=== PATIENT | male | born 1955 | race Caucasian/White ===

== ENCOUNTER → 2019-03-21 14:34 | Outpatient (CLI) | payer MEDICARE, SELFPAY ==
--- NOTE | 2019-03-21 14:46 | CT_ITS ---
STUDY: LOW DOSE CT LUNG CANCER SCREENING REASON FOR EXAM: Male, 63 years old. TOBACCO USE- RV=619, 48 YR SMOKER X 2 PPD, COPD RADIATION DOSAGE (If Supplied By Facility): CTDIvol = ( 3.40 ) mGy, DLP = ( 123.78 ) mGycm TECHNIQUE: No contrast was administered. Low dose technique was utilized (average mAS-38 and kVp 120). 1.25 mm axial source images with a slice interval of 1.25-mm were reconstructed in lung windows. 2.5 mm axial source images with a slice interval of 2.5-mm were reconstructed in lung windows. 5.0 mm axial source images with a slice interval of 5.0-mm were reconstructed in soft tissue windows. Nodule measured using lung windows on PACS and/or independent workstation with automated measurement of minimum and maximum diameter. Nodule measurement reported as average diameter rounded to the nearest whole number. Growth is defined as an increase ins size of greater than 1.5 mm. COMPARISON: None. There is hyperinflation of the lungs consistent with chronic obstructive lung disease (COPD), with asymmetry and slightly more prominent on the left compared to the right.. Mild interstitial thickening and scarring in extending to the pleural surfaces present in the medial apex of the right upper lobe. Mild emphysematous cystic changes are present in the bilateral upper lobes. Mild linear scarring in is present in the costophrenic angle of the right lower lobe. Nodules: A 1.52 cm stellate shaped nodular density is present in the medial aspect of the left upper lobe see image #[id number]. The nodule is not completely solid and is favored to represent postinflammatory scarring rather than a suspicious lesion, however, correlation with nuclear medicine PET scan is recommended for further assessment of the metabolic activity in this region. Otherwise no additional nodules seen in either lung. Normal heart size and pericardium. Normal mediastinum. Normal hilar regions. Normal unenhanced pulmonary arteries. There is atherosclerotic calcification of the aortic arch with tortuosity and elongation of the aortic arch and descending thoracic aorta. There are multi-level degenerative changes of the thoracic spine. Visualization of the upper abdominal region limited as no soft tissue windows were acquired. No significant abnormality is detected. CT/Low Dose CT Lung Screening IMPRESSION: 1. 1.52 cm semisolid stellate-shaped nodular density of the left upper lobe 2. COPD and mild emphysema. 3. Lung-RADS category 4B - Chest CT with or without contrast, PET/CT and/or tissue sampling can be obtained depending on the probability of malignancy and comorbidities. IMPORTANT NOTES FOR USE: ACR Lung-RADS Version 1.0 Assessment Categories Release Date: August 15, 2013 Category: Coded 0-4 bases on nodule(s) with highest degree of suspicion. Negative screen is defined as categories 1 and 2; a positive screen is defined as categories 3 and 4. Category 3 and 4A nodules that are unchanged on interval CT should be coded as category 2, and individuals returned to screening in 12 months. Category 4X: Category 3 or 4 nodules with additional imaging findings that increase the suspicion of lung cancer, such as spiculation, GGN that doubles in size in 1 year, enlarged lymph notes, etc. Category Modifiers: S (significant finding unrelated to lung cancer) and C (prior history of treated lung cancer) may be added to the 0-4 Lung-RADS Electronically Signed: Moe Tam MD at 14:01 EST , Service support ,
== END ==
PROVIDERS: Family Provider Internal Medicine; PCP Internal Medicine; Referring Provider Internal Medicine Pulmonary Disease; Visit Provider Internal Medicine Pulmonary Disease
DX: Z87.891 Personal history of nicotine dependence (principal); Z12.2 Encounter for screening for malignant neoplasm of respiratory organs
CPT/HCPCS: G0297

== ENCOUNTER → 2019-06-23 17:46 | Outpatient (CLI) | payer MEDICARE, SELFPAY ==
--- NOTE | 2019-06-23 17:50 | CT_ITS ---
STUDY: CT CHEST WITH CONTRAST REASON FOR EXAM: Male, 64 years old. F/U LUNG NODULE -- +HTN-RX CONTROLLED,COPD RADIATION DOSAGE (If Supplied By Facility): CTDIvol = ( 15.34 ) mGy, DLP = ( 671.45 ) mGycm TECHNIQUE: Transaxial imaging was performed following intravenous administration of IV 100mL Isovue-300. Individualized dose optimization techniques were used for this CT. COMPARISON: 03/21/2019 FINDINGS: Mild emphysematous changes. Interval increase in size of the spiculated nodule left upper lobe the lungs from 1.5 cm diameter 1.8 cm diameter worrisome for bronchogenic carcinoma. Correlation with PET CT scan is recommended. There is no demonstrated pleural abnormality. Normal heart and pericardium. Normal mediastinum. Normal hilar regions. Normal enhanced pulmonary arteries. Normal aorta arch and descending thoracic aorta. Normal osseous structures. There is no demonstrated abnormality of the visualized upper abdomen. CT/Chest WITH Contrast IMPRESSION: Enlarging spiculated left upper lobe nodule worrisome for bronchogenic carcinoma in correlation with PET CT scan is recommended. Electronically Signed: Jayson Browne MD at 12:14 EST Tel , Service support ,
[2019-06-23 18:00] LABS: CREATININE FINGERSTICK 0.9 mg/dL (0.70-1.30); EGFR FINGERSTICK > 60.0000 mL/min (>60)
== END ==
PROVIDERS: PCP Internal Medicine; Referring Provider Internal Medicine Pulmonary Disease; Visit Provider Internal Medicine Pulmonary Disease
DX: R91.1 Solitary pulmonary nodule (principal)
CPT/HCPCS: 71260; Q9967

== ENCOUNTER → 2019-08-22 07:11 | Outpatient (CLI) | payer MEDICARE, MEDICAID, SELFPAY ==
--- NOTE | 2019-08-22 06:33 | PET_ITS ---
EXAMINATION: FDG PET-CT INDICATIONS: A 64-year-old male with reported history of pulmonary nodularity. COMPARISON EXAMINATION: CT of the chest report dated 06/23/2019 INDEX LESION SIZE SUV INTERPRETATION Left upper medial lung-left upper lobe 20.1-mm (frame 243) 8.6 Fulfills quantitative criteria for viable neoplasm, histopathologic analysis recommended TECHNIQUE: Following the intravenous administration of 16.5 mCi of F-18 deoxyglucose via the left antecubital fossa, multiplanar image acquisitions of the neck, chest, abdomen and pelvis to level of mid thigh, obtained at one hour post radiopharmaceutical administration contemporaneously interpreted with the current CT of the neck, chest, abdomen and pelvis, to level of mid thigh, dated 08/22/[address] of the chest report dated 06/23/2019 reveals: BLOOD GLUCOSE LEVEL:?? 93 mg/dl?HEIGHT:?68 inches?WEIGHT: 232 lbs. FINDINGS: 1. Focal increased FDG concentration is observed in the left upper medial lung-left upper lobe generating a calculated maximal standard uptake value of 8.6. The maximal axial diameter of the corresponding parenchymal density on review of CT of the chest dated 08/22/2019 is 20.1-mm (AP). 2. Normal physiologic distribution of the radiopharmaceutical is apparent in the hepatic (2.8) and splenic parenchyma, both renal units, bladder and visualized intestinal tract. The visualized portion of the cerebral cortex demonstrate symmetric and preserved glucose metabolism. Diffuse radiopharmaceutical concentration is noted in all four quadrants of the abdomen and pelvis. Prominent uptake is defined in the ascending and descending thoracic aorta commensurate with activated leukocytes associated with atherosclerotic plaque formation. Pertinent CT findings are as follows: CHEST: There are no additional parenchymal densities-nodules defined in the right and left hemithorax demonstrating discernible increased FDG concentration. Scattered mediastinal and bilateral axillary soft tissue is ametabolic. ABDOMEN AND PELVIS: There is atherosclerotic calcification defined in the abdominal aorta without evidence of dilatation-aneurysm formation. Pelvic arterial calcification is observed. There is borderline fatty metamorphosis-steatosis defined in the hepatic parenchyma. Colonic diverticulosis is defined. Fat containing bilateral inguinal hernias are noted. Right and left inguinal soft tissue densities with fatty hilus are ametabolic. The prostate gland is prominent in size with dystrophic calcification without evidence of facilitated FDG uptake. SKELETAL: Degenerative changes are noted in the cervical, thoracic and lumbar spine. PET/PET/CT Tumor Base -Thigh Init IMPRESSION: 1. Increased radiopharmaceutical concentration observed in the left upper medial lung-left upper medial lung-left upper lobe fulfills quantitative criteria for viable neoplasm. Histopathologic analysis is recommended. (Sam et al, Annals of Internal Medicine, 138:724, 2003). 2. No other quantitatively significant hypermetabolic abnormalities are defined. Electronic Signature Jayson Alberto D.O. Electronically Signed: Jayson Alberto DO at 21:22 EDT Tel , Service support ,
== END ==
PROVIDERS: PCP Internal Medicine; Referring Provider Internal Medicine Pulmonary Disease; Visit Provider Internal Medicine Pulmonary Disease
DX: R91.8 Other nonspecific abnormal finding of lung field (principal)
CPT/HCPCS: 78815; A9552

== ENCOUNTER → 2020-07-18 16:01 | Outpatient (CLI) | payer MEDICARE, MEDICAID, SELFPAY ==
--- NOTE | 2020-07-18 16:15 | RAD_ITS ---
STUDY: X-RAY CHEST REASON FOR EXAM: Male, 65 years old. SOB TECHNIQUE: 2 views of the chest were obtained COMPARISON: None. FINDINGS: No consolidative process, pleural effusion or pneumothorax. Mild prominence of the pulmonary interstitium likely congestive changes. No acute osseous abnormalities. Cardiac size within normal limits. Degenerative changes in the thoracic spine. IMPRESSION: Mild pulmonary congestion Electronically Signed: Sahil Valdes MD at 16:31 EDT Tel , Service support , RAD/Chest PA and Lateral
== END ==
PROVIDERS: PCP Internal Medicine; Referring Provider Internal Medicine Pulmonary Disease; Visit Provider Internal Medicine Pulmonary Disease
DX: J44.9 Chronic obstructive pulmonary disease, unspecified (principal)
CPT/HCPCS: 71046; 87070; 87205

== ENCOUNTER → 2020-07-19 09:24 | Outpatient (CLI) | payer MEDICARE, MEDICAID, SELFPAY | PROVIDERS: PCP Internal Medicine; Referring Provider Internal Medicine Pulmonary Disease; Visit Provider Internal Medicine Pulmonary Disease | DX: Z00.00 Encounter for general adult medical examination without abnormal findings (principal) ==

== ENCOUNTER → 2023-08-24 | Outpatient (CLI) | payer MEDICAID, MEDICARE, SELFPAY ==
[2023-08-24 17:18] LABS: PSA,Total - Annual Screen 5.67 ng/mL (0.00-4.00)
== END | disposition home or self-care (01) ==
LOC: LAB 15:55
PROVIDERS: PCP Internal Medicine; Referring Provider Urology; Visit Provider Urology
DX: Z12.5 Encounter for screening for malignant neoplasm of prostate (principal)
CPT/HCPCS: 84153; 36415; G0103

== ENCOUNTER 2024-11-01 22:01 | Inpatient (IN) | payer MEDICARE, MEDICAID, SELFPAY ==
[2024-11-01] VITALS (7 sets, daily range): BP systolic 162–187; BP diastolic 97–109; PULSE 72–83; RESP 20–26; TEMP 36.8; O2SAT 70–96; BMI 33.3
--- NOTE | 2024-11-01 22:19 | CT_ITS ---
PROCEDURE: CTA CHEST W/WO CONTRAST 11/01/2024 REASON FOR EXAM: HEMOPTYSIS WITH HISTORY OF LUNG CANCER TECHNIQUE: CTA CHEST W/WO CONTRAST Multiplanar Sagittal and Coronal images were obtained. CONTRAST: Isovue 370 VOLUME: 87 mL One or more dose reduction techniques were used (e.g., Automated exposure control, adjustment of the mA and/or kV according to patient size, use of iterative reconstruction technique). RADIATION DOSE SUMMARY: CTDlvol: 46 mGy DLP: 549 mGycm COMPARISON: 06/23/2019 # FINDINGS: Unremarkable base of neck and axilla. Thoracic spine degeneration. Normal esophagus. Normal heart size. LVH. No aortic dissection. No pulmonary embolism. Thoracic spine degeneration. No acute chest wall findings. 2 mm right renal calcification. No acute upper abdominal findings. Central airways are patent. Bronchial wall thickening. Moderate emphysema. On the left, series 2, image 215, central upper lobe spiculated density, measuring about 2.4 x 3.1 cm, previously 1.1 x 1.8 cm, favoring postradiation scar/atelectasis, with traction bronchiectasis and architectural distortion. Tumor residual/recurrence felt to be much less likely. On the right, series 2 images 2 4/228, focal upper lobe airspace density, possibly infectious in etiology. Peripheral right middle lobe airspace disease favoring scar/atelectasis. CT/CTA Chest W/WO Contrast IMPRESSION: Left upper lobe lung density favoring postradiation scar/atelectasis. Small right upper lobe airspace disease possibly pneumonia. No embolism or dissection. Reading Location: [place] [id number]
--- OUTSIDE RECORDS SUMMARY | 2024-11-01 22:33 | XMS RPT_ITS | CCD ---
Author Organization [facility] Care Team Providers Care Core Cutter And Reamer Name Role Phone Sibilia V, Cesilia Unavailable OLEGARIO BERNAL, DR RAHEL Baltazar Admitting Unavailable OLEGARIO BERNAL, DR RAHEL Baltazar Attending Unavailable OSWALDO BERNAL, DR PENA Primary Care Unavailable Kemal Rose Attending Unavailable Kemal Rose Referring Unavailable Latnelly Butros Primary Care Unavailable Sibilia V, Cesilia Unavailable SIBILIA, CESILIA Referring Unavailable SIBILIA, CESILIA Referring Unavailable PERRYTICLEX Attending Unavailable VIDETICLEX Referring Unavailable VIDETICLEX Referring Unavailable VIDETICLEX Attending Unavailable VIDETICLEX Referring Unavailable VIDETICLEX Referring Unavailable BECKY CHACON MD Consulting Unavailable BECKY CHACON MD Primary Care Unavailable BECKY CHACON MD Attending Unavailable BECKY CHACON MD Admitting Unavailable PROVIDER, UNKNOWN Consulting Unavailable PROVIDER, UNKNOWN Consulting Unavailable PROVIDER, UNKNOWN Consulting Unavailable BECKY CHACON MD Consulting Unavailable MIGUEL MASTERSON MD Primary Care Unavailable BECKY CHACON MD Referring Unavailable MIGUEL MASTERSON MD Attending Unavailable MIGUEL MASTERSON MD Admitting Unavailable PROVIDER, UNKNOWN Consulting Unavailable PROVIDER, UNKNOWN Consulting Unavailable PROVIDER, UNKNOWN Consulting Unavailable RICHIE HALL MD Primary Care Unavailable RICHIE HALL MD Attending Unavailable RICHIE HALL MD Admitting Unavailable BECKY CHACON MD Consulting Unavailable BECKY CHACON MD Referring Unavailable PROVIDER, UNKNOWN Consulting Unavailable PROVIDER, UNKNOWN Consulting Unavailable PROVIDER, UNKNOWN Consulting Unavailable BECKY CHACON MD Consulting Unavailable BECKY CHACON MD Primary Care Unavailable BECKY CHACON MD Attending Unavailable BECKY CHACON MD Admitting Unavailable PROVIDER, UNKNOWN Consulting Unavailable PROVIDER, UNKNOWN Consulting Unavailable PROVIDER, UNKNOWN Consulting Unavailable BECKY CHACON MD Consulting Unavailable BECKY CHACON MD Primary Care Unavailable BECKY CHACON MD Attending Unavailable BECKY CHACON MD Admitting Unavailable PROVIDER, UNKNOWN Consulting Unavailable PROVIDER, UNKNOWN Consulting Unavailable PROVIDER, UNKNOWN Consulting Unavailable BECKY CHACON MD Consulting Unavailable BECKY CHACON MD Primary Care Unavailable BECKY CHACON MD Attending Unavailable BECKY CHACON MD Admitting Unavailable PROVIDER, UNKNOWN Consulting Unavailable PROVIDER, UNKNOWN Consulting Unavailable PROVIDER, UNKNOWN Consulting Unavailable Allergies Allergy Classification Reported Allergen(s) Allergy Type Date of Onset Reaction(s) Facility (15 sources) Morphine; Translations: [MORPHINE] Drug Allergy 09-13-2019 [facility] [place] Work Phone: (1 source) Morphine Drug Allergy [facility] Repository Medications Current Medications Medication Drug Class(es) Dates Sig (Normalized) Sig (Original) acetaminophen 325 mg oral capsule (14 sources) Start: 07-22-2019 take 1 capsule by mouth once Acetaminophen (Tylenol) 325 mg capsule Active 325 MG PO ONCE July 22, 2019 12:00am take 1 tablet by sophie th every eight hours as needed acetaminophen (TYLENOL) 500 mg tablet Ta ke 500 mg by mouth every 8 hours as needed. Active Comment on above: Take 500 mg by mouth every 8 hours as needed. aspirin 325 mg oral tablet (1 source) Platelet Aggregation Inhibitor, Nonsteroidal Anti-inflammatory Drug Start: take 325 mg by mouth once daily Aspirin Active 325 MG PO DAILY July 22, 2019 12:00am 120 actuat budesonide 0.16 mg/actuat / formoterol fumarate 0.0045 mg/actuat metered dose inhaler (1 source) Corticosteroid, beta2-Adrenergic Agonist Start: take 1 puff(s) by inhalation twice daily Budesonide-Formoterol (Symbicort) 160-4.5 mcg/actuation HFA aerosol inhaler Active 2 PUFF INHALATION TWICE A DAY July 22, 2019 12:00am 12 hr buPROPion hydrochloride 150 mg extended release oral tablet (13 sources) Aminoketone Start: take 1 tablet by mouth twice daily buPROPion SR (ZYBAN SR; WELLBUTRIN SR) 150 mg 12 hr tablet Take 150 mg by mouth twice daily. 12/22/2019 Active Comment on above: Take 150 mg by mouth twice daily. 24 hr dilTIAZem hydrochloride 120 mg extended release oral capsule (14 sources) Calcium Channel Kale Start: take 1 capsule by mouth once daily, then take 1 capsule by mouth every twenty-four hours CARTIA XT 120 mg 24 hr capsule Take 120 mg by mouth once daily. 02/08/2020 Active Comment on above: Take 120 mg by mouth once daily. fenofibrate 145 mg oral tablet (13 sources) Peroxisome Proliferator Receptor alpha Agonist Start: take 1 tablet by mouth once daily fenofibrate nanocrystallized (TRICOR) 145 mg tablet Take 145 mg by mouth once daily. 02/29/2020 Active Comment on above: Take 145 mg by mouth once daily. 30 actuat fluticasone furoate 0.1 mg/actuat / umeclidinium 0.0625 mg/actuat / vilanterol 0.025 mg/actuat dry powder inhaler (13 sources) Anticholinergic, Corticosteroid, beta2-Adrenergic Agonist take 1 puff(s) by inhalation once daily fluticasone-umeclidin- vilanter (TRELEGY ELLIPTA) 100-62.5-25 mcg Inhale 1 Puff as instructed once daily. Active Comment on above: Inhale 1 Puff as ins tructed once daily. metoprolol tartrate 50 mg oral tablet (13 sources) beta-Adrenergic Kale take 1 tablet by mouth once daily metoprolol tartrate, short acting, (LOPRESSOR) 50 mg tablet Take 50 mg by mouth once daily. Active Comment on above: Take 50 mg by mouth once daily. Mgfdw-1-HDC-EPA-Fish Oil 1,000 mg (120 mg-180 mg) cap (13 sources) take 1 capsule by mouth twice daily Glauz-4-GGH-EPA-Fish Oil 1,000 mg (120 mg-180 mg) cap Take 1 g by mouth twice daily. Active take 1 capsule by mouth twice da merry Uofxm-9-HCV-EPA-Fish Oil 1,000 mg (120 mg- 180 mg) cap Take 1 g by mouth twice daily. 0 Active Comment on above: Take 1 g by mouth tw ice daily. sertraline 100 mg oral tablet (14 sources) Serotonin Reuptake Inhibitor Start: 02-22-2020 take 1 tablet by mouth once daily sertraline (ZOLOFT) 100 mg tablet Take 100 mg by mouth once daily. 02/22/2020 Active Start: 07-22-2019 take 50 mg by mouth once daily Sertraline Active 50 MG PO DAILY July 22, 2019 12:00am Comment on above: Take 100 mg by mouth once daily. simvastatin 10 mg oral tablet (14 sources) HMG-CoA Reductase Inhibitor Start: 07-22-2019 take 10 mg by mouth once daily Simvastatin Active 10 MG PO DAILY July 22, 2019 12:00am Comment on above: Take 10 mg by mouth daily at bedtime. Problems Problem Classification Problem Date Documented Date Episodic/Chronic Cancer of bronchus; lung (20 sources) Malignant neoplasm of lower respiratory tract; Translations: [Malignant neoplasm of unspecified part of unspecified bronchus or lung] Onset: 09-18-2019 Chronic Chronic obstructive pulmonary disease and bronchiectasis (14 sources) Chronic obstructive lung disease; Translations: [Chronic obstructive pulmonary disease, unspecified] Onset: 09-18-2019 09-18-2019 Chronic Disorders of lipid metabolism (16 sources) Hyperlipidemia; Translations: [Hyperlipidemia, unspecified] Onset: 09-18-2019 09-18-2019 Chronic Esophageal disorders (13 sources) Gastroesophageal reflux disease; Translations: [Gastro-esophageal reflux disease without esophagitis] Onset: 09-18-2019 09-18-2019 Chronic Essential hypertension (17 sources) Hypertensive disorder; Translations: [Essential (primary) hypertension] Onset: 09-18-2019 09-18-2019 Chronic Osteoarthritis (13 sources) Arthritis; Translations: [Unspecified osteoarthritis, unspecified site] Onset: 09-18-2019 09-18-2019 Chronic Other screening for suspected conditions (not mental disorders or infectious disease) (2 sources) Encounter for screening for malignant neoplasm of prostate; Translations: [Elevated prostate specific antigen [PSA]] Onset: 08-31-2023 Episodic Residual codes; unclassified (13 sources) Obstructive sleep apnea syndrome; Translations: [Obstructive sleep apnea (adult) (pediatric)] Onset: 09-18-2019 09-18-2019 Chronic Thyroid disorders (4 sources) Hypothyroidism, unspecified; Translations: [Hypothyroidism, unspecified] Onset: 07-18-2024 Chronic Unclassified (1 source) Radiology NM Onset: 08-31-2023 Results Test Name Value Interpretation Reference Range Facility LIPID PROFILEon 07-18-2024 Cholesterol [Mass/Vol] 150 mg/dL Normal 0 - 240 [facility] Comment on above: Performed By: #### 2 01859 #### [facility],[address] [place] [address] 50674 Cholesterol in HDL [Mass/Vol] 38 mg/dL Low 40 - 60 [facility] Comment on above: Performed By: #### 2 58947 #### [facility],[address] [place] [address] 68258 Cholesterol in LDL [Mass/Vol] 75 mg/dL Normal 0 - 129 [facility] Comment on above: Performed By: #### 2 43206 #### [facility],[address] [place] [address] 08532 Cholesterol.total/Chol esterol in HDL [Mass ratio] 3.9 {ratio} Normal 0.0 - 5.0 [facility] Comment on above: Performed By: #### 2 46720 #### [facility],[address] [place] [address] 29403 Lipid 1996 panel Normal [facility] Comment on above: Result Comment: LIPI D PROFILE Performed By: #### 2 84136 #### [facility],[address] [place] [address] 05437 Triglyceride [Mass/Vol] 183 mg/dL High 0 - 150 [facility] Comment on above: Performed By: #### 2 49659 #### [facility],[address] [place] [address] 22218 T4 Free SerPl-mCncon 025 Free T4 [Mass/Vol] 1.2 ng/dL Normal 0.9-1.7 [facility] Comment on above: Order Comment: Speci men Type: BLOOD SPECIMEN Ordering Facility: [facility] Address: [address] [place] [address] Performed By: #### 3 024-7 #### [facility] CLIA [id number] [address] [place] [address] OF [facility] T4, FREE [CCL]on 07-18-2024 Free T4 [Mass/Vol] 1.2 ng/dL Normal 0.9-1.7 [facility] Comment on above: Result Comment: [facility] [address] [place] [id number] Ryan Mueller III, M.D. [id number] Performed By: #### 2 37299 #### [facility],[address] [place] [address] 54609 TSHon 07-18-2024 TSH Qn 2.47 m[IU]/L Normal 0.35 - 3.74 [facility] Comment on above: Performed By: #### 2 97462 #### [facility],[address] [place] [address] 58938 BMP with eGFRon 06-13-2024 AGE 69 years Normal [facility] Comment on above: Performed By: #### 2 73610 #### [facility],[address] [place] [address] 76449 Anion gap [Moles/Vol] 7 mmol/L Low 10 - 20 [facility] Comment on above: Performed By: #### 2 73872 #### [facility],[address] [place] [address] 60284 BMP with eGFR Normal [facility] Comment on above: Result Comment: BASI C METABOLIC PANEL Performed By: #### 2 87530 #### [facility],[address] [place] [address] 00029 Calcium [Mass/Vol] 8.1 mg/dL Low 8.5 - 10.1 [facility] Comment on above: Performed By: #### 2 91077 #### [facility],[address] [place] [address] 45694 Chloride [Moles/Vol] 101 mmol/L Normal 98 - 107 [facility] Comment on above: Performed By: #### 2 37603 #### [facility],[address] [place], [place] [address] CO2 [Moles/Vol] 35.7 mmol/L High 21.0 - 32.0 [facility] Comment on above: Performed By: #### 2 68665 #### [facility],[address] [place] [address] Creatinine [Mass/Vol] 0.69 mg/dL Low 0.70 - 1.30 [facility] Comment on above: Performed By: #### 2 73327 #### [facility],[address] [place] [address] GFR/1.73 sq M.predicted among non-blacks MDRD (S/P/Bld) [Vol rate/Area] mL/min/{1.73_m2} Normal 60 - 999 [facility] Comment on above: Performed By: #### 2 53739 #### [facility],[address] [place] [address] Result Comment: ACCO RDING TO THE NATIONAL KIDNEY DISEASE EDUCATION PROGRAM(NKDE), A NORMAL eGFR IS A VALUE GREATER THAN OR EQUAL TO 60 ML/MIN/1.73 SQ METERS. CHRONIC KIDNEY DISEASE: <60mL/MIN/1.73 SQ METERS KIDNEY FAILURE: <15mL/MIN/1.73 SQ METERS THIS TEST SHOULD ONLY BE USED FOR PATIENTS 18 YEARS OF AGE AND OLDER. Glucose [Mass/Vol] 148 mg/dL High 74 - 106 [facility] Comment on above: Performed By: #### 2 71022 #### [facility],[address] [place], [place] [address] Potassium [Moles/Vol] 4.1 mmol/L Normal 3.5 - 5.1 [facility] Comment on above: Performed By: #### 2 37252 #### [facility],[address] [place], [place] [address] Sodium [Moles/Vol] 140 mmol/L Normal 136 - 145 [facility] Comment on above: Performed By: #### 2 09657 #### [facility],[address] [place] [address] 03536 Urea nitrogen [Mass/Vol] 18 mg/dL Normal 7 - 18 [facility] Comment on above: Performed By: #### 2 46895 #### [facility],[address] [place] [address] 58548 CBC + DIFFon 06-13-2024 Baso # 0.02 x10EE3/UL Normal 0.00 - 0.10 [facility] Comment on above: Performed By: #### 2 39657 #### [facility],[address] [place] [address] 50429 Basophils/100 WBC (Bld) 0.2 % Normal 0.0 - 2.0 [facility] Comment on above: Performed By: #### 2 27255 #### [facility],[address] [place] [address] 96340 CBC + DIFF Normal [facility] Comment on above: Result Comment: CBC- COMPLETE BLOOD COUNT Performed By: #### 2 20718 #### [facility],[address] [place] [address] 11124 EO # 0.02 x10EE3/UL Normal 0.00 - 0.50 [facility] Comment on above: Performed By: #### 2 00195 #### [facility],[address] [place] [address] 86458 Eosinophils/100 WBC (Bld) 0.2 % Normal 0.0 - 7.0 [facility] Comment on above: Performed By: #### 2 07792 #### [facility],[address] [place] [address] 18079 Erythrocyte distribution width (RBC) [Ratio] 14.2 % Normal 12.0 - 15.6 [facility] Comment on above: Performed By: #### 2 38497 #### [facility],[address] [place] [address] 03862 Hematocrit (Bld) [Volume fraction] 47.3 % Normal 40.0 - 52.0 [facility] Comment on above: Performed By: #### 2 94910 #### [facility],[address] [place] [address] Hemoglobin (Bld) [Mass/Vol] 15.8 g/dL Normal 13.0 - 17.5 [facility] Comment on above: Performed By: #### 2 87082 #### [facility],[address] [place] [address] Lymph # 1.04 x10EE3/UL Normal 0.80 - 2.80 [facility] Comment on above: Performed By: #### 2 99266 #### [place] [address] Lymphocytes/100 WBC (Bld) 12.4 % Low 20.0 - 45.0 [facility] Comment on above: Performed By: #### 2 79586 #### [facility],[address] [place], [place] [address] MANUAL DIFF N/A Normal [facility] Comment on above: Performed By: #### 2 24961 #### [place] [id number] MCH (RBC) [Entitic mass] 31 pg Normal 27 - 33 [facility] Comment on above: Performed By: #### 2 51126 #### [facility],[address] [place], [place] [address] MCHC 33 X10 3 Normal 32 - 36 [facility] Comment on above: Performed By: #### 2 57983 #### [facility],[address] [place], [place] [address] MCV (RBC) [Entitic vol] 92 fL Normal 81 - 98 [facility] Comment on above: Performed By: #### 2 68672 #### [facility],[address] [place], [place] [address] [place] # 0.20 x10EE3/UL Normal 0.20 - 1.00 [facility] Comment on above: Performed By: #### 2 77276 #### [place] [address] MONOS % 2.4 % Normal 0.0 - 10.0 [facility] Comment on above: Performed By: #### 2 29784 #### [facility],[address] [place] [address] Morphology Wong (Bld) [Interp] N/A Normal [facility] Comment on above: Performed By: #### 2 66883 #### [place] [address] Neut # 7.12 x10EE3/UL High 1.50 - 7.10 [facility] Comment on above: Performed By: #### 2 94487 #### [place] [address] Neutrophils/100 WBC (Bld) 84.8 % High 46.0 - 76.0 [facility] Comment on above: Performed By: #### 2 63538 #### [place] [address] PLATELET 174 x10EE3/UL Normal 150 - 450 [facility] Comment on above: Performed By: #### 2 89063 #### [place] [address] Platelet mean volume (Bld) [Entitic vol] 8.5 fL Normal 6.4 - 10.5 [facility] Comment on above: Result Comment: AUTO MATED DIFFERENTIAL Performed By: #### 2 60977 #### [place] [address] RBC 5.17 x 10EE6/UL Normal 4.50 - 6.00 [facility] Comment on above: Performed By: #### 2 53170 #### [address] [address] WBC 8.4 x 10EE3/UL Normal 4.5 - 10.8 [facility] Comment on above: Performed By: #### 2 54310 #### [facility],[address] [place] [address] 96127 BMP with eGFRon 06-12-2024 AGE 69 years Normal [facility] Comment on above: Performed By: #### 2 03098 #### [facility],[address] [place] [address] 19575 Anion gap [Moles/Vol] 5 mmol/L Low 10 - 20 [facility] Comment on above: Performed By: #### 2 05649 #### [facility],[address] [place], [place] [address] BMP with eGFR Normal [facility] Comment on above: Result Comment: BASI C METABOLIC PANEL Performed By: #### 2 05407 #### [facility],[address] [place] [address] 37161 Calcium [Mass/Vol] 8.8 mg/dL Normal 8.5 - 10.1 [facility] Comment on above: Performed By: #### 2 86377 #### [facility],[address] [place] [address] 29820 Chloride [Moles/Vol] 105 mmol/L Normal 98 - 107 [facility] Comment on above: Performed By: #### 2 60205 #### [facility],[address] [place] [address] 01433 CO2 [Moles/Vol] 36.6 mmol/L High 21.0 - 32.0 [facility] Comment on above: Performed By: #### 2 95549 #### [facility],[address] [place] [address] 29733 Creatinine [Mass/Vol] 0.69 mg/dL Low 0.70 - 1.30 [facility] Comment on above: Result Comment: RENATO ELENA REPEATED Performed By: #### 2 01047 #### [facility],[address] [place] [address] 54396 GFR/1.73 sq M.predicted among non-blacks MDRD (S/P/Bld) [Vol rate/Area] mL/min/{1.73_m2} Normal 60 - 999 [facility] Comment on above: Performed By: #### 2 40392 #### [facility],[address] [place] [address] Result Comment: ACCO RDING TO THE NATIONAL KIDNEY DISEASE EDUCATION PROGRAM(NKDE), A NORMAL eGFR IS A VALUE GREATER THAN OR EQUAL TO 60 ML/MIN/1.73 SQ METERS. CHRONIC KIDNEY DISEASE: <60mL/MIN/1.73 SQ METERS KIDNEY FAILURE: <15mL/MIN/1.73 SQ METERS THIS TEST SHOULD ONLY BE USED FOR PATIENTS 18 YEARS OF AGE AND OLDER. Glucose [Mass/Vol] 143 mg/dL High 74 - 106 [facility] Comment on above: Performed By: #### 2 71515 #### [facility],[address] [place] [address] 36839 Potassium [Moles/Vol] 4.2 mmol/L Normal 3.5 - 5.1 [facility] Comment on above: Performed By: #### 2 12651 #### [facility],[address] [place] [address] 20688 Sodium [Moles/Vol] 142 mmol/L Normal 136 - 145 [facility] Comment on above: Performed By: #### 2 20999 #### [facility],[address] [place] [address] 03002 Urea nitrogen [Mass/Vol] 18 mg/dL Normal 7 - 18 [facility] Comment on above: Performed By: #### 2 38590 #### [facility],[address] [place] [address] 21130 CBC + DIFFon 06-12-2024 Baso # 0.02 x10EE3/UL Normal 0.00 - 0.10 [facility] Comment on above: Performed By: #### 2 00985 #### [facility],[address] [place] [address] 12437 Basophils/100 WBC (Bld) 0.2 % Normal 0.0 - 2.0 [facility] Comment on above: Performed By: #### 2 70077 #### [facility],[address] [place] [address] CBC + DIFF Normal [facility] Comment on above: Result Comment: CBC- COMPLETE BLOOD COUNT Performed By: #### 2 26974 #### [facility],[address] [place] [address] EO # 0.04 x10EE3/UL Normal 0.00 - 0.50 [facility] Comment on above: Performed By: #### 2 55788 #### [facility],[address] [place] [address] 28662 Eosinophils/100 WBC (Bld) 0.3 % Normal 0.0 - 7.0 [facility] Comment on above: Performed By: #### 2 31477 #### [facility],[address] [place] [address] Erythrocyte distribution width (RBC) [Ratio] 14.4 % Normal 12.0 - 15.6 [facility] Comment on above: Performed By: #### 2 46935 #### [facility],[address] [place], [place] [address] Hematocrit (Bld) [Volume fraction] 43.1 % Normal 40.0 - 52.0 [facility] Comment on above: Performed By: #### 2 49515 #### [facility],[address] [place] [address] 11414 Hemoglobin (Bld) [Mass/Vol] 14.3 g/dL Normal 13.0 - 17.5 [facility] Comment on above: Performed By: #### 2 20042 #### [facility],[address] [place], [place] [address] Lymph # 1.25 x10EE3/UL Normal 0.80 - 2.80 [facility] Comment on above: Performed By: #### 2 57188 #### [facility],[address] [place] [address] 90199 Lymphocytes/100 WBC (Bld) 10.6 % Low 20.0 - 45.0 [facility] Comment on above: Performed By: #### 2 51077 #### [facility],[address] [place] [address] 61647 MANUAL DIFF N/A Normal [facility] Comment on above: Performed By: #### 2 28706 #### [facility],[address] [place] [address] 98245 MCH (RBC) [Entitic mass] 31 pg Normal 27 - 33 [facility] Comment on above: Performed By: #### 2 30162 #### [facility],[address] [place] [address] 38354 MCHC 33 X10 3 Normal 32 - 36 [facility] Comment on above: Performed By: #### 2 05411 #### [facility],[address] [place] [address] 22955 MCV (RBC) [Entitic vol] 92 fL Normal 81 - 98 [facility] Comment on above: Performed By: #### 2 19678 #### [facility],[address] [place] [address] 06792 [place] # 0.24 x10EE3/UL Normal 0.20 - 1.00 [facility] Comment on above: Performed By: #### 2 40747 #### [facility],[address] [place] [address] 23630 MONOS % 2.0 % Normal 0.0 - 10.0 [facility] Comment on above: Performed By: #### 2 87907 #### [facility],[address] [place] [address] 93945 Morphology Wong (Bld) [Interp] N/A Normal [facility] Comment on above: Performed By: #### 2 42380 #### [facility],[address] [place] [address] 56283 Neut # 10.26 x10EE3/UL High 1.50 - 7.10 [facility] Comment on above: Performed By: #### 2 95108 #### [facility],[address] [place] [address] 86061 Neutrophils/100 WBC (Bld) 86.9 % High 46.0 - 76.0 [facility] Comment on above: Performed By: #### 2 76925 #### [facility],[address] [place] [address] 70254 PLATELET 167 x10EE3/UL Normal 150 - 450 [facility] Comment on above: Performed By: #### 2 29476 #### [facility],[address] [place] [address] 32605 Platelet mean volume (Bld) [Entitic vol] 8.8 fL Normal 6.4 - 10.5 [facility] Comment on above: Result Comment: AUTO MATED DIFFERENTIAL Performed By: #### 2 28028 #### [facility],[address] [place] [address] 16041 RBC 4.68 x 10EE6/UL Normal 4.50 - 6.00 [facility] Comment on above: Performed By: #### 2 16084 #### [facility],[address] [place] [address] 26715 WBC 11.8 x 10EE3/UL High 4.5 - 10.8 [facility] Comment on above: Performed By: #### 2 06112 #### [facility],[address] [place] [address] 25994 BMP with eGFRon 06-11-2024 AGE 69 years Normal [facility] Comment on above: Performed By: #### 2 45498 #### [facility],[address] [place] [address] 26166 Anion gap [Moles/Vol] 9 mmol/L Low 10 - 20 [facility] Comment on above: Performed By: #### 2 62677 #### [facility],[address] [place] [address] 15474 BMP with eGFR Normal [facility] Comment on above: Result Comment: BASI C METABOLIC PANEL Performed By: #### 2 59353 #### [facility],[address] [place] [address] 48917 Calcium [Mass/Vol] 8.9 mg/dL Normal 8.5 - 10.1 [facility] Comment on above: Performed By: #### 2 48298 #### [facility],[address] [place] [address] 62234 Chloride [Moles/Vol] 107 mmol/L Normal 98 - 107 [facility] Comment on above: Performed By: #### 2 20385 #### [facility],[address] [place] [address] 32584 CO2 [Moles/Vol] 31.7 mmol/L Normal 21.0 - 32.0 [facility] Comment on above: Performed By: #### 2 16713 #### [facility],[address] [place] [address] 19880 Creatinine [Mass/Vol] 0.61 mg/dL Low 0.70 - 1.30 [facility] Comment on above: Performed By: #### 2 14755 #### [facility],[address] [place] [address] 62168 GFR/1.73 sq M.predicted among non-blacks MDRD (S/P/Bld) [Vol rate/Area] mL/min/{1.73_m2} Normal 60 - 999 [facility] Comment on above: Performed By: #### 2 42209 #### [facility],[address] [place] [address] 28945 Result Comment: ACCO RDING TO THE NATIONAL KIDNEY DISEASE EDUCATION PROGRAM(NKDE), A NORMAL eGFR IS A VALUE GREATER THAN OR EQUAL TO 60 ML/MIN/1.73 SQ METERS. CHRONIC KIDNEY DISEASE: <60mL/MIN/1.73 SQ METERS KIDNEY FAILURE: <15mL/MIN/1.73 SQ METERS THIS TEST SHOULD ONLY BE USED FOR PATIENTS 18 YEARS OF AGE AND OLDER. Glucose [Mass/Vol] 139 mg/dL High 74 - 106 [facility] Comment on above: Performed By: #### 2 70691 #### [facility],[address] [place], [place] [address] Potassium [Moles/Vol] 4.2 mmol/L Normal 3.5 - 5.1 [facility] Comment on above: Performed By: #### 2 04682 #### [place] [address] Sodium [Moles/Vol] 143 mmol/L Normal 136 - 145 [facility] Comment on above: Performed By: #### 2 20169 #### [place] [address] Urea nitrogen [Mass/Vol] 22 mg/dL High 7 - 18 [facility] Comment on above: Performed By: #### 2 44573 #### [facility],[address] [place] [address] 42391 CBC + DIFFon 06-11-2024 Baso # 0.02 x10EE3/UL Normal 0.00 - 0.10 [facility] Comment on above: Performed By: #### 2 40052 #### [address] [address] Basophils/100 WBC (Bld) 0.2 % Normal 0.0 - 2.0 [facility] Comment on above: Performed By: #### 2 95589 #### [address] [address] CBC + DIFF Normal [facility] Comment on above: Result Comment: CBC- COMPLETE BLOOD COUNT Performed By: #### 2 03496 #### [place] [id number] EO # 0.05 x10EE3/UL Normal 0.00 - 0.50 [facility] Comment on above: Performed By: #### 2 99126 #### [facility],[address] [place] [address] 88024 Eosinophils/100 WBC (Bld) 0.3 % Normal 0.0 - 7.0 [facility] Comment on above: Performed By: #### 2 08716 #### [facility],[address] [place] [address] 20360 Erythrocyte distribution width (RBC) [Ratio] 14.1 % Normal 12.0 - 15.6 [facility] Comment on above: Performed By: #### 2 74678 #### [facility],[address] [place] [address] 43183 Hematocrit (Bld) [Volume fraction] 43.2 % Normal 40.0 - 52.0 [facility] Comment on above: Performed By: #### 2 11789 #### [facility],[address] [place] [address] Hemoglobin (Bld) [Mass/Vol] 14.1 g/dL Normal 13.0 - 17.5 [facility] Comment on above: Performed By: #### 2 09710 #### [facility],[address] [place] [address] 32139 Lymph # 1.24 x10EE3/UL Normal 0.80 - 2.80 [facility] Comment on above: Performed By: #### 2 36885 #### [facility],[address] [place] [address] 14125 Lymphocytes/100 WBC (Bld) 8.5 % Low 20.0 - 45.0 [facility] Comment on above: Performed By: #### 2 90601 #### [facility],[address] [place] [address] 38504 MANUAL DIFF N/A Normal [facility] Comment on above: Performed By: #### 2 09938 #### [facility],[address] [place] [address] 47079 MCH (RBC) [Entitic mass] 30 pg Normal 27 - 33 [facility] Comment on above: Performed By: #### 2 30452 #### [facility],[address] [place] [address] MCHC 33 X10 3 Normal 32 - 36 [facility] Comment on above: Performed By: #### 2 06189 #### [facility],[address] [place] [address] 46116 MCV (RBC) [Entitic vol] 93 fL Normal 81 - 98 [facility] Comment on above: Performed By: #### 2 66138 #### [facility],[address] [place] [address] Jackson # 0.37 x10EE3/UL Normal 0.20 - 1.00 [facility] Comment on above: Performed By: #### 2 96028 #### [facility],[address] [place] [address] 10983 MONOS % 2.6 % Normal 0.0 - 10.0 [facility] Comment on above: Performed By: #### 2 25616 #### [facility],[address] [place] [address] 39264 Morphology Wong (Bld) [Interp] N/A Normal [facility] Comment on above: Performed By: #### 2 32783 #### [facility],[address] [place] [address] Neut # 12.81 x10EE3/UL High 1.50 - 7.10 [facility] Comment on above: Performed By: #### 2 75451 #### [facility],[address] [place] [address] 19192 Neutrophils/100 WBC (Bld) 88.4 % High 46.0 - 76.0 [facility] Comment on above: Performed By: #### 2 91154 #### [facility],[address] [place] [address] 79015 PLATELET 178 x10EE3/UL Normal 150 - 450 [facility] Comment on above: Performed By: #### 2 01128 #### [facility],[address] [place] [address] 80379 Platelet mean volume (Bld) [Entitic vol] 8.7 fL Normal 6.4 - 10.5 [facility] Comment on above: Result Comment: AUTO MATED DIFFERENTIAL Performed By: #### 2 73461 #### [facility],[address] [place] [address] 93593 RBC 4.65 x 10EE6/UL Normal 4.50 - 6.00 [facility] Comment on above: Performed By: #### 2 59970 #### [facility],[address] [place] [address] 59641 WBC 14.5 x 10EE3/UL High 4.5 - 10.8 [facility] Comment on above: Performed By: #### 2 46862 #### [facility],[address] [place] [address] 01169 BMP with eGFRon 06-10-2024 AGE 69 years Normal [facility] Comment on above: Performed By: #### 2 09531 #### [facility],[address] [place] [address] 01251 Anion gap [Moles/Vol] 10 mmol/L Normal 10 - 20 [facility] Comment on above: Performed By: #### 2 38373 #### [facility],[address] [place] [address] 72827 BMP with eGFR Normal [facility] Comment on above: Result Comment: BASI C METABOLIC PANEL Performed By: #### 2 70610 #### [facility],[address] [place] [address] 74208 Calcium [Mass/Vol] 9.1 mg/dL Normal 8.5 - 10.1 [facility] Comment on above: Performed By: #### 2 45029 #### [facility],[address] [place] [address] 50656 Chloride [Moles/Vol] 106 mmol/L Normal 98 - 107 [facility] Comment on above: Performed By: #### 2 98246 #### [facility],[address] [place] [address] 15530 CO2 [Moles/Vol] 31.0 mmol/L Normal 21.0 - 32.0 [facility] Comment on above: Performed By: #### 2 13046 #### [facility],[address] [place], [place] [address] Creatinine [Mass/Vol] 0.60 mg/dL Low 0.70 - 1.30 [facility] Comment on above: Performed By: #### 2 46117 #### [facility],[address] [place], [place] [address] GFR/1.73 sq M.predicted among non-blacks MDRD (S/P/Bld) [Vol rate/Area] mL/min/{1.73_m2} Normal 60 - 999 [facility] Comment on above: Performed By: #### 2 89027 #### [facility],[address] [place] [address] 70040 Result Comment: ACCO RDING TO THE NATIONAL KIDNEY DISEASE EDUCATION PROGRAM(NKDE), A NORMAL eGFR IS A VALUE GREATER THAN OR EQUAL TO 60 ML/MIN/1.73 SQ METERS. CHRONIC KIDNEY DISEASE: <60mL/MIN/1.73 SQ METERS KIDNEY FAILURE: <15mL/MIN/1.73 SQ METERS THIS TEST SHOULD ONLY BE USED FOR PATIENTS 18 YEARS OF AGE AND OLDER. Glucose [Mass/Vol] 143 mg/dL High 74 - 106 [facility] Comment on above: Performed By: #### 2 70221 #### [facility],[address] [place] [address] 43653 Potassium [Moles/Vol] 4.5 mmol/L Normal 3.5 - 5.1 [facility] Comment on above: Performed By: #### 2 06981 #### [facility],[address] [place] [address] 16498 Sodium [Moles/Vol] 142 mmol/L Normal 136 - 145 [facility] Comment on above: Performed By: #### 2 81072 #### [facility],[address] [place] [address] 07388 Urea nitrogen [Mass/Vol] 15 mg/dL Normal 7 - 18 [facility] Comment on above: Performed By: #### 2 38245 #### [facility],[address] [place] [address] 73436 CBC + DIFFon 06-10-2024 Baso # 0.01 x10EE3/UL Normal 0.00 - 0.10 [facility] Comment on above: Performed By: #### 2 46718 #### [facility],[address] [place] [address] 10311 Basophils/100 WBC (Bld) 0.1 % Normal 0.0 - 2.0 [facility] Comment on above: Performed By: #### 2 93468 #### [facility],[address] [place] [address] 96561 CBC + DIFF Normal [facility] Comment on above: Result Comment: CBC- COMPLETE BLOOD COUNT Performed By: #### 2 45633 #### [facility],[address] [place] [address] 38669 EO # 0.02 x10EE3/UL Normal 0.00 - 0.50 [facility] Comment on above: Performed By: #### 2 62570 #### [facility],[address] [place] [address] 85901 Eosinophils/100 WBC (Bld) 0.3 % Normal 0.0 - 7.0 [facility] Comment on above: Performed By: #### 2 73348 #### [facility],[address] [place] [address] 97629 Erythrocyte distribution width (RBC) [Ratio] 14.5 % Normal 12.0 - 15.6 [facility] Comment on above: Performed By: #### 2 60441 #### [place] [address] Hematocrit (Bld) [Volume fraction] 46.7 % Normal 40.0 - 52.0 [facility] Comment on above: Performed By: #### 2 80365 #### [facility],[address] [place] [address] Hemoglobin (Bld) [Mass/Vol] 15.1 g/dL Normal 13.0 - 17.5 [facility] Comment on above: Performed By: #### 2 92577 #### [facility],[address] [place] [address] Lymph # 1.25 x10EE3/UL Normal 0.80 - 2.80 [facility] Comment on above: Performed By: #### 2 46919 #### [facility],[address] [place] [address] Lymphocytes/100 WBC (Bld) 16.3 % Low 20.0 - 45.0 [facility] Comment on above: Performed By: #### 2 16361 #### [facility],[address] [place] [address] MANUAL DIFF N/A Normal [facility] Comment on above: Performed By: #### 2 67891 #### [facility],[address] [place] [address] MCH (RBC) [Entitic mass] 30 pg Normal 27 - 33 [facility] Comment on above: Performed By: #### 2 09906 #### [place] [address] MCHC 32 X10 3 Normal 32 - 36 [facility] Comment on above: Performed By: #### 2 98490 #### [place] [address] MCV (RBC) [Entitic vol] 93 fL Normal 81 - 98 [facility] Comment on above: Performed By: #### 2 46157 #### [facility],[address] [place] [address] [place] # 0.19 x10EE3/UL Low 0.20 - 1.00 [facility] Comment on above: Performed By: #### 2 94959 #### [facility],[address] [place] [address] MONOS % 2.5 % Normal 0.0 - 10.0 [facility] Comment on above: Performed By: #### 2 46135 #### [place] [address] Morphology Wong (Bld) [Interp] N/A Normal [facility] Comment on above: Performed By: #### 2 05445 #### [facility],[address] [place] [address] Neut # 6.21 x10EE3/UL Normal 1.50 - 7.10 [facility] Comment on above: Performed By: #### 2 76133 #### [place] [address] Neutrophils/100 WBC (Bld) 80.8 % High 46.0 - 76.0 [facility] Comment on above: Performed By: #### 2 05063 #### [place] [address] PLATELET 133 x10EE3/UL Low 150 - 450 [facility] Comment on above: Performed By: #### 2 16963 #### [place] [address] Platelet mean volume (Bld) [Entitic vol] 8.5 fL Normal 6.4 - 10.5 [facility] Comment on above: Result Comment: AUTO MATED DIFFERENTIAL Performed By: #### 2 94497 #### [address] [address] RBC 5.03 x 10EE6/UL Normal 4.50 - 6.00 [facility] Comment on above: Performed By: #### 2 05031 #### [facility],[address] [place] [address] 06891 WBC 7.7 x 10EE3/UL Normal 4.5 - 10.8 [facility] Comment on above: Performed By: #### 2 41343 #### [facility],[address] [place] [address] CBC + DIFFon 06-09-2024 Baso # 0.02 x10EE3/UL Normal 0.00 - 0.10 [facility] Comment on above: Performed By: #### 2 28262 #### [facility],[address] [place] [address] 19915 Basophils/100 WBC (Bld) 0.2 % Normal 0.0 - 2.0 [facility] Comment on above: Performed By: #### 2 34354 #### [facility],[address] [place] [address] CBC + DIFF Normal [facility] Comment on above: Result Comment: CBC- COMPLETE BLOOD COUNT Performed By: #### 2 28736 #### [facility],[address] [place] [address] 00037 EO # 0.16 x10EE3/UL Normal 0.00 - 0.50 [facility] Comment on above: Performed By: #### 2 24672 #### [facility],[address] [place] [address] 95474 Eosinophils/100 WBC (Bld) 2.0 % Normal 0.0 - 7.0 [facility] Comment on above: Performed By: #### 2 69696 #### [facility],[address] [place] [address] 48714 Erythrocyte distribution width (RBC) [Ratio] 14.0 % Normal 12.0 - 15.6 [facility] Comment on above: Performed By: #### 2 20111 #### [facility],[address] [place], [place] [address] Hematocrit (Bld) [Volume fraction] 43.6 % Normal 40.0 - 52.0 [facility] Comment on above: Performed By: #### 2 00067 #### [facility],[address] [place] [address] Hemoglobin (Bld) [Mass/Vol] 14.4 g/dL Normal 13.0 - 17.5 [facility] Comment on above: Performed By: #### 2 40299 #### [facility],[address] [place] [address] Lymph # 1.69 x10EE3/UL Normal 0.80 - 2.80 [facility] Comment on above: Performed By: #### 2 24213 #### [facility],[address] [place] [address] Lymphocytes/100 WBC (Bld) 20.9 % Normal 20.0 - 45.0 [facility] Comment on above: Performed By: #### 2 54999 #### [facility],[address] [place], [place] [address] MANUAL DIFF N/A Normal [facility] Comment on above: Performed By: #### 2 90632 #### [facility],[address] [place], [place] [address] MCH (RBC) [Entitic mass] 31 pg Normal 27 - 33 [facility] Comment on above: Performed By: #### 2 53620 #### [facility],[address] [place], [place] [address] MCHC 33 X10 3 Normal 32 - 36 [facility] Comment on above: Performed By: #### 2 88773 #### [facility],[address] [place], [place] [address] MCV (RBC) [Entitic vol] 93 fL Normal 81 - 98 [facility] Comment on above: Performed By: #### 2 49953 #### [facility],[address] [place] [address] 84924 [place] # 0.57 x10EE3/UL Normal 0.20 - 1.00 [facility] Comment on above: Performed By: #### 2 05079 #### [facility],[address] [place] [address] 32558 MONOS % 7.0 % Normal 0.0 - 10.0 [facility] Comment on above: Performed By: #### 2 06993 #### [facility],[address] [place] [address] 17199 Morphology Wong (Bld) [Interp] N/A Normal [facility] Comment on above: Performed By: #### 2 45048 #### [facility],[address] [place] [address] 20408 Neut # 5.68 x10EE3/UL Normal 1.50 - 7.10 [facility] Comment on above: Performed By: #### 2 74005 #### [facility],[address] [place] [address] 63114 Neutrophils/100 WBC (Bld) 70.0 % Normal 46.0 - 76.0 [facility] Comment on above: Performed By: #### 2 91483 #### [facility],[address] [place] [address] 77048 PLATELET 131 x10EE3/UL Low 150 - 450 [facility] Comment on above: Performed By: #### 2 93207 #### [facility],[address] [place] [address] 68261 Platelet mean volume (Bld) [Entitic vol] 8.7 fL Normal 6.4 - 10.5 [facility] Comment on above: Result Comment: AUTO MATED DIFFERENTIAL Performed By: #### 2 32389 #### [facility],[address] [place] [address] 66277 RBC 4.71 x 10EE6/UL Normal 4.50 - 6.00 [facility] Comment on above: Performed By: #### 2 20879 #### [facility],[address] [place] [address] 14777 WBC 8.1 x 10EE3/UL Normal 4.5 - 10.8 [facility] Comment on above: Performed By: #### 2 48925 #### [facility],[address] [place] [address] 23873 CHEST 1 VIEWon 06-09-2024 CHEST [address] [address] Patient: SCOT BURGESS Phone#: : [phone] Age: 69 Gender: M Pt. Type: ER Account: [id number] Location: [facility] Ordering: TONY PEREZ Exam Date: 06/09/2024/7:36 Family Phys: BECKY CHACON Charge Code: 470612 Physician: [place] Order #: [id number] Dose#: PROCEDURE: X-RAY CHEST 1 VIEW COMPARISON: [facility], CT, CHEST PE W CON, 08/23/2023, 5:28. [facility], CT, CHEST PE W CON, 07/05/2022, 0:37. [facility], XR, CHEST 1 VIEW, 07/04/2022, 22:41. INDICATIONS: Shortness of breath. FINDINGS: LUNGS: Subtly increased opacities at the lung bases concerning for infiltrates. Left suprahilar spiculated opacity measuring approximately 3.1 x 3.2 cm, this corresponds to the spiculated mass seen on comparison CT. VASCULATURE: Normal. Unremarkable pulmonary vasculature. CARDIAC: Normal. No cardiac silhouette abnormality or cardiomegaly. MEDIASTINUM: Normal. No visible mass or adenopathy. PLEURA: Normal. No effusion or pleural thickening. BONES: Degenerative changes of the spine. OTHER: Negative. CONCLUSION: 1. Ill-defined opacities in the lung bases concerning for infiltrates 2. Spiculated opacity in the left upper lobe corresponds to the spiculated mass seen on comparison CT. Dictated by: Sylvia Acharya MD on 06/09/2024 at 8:03 Approved by: Sylvia Acharya MD on 06/09/2024 at 8:11 Normal [facility] CMP with eGFRon 06-09-2024 AGE 69 years Normal [facility] Comment on above: Performed By: #### 2 59298 ####[facility],[address] [place] [address] 47969 Albumin [Mass/Vol] 2.7 g/dL Low 3.4 - 5.0 [facility] Comment on above: Performed By: #### 2 46626 ####[facility],[address] [place] [address] 58195 Albumin/Globulin [Mass ratio] 0.6 {ratio} Low 0.9 - 1.6 [facility] Comment on above: Performed By: #### 2 78795 ####[facility],[address] [place] [address] 49651 ALK PHOS 54 U/L Normal 46 - 116 [facility] Comment on above: Performed By: #### 2 29547 ####[facility],[address] [place] [address] 43204 ALT [Catalytic activity/Vol] 15 U/L Low 16 - 63 [facility] Comment on above: Performed By: #### 2 58120 ####[facility],[address] [place] [address] 92984 Anion gap [Moles/Vol] 11 mmol/L Normal 10 - 20 [facility] Comment on above: Performed By: #### 2 95073 ####[facility],[address] [place] [address] 47768 AST [Catalytic activity/Vol] 51 U/L High 15 - 37 [facility] Comment on above: Performed By: #### 2 45578 ####[facility],[address] [place] [address] 56961 B/C RATIO 17 ratio Normal 0 - 30 [facility] Comment on above: Performed By: #### 2 07803 ####[facility],[address] [place] [address] 59829 Bilirubin [Mass/Vol] 0.5 mg/dL Normal 0.2 - 1.0 [facility] Comment on above: Performed By: #### 2 30121 ####[facility],[address] [place] [address] 43848 Calcium [Mass/Vol] 8.5 mg/dL Normal 8.5 - 10.1 [facility] Comment on above: Performed By: #### 2 46322 ####[facility],[address] [place] [address] 09751 Chloride [Moles/Vol] 103 mmol/L Normal 98 - 107 [facility] Comment on above: Performed By: #### 2 18735 ####[facility],[address] [place], [place] [address] CMP with eGFR Normal [facility] Comment on above: Result Comment: COMP REHENSIVE METABOLIC PANEL Performed By: #### 2 54638 ####[facility],[address] [place] [address] 96906 CO2 [Moles/Vol] 30.3 mmol/L Normal 21.0 - 32.0 [facility] Comment on above: Performed By: #### 2 22459 ####[facility],[address] [place] [id number] Creatinine [Mass/Vol] 0.58 mg/dL Low 0.70 - 1.30 [facility] Comment on above: Performed By: #### 2 [id number] ####[facility],[address] [place] [address]251 GFR/1.73 sq M.predicted among non-blacks MDRD (S/P/Bld) [Vol rate/Area] mL/min/{1.73_m2} Normal 60 - 999 [facility] Comment on above: Performed By: #### 2 [id number] ####[facility],[address] [place] [address] Result Comment: ACCO RDING TO THE NATIONAL KIDNEY DISEASE EDUCATION PROGRAM(NKDE), A NORMAL eGFR IS A VALUE GREATER THAN OR EQUAL TO 60 ML/MIN/1.73 SQ METERS. CHRONIC KIDNEY DISEASE: <60mL/MIN/1.73 SQ METERS KIDNEY FAILURE: <15mL/MIN/1.73 SQ METERS THIS TEST SHOULD ONLY BE USED FOR PATIENTS 18 YEARS OF AGE AND OLDER. Globulin (S) [Mass/Vol] 4.7 g/dL High 1.5 - 3.8 [facility] Comment on above: Performed By: #### 2 25388 ####[place] [address] Glucose [Mass/Vol] 102 mg/dL Normal 74 - 106 [facility] Comment on above: Performed By: #### 2 44072 ####[place] [address] Potassium [Moles/Vol] 5.5 mmol/L High 3.5 - 5.1 [facility] Comment on above: Performed By: #### 2 09291 ####[address] [address] Protein [Mass/Vol] 7.4 g/dL Normal 6.4 - 8.2 [facility] Comment on above: Performed By: #### 2 [id number] ####[facility],[address] [place] [address] Sodium [Moles/Vol] 139 mmol/L Normal 136 - 145 [facility] Comment on above: Performed By: #### 2 21355 ####[address] [address] Urea nitrogen [Mass/Vol] 10 mg/dL Normal 7 - 18 [facility] Comment on above: Performed By: #### 2 34828 ####[facility],[address] [place] [address]8669 CORONAVIRUS (SARS) ANTIGEN T ESTon 06-09-2024 EXTERNAL QC DONE? YES Normal [facility] Comment on above: Performed By: #### 2 [id number] #### [facility],[address] [place], [place] [id number] INTERNAL CONTROL PASS Normal [facility] Comment on above: Performed By: #### 2 63812 #### [facility],[address] [place] [address]84 SARS ANTIGEN Negative Normal NORMAL: NEGATIVE [facility] Comment on above: Performed By: #### 2 23291 #### [facility],[address] [place] [address] SEND TO ? NO Normal [facility] Comment on above: Result Comment: SARS -CoV-2 THIS TEST IS BEING USED UNDER THE FDA EUA PROCEDURE. THIS ASSAY HAS BEEN VALIDATED AT [facility] FOR USE WITH NASAL AND NASOPHARYNGEAL SWAB SPECIMENS. INTERPRETIVE DATA TEST RESULTS SHOULD ALWAYS BE CONSIDERED IN THE CONTEXT OF CLINICAL OBSERVATIONS AND EPIDEMIOLOGICAL DATA IN MAKING FINAL DIAGNOSIS AND PATIENT MANAGEMENT DECISIONS. PATIENT MANAGEMENT SHOULD FOLLOW CURRENT CDC GUIDELINES. THE JOEY SARS ANTIGEN VAN DOES NOT DIFFERENTIATE BETWEEN SARS-CoV & SARS-CoV-2. A POSITIVE TEST RESULT INDICATES THE PRESENCE OF SARS-CoV-2 NUCLEOCAPSID PROTEIN ANTIGEN, AND THE PATIENT IS INFECTED WITH THE VIRUS AND PRESUMED TO BE CONTAGIOUS. A NEGATIVE TEST RESULT FOR THIS TEST MEANS THAT SARS-CoV-2 NUCLEOCAPSID PROTEIN ANTIGEN WAS NOT PRESENT IN THE SPECIMEN ABOVE THE LIMIT OF DETECTION. HOWEVER, A NEGATIVE RESULT DOES NOT RULE OUT COVID-19 AND SHOULD NOT BE USED THE SOLE BASIS FOR TREATMENT OR PATIENT MANAGEMENT DECISIONS. A NEGATIVE RESULT DOES NOT EXCLUDE THE POSSIBILITY OF COVID-19. NEGATIVE RESULTS, FROM PATIENTS WITH SYMPTOM ONSET BEYOND FIVE DAYS, SHOULD BE TREATED PRESUMPTIVE AND CONFIRMATION WITH A MOLECULAR ASSAY, IF NECESSARY, FOR PATIENT MANAGEMENT, MAY BE PERFORMED. WHEN DIAGNOSTIC TESTING IS NEGATIVE, THE POSSIBLILTY OF A FALSE NEGATIVE RESULT SHOULD BE CONSIDERED IN THE CONTEXT OF A PATIENT'S RECENT EXPOSURES AND THE PRESENCE OF CLINICAL SIGNS AND SYMPTOMS CONSISTENT WITH COVID-19. THE POSSIBILITY OF A FALSE NEGATIVE RESULT SHOULD ESPECIALLY BE CONSIDERED IF THE PATIENT'S RECENT EXPOSURES OR CLINICAL PRESENTATION INDICATE THAT COVID-19 IS LIKELY, AND DIAGNOSTIC TESTS FOR OTHER CAUSES OF ILLNESS (e.g., OTHER RESPIRATORY ILLNESS) ARE NEGATIVE. IF COVID-19 IS STILL SUSPECTED BASED ON EXPOSURE HISTORY TOGETHER WITH OTHER CLINICAL FINDINGS, RE-TESTING SHOULD BE CONSIDERED BY HEALTHCARE PROVIDERS IN CONSULTATION WITH PUBLIC HEALTH AUTHORITIES. Performed By: #### 2 [id number] #### [facility],[address] [place] [address] CULTURE BLOOD [DI]on Microscopic examination of blood, culture CULTURE BLOOD [DI] _BLOOD CULTURE_ [facility] AND [facility]ACH[facility] FOR SCANNED REPORT 06/15/[email or web address].COMPL ETE Normal [facility] Comment on above: Performed By: #### 2 [id number] ####[facility],[address] [place], [place] [address] Microscopic examination of blood, culture CULTURE BLOOD [DI] _BLOOD CULTURE_ [facility] AND ATTACHMENTS FOR SCANNED REPORT 06/15/[email or web address].COMPL ETE Normal [facility] Comment on above: Performed By: #### 2 [id number] ####[facility],[address] [place], [place] [address] ED MED ADMINISTRATION DETAIL on 06-09-2024 ED MED ADMINISTRATION DETAIL Leasing Agent Medication Administration Record [address] [address] [id number] 06/09/2024 Patient: SCOT BURGESS Sex: Male : 1955 Age: 69y MEASUREMENTS: Wt: 99.8 kg, Ht/Luisito: 68.0 in, BMI: 33.45 ALLERGIES: Penicillins Medication Ordered Medication Administration Date/Time CefTRIAXone 08:02 06/09 CefTRIAXone (Rocephin) IVPB 2gm/50ml NS 2 g Started (Rocephin) IVPB started at 100 mL/hr diluted in sodium chloride IVPB 0.9 % 08:02 06/09/2024 2gm/50ml NS 2 g Minibag+ 50 mL via Site# 1. - 08:03 Eunice Barrera R.N. diluted in sodium Stopped chloride IVPB 0.9 % 09:06/09 Medication Discontinued: IV infused. Total amount 09:06/09/2024 Minibag+ 50 mL at infused: 100 mL. - 09:20 Eunice Barrera R.N. 100 mL/hr (NOW x1) Scanned IV NS 0.9 % 1000 07:06/09 IV NS 0.9 % 1000 mL started in bag#1 1000 mL at Started mL at 100 mL/hr 100 mL/hr via Site# 1. - 07:46 Abisai Hodges R.N. 07:45 06/09/2024 (NOW x1) Abisai Hodges R.N. 09:06/09 Medication Discontinued: bag #1. Total amount Stopped infused: 1000 mL. - 09:20 Abisai Hodges R.N. 09:06/09/2024 Abisai Hodges R.N. Scanned Albuterol-Ipratropiu 07:06/09 Albuterol-Ipratropium (DuoNeb) 3mg/0.5mg Neb Tx 3 Given m (DuoNeb) mL given. Given by the respiratory therapist. Allergies verified and 07:42 06/09/2024 3mg/0.5mg Neb Tx confirmed 5 rights. - 07:43 Ricky Gilbert R.R.TGerson Gilbert, 3 mL (NOW x1) R.R.T. Scanned 1 of 2 Leasing Agent Medication Ordered Medication Administration Date/Time MethylPREDNISolo 09:06/09 MethylPREDNISolone Sodium Succ (Solu-Medrol) IVP Given ne Sodium Succ 125 mg given over 2 minute(s) via Site# 1. - 09:20 Abisai Hodges, 09:06/09/2024 (Solu-Medrol) IVP R.N. Abisai Hodges R.N. 125 mg (NOW x1) Not Scanned Azithromycin 09:06/09 Azithromycin (Zithromax) IVPB 500 mg started at 250 Started (Zithromax) IVPB mL/hr diluted in dextrose 5 % in water IVPB 250 mL and VIAL 09:06/09/2024 500 mg diluted in MATE 1 ea via Site# 1. - 09:17 Eunice Barrera R.N. dextrose 5 % in Stopped water IVPB 250 mL, 14:06/09 Medication Discontinued: IV infused. Total amount 14:06/09/2024 VIAL MATE 1 ea at infused: 250 mL. - 14:05 Eunice Barrera R.N. 250 mL/hr (NOW x1) Scanned Albuterol 0.083% - 09:16 06/09 Albuterol 0.083% - 2.5mg Neb Tx 2.5 mg given. Given Given 2.5mg Neb Tx 2.5 by the respiratory therapist. Allergies verified and confirmed 5 09:16 06/09/2024 mg (NOW x1) rights. Information reviewed with patient. - 09:17 Ricky Garcia R.R.T. R.R.T. Scanned 2 of 2 Normal [facility] ED NURSES CLINICAL NOTEon ED NURSES CLINICAL NOTE Nurse Narrative Nurse Clinical Narrative [address] [address] [id number] 06/09/2024 Patient: SCOT BURGESS Sex: Male : 1955 Age: 69y Primary Insurance: [employer] OUTPATIENT Policy Number: [id number] Group Number: [id number] Subscriber: Other Secondary Insurance: MEDICAID OUTPATIENT Policy Number: [id number] Group Number: [id number] Subscriber: Other Disposition: Admit to [facility] Disposition Decision Time: 09:17 06/09/2024 Departure Time: 14:45 06/09/2024 TRIAGE Arrived by EMS. Historian: (patient). Primary physician (Oswaldo). Triage time: 07:27 06/09/2024. Acuity: LEVEL 2. Chief Complaint: SHORTNESS OF BREATH. This started today. ( SOB while wearing home CPAP this morning). The patient has had a cough and nausea. SEPSIS SCREEN: POSITIVE. SIRS criteria positive: heart rate greater than 90 and respiratory rate greater than 20. Possible sources of infection. Provider notified, sepsis guidelines implemented and continue to assess for severe sepsis. -- 07:35 06/09/24 JOSE J Guidry R.N. 07:33 06/09/24. BP: 137/113 MAP: 121. HR: 97. RR: 32. O2 saturation: 92% on nasal cannula at 2 liters/minute. Temperature: 98.7 F. Pain level now 0/10. -- 07:33 06/09/24 JOSE J Guidry R.N. Measurements: 07:34 06/09/24 Wt: 99.8 kg, Ht/Luisito: 68.0 in, BMI: 33.45 -- 07:34 06/09/24 JOSE J Guidry R.N. 1 of 6 Nurse Narrative Medications: tamsulosin 0.4 mg capsule: 1 capsule once a day. -- 07:39 06/09/24 JOSE J Guidry R.N. simvastatin 10 mg tablet: 1 tablet once a day. -- 07:39 06/09/24 JOSE J Guidry R.N. sertraline 100 mg tablet: 1 tablet once a day. -- 07:39 06/09/24 JOSE J Guidry R.N. levothyroxine 25 mcg tablet: (giiven 90 tabs on 05-16 for 90 day supply) -- 07:39 06/09/24 JOSE J Guidry R.N. fenofibrate nanocrystallized 145 mg tablet: 1 tablet once a day. -- 07:39 06/09/24 JOSE J Guidry R.N. diltiazem CD 120 mg capsule,extended release 24 hr: 1 capsule once a day. -- 07:39 06/09/24 JOSE J Guidry R.N. pt unsure of home medications, meds added based on last fill date -- 07:39 06/09/24 JOSE J Guidry R.N. albuterol sulfate HFA 90 mcg/actuation aerosol inhaler: INHALE 2 PUFFS BY MOUTH UP TO 4 TIMES DAILY NEEDED FOR SHORTNESS OF BREATH, COUGH,WHEEZE -- 07:39 06/09/24 JOSE J Guidry R.N. finasteride 5 mg tablet: TAKE 1 TABLET BY MOUTH ONCE DAILY -- 07:39 06/09/24 JOSE J Guidry R.N. metoprolol tartrate 50 mg tablet: TAKE 1 TABLET BY MOUTH TWICE DAILY -- 07:39 06/09/24 JOSE J Guidry R.N. Allergies: Penicillins -- 07:29 06/09/24 JOSE J Guidry R.N. Problems: COPD - Chronic Obstructive Pulmonary Disease -- 07:30 06/09/24 JOSE J Guidry R.N. Atrial arrhythmia -- 07:31 06/09/24 JOSE J Guidyr R.N. ADDITIONAL SURGERIES: Hernia Repair -- 07:31 06/09/24 JOSE J Guidry R.N. History 07:27 06/09/24. SOCIAL HX: Current every day smoker. Occasional alcohol use. No drug use. The patient has not traveled outside the [place] Infectious disease exposure: No infectious disease exposure. ABUSE ASSESSMENT: The patient answered yes to the question(s) Do you feel safe in your home? and no to the question(s) Are you afraid to go home?. 2 of 6 Nurse Narrative SELF HARM ASSESSMENT: Self harm assessment was performed. The patient answered no to the question(s) Have you recently felt down, depressed, or hopeless? and Do you have thoughts of harming or killing yourself?. FALL RISK ASSESSMENT: Fall risk assessment completed. Fall interventions initiated. Patient identified as a fall risk by ID band. -- 07:35 06/09/24 JOSE J Guidry R.N. 14:04 06/09/24. PAST MEDICAL HX: ( REPORT TO [facility]PE TORRES SBAR FORMAT). -- 14:04 06/09/24 JOSE J Hodges R.N. Interventions 07:27 06/09/24. To room. -- 07:35 06/09/24 JOSE J Guidry R.N. 07:35 06/09/24. Advanced care plan. It is unknown if patient has advanced directive. -- 13:44 06/09/24 JOSE J Guidry R.N. PHYSICAL ASSESSMENT 08:05 06/09/24. GENERAL / NEURO / PSYCH: Alert. Oriented X 4. HEENT: Mucous membranes are pink. RESPIRATORY: Moderate respiratory distress. Accessory muscle use. Prolonged expirations. Wheezing present. CVS: Capillary refill less than 2 seconds. GI / : Abdomen soft and nontender. Bowel sounds within normal limits. SKIN: Skin is warm and dry. Normal skin turgor. -- 08:05 06/09/24 JOSE J Hodges R.N. NURSING PROGRESS NOTES 07:45 06/09/24. IV NS 0.9 % 1000 mL started in bag#1 1000 mL at 100 mL/hr via Site# 1. -- 07:46 06/09/24 JOSE J Hodges R.N. 07:46 06/09/24. Site #1 started via IV in the right hand with an 18g angiocath. Blood drawn: red, green, purple and blue tube(s). -- 07:46 06/09/24 JOSE J Hodges R.N. 08:02 06/09/24. CefTRIAXone (Rocephin) IVPB 2gm/50ml NS 2 g (more content not included)... Normal [facility] ED ORDER SHEET (CPOE ONLY)on 06-09-2024 ED ORDER SHEET (CPOE ONLY) Order Sheet Order Sheet [address] [address] [id number] 06/09/2024 Patient: SCOT BURGESS Sex: Male : 1955 Age: 69y MEASUREMENTS: Wt: 99.8 kg, Ht/Luisito: 68.0 in, BMI: 33.45 ALLERGIES: Penicillins MEDICATION/IV/DRIP/FLUI D ORDERS Order Description Priority Entered Acknowledged Completed CefTRIAXone (Rocephin) IVPB 07:34 06/09/2024 07:44 08:03 2gm/50ml NS2 g diluted in Tony Perez, 06/09/2024 06/09/2024 sodium chloride IVPB 0.9 % D.OAbisai Mccoy Minibag+ 50 mL at 100 mL/hr R.N. R.N. (NOW x1) Reason for ordering with alerts: Benefits outweigh risks --07:34 06/09/2024 Marvel JarvisOGerson IV NS 0.9 %1000 mL at 100 07:34 06/09/2024 07:44 07:46 mL/hr (NOW x1) Tony Perez, 06/09/2024 06/09/2024 Abisai Mejia R.NGerson RGersonNGerson Albuterol-Ipratropium (DuoNeb) 07:34 06/09/2024 07:43 3mg/0.5mg Neb Tx3 mL (NOW Tony Perez, 06/09/2024 x1) Rodrigo HurstRHema MethylPREDNISolone Sodium 09:03 06/09/2024 09:10 09:20 Succ (Solu-Medrol) [id number] mg Tony Perez, 06/09/2024 06/09/2024 (NOW x1) Abisai Mejia, 1 of 4 Order Sheet R.N. R.N. Azithromycin (Zithromax) 09:03 06/09/2024 09:10 09:17 [id number] mg diluted in dextrose 5 Tony Perez, 06/09/2024 06/09/2024 % in water IVPB 250 mL, VIAL Carmelo.Abisai Clayton, MATE 1 ea at 250 mL/hr (NOW R.N. R.NGerson x1) Reason for ordering with alerts: Benefits outweigh risks --09:03 06/09/2024 Tony Perez D.O. Albuterol 0.083% - 2.5mg Neb 09:03 06/09/2024 09:10 09:17 Tx2.5 mg (NOW x1) Tony Perez, 06/09/2024 06/09/2024 Ricky Mejia R.N. R.RGersonTGerson Reason for ordering with alerts: Benefits outweigh risks --09:03 06/09/2024 Tony Perez D.O. LAB ORDERS Order Description Priority Entered Acknowledged Collected Completed CBC w Diff Stat Stat 07:34 06/09/2024 07:44 06/09/2024 07:46 06/09/2024 Abisai Jarvis Samuel Burgett, D.O. R.NGerson RGersonNGerson CMP Stat Stat 07:34 06/09/2024 07:44 06/09/2024 07:46 06/09/2024 Abisai Jarvis Samuel Burgett, D.O. R.NGerson R.NGerson Blood Culture Stat 07:34 06/09/2024 07:44 06/09/2024 07:46 06/09/2024 [Di] # 1 Stat Abisai Jarvis Samuel Burgett, D.O. R.NGerson RMinoo Lactate, Serum Stat Stat 07:34 06/09/2024 07:44 06/09/2024 07:46 06/09/2024 Abisai Jarvis Samuel Burgett, D.O. R.NGerson RGersonNGerson 2 of 4 Order Sheet Blood Culture Stat 07:34 06/09/2024 07:44 06/09/2024 08:03 06/09/2024 [Di] # 2 Stat Abisai Jarvis Samuel Burgett, D.O. R.NGerson R.N. Troponin-I Stat Stat 07:34 06/09/2024 07:44 06/09/2024 07:46 06/09/2024 Abisai Jarvis Samuel Burgett, D.O. R.NGerson R.NGerson EKG - ED Stat Stat 07:34 06/09/2024 07:44 06/09/2024 08:03 06/09/2024 Abisai Jarvis Samuel Burgett, D.O. R.NGerson R.N. Flu Swab (Influenzae Stat 07:34 06/09/2024 07:44 06/09/2024 07:46 06/09/2024 AAg) Stat Aibsai Jarvis Samuel Burgett, D.O. R.NGerson R.NGerson D-Dimer Stat Stat 07:34 06/09/2024 07:44 06/09/2024 07:46 06/09/2024 Abisai Jarvis Samuel Burgett, D.O. R.N. R.NGerson Rapid COVID (SARS) Stat 08:02 06/09/2024 08:03 06/09/2024 08:03 06/09/2024 ANTIGEN TEST Stat Abisai Jarvis Samuel Burgett, D.O. R.NGerson R.Kenisha DIAGNOSTIC STUDY ORDERS Order Description Priority Entered Acknowledged Completed Chest 1V Stat Stat 07:34 06/09/2024 07:44 07:46 Tony Perez 06/09/2024 06/09/2024 Abisai Mejia R.N. R.NGerson Reason for Study: Cough 3 of 4 Order Sheet STAFF ORDERS Order Description Priority Entered Acknowledged Collected Completed IV Saline Lock 07:34 06/09/2024 07:44 06/09/2024 07:46 06/09/2024 Abisai Jarvis Samuel Burgett, D.O. R.NGerson R.NGerson Oxygen titrate to 92% 07:34 06/09/2024 07:44 06/09/2024 07:46 06/09/2024 Abisai Jarvis Samuel Burgett, D.O. R.N. R.N. Hot Strip Finisher 07:34 06/09/2024 07:44 06/09/2024 07:46 06/09/2024 Abisai Jarvis Samuel Burgett, D.O. R.N. R.NGerson Aerosol Rx ER X1 07:34 06/09/2024 07:44 06/09/2024 07:46 06/09/2024 Abisai Jarvis Samuel Burgett, D.O. R.N. R.NGerson Pulse Oximeter 07:34 06/09/2024 07:44 06/09/2024 07:46 06/09/2024 Abisai Jarvis Samuel Burgett, D.O. R.N. R.NGerson [Electronically signed by Tony Perez D.O. (06/09/2024 17:56 EST)] 4 of 4 Normal [facility] ED PHYSICIAN CLINICAL REPORT on 06-09-2024 ED PHYSICIAN CLINICAL REPORT Narrative Physician Clinical Narrative [facility] [address] [place] [address] [id number] 06/09/2024 Patient: SCOT BURGESS Sex: Male : 1955 Age: 69y Primary Insurance: [employer] OUTPATIENT Policy Number: [id number] Group Number: [id number] Subscriber: Other Secondary Insurance: MEDICAID OUTPATIENT Policy Number: [id number] Group Number: [id number] Subscriber: Other Disposition: Admit to [facility] Disposition Decision Time: 09:17 06/09/2024 Departure Time: 14:45 06/09/2024 Measurements Wt: 99.8 kg, Ht/Luisito: 68.0 in, BMI: 33.45 Initial Vital Sign Measured Time BP MAP HR RR O2Sat ETCO2 Temp Pain GCS RTS 07:33 06/09/2024 137/113 121 97 32 92% NC 98.7 F 0 2L Time Seen: 07:20 06/09/2024. Arrived- By ambulance. Historian- patient. Independent historian- EMS personnel. HISTORY OF PRESENT ILLNESS Chief Complaint: DYSPNEA and HISTORY OF CHRONIC OBSTRUCTIVE PULMONARY DISEASE. (patient came in complaining shortness of breath. 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 Is still present. The dyspnea is severe. The patient has had a cough and wheezing. No sputum production. 1 of 13 Narrative REVIEW OF SYSTEMS EYES: No eye irritation. THROAT: No sore throat. NEUROLOGICAL: No headache. : No difficulty with urination. CONSTITUTIONAL: The patient has not had weight loss. PAST HISTORY Atrial arrhythmia COPD - Chronic Obstructive Pulmonary Disease Surgeries: Hernia Repair Medications: albuterol sulfate HFA 90 mcg/actuation aerosol inhaler: INHALE 2 PUFFS BY MOUTH UP TO 4 TIMES DAILY NEEDED FOR SHORTNESS OF BREATH, COUGH,WHEEZE diltiazem CD 120 mg capsule,extended release 24 hr: 1 capsule once a day. fenofibrate nanocrystallized 145 mg tablet: 1 tablet once a day. finasteride 5 mg tablet: TAKE 1 TABLET BY MOUTH ONCE DAILY levothyroxine 25 mcg tablet: (giiven 90 tabs on 05-16 for 90 day supply) metoprolol tartrate 50 mg tablet: TAKE 1 TABLET BY MOUTH TWICE DAILY pt unsure of home medications, meds added based on last fill date sertraline 100 mg tablet: 1 tablet once a day. simvastatin 10 mg tablet: 1 tablet once a day. tamsulosin 0.4 mg capsule: 1 capsule once a day. Allergies: Penicillins SOCIAL HISTORY Current every day smoker. Occasional alcohol use. ADDITIONAL NOTES The nursing notes have been reviewed. 2 of 13 Narrative PHYSICAL EXAM Appearance: Alert. No acute distress. Eyes: Eyes normal inspection. ENT: Ears normal. Nose normal. Neck: Normal inspection. No jugular venous distention. CVS: Normal heart rate and rhythm. Heart sounds normal. Respiratory: Respiratory distress. Prolonged expirations. Decreased air movement. Wheezing present. Abdomen: Soft and nontender. Back: Normal inspection. Skin: Skin warm. Normal skin color. No rash. Normal skin turgor. Extremities: Extremities exhibit normal ROM. No lower extremity edema. Neuro: Oriented X 3. No motor deficit. LABS, X-RAYS, AND EKG 12-LEAD EKG: EKG time: 07:50 06/09/2024. No acute process. Rate: 99. LBBB. Abnormal axis. Left axis deviation. Normal ST and T waves. The study has been interpreted contemporaneously by me. Interpretation time: 07:52 06/09/2024. Laboratory Tests: CBC + DIFF Final DAQUAN: 06/09/2024 07:40:00 EST MsgRcvd: 06/09/2024 08:08 EST Lab Test Result Reference Status Received Comments 06/09/2024 08:08 CBC-COMPLETE CBC + DIFF Final EST BLOOD COUNT 06/09/2024 08:08 WBC 8.1 x 10/UL 4.5 - 10.8 Final EST 06/09/2024 08:08 RBC 4.71 x 10/UL 4.50 - 6.00 Final EST 06/09/2024 08:08 HEMOGLOBIN 14.4 g/dl 13.0 - 17.5 Final EST 3 of 13 Narrative Lab Test Result Reference Status Received Comments 06/09/2024 08:08 HEMATOCRIT 43.6 % 40.0 - 52.0 Final EST 06/09/2024 08:08 MCV 93 fl 81 - 98 Final EST 06/09/2024 08:08 MCH 31 pg 27 - 33 Final EST 06/09/2024 08:08 MCHC 33 X10 3 32 - 36 Final EST 06/09/2024 08:08 RDW/CV 14.0 % 12.0 - 15.6 Final EST 131 x10/UL 06/09/2024 08:08 PLATELET 150 - 450 Final Below low normal EST 06/09/2024 08:08 AUTOMATED MPV 8.7 fl 6.4 - 10.5 Final EST DIFFERENTIAL 06/09/2024 08:08 NEUT % 70.0 % 46.0 - 76.0 Final EST 06/09/2024 08:08 LYMPH % 20.9 % 20.0 - 45.0 Final EST 06/09/2024 08:08 MONOS % 7.0 % 0.0 - 10.0 Final EST 06/09/2024 08:08 EO % 2.0 % 0.0 - 7.0 Final EST 06/09/2024 08:08 BASO % 0.2 % 0.0 - 2.0 Final EST 06/09/2024 08:08 Lymph # 1.69 x10/UL 0.80 - 2.80 Final EST (more content not included)... Normal [facility] ED SUPER BILLon 06-09-2024 ED [facility] [address] [place] [address] [id number] 06/09/2024 Patient: SCOT BURGESS Sex: Male : 1955 Age: 69y Facility Professional Category Item Description Code Code Quantity Fee Total Drugs Normal Saline 616540 1 $0.00 $0.00 1000cc (972513) Nurse/E/M EMERGENCY 214454 1 $0.00 $0.00 DEPT VISIT HIGH SEVERITYFUNCJ (54241-66) Nurse/IV/IM/Infusions Drip/IVPB 758141 1 $0.00 $0.00 concurrent (67589) Nurse/IV/IM/Infusions Drip/IVPB initial 037241 1 $0.00 $0.00 (79988) Nurse/IV/IM/Infusions IVP additional 912867 1 $0.00 $0.00 push (21211) Nurse/Procedures Respiratory 092490 1 $0.00 $0.00 therapy - inhalation (88106) Nurse/Supplies Oxygen in the ED 258768 1 $0.00 $0.00 (888181) 1 of 2 [facility] Professional Category Item Description Code Code Quantity Fee Total Grand $0.00 Total Providers Tony Perez D.O. Chief Complaint DYSPNEA and HISTORY OF CHRONIC OBSTRUCTIVE PULMONARY DISEASE. Principal Diagnosis Acute dyspnea. Left upper lobe lung cancer. Acute respiratory failure with hypoxemia and hypercapnia. Acute exacerbation of COPD (emphysematous) Bronchopneumonia with hypoxemia. ICD-10 Codes J18.0: Bronchopneumonia, unspecified organism R09.02: Hypoxemia J18.9: Pneumonia, unspecified organism R06.09: Other forms of dyspnea J44.1: Chronic obstructive pulmonary disease with (acute) exacerbation C34.12: Malignant neoplasm of upper lobe, left bronchus or lung J96.01: Acute respiratory failure with hypoxia J96.02: Acute respiratory failure with hypercapnia 2 of 2 Normal [facility] ED VISIT SUMMARYon ED VISIT SUMMARY Visit Overview Visit Overview [address] [address] [id number] 06/09/2024 Patient: SCOT BURGESS Sex: Male : 1955 Age: 69y 06/09/2024 05:56 PM EST ED Arrival:07:22 06/09/2024 EST Status: Recent Travel:no Language:eng Adv Directive:Unknown Isolation Status: Ethnicity:N Fall Risk: Infectious Disease Exposure:no Measurements:5'8 / 172.7 Self-Harm Status:risk Sepsis Screen:positive cm 220.0 lb / 99.8 kg Chief Complaint:SHORTNESS OF BREATH, ([place]), and (SOB while wearing home CPAP this morning) ALLERGIES Penicillins HOME MEDICATIONS albuterol sulfate HFA 90 mcg/actuation aerosol inhaler: INHALE 2 PUFFS BY MOUTH UP TO 4 TIMES DAILY NEEDED FOR SHORTNESS OF BREATH, COUGH,WHEEZE diltiazem CD 120 mg capsule,extended release 24 hr: 1 capsule once a day. fenofibrate nanocrystallized 145 mg tablet: 1 tablet once a day. finasteride 5 mg tablet: TAKE 1 TABLET BY MOUTH ONCE DAILY 1 of 4 Visit Overview levothyroxine 25 mcg tablet: (giiven 90 tabs on 05-16 for 90 day supply) metoprolol tartrate 50 mg tablet: TAKE 1 TABLET BY MOUTH TWICE DAILY pt unsure of home medications, meds added based on last fill date sertraline 100 mg tablet: 1 tablet once a day. simvastatin 10 mg tablet: 1 tablet once a day. tamsulosin 0.4 mg capsule: 1 capsule once a day. PAST MEDICAL HISTORY / PROBLEMS Atrial arrhythmia COPD - Chronic Obstructive Pulmonary Disease PAST SURGICAL HISTORY Hernia Repair SOCIAL HISTORY Smoking status: Yes Alcohol use: Yes Drug use: No ED COURSE MEDICATIONS GIVEN IN EMERGENCY DEPARTMENT 07:42 06/09/24 Albuterol-Ipratropium (DuoNeb) 3mg/0.5mg Neb Tx 3 mL 07:45 06/09/24 IV NS 0.9 % 1000 mL 100 mL/hr CefTRIAXone (Rocephin) IVPB 2gm/50ml NS 2 g diluted in sodium chloride IVPB 0.9 08:02 06/09/24 % Minibag+ 50 mL 100 mL/hr 09:16 06/09/24 Albuterol 0.083% - 2.5mg Neb Tx 2.5 mg Azithromycin (Zithromax) IVPB 500 mg diluted in dextrose 5 % in water IVPB 250 mL 09:16 06/09/24 and VIAL MATE 1 ea 250 mL/hr 09:20 06/09/24 MethylPREDNISolone Sodium Succ (Solu-Medrol) IVP 125 mg over 2 minute(s) IV SITE INFORMATION 07:46 06/09/24 Site #1 right hand, 18g. INTAKE OUTPUT 2 of 4 Visit Overview Total Urine 700 mL TOTAL OUTPUT 700 mL REASSESMENT (most recent) 09:22 06/09/24. Post assessment. Mild respiratory distress. Decreased breath sounds. VITAL SIGNS First Vitals Last Vitals Temp 07:33 06/09/24 98.7 F Temp 14:35 06/09/24 BP 07:33 06/09/24 137/113 BP 14:35 06/09/24 HR 07:33 06/09/24 97 HR 14:35 06/09/24 91 RR 07:33 06/09/24 32 RR 14:35 06/09/24 O2 Sat 07:33 06/09/24 92% NC 2L O2 Sat 14:35 06/09/24 93% Pain 07:33 06/09/24 0 Pain 14:35 06/09/24 ETCO2 07:33 06/09/24 ETCO2 14:35 06/09/24 GCS 07:33 06/09/24 GCS 14:35 06/09/24 RTS 07:33 06/09/24 RTS 14:35 06/09/24 PROCEDURES NURSING INTERVENTIONS Respiratory therapy LABS / STUDIES LABS / STUDIES ORDERED Blood Culture [Di] # 1 Blood Culture [Di] # 2 CBC w Diff Chest 1V CMP D-Dimer EKG - ED Flu Swab (Influenzae AAg) Lactate, Serum Rapid COVID (SARS) ANTIGEN TEST Troponin-I 3 of 4 Visit Overview CLINICAL IMPRESSION ACUTE DYSPNEA ACUTE EXACERBATION OF COPD (EMPHYSEMATOUS) ACUTE RESPIRATORY FAILURE WITH HYPOXEMIA AND HYPERCAPNIA BRONCHOPNEUMONIA WITH HYPOXEMIA LEFT UPPER LOBE LUNG CANCER 4 of Normal [facility] ED VITALS FLOW SHEETon 06-09 ED VITALS FLOW SHEET Vitals Vital Sign Flow Sheet [address] [address] [id number] 06/09/2024 Patient: SCOT BURGESS Sex: Male : 1955 Age: 69y Measurements Wt: 99.8 kg, Ht/Luisito: 68.0 in, BMI: 33.45 Measured Time BP MAP HR RR O2Sat ETCO2 Temp Pain GCS RTS 14:35 06/09/2024 91 93% 14:30 06/09/2024 180/79 90 91 14:30 06/09/2024 92 93% 14:25 06/09/2024 92 93% 14:20 06/09/2024 92 93% 14:15 06/09/2024 93 93% 14:15 06/09/2024 172/87 98 92 14:10 06/09/2024 93 92% 14:05 06/09/2024 92 92% 14:00 06/09/2024 163/76 98 92 14:00 06/09/2024 94 92% 13:55 06/09/2024 93 92% 13:50 06/09/2024 94 92% 13:45 06/09/2024 163/76 105 94 13:45 06/09/2024 93 93% 1 of 4 Vitals Measured Time BP MAP HR RR O2Sat ETCO2 Temp Pain GCS RTS 13:40 06/09/2024 96 93% 13:35 06/09/2024 98 91% 13:30 06/09/2024 179/83 100 98 13:30 06/09/2024 98 90% 13:25 06/09/2024 96 93% 13:20 06/09/2024 95 92% 13:15 06/09/2024 96 92% 13:15 06/09/2024 161/79 106 94 13:10 06/09/2024 95 93% 13:05 06/09/2024 97 93% 13:00 06/09/2024 168/83 113 98 13:00 06/09/2024 99 94% 12:55 06/09/2024 100 93% 12:50 06/09/2024 100 92% 12:45 06/09/2024 173/98 123 101 12:45 06/09/2024 102 91% 12:40 06/09/2024 103 92% 12:35 06/09/2024 100 92% 12:30 06/09/2024 179/97 124 102 12:30 06/09/2024 104 92% 12:25 06/09/2024 105 91% 12:20 06/09/2024 96 93% 12:15 06/09/2024 153/68 112 96 12:15 06/09/2024 96 94% 12:10 06/09/2024 96 93% 2 of 4 Vitals Measured Time BP MAP HR RR O2Sat ETCO2 Temp Pain GCS RTS 12:05 06/09/2024 97 94% 12:00 06/09/2024 159/72 115 97 12:00 06/09/2024 98 94% 11:55 06/09/2024 98 94% 11:50 06/09/2024 99 94% 11:45 06/09/2024 160/92 114 98 11:45 06/09/2024 98 93% 11:40 06/09/2024 98 93% 11:35 06/09/2024 99 93% 11:30 06/09/2024 164/70 101 98 11:30 06/09/2024 98 94% 11:25 06/09/2024 98 94% 11:20 06/09/2024 97 95% 11:15 06/09/2024 98 95% 11:15 06/09/2024 155/70 89 98 11:10 06/09/2024 105 92% 11:05 06/09/2024 101 89% 11:00 06/09/2024 114 87% 10:55 06/09/2024 99 93% 10:50 06/09/2024 97 92% 10:45 06/09/2024 153/73 99 98 10:45 06/09/2024 100 93% 10:40 06/09/2024 99 93% 10:35 06/09/2024 100 93% 10:32 06/09/2024 139/67 81 101 3 of 4 Vitals Measured Time BP MAP HR RR O2Sat ETCO2 Temp Pain GCS RTS 10:30 06/09/2024 101 94% 10:25 06/09/2024 101 95% 10:20 06/09/2024 102 95% 10:15 06/09/2024 105 95% 10:10 06/09/2024 102 95% 10:05 06/09/2024 105 97% 10:00 06/09/2024 106 94% 09:55 06/09/2024 103 95% 09:50 06/09/2024 106 95% 09:45 06/09/2024 103 95% 09:40 06/09/2024 107 93% 09:35 06/09/2024 107 92% 09:30 06/09/2024 120 90% 09:25 06/09/2024 117 88% 09:22 06/09/2024 109 17 91% 09:20 06/09/2024 104 91% 09:18 06/09/2024 104 24 92% 09:15 06/09/2024 99 90% 09:10 06/09/2024 101 89% 07:51 06/09/2024 103 22 95% NC 3L 07:46 06/09/2024 98 20 92% NC 3L 07:33 06/09/2024 137/113 121 97 32 92% NC 98.7 F 0 2L 4 of 4 Normal [facility] INFLUENZA VIRUS RAPID A/Bon 06-09-2024 INFLUENZA VIRUS RAPID A/B INFLUENZA A NEGATIVE INFLUENZA B NEGATIVE INTERNAL NEG QC PASS INTERNAL POS QC PASS EXTERNAL QC DONE? YES SEND TO IC? NO A NEGATIVE TEST RESULT DOES NOT EXCLUDE INFECTION WITH INFLUENZA A OR B. THEREFORE, THE RESULTS OBTAINED FROM THIS FLU TEST SHOULD BE USED IN CONJUCTION WITH CLINICAL FINDINGS TO MAKE AN ACCURATE DIAGNOSIS. A POSITIVE RESULT DOES NOT RULE OUT CO-INFECTIONS WITH OTHER PATHOGENS OR IDENTIFY ANY SPECIFIC INFLUENZA A VIRUS SUBTYPE.CO-INFECTION WITH INFLUENZA A AND B IS RARE. IT IS RECOMMENDED THAT DUAL POSITIVE RESULTS BE CONFIRMED BY VIRAL CULTURE OR AN FDA-CLEARED INFLUENZA A AND B MOLECULAR ASSAY. INDIVIDUALS WHO HAVE RECEIVED NASALLY ADMINISTERED INFLUENZA A VACCINE MAY TEST POSITIVE IN COMMERCIALLY AVAILABLE INFLUENZA RAPID DIAGNOSTIC TESTS FOR UP TO THREE DAYS. RESULT CRITICAL? NO Normal [facility] Comment on above: Performed By: #### 2 [id number] ####[facility],[address] [place] [address] LACTATEon 06-09-2024 Lactate [Moles/Vol] 0.6 mmol/L Normal 0.4 - 2.0 [facility] Comment on above: Performed By: #### 2 [id number] #### [facility],[address] [place] [address] TROPONINon 06-09-2024 HS TROPONIN 17.9 pg/mL Normal 0.0 - 76.2 [facility] Comment on above: Performed By: #### 2 08886 #### [facility],[address] [place] [address] CNPNon 05-23-2024 CNPN Telephone (KnowReN) SCOT BURGESS ([id number]) 1955 M Date Time Provider Department 05/23/24 LEX AVITIA During your visit today, we recorded the following information about you: Lex Avitia MD 05/23/2024 4:12 PM Signed Called to speak with pt. said he is sleeping and didnt want to wake him. I reviewed CT chest done on 05/18 with her. I communicated favorable findings and recommended 6m [facility] CT follow up. She agreed. Lex Avitia MD Allergies As of Date: 05/23/2024 Noted Allergy Reaction MORPHINE 09/13/2019 7 - Swelling Date Reviewed: 11/11/2023 Reviewed by: Melissa Madden, RT(R) - Fully Assessed Primary Visit Diagnosis:Malignant neoplasm of unspecified part of unspecified bronchus or lung (HCC) [C34.90] Order(s):[facility] [[id number]] Order #: [id number] FUTURE Prescriptions as of 05/23/2024 - sertraline (ZOLOFT) 100 mg tablet Take 100 mg by mouth once daily. - CARTIA XT 120 mg 24 hr capsule Take 120 mg by mouth once daily. - fenofibrate nanocrystallized (TRICOR) 145 mg tablet Take 145 mg by mouth once daily. - buPROPion SR (ZYBAN SR; WELLBUTRIN SR) 150 mg 12 hr tablet Take 150 mg by mouth twice daily. - rlpqaleedfe-igbwbbnad-i ilanter (TRELEGY ELLIPTA) 100-62.5-25 mcg Inhale 1 Puff as instructed once daily. - simvastatin (ZOCOR) 10 mg tablet Take 10 mg by mouth daily at bedtime. - acetaminophen (TYLENOL) 500 mg tablet Take 500 mg by mouth every 8 hours as needed. - metoprolol tartrate, short acting, (LOPRESSOR) 50 mg tablet Take 50 mg by mouth once daily. - Roenp-8-BLO-EPA-Fish Oil 1,000 mg (120 mg-180 mg) cap Take 1 g by mouth twice daily. Problem List As Of Date 05/23/2024 Noted Resolved COPD (chronic obstructive pulmonary disease) (H*09/18/2019 HTN (hypertension) [I10] 09/18/2019 HLD (hyperlipidemia) [E78.5] 09/18/2019 BINDU (obstructive sleep apnea) [G47.33] 09/18/2019 Arthritis [M19.90] 09/18/2019 Malignant neoplasm of lung (HCC) [C34.90] 09/18/2019 GERD (gastroesophageal reflux disease) [K21.9] 09/18/2019 Disposition: Return in about 6 months (around 11/20/2024) for MD/DO, Imaging. Follow-up and Disposition History for Encounter Date Provider Department Center 05/23/2024 [id number] AVITIA [facility] Encounter Status:Closed by LEX AVITIA on 05/23/[address] [facility] [address] CHEST WO IVCONon 05-18-19 CT CHEST WO IVCON * * *Final Report* * * DATE OF EXAM: May 18 2024 1:41PM [facility] 0541 - CT CHEST WO IVCON / PROCEDURE REASON: Malignant neoplasm of unspecified part of unspecified bronchus or lung (HCC) * * * * Physician Interpretation * * * * EXAMINATION: CHEST CT WITHOUT CONTRAST CLINICAL HISTORY: 68-year-old man with lung cancer Technique: Spiral CT acquisition of the chest from the thoracic inlet to the upper abdomen without contrast. MQ: CTCWO_6 CT Radiation dose: Integrated Dose-length product (DLP) for this visit = 400 mGy*cm CT Dose Reduction Employed: Automated exposure control(AEC) and iterative recon Comparison: Chest CT dated 11/12/2023 RESULT: Limitations: None. Lines, tubes, and devices: None. Lung parenchyma and airways: No significant interval change of spiculated left upper lobe peribronchovascular solid nodule measuring 2.5 x 1.9 cm on image 59. Unchanged pneumonia atelectasis involving the right middle lobe. There is mild to moderate upper lobe predominant centrilobular and paraseptal emphysema. Diffuse bronchial wall thickening in both lungs, unchanged. Saber-sheath morphology of the trachea. Slightly worsened secretion at the right main bronchus extending to bronchus intermedius. Pleural space: No pleural effusions or thickening. No pneumothorax. Lower neck, lymph nodes, and mediastinum: The imaged thyroid gland is normal. No lymphadenopathy in the supraclavicular, axillary, mediastinal regions. Unchanged mildly enlarged 1.4 cm right hilar lymph node with preserved fatty hilum, likely reactive. The esophagus is unremarkable. Heart, pericardium, and thoracic vessels: The thoracic aorta and main pulmonary artery are normal in caliber. The cardiac chambers are normal in size. Moderate coronary artery atherosclerotic calcifications are noted, although the study is not optimized for coronary assessment. Trace pericardial effusion is seen. Aortic valve calcifications are present. Mild atherosclerotic calcifications of the thoracic aorta and arch vessels. Bones and soft tissues: No destructive bone lesion. Chest wall is unremarkable. Degenerative changes are seen. Upper abdomen: Partially visualized nonobstructive right renal calculi. Localizer images: No additional findings. IMPRESSION: 1. Stable left upper lobe treated malignancy. No new or growing nodules. 2. Unchanged mildly enlarged right hilar lymph node with preserved fatty hilum, probably reactive. No new thoracic lymphadenopathy. Associate Dean Of Students: [facility] Transcribe Date/Time: May 18 2024 1:45P Dictated by : CHARY SCHNEIDER MD This examination was interpreted and the report reviewed and electronically signed by: CHARY SCHNEIDER MD on May 18 2024 1:52PM EST [id number] Normal [facility] CT Chest WO contraston 05-18 IMPRESSION: 1. Stable left upper lobe treated malignancy. No new or growing nodules. 2. Unchanged mildly enlarged right hilar lymph node with preserved fatty hilum, probably reactive. No new thoracic lymphadenopathy. Associate Dean Of Students: [facility] Transcribe Date/Time: May 18 2024 1:45P Dictated by : CHARY SCHNEIDER MD This examination was interpreted and the report reviewed and electronically signed by: CHARY SCHNEIDER MD on May 18 2024 1:52PM EST DIVISION OF RADIOLOGY * * *Final Report* * * DATE OF EXAM: May 18 2024 1:41PM [facility] 0541 - CT CHEST WO IVCON / PROCEDURE REASON: Malignant neoplasm of unspecified part of unspecified bronchus or lung (HCC) * * * * Physician Interpretation * * * * EXAMINATION: CHEST CT WITHOUT CONTRAST CLINICAL HISTORY: 68-year-old man with lung cancer Technique: Spiral CT acquisition of the chest from the thoracic inlet to the upper abdomen without contrast. MQ: CTCWO_6 CT Radiation dose: Integrated Dose-length product (DLP) for this visit = 400 mGy*cm CT Dose Reduction Employed: Automated exposure control(AEC) and iterative recon Comparison: Chest CT dated 11/12/2023 RESULT: Limitations: None. Lines, tubes, and devices: None. Lung parenchyma and airways: No significant interval change of spiculated left upper lobe peribronchovascular solid nodule measuring 2.5 x 1.9 cm on image 59. Unchanged pneumonia atelectasis involving the right middle lobe. There is mild to moderate upper lobe predominant centrilobular and paraseptal emphysema. Diffuse bronchial wall thickening in both lungs, unchanged. Saber-sheath morphology of the trachea. Slightly worsened secretion at the right main bronchus extending to bronchus intermedius. Pleural space: No pleural effusions or thickening. No pneumothorax. Lower neck, lymph nodes, and mediastinum: The imaged thyroid gland is normal. No lymphadenopathy in the supraclavicular, axillary, mediastinal regions. Unchanged mildly enlarged 1.4 cm right hilar lymph node with preserved fatty hilum, likely reactive. The esophagus is unremarkable. Heart, pericardium, and thoracic vessels: The thoracic aorta and main pulmonary artery are normal in caliber. The cardiac chambers are normal in size. Moderate coronary artery atherosclerotic calcifications are noted, although the study is not optimized for coronary assessment. Trace pericardial effusion is seen. Aortic valve calcifications are present. Mild atherosclerotic calcifications of the thoracic aorta and arch vessels. Bones and soft tissues: No destructive bone lesion. Chest wall is unremarkable. Degenerative changes are seen. Upper abdomen: Partially visualized nonobstructive right renal calculi. Localizer images: No additional findings. DIVISION OF RADIOLOGY Provider, [facility] - 05/18/2024 * * *Final Report* * * DATE OF EXAM: May 18 2024 1:41PM [facility] 0541 - CT CHEST WO IVCON / PROCEDURE REASON: Malignant neoplasm of unspecified part of unspecified bronchus or lung (HCC) * * * * Physician Interpretation * * * * EXAMINATION: CHEST CT WITHOUT CONTRAST CLINICAL HISTORY: 68-year-old man with lung cancer Technique: Spiral CT acquisition of the chest from the thoracic inlet to the upper abdomen without contrast. MQ: CTCWO_6 CT Radiation dose: Integrated Dose-length product (DLP) for this visit = 400 mGy*cm CT Dose Reduction Employed: Automated exposure control(AEC) and iterative recon Comparison: Chest CT dated 11/12/2023 RESULT: Limitations: None. Lines, tubes, and devices: None. Lung parenchyma and airways: No significant interval change of spiculated left upper lobe peribronchovascular solid nodule measuring 2.5 x 1.9 cm on image 59. Unchanged pneumonia atelectasis involving the right middle lobe. There is mild to moderate upper lobe predominant centrilobular and paraseptal emphysema. Diffuse bronchial wall thickening in both lungs, unchanged. Saber-sheath morphology of the trachea. Slightly worsened secretion at the right main bronchus extending to bronchus intermedius. Pleural space: No pleural effusions or thickening. No pneumothorax. Lower neck, lymph nodes, and mediastinum: The imaged thyroid gland is normal. No lymphadenopathy in the supraclavicular, axillary, mediastinal regions. Unchanged mildly enlarged 1.4 cm right hilar lymph node with preserved fatty hilum, likely reactive. The esophagus is unremarkable. Heart, pericardium, and thoracic vessels: The thoracic aorta and main pulmonary artery are normal in caliber. The cardiac chambers are normal in size. Moderate coronary artery atherosclerotic calcifications are noted, although the study is not optimized for coronary assessment. Trace pericardial effusion is seen. Aortic valve calcifications are present. Mild atherosclerotic calcifications of the thoracic aorta and arch vessels. Bones and soft tissues: No destructive bone lesion. Chest wall is unremarkable. Degenerative changes are seen. Upper abdomen: Partially visualized nonobstructive right renal calculi. Localizer images: No additional findings. IMPRESSION IMPRESSION: 1. Stable left upper lobe treated malignancy. No new or growing nodules. 2. Unchanged mildly enlarged right hilar lymph node with preserved fatty hilum, probably reactive. No new thoracic lymphadenopathy. Associate Dean Of Students: [employer] Transcribe Date/Time: May 18 2024 1:45P Dictated by : CHARY SHCNEIDER MD This examination was interpreted and the report reviewed and electronically signed by: CHARY SCHNEIDER MD on May 18 2024 1:52PM EST [facility] Radiology Study observation (narrative) [facility] CT Chest WO contrastOrdered By: Ccf Provider on 05-18-2024 [facility] CBC + DIFFon 05-13-2024 Baso # 0.04 x10EE3/UL Normal 0.00 - 0.10 [facility] Comment on above: Performed By: #### 2 [id number] #### [facility],[address] [place] [address] Basophils/100 WBC (Bld) 0.4 % Normal 0.0 - 2.0 [facility] Comment on above: Performed By: #### 2 95609 #### [place] [address] CBC + DIFF Normal [facility] Comment on above: Result Comment: CBC- COMPLETE BLOOD COUNT Performed By: #### 2 96736 #### [place] [address] EO # 0.32 x10EE3/UL Normal 0.00 - 0.50 [facility] Comment on above: Performed By: #### 2 26523 #### [place] [address] Eosinophils/100 WBC (Bld) 3.7 % Normal 0.0 - 7.0 [facility] Comment on above: Performed By: #### 2 56552 #### [place] [address] Erythrocyte distribution width (RBC) [Ratio] 14.0 % Normal 12.0 - 15.6 [facility] Comment on above: Performed By: #### 2 42547 #### [place] [address] Hematocrit (Bld) [Volume fraction] 51.2 % Normal 40.0 - 52.0 [facility] Comment on above: Performed By: #### 2 78861 #### [place] [address] Hemoglobin (Bld) [Mass/Vol] 16.6 g/dL Normal 13.0 - 17.5 [facility] Comment on above: Performed By: #### 2 66443 #### [facility],[address] [place] [address] Lymph # 3.32 x10EE3/UL High 0.80 - 2.80 [facility] Comment on above: Performed By: #### 2 79011 #### [facility],[address] [place] [address] Lymphocytes/100 WBC (Bld) 39.1 % Normal 20.0 - 45.0 [facility] Comment on above: Performed By: #### 2 71557 #### [facility],[address] [place] [address] MANUAL DIFF N/A Normal [facility] Comment on above: Performed By: #### 2 98626 #### [facility],[address] [place] [address] MCH (RBC) [Entitic mass] 30 pg Normal 27 - 33 [facility] Comment on above: Performed By: #### 2 03588 #### [facility],[address] [place] [address] MCHC 33 X10 3 Normal 32 - 36 [facility] Comment on above: Performed By: #### 2 79596 #### [facility],[address] [place] [address] MCV (RBC) [Entitic vol] 92 fL Normal 81 - 98 [facility] Comment on above: Performed By: #### 2 93017 #### [facility],[address] [place] [address] Jackson # 0.55 x10EE3/UL Normal 0.20 - 1.00 [facility] Comment on above: Performed By: #### 2 64866 #### [facility],[address] [place] [address] MONOS % 6.5 % Normal 0.0 - 10.0 [facility] Comment on above: Performed By: #### 2 36767 #### [facility],[address] [place], [place] [address] Morphology Wong (Bld) [Interp] N/A Normal [facility] Comment on above: Performed By: #### 2 35174 #### [facility],[address] [place] [address] Neut # 4.26 x10EE3/UL Normal 1.50 - 7.10 [facility] Comment on above: Performed By: #### 2 00243 #### [facility],[address] [place] [address] Neutrophils/100 WBC (Bld) 50.3 % Normal 46.0 - 76.0 [facility] Comment on above: Performed By: #### 2 26353 #### [facility],[address] [place], [place] [id number] PLATELET 186 x10EE3/UL Normal 150 - 450 [facility] Comment on above: Performed By: #### 2 82414 #### [facility],[address] [place] [address] Platelet mean volume (Bld) [Entitic vol] 8.3 fL Normal 6.4 - 10.5 [facility] Comment on above: Result Comment: AUTO MATED DIFFERENTIAL Performed By: #### 2 96864 #### [facility],[address] [place] [address]479 RBC 5.55 x 10EE6/UL Normal 4.50 - 6.00 [facility] Comment on above: Performed By: #### 2 20281 #### [facility],[address] [place] [address]176 WBC 8.5 x 10EE3/UL Normal 4.5 - 10.8 [facility] Comment on above: Performed By: #### 2 57022 #### [facility],[address] [place] [address]60 CMP with eGFRon 05-13-2024 AGE 69 years Normal [facility] Comment on above: Performed By: #### 2 66326 #### [facility],[address] [place] [address] 46675 Albumin [Mass/Vol] 3.5 g/dL Normal 3.4 - 5.0 [facility] Comment on above: Performed By: #### 2 74043 #### [facility],[address] [place] [address]125 Albumin/Globulin [Mass ratio] 0.9 {ratio} Normal 0.9 - 1.6 [facility] Comment on above: Performed By: #### 2 17989 #### [facility],[address] [place] [address] 57814 ALK PHOS 73 U/L Normal 46 - 116 [facility] Comment on above: Performed By: #### 2 19007 #### [facility],[address] [place] [address] 95771 ALT [Catalytic activity/Vol] 27 U/L Normal 16 - 63 [facility] Comment on above: Performed By: #### 2 47863 #### [facility],[address] [place] [address] 92389 Anion gap [Moles/Vol] 6 mmol/L Low 10 - 20 [facility] Comment on above: Performed By: #### 2 38360 #### [facility],[address] [place] [address] 64241 AST [Catalytic activity/Vol] 22 U/L Normal 15 - 37 [facility] Comment on above: Performed By: #### 2 14106 #### [facility],[address] [place] [address] 19376 B/C RATIO 20 ratio Normal 0 - 30 [facility] Comment on above: Performed By: #### 2 94260 #### [facility],[address] [place] [address] 51089 Bilirubin [Mass/Vol] 0.3 mg/dL Normal 0.2 - 1.0 [facility] Comment on above: Performed By: #### 2 54280 #### [facility],[address] [place] [address] 10979 Calcium [Mass/Vol] 8.7 mg/dL Normal 8.5 - 10.1 [facility] Comment on above: Performed By: #### 2 76294 #### [facility],[address] [place], [place] [address] Chloride [Moles/Vol] 103 mmol/L Normal 98 - 107 [facility] Comment on above: Performed By: #### 2 02678 #### [facility],[address] [place] [address] 68521 CMP with eGFR Normal [facility] Comment on above: Result Comment: COMP REHENSIVE METABOLIC PANEL Performed By: #### 2 52922 #### [facility],[address] [place] [address] 68940 CO2 [Moles/Vol] 34.7 mmol/L High 21.0 - 32.0 [facility] Comment on above: Performed By: #### 2 18272 #### [facility],[address] [place] [address] 36892 Creatinine [Mass/Vol] 0.66 mg/dL Low 0.70 - 1.30 [facility] Comment on above: Performed By: #### 2 75738 #### [facility],[address] [place] [address] 45969 GFR/1.73 sq M.predicted among non-blacks MDRD (S/P/Bld) [Vol rate/Area] mL/min/{1.73_m2} Normal 60 - 999 [facility] Comment on above: Performed By: #### 2 98082 #### [facility],[address] [place] [address] Result Comment: ACCO RDING TO THE NATIONAL KIDNEY DISEASE EDUCATION PROGRAM(NKDE), A NORMAL eGFR IS A VALUE GREATER THAN OR EQUAL TO 60 ML/MIN/1.73 SQ METERS. CHRONIC KIDNEY DISEASE: <60mL/MIN/1.73 SQ METERS KIDNEY FAILURE: <15mL/MIN/1.73 SQ METERS THIS TEST SHOULD ONLY BE USED FOR PATIENTS 18 YEARS OF AGE AND OLDER. Globulin (S) [Mass/Vol] 4.0 g/dL High 1.5 - 3.8 [facility] Comment on above: Performed By: #### 2 52436 #### [facility],[address] [place] [address] 07539 Glucose [Mass/Vol] 93 mg/dL Normal 74 - 106 [facility] Comment on above: Performed By: #### 2 74769 #### [facility],[address] [place] [address] 58631 Potassium [Moles/Vol] 3.8 mmol/L Normal 3.5 - 5.1 [facility] Comment on above: Performed By: #### 2 31631 #### [facility],[address] [place] [address] 87981 Protein [Mass/Vol] 7.5 g/dL Normal 6.4 - 8.2 [facility] Comment on above: Performed By: #### 2 53914 #### [facility],[address] [place] [address] 04160 Sodium [Moles/Vol] 140 mmol/L Normal 136 - 145 [facility] Comment on above: Performed By: #### 2 31868 #### [facility],[address] [place] [address] 15277 Urea nitrogen [Mass/Vol] 13 mg/dL Normal 7 - 18 [facility] Comment on above: Performed By: #### 2 34989 #### [facility],[address] [place] [address] 13915 LIPID PROFILEon 05-13-2024 Cholesterol [Mass/Vol] 209 mg/dL Normal 0 - 240 [facility] Comment on above: Performed By: #### 2 45457 #### [facility],[address] [place] [address] 82295 Cholesterol in HDL [Mass/Vol] 41 mg/dL Normal 40 - 60 [facility] Comment on above: Performed By: #### 2 67967 #### [facility],[address] [place] [address] 67595 Cholesterol.total/Chol esterol in HDL [Mass ratio] 5.1 {ratio} High 0.0 - 5.0 [facility] Comment on above: Performed By: #### 2 89283 #### [facility],[address] [place] [address] 20504 LDL N/A Normal 0 - 129 [facility] Comment on above: Performed By: #### 2 66700 #### [facility],[address] [place] [address] 39038 Lipid 1996 panel Normal [facility] Comment on above: Result Comment: LIPI D PROFILE Performed By: #### 2 55618 #### [facility],[address] [place] [address] 67758 Triglyceride [Mass/Vol] 414 mg/dL High 0 - 150 [facility] Comment on above: Performed By: #### 2 91320 #### [facility],[address] [place] [address] 09767 TSHon 05-13-2024 TSH Qn 10.47 m[IU]/L High 0.35 - 3.74 [facility] Comment on above: Performed By: #### 2 43791 #### [facility],[address] [place] [address] 77153 CV VENOUS LEG LTon CV VENOUS LEG LT [place] [address] Patient: SCOT BURGESS Phone#: : 1955 Age: 68 Gender: M Pt. Type: Out Account: [id number] Location: [facility] Ordering: BECKY CHACON Exam Date: 01/21/2024/12:57 Family Phys: Charge Code: 415694 Physician: [place] Order #: [id number] Dose#: PROCEDURE: VENOUS DOPPLER LT LEG COMPARISON: None. INDICATIONS: PAIN, SWELLING, EDEMA TECHNIQUE: Color duplex Doppler ultrasound evaluation analysis was performed in the usual manner. JUICE STANDARDIZER: ANDREZ JOSEPH RISK FACTORS FOR VENOUS DISEASE: LE trauma/injury EXAMINATION: RIGHT +Present -Reduced o Absent LEFT SPONT PHASIC AUG REFLUX COMP SPONT PHASIC AUG REFLUX COM CFV + + + o + SFJ + FV (prox) + + + o + FV (mid) + FV (dist) + POP V + + + o + T/P TRUNK + + + o + PTV + + + o + PERONEAL V + + + o + GSV + GASTROC SOLEAL V JUICE STANDARDIZER'S NOTES: Hypoechoic structure noted in the posterior calf, non vascular in nature. FINDINGS: THROMBI: None visible. Continued Report - Page 2 of 2 Patient: SCOT BURGESS Phone#: : 1955 Age: 68 Gender: M Pt. Type: Out Account: [id number] Location: 2 Ordering: BECKY CHACON Exam Date: 01/21/2024/12:57 Family Phys: Charge Code: [id number] Physician: [place] Order #: [id number] Dose#: COMPRESSIBILITY: Normal. OTHER: In the posterior calf there is a hypoechoic structure without internal blood flow. Structure appears to be within the musculature of the calf. There is edema in the adjacent subcutaneous soft tissues. CONCLUSION: 1. No evidence of deep vein thrombus in the left lower extremity 2. Possible a hematoma within musculature of the calf. Recommend follow-up in 3 months to confirm resolution. Dictated by: Sylvia Acharya MD on 01/21/2024 at 13:51 Approved by: Sylvia Acharya MD on 01/21/2024 at 14:02 [facility] 11-16-2023 [facility] Telephone (KnowReN) SCOT BURGESS ([id number]) 1955 M Date Time Provider Department 11/16/23 LEX AVITIA During your visit today, we recorded the following information about you: Lex Avitia MD 11/17/2023 6:59 AM Signed Called to speak with pt regarding recent surveillance CT chest results. The call had been scheduled as a phone follow up. When I called the pt's said the pt was not available and that she would take any messages, i conveyed to her the favorable results of the scan and asked her to share them with the pt and to call me back. Routine 6m follow up. Lex Avitia MD Allergies As of Date: 11/16/2023 Noted Allergy Reaction MORPHINE 09/13/2019 7 - Swelling Date Reviewed: 11/11/2023 Reviewed by: Melissa Madden, RT(R) - Fully Assessed Primary Visit Diagnosis:Malignant neoplasm of unspecified part of unspecified bronchus or lung (HCC) [C34.90] Order(s):CT CHEST WO [facility] [[id number]] Order #: [id number] FUTURE Prescriptions as of 11/17/2023 - sertraline (ZOLOFT) 100 mg tablet Take 100 mg by mouth once daily. - CARTIA XT 120 mg 24 hr capsule Take 120 mg by mouth once daily. - fenofibrate nanocrystallized (TRICOR) 145 mg tablet Take 145 mg by mouth once daily. - buPROPion SR (ZYBAN SR; WELLBUTRIN SR) 150 mg 12 hr tablet Take 150 mg by mouth twice daily. - palwczbsvgu-gjyqxsgae-g ilanter (TRELEGY ELLIPTA) 100-62.5-25 mcg Inhale 1 Puff as instructed once daily. - simvastatin (ZOCOR) 10 mg tablet Take 10 mg by mouth daily at bedtime. - acetaminophen (TYLENOL) 500 mg tablet Take 500 mg by mouth every 8 hours as needed. - metoprolol tartrate, short acting, (LOPRESSOR) 50 mg tablet Take 50 mg by mouth once daily. - Zdhgq-6-TDN-EPA-Fish Oil 1,000 mg (120 mg-180 mg) cap Take 1 g by mouth twice daily. Problem List As Of Date 11/16/2023 Noted Resolved COPD (chronic obstructive pulmonary disease) (H*09/18/2019 HTN (hypertension) [I10] 09/18/2019 HLD (hyperlipidemia) [E78.5] 09/18/2019 BINDU (obstructive sleep apnea) [G47.33] 09/18/2019 Arthritis [M19.90] 09/18/2019 Malignant neoplasm of lung (HCC) [C34.90] 09/18/2019 GERD (gastroesophageal reflux disease) [K21.9] 09/18/2019 Disposition: Return in about 6 months (around 05/18/2024) for MD/DO, Imaging. Follow-up and Disposition History for Encounter Date Provider Department Center 11/16/2023 15774-INPZCCTLEX AVITIA [facility] Encounter Status:Closed by LEX AVITIA on 11/17/[address] [facility] [address] CHEST WO IVCONon 11-12-19 CT CHEST WO IVCON * * *Final Report* * * DATE OF EXAM: Nov 12 2023 1:19PM [facility] 0541 - CT CHEST WO IVCON / PROCEDURE REASON: Malignant neoplasm of unspecified part of unspecified bronchus or lung (HCC) * * * * Physician Interpretation * * * * EXAMINATION: CHEST CT WITHOUT CONTRAST CLINICAL HISTORY: 68-year-old man with lung cancer Technique: Spiral CT acquisition of the chest from the thoracic inlet to the upper abdomen without contrast. MQ: [id number]_6 CT Radiation dose: Integrated Dose-length product (DLP) for this visit = 386 mGy*cm CT Dose Reduction Employed: Automated exposure control(AEC) and iterative recon Comparison: PET/CT, 08/31/[address] chest, 05/14/2023 RESULT: Limitations: None. Lines, tubes, and devices: None. Lung parenchyma and airways: No significant change in size and morphology of a solid nodule with spiculated margins in the left upper lobe (on direct comparison with the prior CT). The nodule along with surrounding fibrotic/retracted lung parenchyma measure 2.5 x 2.5 cm collectively, although accurate margins of the nodule are ill-defined (image 60). No additional new or enlarging lung nodules. There has been interval development of a curvilinear fibrotic or atelectatic band in the middle lobe along the minor fissure (image 133). There is mild upper lobe predominant centrilobular and paraseptal emphysema. Diffuse bronchial wall thickening in both lungs suggestive of chronic airway inflammation. Saber-sheath morphology of the trachea with minimal secretions. No endobronchial soft tissue densities in the trachea or major bronchi. Pleural space: No pleural effusion. No pleural thickening. Lower neck, lymph nodes, and mediastinum: The imaged thyroid gland is unremarkable. No supraclavicular or axillary lymphadenopathy. Stable lower right paratracheal and lower left paratracheal lymph nodes which measure 9-10 mm in short axis (images 82 and 85), nonspecific. No progressive thoracic lymphadenopathy. Tiny hiatal hernia. Heart, pericardium, and thoracic vessels: There are mild aortic valve and root calcifications. The thoracic aorta is normal in course and caliber with conventional branching pattern of the aortic arch. There are mild atherosclerotic calcifications in the distal aortic arch and descending thoracic aorta. The main and central pulmonary arteries are normal in caliber. There are mild coronary calcifications although the present scan is not optimized for coronary assessment. Trace anterior pericardial fluid is likely within physiologic limits. Bones and soft tissues: No destructive bone lesion. Degenerative changes in the spine. Chest wall is unremarkable. Upper abdomen: Punctate nonobstructive right renal calculus. Localizer images: No additional findings. IMPRESSION: On direct comparison, there is no significant interval change in size of a solid nodule with spiculated margins in the left upper lobe which likely represents patient's known malignancy (previously treated with radiation). Previously described distinct nodular component is difficult to differentiate from surrounding parenchymal retraction and posttreatment changes, which collectively measure approximately 2.5 cm in greatest dimension in the current scan. No change in size of borderline enlarged mediastinal lymph nodes which are nonspecific; no new or progressive thoracic lymphadenopathy. Interval development of parenchymal bandlike atelectasis or scarring in the middle lobe with or without mucous plugging within small subsegmental bronchi. Suggest attention on follow-up. COPD changes as described. Associate Dean Of Students: PSCBrittney Transcribe Date/Time: Nov 13 2023 10:40A Dictated by : JAC YUAN MD This examination was interpreted and the report reviewed and electronically signed by: JAC YUAN MD on Nov 13 2023 10:50AM EST [id number] Normal [facility] PET/CT SKULL-THIGH SUBQon 08-31-2023 [place] PET/CT SKULL-THIGH SUBQ * * *Final Report* * * DATE OF EXAM: Aug 31 2023 2:30PM MDP 0063 - NM PET/CT SKULL-THIGH SUBQ / PROCEDURE REASON: C34.90 NON SMALL CELL LUNG CANCER; ENLARGING NODULE * * * * Physician Interpretation * * * * EXAMINATION: BODY FDG PET-CT CLINICAL HISTORY: Left lung non small cell cancer; enlarging nodule. Status post radiotherapy completed in 2019 TECHNIQUE: Radiopharmaceutical was administered IV followed about 60 minutes later by PET imaging from eyes to proximal thighs. Free breathing, low dose CT of the same body region was acquired without IV contrast for attenuation correction and anatomic localization. * CT Dose-Length Product (DLP): 467 mGy*cm * CT Dose Reduction Employed: Yes * Blood glucose (mg/dL): . * Radiopharmaceutical Dose: 17.2 mCi * Radiopharmaceutical: K65-Quwbmrmtltsultqrok (FDG) COMPARISON: FDG PET/CT of 08/22/2019 CORRELATION: CT chest of 05/15/2023 RESULT: REFERENCES: SUV reference values: * Background liver activity: SUVmax 3.2 Wood Inspector (topogram) images: No additional findings. Notes and limitations: * Standardized uptake values indicate the highest activity concentration (SUVmax) at a given location but can be variable and are not absolute. * Physiologic/non-neoplas tic uptake is common in the brain, extraocular muscles, oral cavity, tonsils, salivary glands, vocal cords, myocardium, liver, GI tract, urinary tract, and bone marrow among others. Certain regions and organ systems can have more intense uptake, which could confound or obscure some pathology. * Unenhanced imaging is limited for the evaluation of some pathology and the acquired CT was not designed to produce or replace diagnostic CT scan quality. * PET-CT is often not sensitive for pulmonary nodules less than 8 mm. HEAD AND NECK: Imaged Head: No abnormal uptake. Neck and Lymph Nodes: No abnormal uptake. Thyroid: Mild diffuse FDG uptake in thyroid gland, likely inflammatory. 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 Emphysematous changes Pleura and Pericardium: No abnormal uptake. Cardiovascular: No abnormal uptake. Mediastinum and Lymph Nodes: No FDG avid adenopathy. Mild diffuse FDG uptake in the esophagus, likely inflammatory. ABDOMEN AND PELVIS: Hepatobiliary: No abnormal uptake. Spleen: No abnormal uptake. Pancreas: No abnormal uptake. Adrenals: No abnormal uptake. Urinary Tract: No abnormal uptake. GI Tract: No abnormal uptake. No dilated bowel. Colonic diverticulosis. Peritoneum: No abnormal uptake. Vasculature: No abnormal uptake. Retroperitoneum and Lymph Nodes: No abnormal uptake. Pelvis: No abnormal uptake. MUSCULOSKELETAL: Osseous: No abnormal uptake. Soft Tissues: No abnormal uptake. IMPRESSION: HEAD/NECK: * No FDG avid neoplastic process. 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 * No FDG avid adenopathy. * Mild diffuse FDG uptake in the esophagus, likely inflammatory. ABDOMEN/PELVIS: * No FDG avid neoplastic process. MUSCULOSKELETAL: * No FDG avid neoplastic process. Associate Dean Of Students: ALEXANDREA Transcribe Date/Time: Sep 03 2023 10:26A Dictated by : RAYA BUNDY MD This examination was interpreted and the report reviewed and electronically signed by: RAYA BUNDY MD on Sep 03 2023 10:46AM EST [id number] Normal [facility] No Panel InformationOrdered By: Kemal Rose on 08-24-2023 Prostate Specific Antigen Screen 5.67 ng/mL 0.00-4.00 [facility] Comment on above: This test was perfor med using the TPSA assay method for [employer] system. Values obtained with differentassay methods cannot be used interchangably.When changing PSA assays in the course of monitoring apatient, additional sequential testing should be carriedout to confirm baseline values. PSA,Total - Annual Screenon 08-24-2023 PSA,TOT SCREEN 5.67 ng/mL High 0.00-4.00 [facility] Comment on above: Result Comment: This test was performed using the TPSA assay method for the [employer] system. Values obtained with different assay methods cannot be used interchangably. When changing PSA assays in the course of monitoring a patient, additional sequential testing should be carried out to confirm baseline values. Performed By: #### L [phone] #### [facility] Laboratory Elysia Wilkinson [place], [place], [id number] APTTon 08-23-2023 aPTT Coag (Bld) [Time] 29.9 s Normal 25.4 - 38.4 [facility] Comment on above: Performed By: #### 2 24869 #### [facility],[address] [place] [address] 75333 CBC + DIFFon 08-23-2023 Baso # 0.03 x10EE3/UL Normal 0.00 - 0.10 [facility] Comment on above: Performed By: #### 2 82866 #### [address] [address] Basophils/100 WBC (Bld) 0.3 % Normal 0.0 - 2.0 [facility] Comment on above: Performed By: #### 2 88484 #### [facility],[address] [place] [address] 80704 CBC + DIFF Normal [facility] Comment on above: Result Comment: CBC- COMPLETE BLOOD COUNT Performed By: #### 2 82389 #### [address] [address] EO # 0.22 x10EE3/UL Normal 0.00 - 0.50 [facility] Comment on above: Performed By: #### 2 98583 #### [address] [address] Eosinophils/100 WBC (Bld) 2.4 % Normal 0.0 - 7.0 [facility] Comment on above: Performed By: #### 2 88389 #### [address] [address] Erythrocyte distribution width (RBC) [Ratio] 14.3 % Normal 12.0 - 15.6 [facility] Comment on above: Performed By: #### 2 51400 #### [facility],[address] [place] [address] Hematocrit (Bld) [Volume fraction] 48.8 % Normal 40.0 - 52.0 [facility] Comment on above: Performed By: #### 2 26970 #### [facility],[address] [place] [address] Hemoglobin (Bld) [Mass/Vol] 15.6 g/dL Normal 13.0 - 17.5 [facility] Comment on above: Performed By: #### 2 70199 #### [facility],[address] [place] [address] Lymph # 2.93 x10EE3/UL High 0.80 - 2.80 [facility] Comment on above: Performed By: #### 2 25929 #### [facility],[address] [place] [address] Lymphocytes/100 WBC (Bld) 31.2 % Normal 20.0 - 45.0 [facility] Comment on above: Performed By: #### 2 90254 #### [facility],[address] [place], [place] [id number] MANUAL DIFF N/A Normal [facility] Comment on above: Performed By: #### 2 11071 #### [facility],[address] [place], [place] [address] MCH (RBC) [Entitic mass] 31 pg Normal 27 - 33 [facility] Comment on above: Performed By: #### 2 74775 #### [address] [address] MCHC 32 X10 3 Normal 32 - 36 [facility] Comment on above: Performed By: #### 2 79346 #### [facility],[address] [place], [place] [address] MCV (RBC) [Entitic vol] 96 fL Normal 81 - 98 [facility] Comment on above: Performed By: #### 2 80094 #### [place] [address] [address] # 0.79 x10EE3/UL Normal 0.20 - 1.00 [facility] Comment on above: Performed By: #### 2 25385 #### [place] [address] MONOS % 8.4 % Normal 0.0 - 10.0 [facility] Comment on above: Performed By: #### 2 00088 #### [place] [address] Morphology Wong (Bld) [Interp] N/A Normal [facility] Comment on above: Performed By: #### 2 04461 #### [place] [address] Neut # 5.44 x10EE3/UL Normal 1.50 - 7.10 [facility] Comment on above: Performed By: #### 2 73923 #### [place] [address] Neutrophils/100 WBC (Bld) 57.8 % Normal 46.0 - 76.0 [facility] Comment on above: Performed By: #### 2 85544 #### [place] [address] PLATELET 160 x10EE3/UL Normal 150 - 450 [facility] Comment on above: Performed By: #### 2 27571 #### [place] [address] Platelet mean volume (Bld) [Entitic vol] 8.5 fL Normal 6.4 - 10.5 [facility] Comment on above: Result Comment: AUTO MATED DIFFERENTIAL Performed By: #### 2 92763 #### [address],[place] [address] RBC 5.09 x 10EE6/UL Normal 4.50 - 6.00 [facility] Comment on above: Performed By: #### 2 67142 #### [facility],[address] [place] [address] 97713 WBC 9.4 x 10EE3/UL Normal 4.5 - 10.8 [facility] Comment on above: Performed By: #### 2 15722 #### [facility],[address] [place] [address] 15837 CMP with eGFRon 08-23-2023 AGE 68 years Normal [facility] Comment on above: Performed By: #### 2 29542 #### [facility],[address] [place] [address] 47594 Albumin [Mass/Vol] 3.0 g/dL Low 3.4 - 5.0 [facility] Comment on above: Performed By: #### 2 22823 #### [facility],[address] [place] [address] 77239 Albumin/Globulin [Mass ratio] 0.7 {ratio} Low 0.9 - 1.6 [facility] Comment on above: Performed By: #### 2 94901 #### [facility],[address] [place] [address] 24768 ALK PHOS 70 U/L Normal 46 - 116 [facility] Comment on above: Performed By: #### 2 88358 #### [facility],[address] [place] [address] 46611 ALT [Catalytic activity/Vol] 26 U/L Normal 16 - 63 [facility] Comment on above: Performed By: #### 2 27455 #### [facility],[address] [place] [address] 19461 Anion gap [Moles/Vol] 8 mmol/L Low 10 - 20 [facility] Comment on above: Performed By: #### 2 81197 #### [facility],[address] [place] [address] 79735 AST [Catalytic activity/Vol] 18 U/L Normal 15 - 37 [facility] Comment on above: Performed By: #### 2 22092 #### [facility],[address] [place] [address] 07249 B/C RATIO 16 ratio Normal 0 - 30 [facility] Comment on above: Performed By: #### 2 66608 #### [facility],[address] [place] [address] 30225 Bilirubin [Mass/Vol] 0.2 mg/dL Normal 0.2 - 1.0 [facility] Comment on above: Performed By: #### 2 81873 #### [facility],[address] [place] [address] 14448 Calcium [Mass/Vol] 8.7 mg/dL Normal 8.5 - 10.1 [facility] Comment on above: Performed By: #### 2 29356 #### [facility],[address] [place] [address] 11679 Chloride [Moles/Vol] 105 mmol/L Normal 98 - 107 [facility] Comment on above: Performed By: #### 2 12269 #### [facility],[address] [place] [address] 78604 CMP with eGFR Normal [facility] Comment on above: Result Comment: COMP REHENSIVE METABOLIC PANEL Performed By: #### 2 47807 #### [facility],[address] [place] [address] 38093 CO2 [Moles/Vol] 33.7 mmol/L High 21.0 - 32.0 [facility] Comment on above: Performed By: #### 2 75823 #### [facility],[address] [place] [address] 19364 Creatinine [Mass/Vol] 0.61 mg/dL Low 0.70 - 1.30 [facility] Comment on above: Performed By: #### 2 56032 #### [facility],[address] [place] [address] 11364 GFR/1.73 sq M.predicted among non-blacks MDRD (S/P/Bld) [Vol rate/Area] mL/min/{1.73_m2} Normal 60 - 999 [facility] Comment on above: Performed By: #### 2 13630 #### [facility],[address] [place] [address] Result Comment: ACCO RDING TO THE NATIONAL KIDNEY DISEASE EDUCATION PROGRAM(NKDE), A NORMAL eGFR IS A VALUE GREATER THAN OR EQUAL TO 60 ML/MIN/1.73 SQ METERS. CHRONIC KIDNEY DISEASE: <60mL/MIN/1.73 SQ METERS KIDNEY FAILURE: <15mL/MIN/1.73 SQ METERS THIS TEST SHOULD ONLY BE USED FOR PATIENTS 18 YEARS OF AGE AND OLDER. Globulin (S) [Mass/Vol] 4.6 g/dL High 1.5 - 3.8 [facility] Comment on above: Performed By: #### 2 [id number] #### [address] [address] Glucose [Mass/Vol] 91 mg/dL Normal 74 - 106 [facility] Comment on above: Performed By: #### 2 94426 #### [facility],[address] [place] [address] Potassium [Moles/Vol] 4.1 mmol/L Normal 3.5 - 5.1 [facility] Comment on above: Performed By: #### 2 16525 #### [facility],[address] [place] [address] Protein [Mass/Vol] 7.6 g/dL Normal 6.4 - 8.2 [facility] Comment on above: Performed By: #### 2 19176 #### [facility],[address] [place] [address] 40436 Sodium [Moles/Vol] 143 mmol/L Normal 136 - 145 [facility] Comment on above: Performed By: #### 2 09376 #### [facility],[address] [place] [address] 00425 Urea nitrogen [Mass/Vol] 10 mg/dL Normal 7 - 18 [facility] Comment on above: Performed By: #### 2 96236 #### [facility],[address] [place] [address]474 CORONAVIRUS (SARS) ANTIGEN T ESTon 08-23-2023 EXTERNAL QC DONE? YES Normal [facility] Comment on above: Performed By: #### 2 17335 ####[facility],[address] [place] [address]207 INTERNAL CONTROL PASS Normal [facility] Comment on above: Performed By: #### 2 91175 ####[facility],[address] [place] [address]54 SARS ANTIGEN Negative Normal NORMAL: NEGATIVE [facility] Comment on above: Performed By: #### 2 49222 ####[facility],[address] [place] [address]22 SEND TO ? NO Normal [facility] Comment on above: Result Comment: SARS -CoV-2 THIS TEST IS BEING USED UNDER THE FDA EUA PROCEDURE. THIS ASSAY HAS BEEN VALIDATED AT [facility] FOR USE WITH NASAL AND NASOPHARYNGEAL SWAB SPECIMENS. INTERPRETIVE DATA TEST RESULTS SHOULD ALWAYS BE CONSIDERED IN THE CONTEXT OF CLINICAL OBSERVATIONS AND EPIDEMIOLOGICAL DATA IN MAKING FINAL DIAGNOSIS AND PATIENT MANAGEMENT DECISIONS. PATIENT MANAGEMENT SHOULD FOLLOW CURRENT CDC GUIDELINES. THE JOEY SARS ANTIGEN VAN DOES NOT DIFFERENTIATE BETWEEN SARS-CoV & SARS-CoV-2. A POSITIVE TEST RESULT INDICATES THE PRESENCE OF SARS-CoV-2 NUCLEOCAPSID PROTEIN ANTIGEN, AND THE PATIENT IS INFECTED WITH THE VIRUS AND PRESUMED TO BE CONTAGIOUS. A NEGATIVE TEST RESULT FOR THIS TEST MEANS THAT SARS-CoV-2 NUCLEOCAPSID PROTEIN ANTIGEN WAS NOT PRESENT IN THE SPECIMEN ABOVE THE LIMIT OF DETECTION. HOWEVER, A NEGATIVE RESULT DOES NOT RULE OUT COVID-19 AND SHOULD NOT BE USED THE SOLE BASIS FOR TREATMENT OR PATIENT MANAGEMENT DECISIONS. A NEGATIVE RESULT DOES NOT EXCLUDE THE POSSIBILITY OF COVID-19. NEGATIVE RESULTS, FROM PATIENTS WITH SYMPTOM ONSET BEYOND FIVE DAYS, SHOULD BE TREATED PRESUMPTIVE AND CONFIRMATION WITH A MOLECULAR ASSAY, IF NECESSARY, FOR PATIENT MANAGEMENT, MAY BE PERFORMED. WHEN DIAGNOSTIC TESTING IS NEGATIVE, THE POSSIBLILTY OF A FALSE NEGATIVE RESULT SHOULD BE CONSIDERED IN THE CONTEXT OF A PATIENT'S RECENT EXPOSURES AND THE PRESENCE OF CLINICAL SIGNS AND SYMPTOMS CONSISTENT WITH COVID-19. THE POSSIBILITY OF A FALSE NEGATIVE RESULT SHOULD ESPECIALLY BE CONSIDERED IF THE PATIENT'S RECENT EXPOSURES OR CLINICAL PRESENTATION INDICATE THAT COVID-19 IS LIKELY, AND DIAGNOSTIC TESTS FOR OTHER CAUSES OF ILLNESS (e.g., OTHER RESPIRATORY ILLNESS) ARE NEGATIVE. IF COVID-19 IS STILL SUSPECTED BASED ON EXPOSURE HISTORY TOGETHER WITH OTHER CLINICAL FINDINGS, RE-TESTING SHOULD BE CONSIDERED BY HEALTHCARE PROVIDERS IN CONSULTATION WITH PUBLIC HEALTH AUTHORITIES. Performed By: #### 2 [id number] ####[facility],[address] [place] [address] CT CHEST (PE PROTOCOL)on CT CHEST (PE PROTOCOL) [place] [address] Patient: SCOT BURGESS Phone#: : [phone] Age: 68 Gender: M Pt. Type: ER Account: [id number] Location: [facility] Ordering: MIGUEL MASTERSON Exam Date: 08/23/2023/5:28 Family Phys: BECKY CHACON Charge Code: [id number] Physician: [place] Order #: [id number] Dose#: [id number] PROCEDURE: CT CHEST WITH CONTRAST FOR PE COMPARISON: [facility], CT, CHEST PE W CON, 07/05/2022, 0:37. INDICATIONS: SHORT OF BREATH. TECHNIQUE: After obtaining the patient's consent, CT images were obtained with non-ionic intravenous contrast material. Multi-planar images were created to optimize visualization of vascular anatomy with MPR/MIPS and 3D imaging. All CT scans at this facility use dose modulation, iterative reconstruction, and/or weight based dosing when appropriate to reduce radiation dose to as low as reasonably achievable. IV CONTRAST: Omnipaque 350,80ml TOTAL DOSE: 9.1 CTDIvol(mGy) FINDINGS: VASCULATURE: No pulmonary embolism AORTA: No aortic aneurysm. LUNGS: Emphysematous changes. Spiculated mass in the left upper lobe measuring 2.7 x 2.9 x 2.3 cm, previously 2.2 x 1.9 x 1.6 cm. . MERE: Normal. No mass or adenopathy. MEDIASTINUM: Normal. No mass or adenopathy. CARDIAC: Normal. No enlargement, pericardial thickening, or significant calcification. PLEURA: Normal. No mass or effusion. CHEST WALL: Normal. No mass or axillary adenopathy. LIMITED ABDOMEN: Calcified noncalcified atherosclerotic plaque of the abdominal aorta resulting in luminal irregularity. Low-attenuation lesion in the left upper pole measuring 1.1 cm, similar prior. BONES: Degenerative changes of the spine. OTHER: Negative. CONCLUSION: 1. Left upper lobe spiculated mass, highly concerning for malignancy. If this has not previously been biopsied recommend further workup. Continued Report - Page 2 of 2 Patient: SCOT BURGESS Phone#: : 1955 Age: 68 Gender: M Pt. Type: ER Account: [id number] Location: 052 Ordering: MIGUEL MASTERSON Exam Date: 08/23/2023/5:28 Family Phys: BECKY CHACON Charge Code: 618305 Physician: [place] Order #: [id number] Dose#: [id number] 2. No pulmonary embolism. Dictated by: Sylvia Acharya MD on 08/23/2023 at 10:03 Approved by: Sylvia Acharya MD on 08/23/2023 at 10:12 Normal [facility] CULTURE BLOOD [DI]on Microscopic examination of blood, culture CULTURE BLOOD [DI] _BLOOD CULTURE_ [facility] AND [facility] FOR SCANNED REPORT 08/[id number] ETE Normal [facility] Comment on above: Performed By: #### 2 [id number] #### [facility],[address] [place] [address] Microscopic examination of blood, culture CULTURE BLOOD [DI] _BLOOD CULTURE_ [facility] AND ATTACHMENTS FOR SCANNED REPORT 08/[email or web address] ETE Normal [facility] Comment on above: Performed By: #### 2 24599 ####[address] [address] INFLUENZA VIRUS RAPID A/Bon 08-23-2023 INFLUENZA VIRUS RAPID A/B INFLUENZA A NEGATIVE INFLUENZA B NEGATIVE INTERNAL NEG QC PASS INTERNAL POS QC PASS EXTERNAL QC DONE? YES SEND TO IC? NO A NEGATIVE TEST RESULT DOES NOT EXCLUDE INFECTION WITH INFLUENZA A OR B. THEREFORE, THE RESULTS OBTAINED FROM THIS FLU TEST SHOULD BE USED IN CONJUCTION WITH CLINICAL FINDINGS TO MAKE AN ACCURATE DIAGNOSIS. A POSITIVE RESULT DOES NOT RULE OUT CO-INFECTIONS WITH OTHER PATHOGENS OR IDENTIFY ANY SPECIFIC INFLUENZA A VIRUS SUBTYPE.CO-INFECTION WITH INFLUENZA A AND B IS RARE. IT IS RECOMMENDED THAT DUAL POSITIVE RESULTS BE CONFIRMED BY VIRAL CULTURE OR AN FDA-CLEARED INFLUENZA A AND B MOLECULAR ASSAY. INDIVIDUALS WHO HAVE RECEIVED NASALLY ADMINISTERED INFLUENZA A VACCINE MAY TEST POSITIVE IN COMMERCIALLY AVAILABLE INFLUENZA RAPID DIAGNOSTIC TESTS FOR UP TO THREE DAYS. RESULT CRITICAL? NO Normal [facility] Comment on above: Performed By: #### 2 [id number] ####[facility],[address] [place] [address] NT-proBNPon 08-23-2023 Natriuretic peptide B (Bld) [Mass/Vol] 488 pg/mL High 0 - 125 [facility] Comment on above: Performed By: #### 2 76470 #### [address] [address] PROTHROMBIN TIME AND INRon 0 08-23-2023 INR Coag (PPP) [Relative time] 1.1 {INR} Normal 0.8 - 1.2 [facility] Comment on above: Result Comment: T HE HEMOSIL THROMBOPLASTIN REAGENT USED IN THE PROTHROMBIN TIME TEST INTERACTS WITH THE DRUG CUBICIN (DAPTOMYCIN) AND WILL RESULT IN FALSELY ELEVATED PT / INR RESULTS INR INTERPRETATION INR INDICATION PREVENTION AND TREATMENT OF THROMBOEMBOLISM ASSOCIATED WITH: 2.0 - 3.0 ATRIAL FIBRILLATION, BIOPROSTHETIC HEART VALVES, PULMONARY EMBOLISM, VENOUS THROMBOSIS, SYSTEMIC EMBOLISM POST MYOCARDIAL INFARCTION 2.5 - 3.5 MECHANICAL HEART VALVES Performed By: #### 2 80548 #### [facility],[address] [place] [address] PROTHROMBIN TIME AND INR Normal [facility] Comment on above: Result Comment: PROT HROMBIN TIME AND INR Performed By: #### 2 99487 #### [facility],[address] [place] [address] PT-COUMADIN 12.4 sec Normal 9.3 - 14.1 [facility] Comment on above: Performed By: #### 2 12741 #### [facility],[address] [place] [address] 13577 TROPONIN I, HIGH SENSITIVITY on 08-23-2023 HS TROPONIN 14.0 pg/mL Normal 0.0 - 76.2 [facility] Comment on above: Performed By: #### 2 87850 #### [facility],[address] [place] [address]48 VBGon 08-23-2023 vBE 6 mmol/L High -2 - 3 [facility] Comment on above: Performed By: #### 2 97753 #### [facility],[address] [place] [address]55 vHCO3 32 mmol/L High 23 - 28 [facility] Comment on above: Performed By: #### 2 87606 #### [facility],[address] [place] [address] vpCO2 61 mmHg High 41 - 51 [facility] Comment on above: Performed By: #### 2 35085 #### [facility],[address] [place] [address] 79667 vpH 7.33 Normal 7.31 - 7.41 [facility] Comment on above: Performed By: #### 2 43239 #### [facility],[address] [place] [address] 80995 vpO2 49 mmHg Normal [facility] Comment on above: Performed By: #### 2 16522 #### [facility],[address] [place] [address] vsO2 80 % Normal [facility] Comment on above: Performed By: #### 2 47320 #### [facility],[address] [place], [place] [address] CT CHEST WO IVCONon 11-12-19 23 [facility] CT CHEST WO IVCONon 05-13-19 [address] [facility] [address] CHEST WO IVCONon 11-05-19 22 [facility] CEAon 03-09-2020 CEA Normal 0.0-2.9 [facility] Comment on above: Result Comment: 2.0 Test analyzed by the [employer]. Performed By: #### C EA #### [facility] Laboratories Immuno Assay [address] [place] [id number] Encounters Encounter Date Encounter Type Care Provider Facility Start: 07-21-2024 ambulatory BECKY BERNAL [facility] Start: 07-18-2024 End: 07-18-2024 ambulatory BECKY BERNAL [facility] Start: 06-09-2024 End: 06-13-2024 Evaluation and management of inpatient RICHIE BERNAL [facility] Start: 05-23-2024 End: 05-24-2024 ambulatory LEX AVITIA Facility:[facility] Start: 05-23-2024 End: 05-23-2024 Telephone encounter Lex Avitia MD Work Phone: Radiation Oncology Start: 05-18-2024 End: 05-18-2024 ambulatory LEX AVITIA Facility:[facility] Start: 05-18-2024 End: 05-18-2024 Subsequent hospital visit by physician [facility] Work Phone: Cat Scan Comment on above: Malignant neoplasm o f unspecified part of unspecified bronchus or lung (HCC) [C34.90] Start: 05-13-2024 End: 05-13-2024 ambulatory BECKY BERNAL [facility] Start: 01-21-2024 End: 01-21-2024 ambulatory BECKY BERNAL [facility] Start: 11-16-2023 End: 11-17-2023 ambulatory LEX AVITIA Facility:[facility] Start: 11-16-2023 Telephone encounter Lex Avitia MD Work Phone: Radiation Oncology Start: 11-12-2023 End: 11-12-2023 ambulatory LEX AVITIA Facility:[facility] Start: 11-12-2023 End: 11-12-2023 Subsequent hospital visit by physician [facility] Work Phone: Cat Scan Comment on above: Malignant neoplasm o f unspecified part of unspecified bronchus or lung (HCC) [C34.90] Start: 08-31-2023 ambulatory [facility] Facility :[facility] Start: 08-31-2023 End: 08-31-2023 Subsequent hospital visit by physician Injection [facility] [employer] [facility] CT Comment on above: Malignant neoplasm o f unspecified part of unspecified bronchus or lung [C34.90] Start: 08-24-2023 End: 08-24-2023 Patient encounter procedure [facility] Work Phone: Start: 08-24-2023 End: 08-24-2023 [facility] Work Phone: Start: 08-23-[address] RAHEL MELVIN MD Faci lity:A Start: 08-23-2023 End: 08-23-2023 Emergency department patient visit BECKY BERNAL [facility] Start: 11-13-2022 ambulatory Lex cook MD Work Phone: Radiation Oncology Comment on above: Malignant neoplasm o f unspecified part of unspecified bronchus or lung (HCC) (Primary Dx); Pulmonary emphysema, unspecified emphysema type (HCC) Start: 11-13-2022 Telemedicine consult ation with patient Lxe Avitia MD Work Phone: [facility] Start: 11-11-2022 End: 11-11-2022 Subsequent hospital visit by physician [facility] Work Phone: Cat Scan Comment on above: Malignant neoplasm o f unspecified part of unspecified bronchus or lung (HCC) [C34.90] Start: 05-14-2022 End: 05-14-2022 ambulatory Lex Avitia MD Work Phone: Radiation Oncology Comment on above: Malignant neoplasm o f unspecified part of unspecified bronchus or lung (HCC) (Primary Dx) Start: 05-14-2022 End: 05-14-2022 Telemedicine consultation with patient Lex Avitia MD Work Phone: [facility] Start: 05-13-2022 End: 05-13-2022 Subsequent hospital visit by physician [facility] Work Phone: Cat Scan Comment on above: Malignant neoplasm o f unspecified part of unspecified bronchus or lung (HCC) [C34.90] Start: 05-12-2022 Orders Only Lex cook MD Work Phone: Radiation Oncology Comment on above: Malignant neoplasm o f unspecified part of unspecified bronchus or lung (HCC) (Primary Dx) Start: 11-06-2021 ambulatory Lex cook MD Work Phone: Radiation Oncology Comment on above: Malignant neoplasm o f unspecified part of unspecified bronchus or lung (HCC) Start: 11-06-2021 Telemedicine consult ation with patient Lex Avitia MD Work Phone: [facility] Start: 11-04-2021 End: 11-04-2021 Subsequent hospital visit by physician [facility] Work Phone: Cat Scan Comment on above: Malignant neoplasm o f unspecified part of unspecified bronchus or lung (HCC) [C34.90] Procedures Date Procedure Procedure Detail Performing Clinician Start: 05-18-2024 Ct thorax w/o contra st material Lex Avitia MD Work Phone: Start: 05-13-2024 PSA screening BECKY SMITH Comment on above: Performed By: #### 2 [id number] ####[facility],[address] [facility] [address] Start: 11-11-2022 Ct thorax w/o contra st material Lex Avitia MD Work Phone: Start: 05-13-2022 Ct thorax w/o contra st material Lex Avitia MD Work Phone: Start: 11-04-2021 Ct thorax w/o contra st material Lex Avitia MD Work Phone: Start: 04-24-2020 Adult depression screening assessment Ct ([facility]) Work Phone: Plan of Treatment Date Care Activity Detail Author Start: 05-23-2024 End: 05-23-2024 ambulatory 05/23/2024 3:00 PM EST [facility] Radiation Oncology [address] [place] [id number] Lex Avitia MD [address] [place] [address] Dx: Malignant neoplasm of unspecified part of unspecified bronchus or lung. [facility] Oncology Comment on above: Dx: Malignant neopla sm of unspecified part of unspecified bronchus or lung. Start: 05-02-2024 Screening for malign ant neoplasm of colon [facility] Start: 04-20-2024 Advance Directive Discussion Advance Directive Discussion [facility] Start: 12-20-2023 Covid-19 Vaccine ( season) Covid-19 Vaccine ( season) [facility] Start: 12-20-2023 Influenza vaccination Influenza Vacc ine (#1) [facility] Start: 11-16-2023 End: 11-16-2023 ambulatory 11/16/2023 3:30 PM EDT [facility] Radiation Oncology [address] [place] [id number] Lex Avitia MD [address] [place] [address] Dx: Malignant neoplasm of unspecified part of unspecified bronchus or lung. [facility] Comment on above: Dx: Malignant neopla sm of unspecified part of unspecified bronchus or lung. Start: 11-12-2023 End: 11-12-2023 Patient encounter procedure 11/12/2023 1:00 PM EDT Appointment Cat Scan [address] [place] [address] *CT Chest WO IVCON. [facility] Comment on above: *CT Chest WO IVCON. Start: 08-24-2023 Assay of prostate specific antigen total ASSAY OF PSA TOTAL [facility] Start: 04-20-2023 Advance Directive Discussion Advance Directive Discussion [facility] Start: 04-20-2023 Behavioral Health Screening Behavioral Health Screening [facility] Start: 12-19-2022 Covid-19 Vaccine ( season) Covid-19 Vaccine ( season) [facility] Start: 12-19-2022 Influenza vaccination [facility] Start: 04-20-2022 ADVANCE DIRECTIVE DISCUSSION ADVANCE DIRECTIVE DISCUSSION [facility] Start: 04-20-2022 DEPRESSION ASSESSMENT DEPRESSION ASS ESSMENT [facility] Start: 12-19-2021 Influenza vaccination INFLUENZA (#1) [facility] Start: 08-18-2021 COVID-19 VACCINE (3 - Booster for Pfizer series) COVID-19 VACCINE (3 - Booster for Pfizer series) [facility] Start: 05-15-2021 COVID-19 VACCINE (3 - Booster for Pfizer series) COVID-19 VACCINE (3 - Booster for Pfizer series) [facility] Start: 05-15-2021 COVID-19 VACCINE (3 - Pfizer series) COVID-19 VACCINE (3 - Pfizer series) [facility] Start: 04-24-2021 Adult depression screening assessment DEPRESSION SCREENING [facility] Start: 04-20-2021 ADVANCE DIRECTIVE DISCUSSION ADVANCE DIRECTIVE DISCUSSION [facility] Start: 2013 RSV Vaccine (1 - 1-d ose 60+ series) RSV Vaccine (1 - 1-dose 60+ series) [facility] Start: 2013 RSV Vaccine (1 - Ris k 60-74 years 1-dose series) RSV Vaccine (1 - Risk 60-74 years 1-dose series) [facility] Start: 2008 PROSTATE CANCER SCREENING DISCUSSION PROSTATE CANCER SCREENING DISCUSSION [facility] Start: 2003 SHINGRIX VACCINE (1 of 2) SHINGRIX VACCINE (1 of 2) [facility] Start: 1998 COLOGUARD (FIT-DNA) COLOGUARD (FIT-D NA) [facility] Start: 1998 Colonoscopy COLONOSCOPY [facility] Start: 1998 COLORECTAL CANCER SCREENING COLORECTAL CANCER SCREENING [facility] Start: [address] COLONOGRAPHY [facility] Start: 1998 DIABETES SCREEN [facility]EN [facility] Start: 1998 Diabetes Screening Diabetes Screenin g [facility] Start: 1998 FECAL OCCULT BLOOD FECAL OCCULT BLOO D [facility] Start: 1998 Screening for malign ant neoplasm of colon [facility] Start: 1998 SIGMOIDOSCOPY SIGMOIDOSCOPY [facility] Start: 1988 Lipid 1996 panel - S kymberly or Plasma Lipid Screening [facility] Start: 1988 Lipid panel Lipid Screening [facility] Start: 1988 LIPID SCREEN LIPID SCREEN [facility] Start: 1983 Zoledronic acid therapy ALPHA- 1 ANTITRYPSIN DEFICIENCY SCREENING [facility] Start: 1972 Urine microalbumin profile [facility] Start: 1971 ANNUAL PCP TEAM DRY BOSS LINDSEY DISEASE VISIT ANNUAL PCP TEAM CHRONIC DISEASE VISIT [facility] Start: 1971 Anxiety Screening Anxiety Screening [facility] Start: 1971 BP CONTROLLED (<130/80) BP CONTROLLE D (<130/80) [facility] Start: 1971 Depression Screening Depression Scre ening [facility] Start: 1971 HEPATITIS C SCREENING HEPATITIS C [facility] Start: 1971 Hepatitis C screening Hepatitis C [facility] Start: 1959 PNEUMOCOCCAL: 65+ (1 - PCV) PNEUMOCOCCAL: 65+ (1 - PCV) [facility] Start: 1953 ABDOMINAL AORTIC ANEURYSM SCREENING ABDOMINAL AORTIC ANEURYSM SCREENING [facility] Start: 1955 Abdominal aortic aneurysm screening Abdominal Aortic Aneurysm Screening [facility] CT Chest WO contrast CT CHEST WO IVCON Radiology Routine Malignant neoplasm of unspecified part of unspecified bronchus or lung (HCC) 11/12/2023 1:[address] [facility] Work Phone: End: 12-16-2024 CT Chest WO contrast CT CHEST WO IVCON Radiology Routine Malignant neoplasm of unspecified part of unspecified bronchus or lung (HCC) 1 Occurrences starting 11/17/2023 until 12/16/2024 [facility] Work Phone: Comment on above: 1 Occurrences starti ng 11/17/2023 until 12/16/2024 End: 06-22-2025 CT Chest WO contrast CT CHEST WO IVCON Radiology Routine Malignant neoplasm of unspecified part of unspecified bronchus or lung (HCC) 1 Occurrences starting 05/23/2024 until 06/22/2025 [facility] Work Phone: Comment on above: 1 Occurrences starti ng 05/23/2024 until 06/22/2025 End: 12-06-2022 Ct thorax w/o contrast material CT CHEST WO IVCON Radiology Routine Malignant neoplasm of unspecified part of unspecified bronchus or lung (HCC) 1 Occurrences starting 11/06/2021 until 12/06/2022 [facility] Work Phone: Comment on above: 1 Occurrences starti ng 11/06/2021 until 12/06/2022 End: 06-11-2023 Ct thorax w/o contrast material CT CHEST WO IVCON Radiology Routine Malignant neoplasm of unspecified part of unspecified bronchus or lung (HCC) 1 Occurrences starting 05/12/2022 until 06/11/2023 [facility] Work Phone: Comment on above: 1 Occurrences starti ng 05/12/2022 until 06/11/2023 End: 06-13-2023 Ct thorax w/o contrast material CT CHEST WO IVCON Radiology Routine Malignant neoplasm of unspecified part of unspecified bronchus or lung (HCC) 1 Occurrences starting 05/14/2022 until 06/13/2023 [facility] Work Phone: Comment on above: 1 Occurrences starti ng 05/14/2022 until 06/13/2023 End: 12-13-2023 Ct thorax w/o contrast material CT CHEST WO IVCON Radiology Routine Malignant neoplasm of unspecified part of unspecified bronchus or lung (HCC) 1 Occurrences starting 11/13/2022 until 12/13/2023 [facility] Work Phone: Comment on above: 1 Occurrences starti ng 11/13/2022 until 12/13/2023 [facility] Immunization Date Immunization Notes Care Provider Fa curtis 01-16-2023 influenza virus vacc ine, unspecified formulation Ct ([facility]) Work Phone: [facility] [facility] 01-17-2022 influenza virus vacc ine, unspecified formulation Ct (I-Stat) Work Phone: [facility] Payers Date Payer Category Payer Unknown [facility] AND [employer] MEDICARE ADVANTAGE O [id number] 2023-Present [phone] [address] [place] [address] [facility] [id number] 2023 Medicare [id number] 2023 Self-pay [id number] 2023 Medicare [id number] 2023 Medicare [id number] 2021 Medicare [id number] 2019 Medicaid MEDICAID [facility] MEDICAID [id number] 2019-Present [phone] [address] [place] [address] Medicaid [id number] 2019 Medicaid MEDICAID [facility] MEDICAID [id number] 2019-Present [phone] [address] [place] [address] Medicaid [id number] 2019 Medicaid [id number] 2019 Unknown AN[employer]M [employer] AND [employer] MEDIBLUE HMO [id number] 2019-Present [phone] [address] [place] [address] O [id number] 1955 Unknown [id number] 1955 Unknown [id number] 1955 Unknown [id number] 1955 Unknown [id number] 1955 Unknown [id number] 1955 Unknown [id number] 1955 Unknown [id number] Unknown [facility] [id number] Unknown [id number] Social History Date Type Detail Facility Start: 09-02-2019 End: 04-24-2020 Tobacco smoking status CTIS Smokes tobacco daily [facility] History of tobacco use Cigarette Smoker [facility] Start: 09-02-2019 End: 11-13-2022 Cigarettes smoked current (pack per day) - Reported 1 [facility] Start: 09-02-2019 End: 04-24-2020 Tobacco use and exposure Smokeless tobacco non-user [facility] Start: 04-24-2020 Alcohol intake Ex-drinker (finding) [facility] Start: 09-14-2019 History SDOH Alcohol Comment Occasional [facility] Start: 09-14-2019 Tobacco Comment history of 2-4 ppd C [facility] Start: 1955 Sex Assigned At Not on file C [facility] Start: 10-25-2021 End: 11-04-2021 Exposure to SARS-CoV-2 (event) Not sure [facility] Start: 10-27-2021 End: 11-06-2021 Exposure to SARS-CoV-2 (event) Unable to assess [facility] Start: 04-24-2020 End: 11-13-2022 Tobacco use panel [facility] Adult Depression Screening Assessment 2 [facility] Start: 07-22-2019 Tobacco smoking stat [facility] Unknown if ever smoked [facility] [place] Start: 1955 Sex Assigned At Male W [facility] Clinical Notes 11-04-2021 to 06-26-2024 Telephone Encounter - Lex Avitia MD - 05/23/2024 4:10 PM ESTTelephone Encounter - Lex Avitia MD - 05/23/2024 4:10 PM Melissa Arciniega, RT(R) - 05/18/2024 1:00 PM EST Note Date & Type Note Facility 06-26-2024 [facility] PROGRESS NOTE NAME ACCOUNT SEX AGE ADMIT DISCHARGE PT MED. RECORD# NUMBER DATE DATE TYPE ADITYA [id number] M 69 06/09/24 1 SCOT Flowers [id number] ROOM: [facility] DATE OF : 1955 DICTATING PHYSICIAN: Nicholas Shrestha DATE OF SERVICE: June 12, 2024 SUBJECTIVE: Mr. Burgess has revealed some significant improvement in the last 24 hours. He has been able to lie flat and breathe. OBJECTIVE: VITAL SIGNS: Vital signs have revealed his /86, temperature 98.2. HEENT: Normocephalic and atraumatic. NECK: Neck is supple. LUNGS: Lungs are clear. Decreased breath sounds bilaterally. HEART: The heart was regular. ABDOMEN: Soft. EXTREMITIES: Extremities revealed no edema. DIAGNOSTIC DATA: Laboratory data has revealed his white count down to 11.8, hemoglobin 14.3. Chemistries revealed a sodium of 142, potassium 4.2, BUN 18, creatinine 0.69. ASSESSMENT: 1. Acute chronic obstructive pulmonary disease exacerbation, slowly improving. 2. Bacterial pneumonia, community acquired. 3. Respiratory failure, chronic with acute component. PLAN: We will continue current management for now pending further improvement. Dictated By: Nicholas Shrestha MD 06/12/24 20:18 JOB #: [id number] Transcribed By: am 06/13/24 06:38 Electronically signed by: E-Sign: NICHOLAS SHRESTHA MD 06/26/24 13:46 Page 1 of 2 SCOT BURGESS Progress Note LISAИВАНSCOT : 1955 Page 2 of 2 LISAИВАНSCOT Progress Note [facility] 06-26-2024 Note [facility] PROGRESS NOTE NAME ACCOUNT SEX AGE ADMIT DISCHARGE PT MED. RECORD# NUMBER DATE DATE TYPE ADITYA [id number] M 69 06/09/24 1 SCOT Flowers [id number] ROOM: 304 DATE OF : 1955 DICTATING PHYSICIAN: Nicholas Shrestha DATE OF SERVICE: June 11, 2024 SUBJECTIVE: Mr. Burgess is doing slightly better today. He still has labored breathing, but now I can see him lying down backward which does reveal some improvement. OBJECTIVE: VITAL SIGNS: His heart rate is 92, blood pressure 135/71, afebrile. HEENT: Unremarkable. NECK: Neck is supple. LUNGS: Lungs revealed still reduced air exchange. HEART: The heart is distant sounds. ABDOMEN: Soft. EXTREMITIES: Extremities revealed no edema. DIAGNOSTIC DATA: Laboratory data revealed a white count of 14.5, hemoglobin 14.1. He had a left shift. Sodium was 143, potassium 4.2, BUN 22, creatinine 0.61. Glucose is 139. ASSESSMENT: 1. Acute chronic obstructive pulmonary disease exacerbation on chronic severe chronic obstructive pulmonary disease stage III, some improvement at last. 2. Pneumonia, currently on treatment. 3. Chronic respiratory failure with acute respiratory failure. It does appear to be somewhat improving. PLAN: Continue current measures. Encouraged the patient to continue with incentive spirometry and try to ambulate. Dictated By: Nicholas Shrestha MD 06/11/24 19:16 JOB #: [id number] Transcribed By: am 06/12/24 09:27 Electronically signed by: E-Sign: NICHOLAS SHRESTHA MD 06/26/24 13:45 Page 1 of 2 SCOT BURGESS Progress Note SCOT BURGESS : 1955 Page 2 of 2 SCOT BURGESS Progress Note [facility] 06-26-2024 Note [facility] PROGRESS NOTE NAME ACCOUNT SEX AGE ADMIT DISCHARGE PT MED. RECORD# NUMBER DATE DATE TYPE ADITYA [id number] Fredy 69 06/09/24 1 SCOT Flowers [id number] ROOM: 304[facility] DATE OF : 1955 DICTATING PHYSICIAN: Nicholas Shrestha DATE OF SERVICE: June 10, 2024 SUBJECTIVE: Mr. Burgess does appear to be slightly better in regard to his color, but he continues to be tachypneic, and his respirations are fluctuating between 22, and when I was checking him he was 28 almost, but he was still sitting down with his shoulder extended to get more air. OBJECTIVE: VITAL SIGNS: Blood pressure is 124/64 and heart rate 56. HEENT: Normocephalic and atraumatic. Tongue to midline. NECK: Neck is supple. LUNGS: Lungs reveal poor air exchange bilaterally. HEART: The heart was regular. ABDOMEN: Abdomen is soft. EXTREMITIES: Extremities revealed no edema. DIAGNOSTIC DATA: White count was 7.7 and hemoglobin 15.1. Sodium was 142, potassium 4.5, BUN 15, and creatinine 0.6. ASSESSMENT: 1. Chronic obstructive pulmonary disease exacerbation, severe with minimal improvement so far. The patient is prone to CO2 retention, and he is not compliant with his BiPAP at home. He appears to be fairly stable in here. We will continue to encourage compliance. 2. Pneumonia, on treatment. 3. Chronic tobaccoism. The patient is very resistant to any attempt to quit smoking despite his advanced disease. 4. Chronic obstructive pulmonary disease, severe and advanced, stage III. PLAN: We will continue the current measures and hope for improvement. Dictated By: Nicholas Shrestha MD 06/10/24 17:57 JOB #: [id number] Transcribed By: pierre 06/10/24 19:45 Electronically signed by: E-Sign: NICHOLAS SHRESTHA MD 06/26/24 13:44 Page 1 of 1 SCOT BURGESS Progress Note [facility] 06-26-2024 Note [facility] HISTORY & PHYSICAL NAME ACCOUNT SEX AGE ADMIT DISCHARGE PT MED. RECORD# NUMBER DATE DATE TYPE ADITYA [id number] M 69 06/09/24 2 SC[place] Flowers [id number] ROOM: [facility] DATE OF : [birth year] DICTATING PHYSICIAN: Nicholas Shrestha ADMITTING DIAGNOSES: 1. Chronic obstructive pulmonary disease exacerbation. 2. Possible pneumonia. CHIEF COMPLAINT: Shortness of breath. HISTORY OF PRESENT ILLNESS: This is a 69-year-old gentleman with a history of COPD. The patient has chronic shortness of breath with exertion at baseline with his COPD. He started not feeling well in the last 5 days. Initially, he felt achy with a headache and some feverishness, chills and body aches. This has continued to get worse. He started to have some phlegm production. Today, he was not even able to catch his breath despite the use of his BiPAP machine. The squad was called, and he was brought to the Emergency Room. In the Emergency Room, the patient did appear to be significantly ill and tachypneic, and he was hypoxic. I saw the patient in the Emergency Room. The patient was quite tachypneic with a respiratory rate around 32, and he was receiving an aerosol treatment. His blood pressure was 159/93. He denied any chest pain but did have significant shortness of breath, coughing and wheezing. He was admitted for management. PAST MEDICAL HISTORY: (1) COPD, advanced, Gold class 3. (2) Obstructive sleep apnea. He is on bilevel treatment. (3) Carotid artery disease. (4) Acid reflux disease. (5) History of atrial fibrillation. (6) History of lung cancer. (7) Hypertension. (8) Hyperlipidemia. (9) Hypertriglyceridemia. (10) Hypoxia, on 3 liters at night. (11) Low HDL. (12) Osteoarthritis. (13) Persistent pulmonary nodule. (14) Major depression. (15) Spinal stenosis. (16) Sigmoid diverticulosis. PAST SURGICAL HISTORY: (1) Hernia repair on the right. (2) Thumb surgery in the past. MEDICATIONS: Refer to the medication reconciliation sheet. ALLERGIES: The patient has a reaction to morphine, which causes him edema and swelling. FAMILY HISTORY: Father at age 76 of myocardial infarction. He had known heart Page 1 of 3 SCOT BURGESS History & Physical SCOT BURGESS :1955 disease. Mother at age 56 from bleeding complications. One brother also had heart disease. SOCIAL HISTORY: The patient continues to smoke, and he has smoked for many years. He rarely drinks alcohol. REVIEW OF SYSTEMS: The patient has been having a fever, chills, aches and pains, headache, not feeling well, and a reduced appetite for the last 4 to 5 days. He denied any blurry vision. No sore throat. No ear pain. No neck pain. No chest pain. He had shortness of breath, coughing, wheezing, and phlegm production. No nausea, vomiting, abdominal pain, diarrhea, constipation, or difficulty with urination. PHYSICAL EXAMINATION GENERAL APPEARANCE: This is a 69-year-old gentleman sitting up in the Emergency Room. He had his arm extended and his torso bent down in an attempt to breathe better. VITAL SIGNS: Vital signs have revealed a blood pressure as I mentioned of 159/93. His respiratory rate was about 30-32. HEENT: Normocephalic and atraumatic. Pupils are reactive to light. Tongue to midline. NECK: The neck was supple. LUNGS: The lungs revealed poor air exchange bilaterally. There were crackles in both bases and diffuse wheezing. HEART: The heart was regular and distant. ABDOMEN: Abdomen was soft. EXTREMITIES: Extremities revealed no edema. DIAGNOSTIC DATA: Laboratory data revealed a white count of 8.1, hemoglobin 14.4, and hematocrit 43.6. Sodium is 139, potassium 5.5, BUN 10, and creatinine 0.58. IMPRESSIONS: 1. Acute basilar pneumonia, bilateral, in the setting of what appears to be a viral illness. He had a negative influenza and COVID. 2. Chronic obstructive pulmonary disease exacerbation, somewhat severe. 3. Multiple comorbidities, including atrial fibrillation and hypertension. 4. Benign prostatic hypertrophy, on treatment. 5. Hypothyroidism, on treatment. 6. Hypercholesterolemia and hyperlipidemia, on treatment. Page 2 of 3 SCOT BURGESS History & Physical ADITYA SCOT Flowers :1955 7. Atrial fibrillation. The patient is not anticoagulated. PLAN: 1. The patient will be admitted to the hospital. 2. IV steroids, bronchodilators, and broad-spectrum antibiotics with Rocephin and Zithromax. We will go ahead and add his usual medications for the problems listed above to restart. 3. We will initiate DVT prophylaxis with bilateral SCDs. Dictated By: Nicholas Shrestha MD 06/09/24 17:31 JOB #: [id number] Transcribed By: pierre 06/09/24 18:05 Electronically signed by: E-Sign: NICHOLAS SHRESTHA MD 06/26/24 13:44 Update to H&P: [ ] No changes: I have examined the patient and reviewed the H&P and there are no changes. (more content not included)... [facility] 06-14-2024 Note . MICRO - Microbiology PROCEDURE: Blood Culture (bacterial) [*1] SOURCE: Blood BODY SITE: COLLECTED DATE/TIME: 06/09/2024 08:06 EST RECEIVED DATE/TIME: 06/09/2024 15:51 EST START DATE/TIME: 06/09/2024 15:54 EST FREE TEXT SOURCE: FINAL REPORTS Final Report [] Verified Date/Time/Personnel: 06/14/2024 15:59 EST Blood Culture: No Growth at 5 days. PRELIMINARY REPORTS Preliminary Report [] Verified Date/Time/Personnel: 06/09/2024 16:59 EST Culture has been received in lab and is no growth to date. Routine cultures are held for 5 days. Performing Locations *1: This test was performed at: [facility], [address] [place] [address], [facility] , [facility] 06-14-2024 Note . MICRO - Microbiology PROCEDURE: Blood Culture (bacterial) [*1] SOURCE: Blood BODY SITE: COLLECTED DATE/TIME: 06/09/2024 07:40 EST RECEIVED DATE/TIME: 06/09/2024 15:51 EST START DATE/TIME: 06/09/2024 15:54 EST FREE TEXT SOURCE: FINAL REPORTS Final Report [] Verified Date/Time/Personnel: 06/14/2024 15:59 EST Blood Culture: No Growth at 5 days. PRELIMINARY REPORTS Preliminary Report [] Verified Date/Time/Personnel: 06/09/2024 16:59 EST Culture has been received in lab and is no growth to date. Routine cultures are held for 5 days. Performing Locations *1: This test was performed at: [facility], [address] [place] [address], [id number] , [facility] 06-09-2024 Note Discharge Instructio ns Discharge Summary [address] [address] [id number] 06/09/2024 Patient: SCOT BURGESS Sex: Male : 1955 Age: 69y Thank you for visiting [facility]. You have been evaluated today by Tony Perez D.O. for the following condition(s): Principal Diagnosis Acute dyspnea. Left upper lobe lung cancer. Acute respiratory failure with hypoxemia and hypercapnia. Acute exacerbation of COPD (emphysematous) Bronchopneumonia with hypoxemia. You have been given the following additional information: COPD Flare-Up Patient Signature Facility Fertilizer Loader Date/Time General Instructions with ExitWriter [address] [address] [id number] 1 of 6 Discharge Instructions 06/09/2024 Patient: SCOT BURGESS Sex: Male : 1955 Age: 69y Thank you for visiting [facility]. You have been evaluated today by Tony Perez D.O. for the following condition(s): Principal Diagnosis Acute dyspnea. Left upper lobe lung cancer. Acute respiratory failure with hypoxemia and hypercapnia. Acute exacerbation of COPD (emphysematous) Bronchopneumonia with hypoxemia. ADDITIONAL INFORMATION COPD Flare-Up 2 of 6 Discharge Instructions You have had a flare-up of your COPD. COPD (chronic obstructive pulmonary disease) is a common lung disease. It causes your airways to get irritated and narrower. This makes it harder for you to breathe. Emphysema and chronic bronchitis are both types of COPD. This is a long-term (chronic) condition. This means you always have it. Sometimes it gets worse. When this happens, it's called a flare-up. Symptoms of COPD People with COPD may have symptoms most of the time. In a flare-up, your symptoms get worse. These symptoms may mean you are having a flare-up: Shortness of breath, shallow or rapid breathing, or wheezing that gets worse Lung infection Cough that gets worse More mucus (or sputum), thicker mucus, or mucus of a different color Tiredness, less energy, or trouble doing your normal activities Fever Chest tightness Your symptoms don't get better even when you use your normal medicines, inhalers, and nebulizer Trouble talking You feel confused Causes of flare-ups Unfortunately, a flare-up can happen even if you did everything right. And even if you followed your healthcare provider's instructions. Some causes of flare-ups are: Cold weather Smoking or secondhand smoke Use of e-cigarettes or vaping products Colds, the flu, or respiratory infections Air pollution Sudden change in the weather Dust, vapors, gases, irritating chemicals, or strong fumes Not taking your medicines as prescribed Indoor pollution such as burning wood, smoke from home cooking, or heating fuels 3 of 6 Discharge Instructions Home care Here are some things you can do at home to treat a flare-up: Keep calm and try not to panic. This makes it harder to breathe, and keeps you from doing the right things. Don't smoke or be around others who are smoking. If you smoke, quit. Smoking is the main cause of COPD. Quitting will help you be able to better manage your COPD. Don't use e-cigarettes or vaping products either. Ask your healthcare provider about ways to help you quit smoking. Try to drink more fluids than normal during a flare-up, unless your healthcare provider has told you not to because of heart and kidney problems. More fluids can help loosen the mucus. Eat a healthy, balanced diet. This is important to staying as healthy as possible. So is trying to stay at your ideal weight. Being overweight or underweight can affect your health. Make sure you have a lot of fruits and vegetables every day. And also eat balanced portions of whole grains, lean meats and fish, and low-fat dairy products. Use your inhalers and nebulizer, if you have one, as you have been told to. When using a metered dose inhaler or nebulizer, it's very important to use the proper techniques. If you have any questions about how to use your device, contact your healthcare provider or refer to the user manual. If you were given antibiotics, take them until they are used up or your provider tells you to stop. It's important to finish the antibiotics, even though you feel better. This will make sure the infection has cleared. If you were given a steroid, finish it even if you feel better. Learn the names of your medicines, as well as how and when to use them. Talk with your provider about other conditions you have and their treatment and how it may affect your COPD. Oxygen may be prescribed if tests show that your blood contains too little oxygen. Ask your provider about long-term oxygen therapy. Coping tips for shortness of breath include: (more content not included)... [facility] 05-23-2024 Telephone encounter Note Called to speak with pt. said he is sleeping and didnt want to wake him. I reviewed CT chest done on 05/18 with her. I communicated favorable findings and recommended 6m [facility] CT follow up. She agreed. Lex Avitia MD [facility] 05-23-2024 Miscellaneous Notes Called to speak with pt. said he is sleeping and didnt want to wake him. I reviewed CT chest done on 05/18 with her. I communicated favorable findings and recommended 6m [facility] CT follow up. She agreed. Lex Avitia MD documented in this encounter [facility] 05-18-2024 History of Present illness Narrative Radiology Service Progress Note PATIENT NAME: Scot Burgess DATE OF SERVICE: May 18, 2024 TIME: 3:54 PM PATIENT IDENTITY VERIFICATION COMPLETED USING TWO (2) IDENTIFIERS: Name and Date of confirmed by patient verbally. FALL SCREENING: Has the patient had 2 falls in the last year or 1 fall with injury or currently using an Ambulatory Assistive Device (Walker, Cane, Wheelchair, Crutches, etc.)? No PATIENT GENDER DATA: Assigned male at PATIENT RELEVANT IMPLANT DATA REVIEWED: Yes PATIENT PRESENTS WITH AN IMPLANTABLE OR ATTACHED PSYCHIATRIC NURSING AIDE: No RADIOLOGY DEPARTMENT: CT; Exam(s) Completed: Chest PERIPHERAL IV DATA: Not applicable SIGNED BY: RT Paulie(R) May 18, 2024 3:54 PM documented in this encounter [facility] 05-18-2024 Note HNO ID: [id number] Author: MELISSA MADDEN RT(R) Service: ? Author Type: Software Test Technician Type: Progress Notes Filed: 05/18/2024 15:54 Note Text: Radiology Service Progress Note PATIENT NAME: Scot Burgess DATE OF SERVICE: May 18, 2024 TIME: 3:54 PM PATIENT IDENTITY VERIFICATION COMPLETED USING TWO (2) IDENTIFIERS: Name and Date of confirmed by patient verbally. FALL SCREENING: Has the patient had 2 falls in the last year or 1 fall with injury or currently using an Ambulatory Assistive Device (Walker, Cane, Wheelchair, Crutches, etc.)? No PATIENT GENDER DATA: Assigned male at PATIENT RELEVANT IMPLANT DATA REVIEWED: Yes PATIENT PRESENTS WITH AN IMPLANTABLE OR ATTACHED PSYCHIATRIC NURSING AIDE: No RADIOLOGY DEPARTMENT: CT; Exam(s) Completed: Chest PERIPHERAL IV DATA: Not applicable SIGNED BY: RT Paulie(R) May 18, 2024 3:54 PM [facility] 11-16-2023 Miscellaneous Notes Called to speak with pt regarding recent surveillance CT chest results. The call had been scheduled as a phone follow up. When I called the pt's said the pt was not available and that she would take any messages, i conveyed to her the favorable results of the scan and asked her to share them with the pt and to call me back. Routine 6m follow up. Lex Avitia MD documented in this encounter [facility] 11-16-2023 Telephone encounter Note Called to speak with pt regarding recent surveillance CT chest results. The call had been scheduled as a phone follow up. When I called the pt's said the pt was not available and that she would take any messages, i conveyed to her the favorable results of the scan and asked her to share them with the pt and to call me back. Routine 6m follow up. Lex Avitia MD [facility] 11-12-2023 History of Present illness Narrative Radiology Service Progress Note PATIENT NAME: Scot Burgess DATE OF SERVICE: November 12, 2023 TIME: 2:53 PM PATIENT IDENTITY VERIFICATION COMPLETED USING TWO (2) IDENTIFIERS: Name and Date of confirmed by patient verbally. FALL SCREENING: Has the patient had 2 falls in the last year or 1 fall with injury or currently using an Ambulatory Assistive Device (Walker, Cane, Wheelchair, Crutches, etc.)? No PATIENT GENDER DATA: Male PATIENT RELEVANT IMPLANT DATA REVIEWED: Yes PATIENT PRESENTS WITH AN IMPLANTABLE OR ATTACHED PSYCHIATRIC NURSING AIDE: No RADIOLOGY DEPARTMENT: CT; Exam(s) Completed: Chest PERIPHERAL IV DATA: Not applicable SIGNED BY: RT Paulie(Fitz) November 12, 2023 2:53 PM documented in this encounter [facility] 11-12-2023 Note HNO ID: [id number] Author: MELISSA MADDEN RT(Fitz) Service: ? Author Type: Software Test Technician Type: Progress Notes Filed: 11/12/2023 14:54 Note Text: Radiology Service Progress Note PATIENT NAME: Scot Burgess DATE OF SERVICE: November 12, 2023 TIME: 2:53 PM PATIENT IDENTITY VERIFICATION COMPLETED USING TWO (2) IDENTIFIERS: Name and Date of confirmed by patient verbally. FALL SCREENING: Has the patient had 2 falls in the last year or 1 fall with injury or currently using an Ambulatory Assistive Device (Walker, Cane, Wheelchair, Crutches, etc.)? No PATIENT GENDER DATA: Male PATIENT RELEVANT IMPLANT DATA REVIEWED: Yes PATIENT PRESENTS WITH AN IMPLANTABLE OR ATTACHED PSYCHIATRIC NURSING AIDE: No RADIOLOGY DEPARTMENT: CT; Exam(s) Completed: Chest PERIPHERAL IV DATA: Not applicable SIGNED BY: RT Paulie(Fitz) November 12, 2023 2:53 PM [facility] 08-31-2023 Note HNO ID: [id number] Author: FRANCISCO WALTERS RT(Fitz) Service: Nuclear Medicine Author Type: Technologist Type: Progress Notes Filed: 08/31/2023 13:13 Note Text: RADIOLOGY SERVICE PROGRESS NOTE SERVICE DATE: 08/31/2023 SERVICE TIME: 1:13 PM PATIENT IDENTITY VERIFICATION COMPLETED USING TWO (2) STANDARD IDENTIFIERS: Name and Date of confirmed by patient verbally FALL SCREENING: Has the patient had 2 falls in the last year or 1 fall with injury or currently using an Ambulatory Assistive Device (Walker, Cane, Wheelchair, Crutches, etc.)? No PATIENT GENDER DATA: .male ALLERGIES: NA MEDICATIONS REVIEWED: Not applicable PATIENT RELEVANT IMPLANT DATA REVIEWED: Not Applicable PATIENT PRESENTS WITH AN IMPLANTABLE OR ATTACHED PSYCHIATRIC NURSING AIDE: No CREATININE: No results found for: CREAT, EGFROTH, EGFRAA P.O.C.T. RESULTS: N/A August 31, [address] PERFORMED: No IV SITE: Ambulatory: NM only - direct IV injection in the Left antecubital site POST EXAM PIV STATUS: Discontinued PROCEDURE TYPE: NM INJECT: PET/CT BODY SCAN. 17.2 mCi F18 FDG. No other medications given.. ADMINISTRATION TIME: 1305 PATIENT DISCHARGED TO: Ambulatory patient, left NM department area. A Diagnostic radioactive procedure has taken place, with no further precautions necessary other than routine body substance precautions. More information regarding radiation safety can be found using this link: [email or web address] 20Diagnostic%20Nuclear%20Medicine% 20Procedures.[email or web address] SIGNATURE: RT Ashley(R) PATIENT NAME: Scot Burgess DATE: August 31, 2023 TIME: 1:13 PM PAGER/CONTACT #: [facility] 08-31-2023 History of Present illness Narrative RADIOLOGY SERVICE PROGRESS NOTE SERVICE DATE: 08/31/2023 SERVICE TIME: 1:13 PM PATIENT IDENTITY VERIFICATION COMPLETED USING TWO (2) STANDARD IDENTIFIERS: Name and Date of confirmed by patient verbally FALL SCREENING: Has the patient had 2 falls in the last year or 1 fall with injury or currently using an Ambulatory Assistive Device (Walker, Cane, Wheelchair, Crutches, etc.)? No PATIENT GENDER DATA: .male ALLERGIES: NA MEDICATIONS REVIEWED: Not applicable PATIENT RELEVANT IMPLANT DATA REVIEWED: Not Applicable PATIENT PRESENTS WITH AN IMPLANTABLE OR ATTACHED PSYCHIATRIC NURSING AIDE: No CREATININE: No results found for: CREAT, EGFROTH, EGFRAA P.O.C.T. RESULTS: N/A August 31, [address] PERFORMED: No IV SITE: Ambulatory: NM only - direct IV injection in the Left antecubital site POST EXAM PIV STATUS: Discontinued PROCEDURE TYPE: NM INJECT: PET/CT BODY SCAN. 17.2 mCi F18 FDG. No other medications given.. ADMINISTRATION TIME: 1305 PATIENT DISCHARGED TO: Ambulatory patient, left NM department area. A Diagnostic radioactive procedure has taken place, with no further precautions necessary other than routine body substance precautions. More information regarding radiation safety can be found using this link: [email or web address] %[email or web address] SIGNATURE: RT Ashley(Fitz) PATIENT NAME: Scot Burgess DATE: August 31, 2023 TIME: 1:13 PM PAGER/CONTACT #: documented in this encounter [facility] 08-28-2023 Note . MICRO - Microbiology PROCEDURE: Blood Culture (bacterial) [*1] SOURCE: Blood BODY SITE: Arm L COLLECTED DATE/TIME: 08/23/2023 05:10 EDT RECEIVED DATE/TIME: 08/23/2023 13:33 EDT START DATE/TIME: 08/23/2023 13:33 EDT FREE TEXT SOURCE: FINAL REPORTS Final Report [] Verified Date/Time/Personnel: 08/28/2023 13:59 EDT Blood Culture: No Growth at 5 days. PRELIMINARY REPORTS Preliminary Report [] Verified Date/Time/Personnel: 08/23/2023 14:59 EDT Culture has been received in lab and is no growth to date. Routine cultures are held for 5 days. Performing Locations *1: This test was performed at: [address], [facility] , [facility] ([place]) 08-28-2023 Note . MICRO - Microbiology PROCEDURE: Blood Culture (bacterial) [*1] SOURCE: Blood BODY SITE: Arm R COLLECTED DATE/TIME: 08/23/2023 05:00 EDT RECEIVED DATE/TIME: 08/23/2023 13:30 EDT START DATE/TIME: 08/23/2023 13:33 EDT FREE TEXT SOURCE: FINAL REPORTS Final Report [] Verified Date/Time/Personnel: 08/28/2023 13:59 EDT Blood Culture: No Growth at 5 days. PRELIMINARY REPORTS Preliminary Report [] Verified Date/Time/Personnel: 08/23/2023 14:59 EDT Culture has been received in lab and is no growth to date. Routine cultures are held for 5 days. Performing Locations *1: This test was performed at: [address], [facility] , [facility], [facility] ([place]) 11-13-2022 History of Present illness Narrative AMBULATORY TELEPHONE VISIT Scot Lionel Burgess has consented to this telephone encounter. 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 S/p SBRT with 3400 Gy in 1 fx completed 09/30/2019 HPI: doing well, summer going well, no issues of concern Data Reviewed: Most recent imaging I personally reviewed his imaging and compared it with previous imaging. I concur with the radiology report. IMPRESSION: Previously seen left upper lobe nodule is stable to slightly decreased. Previously seen right upper lobe consolidation has improved. Otherwise, stable chest CT exam including left upper lobe radiation fibrosis, bronchial thickening, upper lobe emphysema unchanged. Associate Dean Of Students: PSCBrittney Transcribe Date/Time: Nov 12 2022 9:14A Dictated by : GUNJAN AZEVEDO MD Assessment: Stable post SBRT changes, otherwise BREEZY Plan: CT in 6m at [place] then phone folloe up Total Time Spent: 5 minutes Lex Avitia MD documented in this encounter [facility] 11-11-2022 History of Present illness Narrative Radiology Service Progress Note PATIENT NAME: Scot Burgess DATE OF SERVICE: November 11, 2022 TIME: 4:04 PM PATIENT IDENTITY VERIFICATION COMPLETED USING TWO (2) IDENTIFIERS: Name and Date of confirmed by patient verbally. FALL SCREENING: Has the patient had 2 falls in the last year or 1 fall with injury or currently using an Ambulatory Assistive Device (Walker, Cane, Wheelchair, Crutches, etc.)? No PATIENT GENDER DATA: Male PATIENT RELEVANT IMPLANT DATA REVIEWED: Yes RADIOLOGY DEPARTMENT: CT; Exam(s) Completed: Chest PERIPHERAL IV DATA: Not applicable SIGNED BY: RT Paulie(R) November 11, 2022 4:04 PM documented in this encounter [facility] 05-14-2022 History of Present illness Narrative AMBULATORY TELEPHONE VISIT Scot Brugess has consented to this telephone encounter. 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 S/p SBRT with 3400 Gy in 1 fx completed 09/30/2019 HPI: doing well, no complaints, enjoying the winter Data Reviewed: Most recent imaging Chest CT on 05/13/2022: 1. Increasing size of a spiculated nodular opacity in left upper lobe with adjacent parenchymal retraction from previous radiation treatment which was completed in September 2019. The increase in size is noticeable compared to older studies and on coronal reconstructions. It is concerning for recurrent neoplasm. 2. New peribronchial consolidations in right upper lobe anterior segment likely reflect infection. Recommend attention on follow-up. 3. No lymph node enlargement in the thorax. I personally reviewed the imaging and compared and contrasted it to previous imaging. I reviewed it also with my thoracic colleague Dr. Asad Solo. Our opinion is that the changes identified in the report are still consistent with evolving post SBRT fibrotic changes. Assessment: Post SBRT with fibrosis, BREEZY Plan: 6m follow up with phone call to follow Total Time Spent: 15 minutes documented in this encounter [facility] 05-13-2022 History of Present illness Narrative Radiology Service Progress Note PATIENT NAME: Scot Burgess DATE OF SERVICE: May 13, 2022 TIME: 3:55 PM PATIENT IDENTITY VERIFICATION COMPLETED USING TWO (2) IDENTIFIERS: Name and Date of confirmed by patient verbally. FALL SCREENING: Has the patient had 2 falls in the last year or 1 fall with injury or currently using an Ambulatory Assistive Device (Walker, Cane, Wheelchair, Crutches, etc.)? No PATIENT GENDER DATA: Male PATIENT RELEVANT IMPLANT DATA REVIEWED: Yes RADIOLOGY DEPARTMENT: CT; Exam(s) Completed: Chest PERIPHERAL IV DATA: Not applicable SIGNED BY: Melissa Lewis RT(R) May 13, 2022 3:55 PM documented in this encounter [facility] 11-06-2021 History of Present illness Narrative AMBULATORY TELEPHONE VISIT Scot Burgess has consented to this telephone encounter. 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 S/p SBRT with 3400 Gy in 1 fx completed 09/30/2019. HPI: doing well, no medical issues, outdoors weeding at time of call, know to get out of sun when too hot, no new resp or new medical issues. Data Reviewed: Most recent imaging I personally reviewed his most recent imaging and compared it to other imaging. 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 FALL SCREENING: Has the patient had 2 falls in the last year or 1 fall with injury or currently using an Ambulatory Assistive Device (Walker, Cane, Wheelchair, Crutches, etc.)? No PATIENT GENDER DATA: Female. status: : No status: NO. PATIENT RELEVANT IMPLANT DATA REVIEWED: Not Applicable RADIOLOGY DEPARTMENT: CT; Exam(s) Completed: Chest PERIPHERAL IV DATA: Not applicable SIGNED BY: RT Paulie(R) November 04, 2021 2:44 PM documented in this encounter [facility] Evaluation note Diagnosis Malignant neoplasm of unspecified part of unspecified bronchus or lung (HCC) [facility] Diagnosis Malignant neoplasm of unspecified part of unspecified bronchus or lung (HCC) [facility] [place] [facility] Diagnosis Malignant neoplasm of unspecified part of unspecified bronchus or lung (HCC)- Primary [facility] [place] [facility]* Diagnosis Malignant neoplasm of unspecified part of unspecified bronchus or lung (HCC)- Primary documented in this encounter [facility] note* Diagnosis Malignant neoplasm of unspecified part of unspecified bronchus or lung (HCC)- Primary Pulmonary emphysema, unspecified emphysema type (HCC) documented in this encounter [facility] note* Diagnosis Malignant neoplasm of unspecified part of unspecified bronchus or lung (HCC) documented in this encounter [facility] noteNo assessment information availableWOhioHealth [facility] Work Phone: Evaluation note* Diagnosis Malignant neoplasm of unspecified part of unspecified bronchus or lung (HCC) documented in this encounter [facility] note* Diagnosis Malignant neoplasm of unspecified part of unspecified bronchus or lung (HCC)- Primary documented in this encounter [facility] note* Diagnosis Malignant neoplasm of unspecified part of unspecified bronchus or lung (HCC) documented in this encounter [facility] for visit Narrative* Diagnostic Procedure Only (Routine) - Closed Specialty Diagnoses / Procedures Referred By Dago t Referred To Contact Radiology / RADIO PET CT MOBILE DENISE Diagnoses Malignant neoplasm of unspecified part of unspecified bronchus or lung non small cell lung / enlarging nodule Procedures PET IMAGING CT ATTENUATION SKULL BASE MID-THIGH INJECTION PET CT Cesilia Gimenez, Lorelei [address] [place] [address] [facility] [address] [place] [address] Referral ID Status Reason Start Date Expiration Date Visits Re quested Visits Authorized [id number] Closed 08/11/2023 09/10/2023 2 2 [facility] Summary Purpose Family History No Family History Records Found Relationship Condition Age at Onset Recorded Date/T arely father Cardiac disease Unknown brother Cardiac disease Unknown Advance Directives No Advanced Directives Records FoundNo Advanced Directives Records FoundNo Advanced Directives Records FoundNo Advanced Directives Records FoundNo Advanced Directives Records FoundNo Advanced Directives Records FoundNo Advanced Directives Records Found Reason for Referral Specialty Diagnoses / Procedures Referred By Contac t Referred To Contact CT IMAGING Diagnoses Malignant neoplasm of unspecified part of unspecified bronchus or lung (HCC) Procedures CT CHEST WO IVCON [place] [address] [place] [address] Ct Imaging Referral ID Status Reason Start Date Expiration Date V isits Requested Visits Authorized [id number] Closed Auto-Generate d Referral 05/06/2021 06/05/2022 1 1 Specialty Diagnoses / Procedures Referred By Contac t Referred To Contact CT IMAGING Diagnoses Malignant neoplasm of unspecified part of unspecified bronchus or lung (HCC) Procedures CT CHEST WO IVCON DIAGNOSTIC COMPUTED TOMOGRAPHY THORAX W/[place] [address] [place] [id number] Imaging Referral ID Status Reason Start Date Expiration Date Visits Requested Visits Authorized [id number] Pending Review Auto-Generat ed Referral 11/06/2021 12/06/2022 1 1 Referral ID Status Reason Start Date Expiration Date Visits Requested Visits Authorized [id number] Pending Review Auto-Generat ed Referral 05/12/2022 06/11/2023 1 1 Referral ID Status Reason Start Date Expiration Date Visits Requested Visits Authorized [id number] Pending Review Auto-Generat ed Referral 05/14/2022 06/13/2023 1 1 Referral ID Status Reason Start Date Expiration Date Visits Requested Visits Authorized [id number] Pending Review Auto-Generat ed Referral 11/13/2022 12/13/2023 1 1 Specialty Diagnoses / Procedures Referred By Contac t Referred To Contact CT IMAGING Diagnoses Malignant neoplasm of unspecified part of unspecified bronchus or lung (HCC) Procedures CT CHEST WO IVCON DIAGNOSTIC COMPUTED TOMOGRAPHY THORAX W/[place] [address] [place] [address] [address] Imaging [place] [address] Referral ID Status Reason Start Date Expiration Date V isits Requested Visits Authorized [id number] Closed Auto-Generate d Referral 11/06/2021 12/06/2022 1 1 Referral ID Status Reason Start Date Expiration Date V isits Requested Visits Authorized [id number] Closed Auto-Generate d Referral 05/14/2022 06/13/2023 1 1 Referral ID Status Reason Start Date Expiration Date Visits Requested Visits Authorized [id number] New Request Auto-Generat ed Referral 11/17/2023 12/16/2024 1 1 Referral ID Status Reason Start Date Expiration Date V isits Requested Visits Authorized [id number] Closed Auto-Generate d Referral 11/17/2023 12/16/2024 1 1 Referral ID Status Reason Start Date Expiration Date Visits Requested Visits Authorized [id number] New Request Auto-Generat ed Referral 05/23/2024 06/22/2025 1 1 Chief Complaint and Reason for Visit Chief Complaint PSA Additional Source Comments (unrecognized sect ion and content) No Status Records FoundNo Status Records FoundNo Status Records FoundNo Status Records FoundNo Status Records FoundNo Status Records FoundNo Status Records Found INFORMATION SOURCE (unrecogn ized section and content) DATE CREATED AUTHOR 03/09/2020 [facility] DATE CREATED AUTHOR AUTHOR'S ORGANIZ ATION 08/30/2023 [facility] ([place]) DATE CREATED AUTHOR AUTHOR'S ORGANIZ ATION 08/31/2023 [facility] DATE CREATED AUTHOR AUTHOR'S ORGANIZ ATION 09/05/2023 [facility] DATE CREATED AUTHOR AUTHOR'S ORGANIZ ATION 06/16/[address] [facility] DATE CREATED AUTHOR AUTHOR'S ORGANIZ ATION 07/20/2024 [facility] DATE CREATED AUTHOR AUTHOR'S ORGANIZ ATION 07/24/2024 [facility] Source Comments (unrecognize d section and content) In the event this informatio n is protected by the Federal Confidentiality of Alcohol and Drug Abuse Patient Records regulations: The Federal rules restrict any use of the information to criminally investigate or prosecute any alcohol or drug abuse patient.[facility] Hospital[facility] the event this information is protected by the Federal Confidentiality of Alcohol and Drug Abuse Patient Records regulations: The Federal rules restrict any use of the information to criminally investigate or prosecute any alcohol or drug abuse patient.[facility] HospitalIn the event this information is protected by the Federal Confidentiality of Alcohol and Drug Abuse Patient Records regulations: The Federal rules restrict any use of the information to criminally investigate or prosecute any alcohol or drug abuse patient.[facility] HospitalIn the event this information is protected by the Federal Confidentiality of Alcohol and Drug Abuse Patient Records regulations: The Federal rules restrict any use of the information to criminally investigate or prosecute any alcohol or drug abuse patient.[facility] HospitalIn the event this information is protected by the Federal Confidentiality of Alcohol and Drug Abuse Patient Records regulations: The Federal rules restrict any use of the information to criminally investigate or prosecute any alcohol or drug abuse patient.[facility] HospitalIn the event this information is protected by the Federal Confidentiality of Alcohol and Drug Abuse Patient Records regulations: The Federal rules restrict any use of the information to criminally investigate or prosecute any alcohol or drug abuse patient.[facility] HospitalIn the event this information is protected by the Federal Confidentiality of Alcohol and Drug Abuse Patient Records regulations: The Federal rules restrict any use of the information to criminally investigate or prosecute any alcohol or drug abuse patient.[facility] HospitalIn the event this information is protected by the Federal Confidentiality of Alcohol and Drug Abuse Patient Records regulations: The Federal rules restrict any use of the information to criminally investigate or prosecute any alcohol or drug abuse patient.[facility] HospitalIn the event this information is protected by the Federal Confidentiality of Alcohol and Drug Abuse Patient Records regulations: The Federal rules restrict any use of the information to criminally investigate or prosecute any alcohol or drug abuse patient.[facility] HospitalIn the event this information is protected by the Federal Confidentiality of Alcohol and Drug Abuse Patient Records regulations: The Federal rules restrict any use of the information to criminally investigate or prosecute any alcohol or drug abuse patient.[facility] HospitalIn the event this information is protected by the Federal Confidentiality of Alcohol and Drug Abuse Patient Records regulations: The Federal rules restrict any use of the information to criminally investigate or prosecute any alcohol or drug abuse patient.[facility] HospitalIn the event this information is protected by the Federal Confidentiality of Alcohol and Drug Abuse Patient Records regulations: The Federal rules restrict any use of the information to criminally investigate or prosecute any alcohol or drug abuse patient.[facility] HospitalIn the event this information is protected by the Federal Confidentiality of Alcohol and Drug Abuse Patient Records regulations: The Federal rules restrict any use of the information to criminally investigate or prosecute any alcohol or drug abuse patient.[facility] Reason for Visit (unrecogniz ed section and content) Reason Comments Radiology CT Specialty Diagnoses / Procedures Referred By Contac t Referred To Contact CT IMAGING Diagnoses Malignant neoplasm of unspecified part of unspecified bronchus or lung (HCC) Procedures CT CHEST WO IVCON [place] [address] [place] [address] Ct Imaging Referral ID Status Reason Start Date Expiration Date V isits Requested Visits Authorized [id number] Closed Auto-Generate d Referral 05/06/2021 06/05/2022 1 1 Reason Comments Radiotherapy Follow-up Specialty Diagnoses / Procedures Referred By Contac t Referred To Contact CT IMAGING Diagnoses Malignant neoplasm of unspecified part of unspecified bronchus or lung (HCC) Procedures CT CHEST WO IVCON DIAGNOSTIC COMPUTED TOMOGRAPHY THORAX W/[place] [address] [place] [address] [place] [address] Referral ID Status Reason Start Date Expiration Date V isits Requested Visits Authorized [id number] Closed Auto-Generate d Referral 11/06/2021 12/06/2022 1 1 Referral ID Status Reason Start Date Expiration Date V isits Requested Visits Authorized [id number] Closed Auto-Generate d Referral 05/14/2022 06/13/2023 1 1 Reason Comments Radiology [place] Specialty Diagnoses / Procedures Referred By Contac t Referred To Contact Radiology / RADIO PET CT MOBILE DENISE Diagnoses Malignant neoplasm of unspecified part of unspecified bronchus or lung non small cell lung / enlarging nodule Procedures PET IMAGING CT ATTENUATION SKULL BASE MID-THIGH INJECTION PET CT Cesilia Gimenez V [address] [facility] [place] [place] [address] [facility] [address] [place] [address] Referral ID Status Reason Start Date Expiration Date Visits Re quested Visits Authorized [id number] Closed 08/11/2023 09/10/2023 [address] Specialty Diagnoses / Procedures Referred By Contac t Referred To Contact CT IMAGING Diagnoses Malignant neoplasm of unspecified part of unspecified bronchus or lung (HCC) Procedures CT CHEST WO IVCON DIAGNOSTIC COMPUTED TOMOGRAPHY THORAX W/[place] [address] [place] [address] [place] [address] Referral ID Status Reason Start Date Expiration Date V isits Requested Visits Authorized [id number] Closed Auto-Generate d Referral 05/18/2023 06/16/2024 1 1 Referral ID Status Reason Start Date Expiration Date V isits Requested Visits Authorized [id number] Closed Auto-Generate d Referral 11/17/2023 12/16/2024 1 1 Care Teams (unrecognized sec tion and content) [employer] Cutter And Reamer Relationship Specialty Start Date End Date Cesilia Gimenez V [address] [place] [phone] Referring Pulmonary Disease 08/29/19 [employer]amer Relationship Specialty Start Date End Date Cesilia Gimenez V [address] [place] [phone] Referring Pulmonary Disease 08/29/19 [employer] And Reamer Relationship Specialty Start Date End Date Cesilia Gimenez V [address] [place] [phone] Referring Pulmonary Disease 08/29/19 [employer] Cutter And Reamer Relationship Specialty Start Date End Date Cesilia Gimenez V [address] [place] [phone] Referring Pulmonary Disease 08/29/19 Core Cutter And Reamer Relationship Specialty Start Date End Date Cesilia Gimenez V [address] [place] [id number] Referring Pulmonary Disease 08/29/19 Team Status: Active Member Role Status Dates Dr. Becky Chacon MD Family Provider Active Dr. Becky Chacon MD Primary Care Provider Active Team Status: Inactive Member Role Status Dates Dr. Becky Chacon MD Primary Care Provider Active Dr. Kemal Rose MD Attending Provider, Referr ing Provider Active Core Cutter And Reamer Relationship Specialty Start Date End Date Cesilia Gimenez V [address] [place] [address] Referring Pulmonary Disease 08/29/19 Core Cutter And Reamer Relationship Specialty Start Date End Date Cesilia Gimenez V [address] [place] [address] Referring Pulmonary Disease 08/29/19 Core Cutter And Reamer Relationship Specialty Start Date End Date Cesilia Gimenez V [address] [place] [address] Referring Pulmonary Disease 08/29/19 Core Cutter And Reamer Relationship Specialty Start Date End Date Cesilia Gimenez V [address] [place] [address] Referring Pulmonary Disease 08/29/19 Goals (unrecognized section and content) Goals may be documented in a n alternate section FOR RECORDS PERTAINING TO PATIENTS WHO ARE OR HAVE BEEN ENROLLED IN A CHEMICAL DEPENDENCY/SUBSTANCEABUSE PROGRAM, SOME INFORMATION MAY BE OMITTED. This clinical summary was aggregated from multiple sources. Caution should be exercised in using it in the provision of clinical care. This summary normalizes information from multiple sources, and as a consequence, information in this document may materially change the coding, format and clinical context of patient data. In addition, data may be omitted in some cases. CLINICAL DECISIONS SHOULD BE BASED ON THE PRIMARY CLINICAL RECORDS. [employer] [facility]. provides no warranty or guarantee of the accuracy or completeness of information in this document.
[2024-11-01 22:35] LABS: Hematocrit 51.1 % (40-54); Hemoglobin 16.6 g/dL (13.0-16.5); Immature Granulocytes Count 0.040 X10^3/uL (0.0-0.0); Mean Corp Hgb Conc 32.5 g/dL (32-36); Mean Corpuscular Volume 93.4 fL (80-94); Mean Platelet Vol. 10.7 fl (6.2-12.0); NRBC Flagged by Analyzer 0 % (0-5); Platelet Count 169 K/mm3 (150-450); RBC Distribution Width CV 14.9 % (11.6-14.6); RBC Distribution Width SD 51.2 fl (35.1-43.9); Red Blood Count 5.47 M/mm3 (4.6-6.2); White Blood Count 9.7 K/mm3 (4.4-11.0)
[2024-11-01] MEDS: TRANEXAMIC ACID 1,000 MG/10 ML ML OPERA.SITE (22:38)
[2024-11-01] MEDS: TRANEXAMIC ACID 1,000 MG in 0.9% Normal Saline (100mL Bag) 100 ML 440 MG IV (22:41)
[2024-11-01 22:48] LABS: Partial Thromboplast Time 29.1 Seconds (24.1-36.2); Prothrombin Time (Protime)PT. 12.3 SECONDS (11.7-14.9)
[2024-11-01 23:07] LABS: Magnesium 2.1 mg/dL (1.5-2.2)
[2024-11-01 23:12] LABS: Anion Gap 9 (5-15); BUN 14 mg/dL (4-19); BUN/Creat Ratio 18.0 RATIO (10-20); Calcium,Total 9.1 mg/dL (7.6-11.0); Carbon Dioxide 31.6 mmol/L (21.0-32.0); Chloride 100 mmol/L (98-108); Estimated Creatinine Clearance 96.84 ml/min (50-250); Glucose 72 mg/dL (70-99); Potassium 3.9 mmol/L (3.3-5.1)
--- NOTE | 2024-11-01 23:21 | PCM.HP.STD ---
[facility] Date of Service: 11/01/24 Chief Complaint: Worsening Hemoptysis and Shortness of Breath. [facility] Narrative MILADYS SOTO, is a 69 M with a past medical history of essential hypertension; on diltiazem and metoprolol twice daily, hyperlipidemia; on simvastatin, obesity (class I); with BMI of 33.4 this admission, BINDU; on CPAP, history of atrial fibrillation; currently not on anticoagulation and in NSR, history of occlusion and stenosis of bilateral carotid arteries, depression; on sertraline, history of diverticulitis of sigmoid colon, history of inguinal hernia; s/p repair, GERD; currently not on treatment, OA; with spinal stenosis and history of tobacco abuse; with subsequent COPD and Lung Cancer for the past ~[address] Franco of pulmonology who had planned an outpatient bronchoscopy on November 02, 2024 who presents to [facility] ER complaining of worsening hemoptysis and shortness of breath. Mr. Soto reports his symptoms began just prior to arrival with worsening cough followed by gross hemoptysis. He also admits to shortness of breath at rest with patiently currently on 6L NC with tachypnea of 26 breaths/min. I personally spoke with the ER physician on-call to contact pulmonology to make sure that this patient can be treated emergently overnight in case his hemoptysis worsens and/or his respiratory status deteriorates. He was also noted to have CTA of chest which was negative for PE but did show evidence of RUL pneumonia with clinical evidence of Uncontrolled Hypertension with blood pressure of 187/97 mmHg present on admission. There was no report of fever, chills, nausea, vomiting, diarrhea, constipation, abdominal pain, chest pain, palpitations, heart racing, lower extremity edema, dysuria, hematuria, headache or rash. In the ER he was diagnosed with worsening hemoptysis and acute respiratory insufficiency in the setting of known lung cancer with the patient still Full Code and wanting aggressive treatment with initial ABG still pending at this time. He was then admitted to the ICU for ongoing care for state is expected to extend beyond 2 midnights. [facility] Medical History (Updated 11/02/24 @ 00:[address] Nils Ruffin, ) Spinal stenosis, site unspecified Gastro-esophageal reflux disease without esophagitis Depressed Other fatigue Male erectile dysfunction, unspecified Abnormal findings on diagnostic imaging of other specified body structures Occlusion and stenosis of bilateral carotid arteries Nicotine dependence, unspecified, uncomplicated Chronic obstructive pulmonary disease, unspecified Solitary pulmonary nodule Obstructive sleep apnea (adult) (pediatric) Diverticulitis of sigmoid colon Essential (primary) hypertension Hypoxia Unspecified osteoarthritis, unspecified site Atrial fibrillation, currently in sinus rhythm 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 100 mcg-umeclid 1 ea inhalation DAILY 11/01/24 Unknown History 62.5 mcg-vilant 25 mcg inhalat.powder (Trelegy Ellipta) metoprolol tartrate 50 mg tablet 50 mg PO BID 11/01/24 Unknown History Allergy/AdvReac Type Severity Reaction Status Date / Time morphine Allergy Mild Hives Verified 11/01/24 22:03 Family History Father Heart disease Brother Heart disease Surgical History thumb Inguinal hernia Social History Smoking Status: Current every day smoker tobacco type: cigarettes alcohol intake: current ROS ROS Narrative Review of Systems: Constitutional: Patient denies fever or chills. Eyes: Patient denies change in vision or discharge from eyes. ENT: Patient denies runny nose, sore throat or ear pain. Resp: Patient admits to worsening hemoptysis and shortness of breath at rest as per HPI. CV: Patient denies chest pain, palpitations, heart racing or lower extremity edema. GI: Patient denies abdominal pain, nausea, vomiting, diarrhea or constipation. : Patient denies dysuria or hematuria. MSK: Patient denies arthralgias or myalgias. Skin: Patient denies rash, abscess, wounds or jaundice. Psych: Patient denies symptoms uncontrolled depression or anxiety. Neuro: Patient denies headache, paresthesias or focal neurologic deficits. Allergy: Patient denies lip swelling, tongue swelling or urticaria. Hematology: Patient admits to worsening hemoptysis as per HPI. Endocrinology: Patient denies polyuria, polydipsia, polyphagia or heat/cold intolerance. 14 point ROS otherwise negative save for positives noted above in HPI. Vital Signs Vital Signs Vital Signs: 11/01/24 22:03 11/01/24 22:03 11/01/24 22:06 Temperature 98.2 F 98.2 F Temperature Source Oral Oral Pulse Rate 82 76 Respiratory Rate 25 H 20 H Respiratory Effort Respiratory Depth Respiratory Pattern Blood Pressure 187/97 H 187/97 H Blood Pressure Mean 127 127 Pulse Ox 70 85 88 Oxygen Delivery Method Room Air Nasal Cannula Nasal Cannula Oxygen Flow Rate (L/min) 6 6 11/01/24 22:38 11/01/24 22:44 11/01/24 23:02 Temperature Temperature Source Pulse Rate 83 75 Respiratory Rate 24 H 22 H Respiratory Effort Short of Breath Accessory Muscle Use Respiratory Depth Deep Respiratory Pattern Tachypnea Tachypnea Blood Pressure 162/109 H Blood Pressure Mean 126 Pulse Ox 96 Oxygen Delivery Method Nasal Cannula Nasal Cannula Oxygen Flow Rate (L/min) 6 6 11/01/24 23:03 11/01/24 23:06 Temperature 98.2 F Temperature Source Oral Pulse Rate 72 76 Respiratory Rate 22 H 26 H Respiratory Effort Respiratory Depth Respiratory Pattern Tachypnea Blood Pressure 162/109 H Blood Pressure Mean 126 Pulse Ox 95 Oxygen Delivery Method Nasal Cannula Oxygen Flow Rate (L/min) 6 Weight Weight: 219 lb 5.759 oz Body Mass Index (BMI) 33.3 Physical Exam Const alert and oriented x3 Constitutional Narrative: Mild distress noted and obese patient. General Appearance: cooperative HEENT normocephalic, head/scalp atraumatic, hearing grossly normal bilaterally and moist oral mucous membranes Eyes PERRL and EOMs intact bilaterally Neck no lymphadenopathy and supple Resp Resp Narrative: Diminished breath sounds throughout. Cardio regular rate and regular rhythm GI normal to inspection, nondistended, normoactive bowel sounds, soft to palpation, non-tender and non-distended GI Narrative: Obese. Extremity normal to inspection, full ROM and no clubbing, cyanosis or edema Skin Skin Narrative: Patient has no evidence of rash, abscess, wounds or jaundice. Neuro oriented x3, CN's II-XII intact bilaterally, moves all extremities and no focal motor deficits Sensorium / Orientation: awake, alert, oriented to person, oriented to place and oriented to time Speech: speech normal Psych affect normal Results Medical Records Data Attestation: I reviewed the patient's medical records Lab / Micro Data Attestation: I reviewed the patient's lab results. 11/01/24 22:10 11/01/24 22:10 Labs: Laboratory Results - last 24 hr 11/01/24 22:10: WBC 9.7, RBC 5.47, Hgb 16.6 H, Hct 51.1, MCV 93.4, MCH 30.3, MCHC 32.5, RDW Std Deviation 51.2 H, RDW Coeff of Theron 14.9 H, Plt Count 169, MPV 10.7, Immature Gran % (Auto) 0.400, Neut % (Auto) 49.2, Lymph % (Auto) 40.5, [place] % (Auto) 7.3, Eos % (Auto) 2.1, Baso % (Auto) 0.5, Absolute Neuts (auto) 4.8, Absolute Lymphs (auto) 3.94, Nucleated RBC % 0, PT 12.3, INR 0.9, APTT 29.1, Sodium 141, Potassium 3.9, Chloride 100, Carbon Dioxide 31.6, Anion Gap 9, BUN 14, Creatinine 0.76, Estim Creat Clear Calc 96.84, Est GFR (MDRD) Non-Af 96, BUN/Creatinine Ratio 18.0, Glucose 72, Calcium 9.1, Magnesium 2.1 11/01/24 22:34: Lactic Acid < 1.0 Imaging Radiology Impression Chest CTA 11/01/24 22:19 IMPRESSION: Left upper lobe lung density favoring postradiation scar/atelectasis. Small right upper lobe airspace disease possibly pneumonia. No embolism or dissection. Reading Location: [place] [address] Assessment & Plan Assessment/Plan (1) Major hemoptysis: (2) Tobacco abuse: (3) Lung cancer: QUALIFIERS: Laterality: unspecified laterality Lung location: unspecified part of lung Qualified Code(s): C34.90 - Malignant neoplasm of unspecified part of unspecified bronchus or lung (4) COPD exacerbation: (5) Pneumonia: QUALIFIERS: Pneumonia type: due to unspecified organism Laterality: right Lung location: upper lobe of lung Qualified Code(s): J18.9 - Pneumonia, unspecified organism (6) Acute respiratory insufficiency: (7) Uncontrolled hypertension: (8) Obesity (BMI 30-39.9): (9) BINDU (obstructive sleep apnea): (10) Occlusion and stenosis of bilateral carotid arteries: PLAN: Plan 1. Worsening Hemoptysis in the setting of previously known Tobacco Abuse with Lung Cancer and AE COPD - Admit to ICU. Keep strict NPO. Start IV methylprednisolone in addition to scheduled and as needed nebulizers. Finally, we will notify pulmonology of this patient with active hemoptysis to expedite planned bronchoscopy with help appreciated in advance. 2. CTA of chest suggestive of RUL Pneumonia complicating #1 - Start treatment with IV piperacillin-tazobactam and await culture and sensitivity data. Check urinary antigens to Streptococcus pneumonia and Legionella. 3. Acute Respiratory Insufficiency due to #1 & #2 - Wean supplemental oxygen as tolerated. 4. Uncontrolled Hypertension of 187/97 mmHg present on admission adding to the medical complexity of #1 - #3 - Give hydralazine IV as needed for systolic blood pressure greater than 160 mmHg. 5. Obesity (class I); with BMI of 33.4 this admission plus BINDU; on CPAP adding to the burden of disease outlined from #1 - #4 - Weight loss will be recommended. Check TSH. Hold nocturnal CPAP with ongoing active hemoptysis. This complicates his case and may hamper recovery. 6. History of occlusion and stenosis of bilateral carotid arteries - Noted. Check carotid Doppler to reassess this admission in light of #1 & #2. 7. Essential hypertension; on diltiazem and metoprolol twice daily - Hold oral antihypertensive medications follow treatment plan outlined in #4. 8. Hyperlipidemia; on simvastatin - Hold statin while patient NPO. Check lipid profile. 9. History of atrial fibrillation; currently not on anticoagulation and in NSR - Noted. 10. Depression; on sertraline - Restart sertraline when patient is safe to resume oral intake. 11. History of diverticulitis of sigmoid colon - Noted. 12. History of inguinal hernia; s/p repair - Noted. 13. GERD; currently not on treatment - Start pantoprazole IV daily in light of #1. 14. OA; with spinal stenosis - Stable. Give acetaminophen MT q. 6 hours prn pain or fever. 15. DVT/GI prophylaxis - SCD's only in light of #1 contraindicating chemoprophylaxis. Pantoprazole 40 mg IV daily. Total time: Approximately (but not less than) 75 minutes. Charges/Coding Visit Charges Inpatient E&M: 88866 Init Hosp L3
[2024-11-01 23:44] LABS: Allen Test Positive; Base Excess 12 mmol/L (-2 to +2); FI02 3.0; PO2 71 mmHG (75-100); SITE R Radial; SO2 93 % (95-99)
[2024-11-02] VITALS (41 sets, daily range): BP systolic 117–193; BP diastolic 64–101; PULSE 60–108; RESP 18–26; TEMP 36.3–36.8; O2SAT 89–100; BMI 32.0
--- NOTE | 2024-11-02 | FLU_PTH ---
PATIENT: MILADYS BURGESS Jr. LOC: [facility] U#:[id number] AGE/SX: 69/M ROOM: [facility] RE11/01/[address]: Dr. Terri Dyer MD : 1955 BED: 1 DIS: 11/06/2024 SPEC #: [id number] RECD: 11/02/24 14:55 STATUS: SARAH REKarla #: [id number] DAQUAN: 11/02/24 00:[address]: Darinel Dickinson DEPT: CYTOLOGY RECD BY: Tabitha Talbot ENTERED: 11/03/24 09:53 SP TYPE: Fluid OTHR DR: MD Dr. Nils Rosas DO Dr. Robert V Sibilia, MD Tissues: Bronchus of right upper lobe Procedures: Special Stain Group II Surgery Specimen Level IV Cytospin Fluid HEADER OPERATION: Bronchoscopy, BAL PRE-OP DIAGNOSIS: Hemoptysis TISSUE SUBMITTED: BAL, RUL for Cytology DIAGNOSIS CYTOLOGY A. Lung, RUL, cytospin and cellblock, bronchoalveolar lavage: - No malignant cells identified. CYTOLOGY STUDY Slides are reviewed. CYTOLOGY GROSS Received is 40 ml of red cloudy fluid labeled with the patient's name and and designated per the requisition as BAL RUL. Submitted for cytology and cell block preparation. CPT: 55161,86360
--- NOTE | 2024-11-02 00:05 | CDU_ITS ---
Reason For Study Reason For Study: Stenosis Rt. Velocities/BP Lt. Velocities/BP Prox CCA 74.0/13.5 cm/sec. Prox CCA 87.2/17.9 cm/sec. Mid CCA 67.7/10.6 cm/sec. Mid CCA 82.8/14.6 cm/sec. Dist CCA 55.6/11.7 cm/sec. Dist CCA 75.1/16.8 cm/sec. Prox ICA 59.3/13.9 cm/sec. Prox ICA 63.0/9.1 cm/sec. Mid ICA 59.7/8.0 cm/sec. Mid ICA 49.8/12.4 cm/sec. Dist ICA 78.4/15.7 cm/sec. Dist ICA 86.1/19.0 cm/sec. Rt. ICA/CCA = 1.2. Lt. ICA/CCA = 1.0. Prox ECA 132.4/13.8 cm/sec. Prox ECA 133.9/20.6 cm/sec. Rt. Vert. 43.7/8.8 cm/sec. Lt. Vert. 60.8/12.4 cm/sec. Right Extracranial There is intimal thickening but no significant atherosclerotic plaque noted in the right common carotid artery. There is heterogeneous, irregular atherosclerotic plaque noted in the right internal carotid artery. There is intimal thickening but no significant atherosclerotic plaque noted in the right external carotid artery. Antegrade flow is noted in the right vertebral artery. Left Extracranial There is intimal thickening but no significant atherosclerotic plaque noted in the left common carotid artery. There is intimal thickening but no significant atherosclerotic plaque noted in the left internal carotid artery. There is intimal thickening but no significant atherosclerotic plaque noted in the left external carotid artery. Antegrade flow is noted in the left vertebral artery. Procedure Carotid Duplex 14502. This is a Carotid Duplex examination using B-mode, color flow and specral Doppler. Exam performed portable in ICU/CCU. VL/Carotid Duplex Ultrasound Interpretation Summary Mild (<50%) stenosis right extracranial internal carotid. Normal left extracranial internal carotid. Patent and antegrade vertebrals bilaterally. Ordering Physician: Nils Ruffin Performed By: Marielos Conroy RVT
[2024-11-02] MEDS: Pantoprazole Sodium 40 MG in 0.9% Normal Saline (100mL MB+) 100 ML 330 MG IV (00:53)
[2024-11-02] MEDS: Piperacil/Tazobactam 3.375 GM in 0.9% Normal Saline (50mL MB+) 50 ML IV ×2 (00:54→11:28)
--- NOTE | 2024-11-02 06:37 | EX.ED.DYSGE1 ---
HPI History of Present Illness Chief Complaint: Shortness of Breath Informant: patient and spouse/S.O. Narrative Narrative: Patient is a 69-year-old male with history of lung cancer. He states he was diagnosed roughly 5 years ago. He states that on Thursday he began coughing up blood and therefore he contacted his food and beverage assistant. He states he has a bronchoscopy scheduled for tomorrow but was advised that if the hemoptysis returned or worsen he should go to the ER for evaluation. Patient states he was not coughing up blood for the last day or so but this evening began coughing up blood and it was a larger amount than the previous episode and therefore he presents for treatment at this time. He states he is not on a blood thinner nor does he have a history of bleeding disorder. [facility] Medical History (Updated 11/02/24 @ 06:[address] Ady Vines, DO) Spinal stenosis, site unspecified Gastro-esophageal reflux disease without esophagitis Depressed Other fatigue Male erectile dysfunction, unspecified Abnormal findings on diagnostic imaging of other specified body structures Occlusion and stenosis of bilateral carotid arteries Nicotine dependence, unspecified, uncomplicated Chronic obstructive pulmonary disease, unspecified Solitary pulmonary nodule Obstructive sleep apnea (adult) (pediatric) Diverticulitis of sigmoid colon Essential (primary) hypertension Hypoxia Unspecified osteoarthritis, unspecified site Atrial fibrillation, currently in sinus rhythm 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 100 mcg-umeclid 1 ea inhalation DAILY 11/01/24 Unknown History 62.5 mcg-vilant 25 mcg inhalat.powder (Trelegy Ellipta) metoprolol tartrate 50 mg tablet 50 mg PO BID 11/01/24 Unknown History Allergy/AdvReac Type Severity Reaction Status Date / Time morphine Allergy Mild Hives Verified 11/01/24 22:03 Family History Father Heart disease Brother Heart disease Surgical History thumb Inguinal hernia Social History Smoking Status: Current every day smoker tobacco type: cigarettes alcohol intake: current ROS ROS ED Constitutional Constitutional ED: Denies chills or fever(s) Eyes Eyes: Denies blurry vision or change in vision ENT ENT ED: Denies sore throat Cardiovascular Cardiovascular: Denies chest pain Respiratory/Chest Respiratory/Chest: Reports cough, dyspnea and other Details: Positive hemoptysis Gastrointestinal Gastrointestinal: Denies abdominal pain, diarrhea, nausea or vomiting Genitourinary Genitourinary ED: Denies dysuria Musculoskeletal Musculoskeletal: Denies back pain Integumentary Denies rash Neurologic Neurologic: Denies headache(s) Hematologic/Lymphatic Hematologic/Lymphatic: Denies easy bleeding or easy bruising Allergic/Immunologic Allergic/Immunologic ED: Denies mouth swelling or tongue swelling EXAM Physical Exam Const Vital Signs: 11/01/24 22:03 11/01/24 22:03 11/01/24 22:06 Temperature 98.2 F 98.2 F Temperature Source Oral Oral Pulse Rate 82 76 Respiratory Rate 25 H 20 H Respiratory Effort Respiratory Depth Respiratory Pattern Blood Pressure 187/97 H 187/97 H Blood Pressure Mean 127 127 Pulse Ox 70 85 88 Oxygen Delivery Method Room Air Nasal Cannula Nasal Cannula Oxygen Flow Rate (L/min) 6 6 11/01/24 22:38 11/01/24 22:44 11/01/24 23:02 Temperature Temperature Source Pulse Rate 83 75 Respiratory Rate 24 H 22 H Respiratory Effort Short of Breath Accessory Muscle Use Respiratory Depth Deep Respiratory Pattern Tachypnea Tachypnea Blood Pressure 162/109 H Blood Pressure Mean 126 Pulse Ox 96 Oxygen Delivery Method Nasal Cannula Nasal Cannula Oxygen Flow Rate (L/min) 6 6 11/01/24 23:03 11/01/24 23:06 Temperature 98.2 F Temperature Source Oral Pulse Rate 72 76 Respiratory Rate 22 H 26 H Respiratory Effort Respiratory Depth Respiratory Pattern Tachypnea Blood Pressure 162/109 H Blood Pressure Mean 126 Pulse Ox 95 Oxygen Delivery Method Nasal Cannula Oxygen Flow Rate (L/min) 6 Positive well nourished and well developed General Appearance ED: well developed; Negative for pallor HEENT Reports moist mucous membranes HEENT Narrative: No tongue or lip swelling no oral lesions no airway edema or compromise No dried blood or active bleeding noted in the posterior pharynx Eyes PERRL and EOMs intact bilaterally General Eye ED: Negative for pale conjunctiva or scleral icterus Neck supple and no JVD Chest Wall palpation of chest normal Resp Resp Narrative: Patient is tachypneic and breath sounds are diminished throughout with faint expiratory wheeze and rhonchi in the bilateral bases Otherwise no nasal flaring retractions or accessory muscle use Cardio regular rate and regular rhythm GI normal to inspection, nondistended, normoactive bowel sounds, non-tender, non-distended and no masses Auscultation: normoactive bowel sounds Palpation: soft Extremity normal to inspection Extremity Narrative: No asymmetric edema no pitting edema negative Homans' sign bilaterally Neuro oriented x3, CN's II-XII intact bilaterally and no sensory deficits noted Sensorium / Orientation: alert Motor Exam: strength 5/5 throughout Psych mental status grossly normal Skin no rashes or lesions noted General Skin Exam: Negative for jaundice or pallor MDM MDM MDM Narrative Medical decision making narrative: Patient arrived to the ER hypertensive and tachypneic but satting in the low 90s on a few liters of oxygen which he states he wears occasionally. He does have jewels mopped assist by physical exam. With his history of lung cancer there is concern that he may have erosion into the tissue or blood vessel or potentially a PE or secondary infection such as pneumonia. Basic blood work was obtained to rule out elevated bleeding times or thrombocytopenia or acute blood loss anemia and a CTA was obtained to check for metastatic invasion or PE. Labs revealed no clinically significant findings and CTA revealed no PE dissection or obvious cause of the hemoptysis. The patient is at high risk for decompensation based on his recurrent hemoptysis and history of cancer and therefore I do not feel it is safe for him to return home. He was given 1 g of IV TXA and 1 g inhaled TXA and after receiving this he did have spontaneous resolution of his bleeding. At this time plan is to admit him to the hospitalist with inspector radar and electronics/pulmonology on his consult so that he can be monitored until his bronchoscopy to further assess for the cause of bleeding and potentially stabilize any worsening of his symptoms. History & Record Review Discussion w/independent historian: Patient and Significant other Lab Data Attestation: I reviewed the patient's lab results. Labs: Laboratory Results - last 24 hr 11/01/24 11/01/24 22:10 22:34 WBC 9.7 RBC 5.47 Hgb 16.6 H Hct 51.1 MCV 93.4 MCH 30.3 MCHC 32.5 RDW Std Deviation 51.2 H RDW Coeff of Theron 14.9 H Plt Count 169 MPV 10.7 Immature Gran % (Auto) 0.400 Neut % (Auto) 49.2 Lymph % (Auto) 40.5 [place] % (Auto) 7.3 Eos % (Auto) 2.1 Baso % (Auto) 0.5 Absolute Neuts (auto) 4.8 Absolute Lymphs (auto) 3.94 Nucleated RBC % 0 PT 12.3 INR 0.9 APTT 29.1 Sodium 141 Potassium 3.9 Chloride 100 Carbon Dioxide 31.6 Anion Gap 9 BUN 14 Creatinine 0.76 Estim Creat Clear Calc 96.84 Est GFR (MDRD) Non-Af 96 BUN/Creatinine Ratio 18.0 Glucose 72 Lactic Acid < 1.0 Calcium 9.1 Magnesium 2.1 ABG Data ABG results: ABG 11/01/24 23:41 Specimen Type ART Sample Site R Radial pH 7.35 Bicarbonate Actual 37.1 H Total CO2 39 Base Excess 12 H O2 Saturation 93 L O2 % 3.0 ABG pCO2 66.8 H ABG pO2 71 L Adrián Test Positive O2 Delivery Device Cannula Vent Mode Not entered Radiography Diagnostic Testing: Clinical Impression(s) from Imaging Studies Chest CTA 11/01/24 22:19 IMPRESSION: Left upper lobe lung density favoring postradiation scar/atelectasis. Small right upper lobe airspace disease possibly pneumonia. No embolism or dissection. Reading Location: [place] [id number] Management Discussion w/another healthcare provider: Hospitalist and C Iron Worker Critical Care Time Critical Care Time: Yes Critical care time (excluding procedures): Discussing w/Patient &/or Family/Umbrella Frame Maker, Discussing w/Consultants and - (Critical care time of 33 minutes) Discharge Plan Dx/Rx/DC Orders Clinical Impression: Major hemoptysis, Lung cancer, COPD exacerbation, Hypertension Disposition Disposition: Acute Care Hospital [facility]
--- OUTSIDE RECORDS SUMMARY | 2024-11-02 06:48 | XMS RPT_ITS | CCD ---
Author Organization [facility] Care Team Providers Care Ornithology Teacher Name Role Phone Sibilia V, Cesilia Unavailable [...] Unavailable BECKY CHACON MD Primary Care Unavailable BECYK CHACON MD Attending Unavailable BECKY CHACON MD [...] sources) Morphine; Translations: [MORPHINE] Drug Allergy 09-13-2019 [facility] Work Phone: (1 source) Morphine Drug Allergy [facility] Repository Medications Current Medications Medication Drug [...] Take 50 mg by mouth once daily. Ixrds-6-YTO-EPA-Fish Oil 1,000 mg (120 mg-180 mg) cap (13 sources) take 1 capsule by mouth twice daily Zdtts-1-VHP-EPA-Fish Oil 1,000 mg (120 mg-180 mg) cap Take 1 g by mouth twice daily. Active take 1 capsule by mouth twice da merry Xgskm-5-BJY-EPA-Fish Oil 1,000 mg (120 mg- 180 mg) [...] [Mass/Vol] 150 mg/dL Normal 0 - 240 [facility] Comment on above: Performed By: #### 2 07921 #### [facility],[address] [place] [address] 94526 Cholesterol in HDL [Mass/Vol] 38 mg/dL Low 40 - 60 [facility] Comment on above: Performed By: #### 2 89858 #### [facility],[address] [place] [address] 33623 Cholesterol in LDL [Mass/Vol] 75 mg/dL Normal 0 - 129 [facility] Comment on above: Performed By: #### 2 03225 #### [facility],[address] [place] [address] 01282 Cholesterol.total/Chol esterol in HDL [Mass ratio] 3.9 {ratio} Normal 0.0 - 5.0 [facility] Comment on above: Performed By: #### 2 85852 #### [facility],[address] [place] [address] 63314 Lipid 1996 panel Normal [facility] Comment on above: Result Comment: LIPI D PROFILE Performed By: #### 2 35920 #### [facility],[address] [place] [address] 43445 Triglyceride [Mass/Vol] 183 mg/dL High 0 - 150 [facility] Comment on above: Performed By: #### 2 05021 #### [facility],[address] [place] [address] 50687 T4 Free SerPl-mCncon 025 Free T4 [Mass/Vol] 1.2 ng/dL Normal 0.9-1.7 [facility] Comment on above: Order Comment: Speci men Type: BLOOD SPECIMEN Ordering Facility: [facility] Address: [address] [place] [address] Performed By: #### 3 024-7 #### [facility] CLIA [id number] [address] [place] [address] OF [facility] T4, FREE [CCL]on 07-18-2024 Free T4 [Mass/Vol] 1.2 ng/dL Normal 0.9-1.7 [facility] Comment on above: Result Comment: [facility] [address] [place] [id number] Ryan Mueller III, M.D. [id number] Performed By: #### 2 70443 #### [facility],[address] [place] [address] 53814 TSHon 07-18-2024 TSH Qn 2.47 m[IU]/L Normal 0.35 - 3.74 [facility] Comment on above: Performed By: #### 2 47925 #### [facility],[address] [place] [address] 71585 BMP with eGFRon 06-13-2024 AGE 69 years Normal [facility] Comment on above: Performed By: #### 2 45959 #### [facility],[address] [place] [address] 82865 Anion gap [Moles/Vol] 7 mmol/L Low 10 - 20 [facility] Comment on above: Performed By: #### 2 69136 #### [facility],[address] [place] [address] 24818 BMP with eGFR Normal [facility] Comment on above: Result Comment: BASI C METABOLIC PANEL Performed By: #### 2 90830 #### [facility],[address] [place] [address] 87738 Calcium [Mass/Vol] 8.1 mg/dL Low 8.5 - 10.1 [facility] Comment on above: Performed By: #### 2 63887 #### [facility],[address] [place] [address] 79395 Chloride [Moles/Vol] 101 mmol/L Normal 98 - 107 [facility] Comment on above: Performed By: #### 2 91736 #### [facility],[address] [place], [place] [address] CO2 [Moles/Vol] 35.7 mmol/L High 21.0 - 32.0 [facility] Comment on above: Performed By: #### 2 49975 #### [facility],[address] [place] [address] Creatinine [Mass/Vol] 0.69 mg/dL Low 0.70 - 1.30 [facility] Comment on above: Performed By: #### 2 87129 #### [facility],[address] [place] [address] GFR/1.73 sq M.predicted among non-blacks MDRD (S/P/Bld) [Vol rate/Area] mL/min/{1.73_m2} Normal 60 - 999 [facility] Comment on above: Performed By: #### 2 56505 #### [facility],[address] [place] [address] Result Comment: ACCO RDING TO THE NATIONAL KIDNEY DISEASE EDUCATION PROGRAM(NKDE), A NORMAL eGFR IS A VALUE GREATER THAN OR EQUAL TO 60 ML/MIN/1.73 SQ METERS. CHRONIC KIDNEY DISEASE: <60mL/MIN/1.73 SQ METERS KIDNEY FAILURE: <15mL/MIN/1.73 SQ METERS THIS TEST SHOULD ONLY BE USED FOR PATIENTS 18 YEARS OF AGE AND OLDER. Glucose [Mass/Vol] 148 mg/dL High 74 - 106 [facility] Comment on above: Performed By: #### 2 33804 #### [facility],[address] [place], [place] [address] Potassium [Moles/Vol] 4.1 mmol/L Normal 3.5 - 5.1 [facility] Comment on above: Performed By: #### 2 44476 #### [facility],[address] [place], [place] [address] Sodium [Moles/Vol] 140 mmol/L Normal 136 - 145 [facility] Comment on above: Performed By: #### 2 74572 #### [facility],[address] [place] [address] 03306 Urea nitrogen [Mass/Vol] 18 mg/dL Normal 7 - 18 [facility] Comment on above: Performed By: #### 2 59078 #### [facility],[address] [place] [address] 42377 CBC + DIFFon 06-13-2024 Baso # 0.02 x10EE3/UL Normal 0.00 - 0.10 [facility] Comment on above: Performed By: #### 2 86374 #### [facility],[address] [place] [address] 99166 Basophils/100 WBC (Bld) 0.2 % Normal 0.0 - 2.0 [facility] Comment on above: Performed By: #### 2 98295 #### [facility],[address] [place] [address] 96992 CBC + DIFF Normal [facility] Comment on above: Result Comment: CBC- COMPLETE BLOOD COUNT Performed By: #### 2 39753 #### [facility],[address] [place] [address] 21855 EO # 0.02 x10EE3/UL Normal 0.00 - 0.50 [facility] Comment on above: Performed By: #### 2 62394 #### [facility],[address] [place] [address] 39565 Eosinophils/100 WBC (Bld) 0.2 % Normal 0.0 - 7.0 [facility] Comment on above: Performed By: #### 2 80598 #### [facility],[address] [place] [address] 75442 Erythrocyte distribution width (RBC) [Ratio] 14.2 % Normal 12.0 - 15.6 [facility] Comment on above: Performed By: #### 2 80830 #### [facility],[address] [place] [address] 08189 Hematocrit (Bld) [Volume fraction] 47.3 % Normal 40.0 - 52.0 [facility] Comment on above: Performed By: #### 2 34469 #### [facility],[address] [place] [address] Hemoglobin (Bld) [Mass/Vol] 15.8 g/dL Normal 13.0 - 17.5 [facility] Comment on above: Performed By: #### 2 05318 #### [facility],[address] [place] [address] Lymph # 1.04 x10EE3/UL Normal 0.80 - 2.80 [facility] Comment on above: Performed By: #### 2 76081 #### [place] [address] Lymphocytes/100 WBC (Bld) 12.4 % Low 20.0 - 45.0 [facility] Comment on above: Performed By: #### 2 86261 #### [facility],[address] [place], [place] [address] MANUAL DIFF N/A Normal [facility] Comment on above: Performed By: #### 2 40385 #### [place] [id number] MCH (RBC) [Entitic mass] 31 pg Normal 27 - 33 [facility] Comment on above: Performed By: #### 2 00989 #### [facility],[address] [place], [place] [address] MCHC 33 X10 3 Normal 32 - 36 [facility] Comment on above: Performed By: #### 2 19858 #### [facility],[address] [place], [place] [address] MCV (RBC) [Entitic vol] 92 fL Normal 81 - 98 [facility] Comment on above: Performed By: #### 2 91138 #### [facility],[address] [place], [place] [address] Bannock # 0.20 x10EE3/UL Normal 0.20 - 1.00 [facility] Comment on above: Performed By: #### 2 82076 #### [place] [address] MONOS % 2.4 % Normal 0.0 - 10.0 [facility] Comment on above: Performed By: #### 2 81879 #### [facility],[address] [place] [address] Morphology Wong (Bld) [Interp] N/A Normal [facility] Comment on above: Performed By: #### 2 97589 #### [place] [address] Neut # 7.12 x10EE3/UL High 1.50 - 7.10 [facility] Comment on above: Performed By: #### 2 70907 #### [place] [address] Neutrophils/100 WBC (Bld) 84.8 % High 46.0 - 76.0 [facility] Comment on above: Performed By: #### 2 42072 #### [place] [address] PLATELET 174 x10EE3/UL Normal 150 - 450 [facility] Comment on above: Performed By: #### 2 14290 #### [place] [address] Platelet mean volume (Bld) [Entitic vol] 8.5 fL Normal 6.4 - 10.5 [facility] Comment on above: Result Comment: AUTO MATED DIFFERENTIAL Performed By: #### 2 78459 #### [place] [address] RBC 5.17 x 10EE6/UL Normal 4.50 - 6.00 [facility] Comment on above: Performed By: #### 2 21675 #### [address] [address] WBC 8.4 x 10EE3/UL Normal 4.5 - 10.8 [facility] Comment on above: Performed By: #### 2 83208 #### [facility],[address] [place] [address] 70779 BMP with eGFRon 06-12-2024 AGE 69 years Normal [facility] Comment on above: Performed By: #### 2 53547 #### [facility],[address] [place] [address] 48104 Anion gap [Moles/Vol] 5 mmol/L Low 10 - 20 [facility] Comment on above: Performed By: #### 2 08186 #### [facility],[address] [place], [place] [address] BMP with eGFR Normal [facility] Comment on above: Result Comment: BASI C METABOLIC PANEL Performed By: #### 2 61530 #### [facility],[address] [place] [address] 63400 Calcium [Mass/Vol] 8.8 mg/dL Normal 8.5 - 10.1 [facility] Comment on above: Performed By: #### 2 99664 #### [facility],[address] [place] [address] 92950 Chloride [Moles/Vol] 105 mmol/L Normal 98 - 107 [facility] Comment on above: Performed By: #### 2 78770 #### [facility],[address] [place] [address] 64676 CO2 [Moles/Vol] 36.6 mmol/L High 21.0 - 32.0 [facility] Comment on above: Performed By: #### 2 26410 #### [facility],[address] [place] [address] 18182 Creatinine [Mass/Vol] 0.69 mg/dL Low 0.70 - 1.30 [facility] Comment on above: Result Comment: RENATO ELENA REPEATED Performed By: #### 2 14962 #### [facility],[address] [place] [address] 21225 GFR/1.73 sq M.predicted among non-blacks MDRD (S/P/Bld) [Vol rate/Area] mL/min/{1.73_m2} Normal 60 - 999 [facility] Comment on above: Performed By: #### 2 98519 #### [facility],[address] [place] [address] Result Comment: ACCO RDING TO THE NATIONAL KIDNEY DISEASE EDUCATION PROGRAM(NKDE), A NORMAL eGFR IS A VALUE GREATER THAN OR EQUAL TO 60 ML/MIN/1.73 SQ METERS. CHRONIC KIDNEY DISEASE: <60mL/MIN/1.73 SQ METERS KIDNEY FAILURE: <15mL/MIN/1.73 SQ METERS THIS TEST SHOULD ONLY BE USED FOR PATIENTS 18 YEARS OF AGE AND OLDER. Glucose [Mass/Vol] 143 mg/dL High 74 - 106 [facility] Comment on above: Performed By: #### 2 73171 #### [facility],[address] [place] [address] 92232 Potassium [Moles/Vol] 4.2 mmol/L Normal 3.5 - 5.1 [facility] Comment on above: Performed By: #### 2 69161 #### [facility],[address] [place] [address] 19764 Sodium [Moles/Vol] 142 mmol/L Normal 136 - 145 [facility] Comment on above: Performed By: #### 2 33075 #### [facility],[address] [place] [address] 79239 Urea nitrogen [Mass/Vol] 18 mg/dL Normal 7 - 18 [facility] Comment on above: Performed By: #### 2 27292 #### [facility],[address] [place] [address] 99705 CBC + DIFFon 06-12-2024 Baso # 0.02 x10EE3/UL Normal 0.00 - 0.10 [facility] Comment on above: Performed By: #### 2 82927 #### [facility],[address] [place] [address] 63380 Basophils/100 WBC (Bld) 0.2 % Normal 0.0 - 2.0 [facility] Comment on above: Performed By: #### 2 49945 #### [facility],[address] [place] [address] CBC + DIFF Normal [facility] Comment on above: Result Comment: CBC- COMPLETE BLOOD COUNT Performed By: #### 2 77766 #### [facility],[address] [place] [address] EO # 0.04 x10EE3/UL Normal 0.00 - 0.50 [facility] Comment on above: Performed By: #### 2 98074 #### [facility],[address] [place] [address] 81105 Eosinophils/100 WBC (Bld) 0.3 % Normal 0.0 - 7.0 [facility] Comment on above: Performed By: #### 2 19512 #### [facility],[address] [place] [address] Erythrocyte distribution width (RBC) [Ratio] 14.4 % Normal 12.0 - 15.6 [facility] Comment on above: Performed By: #### 2 22911 #### [facility],[address] [place], [place] [address] Hematocrit (Bld) [Volume fraction] 43.1 % Normal 40.0 - 52.0 [facility] Comment on above: Performed By: #### 2 53139 #### [facility],[address] [place] [address] 61715 Hemoglobin (Bld) [Mass/Vol] 14.3 g/dL Normal 13.0 - 17.5 [facility] Comment on above: Performed By: #### 2 81526 #### [facility],[address] [place], [place] [address] Lymph # 1.25 x10EE3/UL Normal 0.80 - 2.80 [facility] Comment on above: Performed By: #### 2 29309 #### [facility],[address] [place] [address] 76585 Lymphocytes/100 WBC (Bld) 10.6 % Low 20.0 - 45.0 [facility] Comment on above: Performed By: #### 2 17862 #### [facility],[address] [place] [address] 03284 MANUAL DIFF N/A Normal [facility] Comment on above: Performed By: #### 2 08428 #### [facility],[address] [place] [address] 21837 MCH (RBC) [Entitic mass] 31 pg Normal 27 - 33 [facility] Comment on above: Performed By: #### 2 50148 #### [facility],[address] [place] [address] 52179 MCHC 33 X10 3 Normal 32 - 36 [facility] Comment on above: Performed By: #### 2 07031 #### [facility],[address] [place] [address] 27547 MCV (RBC) [Entitic vol] 92 fL Normal 81 - 98 [facility] Comment on above: Performed By: #### 2 31857 #### [facility],[address] [place] [address] 80371 Bannock # 0.24 x10EE3/UL Normal 0.20 - 1.00 [facility] Comment on above: Performed By: #### 2 12856 #### [facility],[address] [place] [address] 97417 MONOS % 2.0 % Normal 0.0 - 10.0 [facility] Comment on above: Performed By: #### 2 09966 #### [facility],[address] [place] [address] 57586 Morphology Wong (Bld) [Interp] N/A Normal [facility] Comment on above: Performed By: #### 2 50648 #### [facility],[address] [place] [address] 78472 Neut # 10.26 x10EE3/UL High 1.50 - 7.10 [facility] Comment on above: Performed By: #### 2 27577 #### [facility],[address] [place] [address] 39576 Neutrophils/100 WBC (Bld) 86.9 % High 46.0 - 76.0 [facility] Comment on above: Performed By: #### 2 12256 #### [facility],[address] [place] [address] 92098 PLATELET 167 x10EE3/UL Normal 150 - 450 [facility] Comment on above: Performed By: #### 2 25417 #### [facility],[address] [place] [address] 33440 Platelet mean volume (Bld) [Entitic vol] 8.8 fL Normal 6.4 - 10.5 [facility] Comment on above: Result Comment: AUTO MATED DIFFERENTIAL Performed By: #### 2 50732 #### [facility],[address] [place] [address] 43718 RBC 4.68 x 10EE6/UL Normal 4.50 - 6.00 [facility] Comment on above: Performed By: #### 2 74650 #### [facility],[address] [place] [address] 74830 WBC 11.8 x 10EE3/UL High 4.5 - 10.8 [facility] Comment on above: Performed By: #### 2 14556 #### [facility],[address] [place] [address] 73157 BMP with eGFRon 06-11-2024 AGE 69 years Normal [facility] Comment on above: Performed By: #### 2 22024 #### [facility],[address] [place] [address] 01032 Anion gap [Moles/Vol] 9 mmol/L Low 10 - 20 [facility] Comment on above: Performed By: #### 2 78143 #### [facility],[address] [place] [address] 95419 BMP with eGFR Normal [facility] Comment on above: Result Comment: BASI C METABOLIC PANEL Performed By: #### 2 62932 #### [facility],[address] [place] [address] 20903 Calcium [Mass/Vol] 8.9 mg/dL Normal 8.5 - 10.1 [facility] Comment on above: Performed By: #### 2 80596 #### [facility],[address] [place] [address] 64051 Chloride [Moles/Vol] 107 mmol/L Normal 98 - 107 [facility] Comment on above: Performed By: #### 2 19604 #### [facility],[address] [place] [address] 46845 CO2 [Moles/Vol] 31.7 mmol/L Normal 21.0 - 32.0 [facility] Comment on above: Performed By: #### 2 10488 #### [facility],[address] [place] [address] 59963 Creatinine [Mass/Vol] 0.61 mg/dL Low 0.70 - 1.30 [facility] Comment on above: Performed By: #### 2 27773 #### [facility],[address] [place] [address] 32217 GFR/1.73 sq M.predicted among non-blacks MDRD (S/P/Bld) [Vol rate/Area] mL/min/{1.73_m2} Normal 60 - 999 [facility] Comment on above: Performed By: #### 2 08869 #### [facility],[address] [place] [address] 66225 Result Comment: ACCO RDING TO THE NATIONAL KIDNEY DISEASE EDUCATION PROGRAM(NKDE), A NORMAL eGFR IS A VALUE GREATER THAN OR EQUAL TO 60 ML/MIN/1.73 SQ METERS. CHRONIC KIDNEY DISEASE: <60mL/MIN/1.73 SQ METERS KIDNEY FAILURE: <15mL/MIN/1.73 SQ METERS THIS TEST SHOULD ONLY BE USED FOR PATIENTS 18 YEARS OF AGE AND OLDER. Glucose [Mass/Vol] 139 mg/dL High 74 - 106 [facility] Comment on above: Performed By: #### 2 45779 #### [facility],[address] [place], [place] [address] Potassium [Moles/Vol] 4.2 mmol/L Normal 3.5 - 5.1 [facility] Comment on above: Performed By: #### 2 76832 #### [place] [address] Sodium [Moles/Vol] 143 mmol/L Normal 136 - 145 [facility] Comment on above: Performed By: #### 2 08947 #### [place] [address] Urea nitrogen [Mass/Vol] 22 mg/dL High 7 - 18 [facility] Comment on above: Performed By: #### 2 38689 #### [facility],[address] [place] [address] 21454 CBC + DIFFon 06-11-2024 Baso # 0.02 x10EE3/UL Normal 0.00 - 0.10 [facility] Comment on above: Performed By: #### 2 91107 #### [address] [address] Basophils/100 WBC (Bld) 0.2 % Normal 0.0 - 2.0 [facility] Comment on above: Performed By: #### 2 12598 #### [address] [address] CBC + DIFF Normal [facility] Comment on above: Result Comment: CBC- COMPLETE BLOOD COUNT Performed By: #### 2 92508 #### [place] [id number] EO # 0.05 x10EE3/UL Normal 0.00 - 0.50 [facility] Comment on above: Performed By: #### 2 32900 #### [facility],[address] [place] [address] 88444 Eosinophils/100 WBC (Bld) 0.3 % Normal 0.0 - 7.0 [facility] Comment on above: Performed By: #### 2 04741 #### [facility],[address] [place] [address] 12786 Erythrocyte distribution width (RBC) [Ratio] 14.1 % Normal 12.0 - 15.6 [facility] Comment on above: Performed By: #### 2 34693 #### [facility],[address] [place] [address] 31758 Hematocrit (Bld) [Volume fraction] 43.2 % Normal 40.0 - 52.0 [facility] Comment on above: Performed By: #### 2 60433 #### [facility],[address] [place] [address] Hemoglobin (Bld) [Mass/Vol] 14.1 g/dL Normal 13.0 - 17.5 [facility] Comment on above: Performed By: #### 2 66179 #### [facility],[address] [place] [address] 29137 Lymph # 1.24 x10EE3/UL Normal 0.80 - 2.80 [facility] Comment on above: Performed By: #### 2 72824 #### [facility],[address] [place] [address] 16017 Lymphocytes/100 WBC (Bld) 8.5 % Low 20.0 - 45.0 [facility] Comment on above: Performed By: #### 2 75719 #### [facility],[address] [place] [address] 37039 MANUAL DIFF N/A Normal [facility] Comment on above: Performed By: #### 2 75452 #### [facility],[address] [place] [address] 79205 MCH (RBC) [Entitic mass] 30 pg Normal 27 - 33 [facility] Comment on above: Performed By: #### 2 42259 #### [facility],[address] [place] [address] MCHC 33 X10 3 Normal 32 - 36 [facility] Comment on above: Performed By: #### 2 92678 #### [facility],[address] [place] [address] 79054 MCV (RBC) [Entitic vol] 93 fL Normal 81 - 98 [facility] Comment on above: Performed By: #### 2 28081 #### [facility],[address] [place] [address] Bannock # 0.37 x10EE3/UL Normal 0.20 - 1.00 [facility] Comment on above: Performed By: #### 2 71013 #### [facility],[address] [place] [address] 41595 MONOS % 2.6 % Normal 0.0 - 10.0 [facility] Comment on above: Performed By: #### 2 52115 #### [facility],[address] [place] [address] 29870 Morphology Wong (Bld) [Interp] N/A Normal [facility] Comment on above: Performed By: #### 2 56604 #### [facility],[address] [place] [address] Neut # 12.81 x10EE3/UL High 1.50 - 7.10 [facility] Comment on above: Performed By: #### 2 58422 #### [facility],[address] [place] [address] 88131 Neutrophils/100 WBC (Bld) 88.4 % High 46.0 - 76.0 [facility] Comment on above: Performed By: #### 2 46696 #### [facility],[address] [place] [address] 51182 PLATELET 178 x10EE3/UL Normal 150 - 450 [facility] Comment on above: Performed By: #### 2 08001 #### [facility],[address] [place] [address] 97962 Platelet mean volume (Bld) [Entitic vol] 8.7 fL Normal 6.4 - 10.5 [facility] Comment on above: Result Comment: AUTO MATED DIFFERENTIAL Performed By: #### 2 35608 #### [facility],[address] [place] [address] 27591 RBC 4.65 x 10EE6/UL Normal 4.50 - 6.00 [facility] Comment on above: Performed By: #### 2 26307 #### [facility],[address] [place] [address] 24069 WBC 14.5 x 10EE3/UL High 4.5 - 10.8 [facility] Comment on above: Performed By: #### 2 91983 #### [facility],[address] [place] [address] 64823 BMP with eGFRon 06-10-2024 AGE 69 years Normal [facility] Comment on above: Performed By: #### 2 68652 #### [facility],[address] [place] [address] 61202 Anion gap [Moles/Vol] 10 mmol/L Normal 10 - 20 [facility] Comment on above: Performed By: #### 2 30980 #### [facility],[address] [place] [address] 71133 BMP with eGFR Normal [facility] Comment on above: Result Comment: BASI C METABOLIC PANEL Performed By: #### 2 38043 #### [facility],[address] [place] [address] 09545 Calcium [Mass/Vol] 9.1 mg/dL Normal 8.5 - 10.1 [facility] Comment on above: Performed By: #### 2 80884 #### [facility],[address] [place] [address] 57535 Chloride [Moles/Vol] 106 mmol/L Normal 98 - 107 [facility] Comment on above: Performed By: #### 2 85398 #### [facility],[address] [place] [address] 17956 CO2 [Moles/Vol] 31.0 mmol/L Normal 21.0 - 32.0 [facility] Comment on above: Performed By: #### 2 44449 #### [facility],[address] [place], [place] [address] Creatinine [Mass/Vol] 0.60 mg/dL Low 0.70 - 1.30 [facility] Comment on above: Performed By: #### 2 46999 #### [facility],[address] [place], [place] [address] GFR/1.73 sq M.predicted among non-blacks MDRD (S/P/Bld) [Vol rate/Area] mL/min/{1.73_m2} Normal 60 - 999 [facility] Comment on above: Performed By: #### 2 32777 #### [facility],[address] [place] [address] 21834 Result Comment: ACCO RDING TO THE NATIONAL KIDNEY DISEASE EDUCATION PROGRAM(NKDE), A NORMAL eGFR IS A VALUE GREATER THAN OR EQUAL TO 60 ML/MIN/1.73 SQ METERS. CHRONIC KIDNEY DISEASE: <60mL/MIN/1.73 SQ METERS KIDNEY FAILURE: <15mL/MIN/1.73 SQ METERS THIS TEST SHOULD ONLY BE USED FOR PATIENTS 18 YEARS OF AGE AND OLDER. Glucose [Mass/Vol] 143 mg/dL High 74 - 106 [facility] Comment on above: Performed By: #### 2 31015 #### [facility],[address] [place] [address] 12830 Potassium [Moles/Vol] 4.5 mmol/L Normal 3.5 - 5.1 [facility] Comment on above: Performed By: #### 2 67219 #### [facility],[address] [place] [address] 97105 Sodium [Moles/Vol] 142 mmol/L Normal 136 - 145 [facility] Comment on above: Performed By: #### 2 97341 #### [facility],[address] [place] [address] 03209 Urea nitrogen [Mass/Vol] 15 mg/dL Normal 7 - 18 [facility] Comment on above: Performed By: #### 2 14754 #### [facility],[address] [place] [address] 56794 CBC + DIFFon 06-10-2024 Baso # 0.01 x10EE3/UL Normal 0.00 - 0.10 [facility] Comment on above: Performed By: #### 2 32112 #### [facility],[address] [place] [address] 59461 Basophils/100 WBC (Bld) 0.1 % Normal 0.0 - 2.0 [facility] Comment on above: Performed By: #### 2 65331 #### [facility],[address] [place] [address] 19338 CBC + DIFF Normal [facility] Comment on above: Result Comment: CBC- COMPLETE BLOOD COUNT Performed By: #### 2 54211 #### [facility],[address] [place] [address] 07917 EO # 0.02 x10EE3/UL Normal 0.00 - 0.50 [facility] Comment on above: Performed By: #### 2 72082 #### [facility],[address] [place] [address] 27845 Eosinophils/100 WBC (Bld) 0.3 % Normal 0.0 - 7.0 [facility] Comment on above: Performed By: #### 2 03519 #### [facility],[address] [place] [address] 30062 Erythrocyte distribution width (RBC) [Ratio] 14.5 % Normal 12.0 - 15.6 [facility] Comment on above: Performed By: #### 2 54236 #### [place] [address] Hematocrit (Bld) [Volume fraction] 46.7 % Normal 40.0 - 52.0 [facility] Comment on above: Performed By: #### 2 33571 #### [facility],[address] [place] [address] Hemoglobin (Bld) [Mass/Vol] 15.1 g/dL Normal 13.0 - 17.5 [facility] Comment on above: Performed By: #### 2 95253 #### [facility],[address] [place] [address] Lymph # 1.25 x10EE3/UL Normal 0.80 - 2.80 [facility] Comment on above: Performed By: #### 2 67363 #### [facility],[address] [place] [address] Lymphocytes/100 WBC (Bld) 16.3 % Low 20.0 - 45.0 [facility] Comment on above: Performed By: #### 2 02234 #### [facility],[address] [place] [address] MANUAL DIFF N/A Normal [facility] Comment on above: Performed By: #### 2 99506 #### [facility],[address] [place] [address] MCH (RBC) [Entitic mass] 30 pg Normal 27 - 33 [facility] Comment on above: Performed By: #### 2 85855 #### [place] [address] MCHC 32 X10 3 Normal 32 - 36 [facility] Comment on above: Performed By: #### 2 68152 #### [place] [address] MCV (RBC) [Entitic vol] 93 fL Normal 81 - 98 [facility] Comment on above: Performed By: #### 2 84466 #### [facility],[address] [place] [address] Bannock # 0.19 x10EE3/UL Low 0.20 - 1.00 [facility] Comment on above: Performed By: #### 2 17961 #### [facility],[address] [place] [address] MONOS % 2.5 % Normal 0.0 - 10.0 [facility] Comment on above: Performed By: #### 2 42155 #### [place] [address] Morphology Wong (Bld) [Interp] N/A Normal [facility] Comment on above: Performed By: #### 2 57131 #### [facility],[address] [place] [address] Neut # 6.21 x10EE3/UL Normal 1.50 - 7.10 [facility] Comment on above: Performed By: #### 2 31818 #### [place] [address] Neutrophils/100 WBC (Bld) 80.8 % High 46.0 - 76.0 [facility] Comment on above: Performed By: #### 2 11052 #### [place] [address] PLATELET 133 x10EE3/UL Low 150 - 450 [facility] Comment on above: Performed By: #### 2 35724 #### [place] [address] Platelet mean volume (Bld) [Entitic vol] 8.5 fL Normal 6.4 - 10.5 [facility] Comment on above: Result Comment: AUTO MATED DIFFERENTIAL Performed By: #### 2 27255 #### [address] [address] RBC 5.03 x 10EE6/UL Normal 4.50 - 6.00 [facility] Comment on above: Performed By: #### 2 20891 #### [facility],[address] [place] [address] 10118 WBC 7.7 x 10EE3/UL Normal 4.5 - 10.8 [facility] Comment on above: Performed By: #### 2 13425 #### [facility],[address] [place] [address] CBC + DIFFon 06-09-2024 Baso # 0.02 x10EE3/UL Normal 0.00 - 0.10 [facility] Comment on above: Performed By: #### 2 50383 #### [facility],[address] [place] [address] 68205 Basophils/100 WBC (Bld) 0.2 % Normal 0.0 - 2.0 [facility] Comment on above: Performed By: #### 2 14609 #### [facility],[address] [place] [address] CBC + DIFF Normal [facility] Comment on above: Result Comment: CBC- COMPLETE BLOOD COUNT Performed By: #### 2 71129 #### [facility],[address] [place] [address] 60914 EO # 0.16 x10EE3/UL Normal 0.00 - 0.50 [facility] Comment on above: Performed By: #### 2 11164 #### [facility],[address] [place] [address] 84307 Eosinophils/100 WBC (Bld) 2.0 % Normal 0.0 - 7.0 [facility] Comment on above: Performed By: #### 2 45148 #### [facility],[address] [place] [address] 95230 Erythrocyte distribution width (RBC) [Ratio] 14.0 % Normal 12.0 - 15.6 [facility] Comment on above: Performed By: #### 2 67457 #### [facility],[address] [place], [place] [address] Hematocrit (Bld) [Volume fraction] 43.6 % Normal 40.0 - 52.0 [facility] Comment on above: Performed By: #### 2 20681 #### [facility],[address] [place] [address] Hemoglobin (Bld) [Mass/Vol] 14.4 g/dL Normal 13.0 - 17.5 [facility] Comment on above: Performed By: #### 2 02021 #### [facility],[address] [place] [address] Lymph # 1.69 x10EE3/UL Normal 0.80 - 2.80 [facility] Comment on above: Performed By: #### 2 38134 #### [facility],[address] [place] [address] Lymphocytes/100 WBC (Bld) 20.9 % Normal 20.0 - 45.0 [facility] Comment on above: Performed By: #### 2 89808 #### [facility],[address] [place], [place] [address] MANUAL DIFF N/A Normal [facility] Comment on above: Performed By: #### 2 43518 #### [facility],[address] [place], [place] [address] MCH (RBC) [Entitic mass] 31 pg Normal 27 - 33 [facility] Comment on above: Performed By: #### 2 94737 #### [facility],[address] [place], [place] [address] MCHC 33 X10 3 Normal 32 - 36 [facility] Comment on above: Performed By: #### 2 11433 #### [facility],[address] [place], [place] [address] MCV (RBC) [Entitic vol] 93 fL Normal 81 - 98 [facility] Comment on above: Performed By: #### 2 82548 #### [facility],[address] [place] [address] 43753 Bannock # 0.57 x10EE3/UL Normal 0.20 - 1.00 [facility] Comment on above: Performed By: #### 2 28508 #### [facility],[address] [place] [address] 16706 MONOS % 7.0 % Normal 0.0 - 10.0 [facility] Comment on above: Performed By: #### 2 67012 #### [facility],[address] [place] [address] 67613 Morphology Wong (Bld) [Interp] N/A Normal [facility] Comment on above: Performed By: #### 2 19629 #### [facility],[address] [place] [address] 22062 Neut # 5.68 x10EE3/UL Normal 1.50 - 7.10 [facility] Comment on above: Performed By: #### 2 01246 #### [facility],[address] [place] [address] 16265 Neutrophils/100 WBC (Bld) 70.0 % Normal 46.0 - 76.0 [facility] Comment on above: Performed By: #### 2 90400 #### [facility],[address] [place] [address] 90567 PLATELET 131 x10EE3/UL Low 150 - 450 [facility] Comment on above: Performed By: #### 2 06120 #### [facility],[address] [place] [address] 72579 Platelet mean volume (Bld) [Entitic vol] 8.7 fL Normal 6.4 - 10.5 [facility] Comment on above: Result Comment: AUTO MATED DIFFERENTIAL Performed By: #### 2 39914 #### [facility],[address] [place] [address] 75140 RBC 4.71 x 10EE6/UL Normal 4.50 - 6.00 [facility] Comment on above: Performed By: #### 2 98889 #### [facility],[address] [place] [address] 07328 WBC 8.1 x 10EE3/UL Normal 4.5 - 10.8 [facility] Comment on above: Performed By: #### 2 06685 #### [facility],[address] [place] [address] 13857 CHEST 1 VIEWon 06-09-2024 CHEST [address] [address] Patient: SCOT BURGESS Phone#: : 1955 Age: 69 Gender: M Pt. Type: ER Account: [id number] Location: [facility] Ordering: TONY PEREZ Exam Date: 06/09/2024/7:36 Family Phys: BECKY CHACON Charge Code: [id number] Physician: Ray Order #: [id number] Dose#: PROCEDURE: X-RAY CHEST 1 VIEW COMPARISON: [facility], CT, CHEST PE W CON, 08/23/2023, 5:28. [facility], CT, CHEST PE W CON, 07/05/2022, 0:37. [facility], XR, CHEST 1 VIEW, 07/04/2022, [...] Acharya MD on 06/09/2024 at 8:11 Normal [facility] CMP with eGFRon 06-09-2024 AGE 69 years Normal [facility] Comment on above: Performed By: #### 2 69657 ####[facility],[address] [place] [address] 08103 Albumin [Mass/Vol] 2.7 g/dL Low 3.4 - 5.0 [facility] Comment on above: Performed By: #### 2 34124 ####[facility],[address] [place] [address] 98719 Albumin/Globulin [Mass ratio] 0.6 {ratio} Low 0.9 - 1.6 [facility] Comment on above: Performed By: #### 2 03488 ####[facility],[address] [place] [address] 69425 ALK PHOS 54 U/L Normal 46 - 116 [facility] Comment on above: Performed By: #### 2 05723 ####[facility],[address] [place] [address] 69159 ALT [Catalytic activity/Vol] 15 U/L Low 16 - 63 [facility] Comment on above: Performed By: #### 2 62256 ####[facility],[address] [place] [address] 10945 Anion gap [Moles/Vol] 11 mmol/L Normal 10 - 20 [facility] Comment on above: Performed By: #### 2 60710 ####[facility],[address] [place] [address] 76418 AST [Catalytic activity/Vol] 51 U/L High 15 - 37 [facility] Comment on above: Performed By: #### 2 86901 ####[facility],[address] [place] [address] 55304 B/C RATIO 17 ratio Normal 0 - 30 [facility] Comment on above: Performed By: #### 2 63990 ####[facility],[address] [place] [address] 13036 Bilirubin [Mass/Vol] 0.5 mg/dL Normal 0.2 - 1.0 [facility] Comment on above: Performed By: #### 2 48002 ####[facility],[address] [place] [address] 11942 Calcium [Mass/Vol] 8.5 mg/dL Normal 8.5 - 10.1 [facility] Comment on above: Performed By: #### 2 88161 ####[facility],[address] [place] [address] 95008 Chloride [Moles/Vol] 103 mmol/L Normal 98 - 107 [facility] Comment on above: Performed By: #### 2 54112 ####[facility],[address] [place], [place] [address] CMP with eGFR Normal [facility] Comment on above: Result Comment: COMP REHENSIVE METABOLIC PANEL Performed By: #### 2 15408 ####[facility],[address] [place] [address] 30440 CO2 [Moles/Vol] 30.3 mmol/L Normal 21.0 - 32.0 [facility] Comment on above: Performed By: #### 2 33186 ####[facility],[address] [place] [address] 65834 Creatinine [Mass/Vol] 0.58 mg/dL Low 0.70 - 1.30 [facility] Comment on above: Performed By: #### 2 12603 ####[facility],[address] [place] [address] 56953 GFR/1.73 sq M.predicted among non-blacks MDRD (S/P/Bld) [Vol rate/Area] mL/min/{1.73_m2} Normal 60 - 999 [facility] Comment on above: Performed By: #### 2 74190 ####[facility],[address] [place] [address] Result Comment: ACCO RDING TO THE NATIONAL KIDNEY DISEASE EDUCATION PROGRAM(NKDE), A NORMAL eGFR IS A VALUE GREATER THAN OR EQUAL TO 60 ML/MIN/1.73 SQ METERS. CHRONIC KIDNEY DISEASE: <60mL/MIN/1.73 SQ METERS KIDNEY FAILURE: <15mL/MIN/1.73 SQ METERS THIS TEST SHOULD ONLY BE USED FOR PATIENTS 18 YEARS OF AGE AND OLDER. Globulin (S) [Mass/Vol] 4.7 g/dL High 1.5 - 3.8 [facility] Comment on above: Performed By: #### 2 73375 ####[place] [address] Glucose [Mass/Vol] 102 mg/dL Normal 74 - 106 [facility] Comment on above: Performed By: #### 2 94083 ####[place] [address] Potassium [Moles/Vol] 5.5 mmol/L High 3.5 - 5.1 [facility] Comment on above: Performed By: #### 2 74943 ####[address] [address] Protein [Mass/Vol] 7.4 g/dL Normal 6.4 - 8.2 [facility] Comment on above: Performed By: #### 2 54161 ####[facility],[address] [place] [address] 18921 Sodium [Moles/Vol] 139 mmol/L Normal 136 - 145 [facility] Comment on above: Performed By: #### 2 51850 ####[address] [address] Urea nitrogen [Mass/Vol] 10 mg/dL Normal 7 - 18 [facility] Comment on above: Performed By: #### 2 59686 ####[facility],[address] [place] [address] 49773 CORONAVIRUS (SARS) ANTIGEN T ESTon 06-09-2024 EXTERNAL QC DONE? YES Normal [facility] Comment on above: Performed By: #### 2 13342 #### [facility],[address] [place], [place] [address] INTERNAL CONTROL PASS Normal [facility] Comment on above: Performed By: #### 2 00765 #### [facility],[address] [place] [address] 12434 SARS ANTIGEN Negative Normal NORMAL: NEGATIVE [facility] Comment on above: Performed By: #### 2 45431 #### [facility],[address] [place] [address] SEND TO ? NO Normal [facility] Comment on above: Result Comment: SARS -CoV-2 THIS TEST IS BEING USED UNDER THE FDA EUA PROCEDURE. THIS ASSAY HAS BEEN VALIDATED AT [facility] FOR USE WITH NASAL AND NASOPHARYNGEAL [...] PUBLIC HEALTH AUTHORITIES. Performed By: #### 2 87249 #### [facility],[address] [place] [address] CULTURE BLOOD [DI]on Microscopic examination of blood, culture CULTURE BLOOD [DI] _BLOOD CULTURE_ GO TO [facility] REPORTS AND ATTACHMENTS FOR SCANNED REPORT 06/15/24.1102.DNP.COMPL ETE Normal [facility] Comment on above: Performed By: #### 2 86670 ####[facility],[address] [place], [place] [address] Microscopic examination of blood, culture CULTURE BLOOD [DI] _BLOOD CULTURE_ GO TO [facility] REPORTS AND ATTACHMENTS FOR SCANNED REPORT 06/15/24.1103.DNP.COMPL ETE Normal [facility] Comment on above: Performed By: #### 2 68240 ####[facility],[address] [place], [place] [address] ED MED ADMINISTRATION DETAIL on 06-09-2024 ED MED ADMINISTRATION DETAIL Tool Specialist Medication Administration Record [address] [address] [id number] 06/09/2024 Patient: SCOT BURGESS Sex: Male : [...] (NOW x1) R.R.T. Scanned 1 of 2 Tool Specialist Medication Ordered Medication Administration Date/Time MethylPREDNISolo 09:06/09 [...] R.R.T. R.R.T. Scanned 2 of 2 Normal [facility] ED NURSES CLINICAL NOTEon ED NURSES CLINICAL NOTE Nurse Narrative Nurse Clinical Narrative [address] [address] [id number] 06/09/2024 Patient: SCOT BURGESS Sex: Male : 1955 Age: 69y Primary Insurance: [employer] OUTPATIENT Policy Number: [id number] Group Number: [id number] Subscriber: Other Secondary Insurance: MEDICAID OUTPATIENT Policy Number: [id number] Group Number: [id number] Subscriber: Other Disposition: Admit to [facility] Disposition Decision Time: 09:17 06/09/2024 Departure Time: [...] Atrial arrhythmia -- 07:31 06/09/24 JOSE J Guidry R.N. ADDITIONAL SURGERIES: Hernia Repair -- 07:31 [...] 2 g (more content not included)... Normal [facility] ED ORDER SHEET (CPOE ONLY)on 06-09-2024 ED ORDER SHEET (CPOE ONLY) Order Sheet Order Sheet [address] [address] [id number] 06/09/2024 Patient: SCOT BURGESS Sex: Male : [...] Sodium 09:03 06/09/2024 09:10 09:20 Succ (Solu-Medrol) [id number] mg Tony Perez, 06/09/2024 06/09/2024 (NOW x1) Abisai Mejia, 1 of 4 Order Sheet R.N. R.N. Azithromycin (Zithromax) 09:03 06/09/2024 09:10 09:17 [id number] mg diluted in dextrose 5 Tony Perez, 06/09/2024 06/09/2024 % in water IVPB 250 mL, VIAL Carmelo.Abisai Clayton, MATE 1 ea at 250 mL/hr (NOW R.N. R.NGerson x1) Reason for ordering with alerts: Benefits outweigh risks --09:03 06/09/2024 Tony Perze D.O. Albuterol 0.083% - 2.5mg Neb 09:03 [...] 06/09/2024 07:44 06/09/2024 07:46 06/09/2024 AAg) Stat Abisai Jarvis Samuel Burgett, D.O. R.NGerson R.NGerson D-Dimer [...] Abisai Jarvis Samuel Burgett, D.O. R.N. R.N. Outpatient Physical Therapist 07:34 06/09/2024 07:44 06/09/2024 07:46 06/09/2024 Abisai Jarvis Samuel Burgett, D.O. R.N. R.NGerson Aerosol Rx ER X1 07:34 06/09/2024 07:44 06/09/2024 07:46 06/09/2024 Abisai Jarvis Samuel Burgett, D.O. R.N. R.NGerson Pulse Oximeter 07:34 06/09/2024 07:44 06/09/2024 07:46 06/09/2024 Abisai Jarvis Samuel Burgett, D.O. R.N. R.NGerson [Electronically signed by Tony Perez D.O. (06/09/2024 17:56 EST)] 4 of 4 Normal [facility] ED PHYSICIAN CLINICAL REPORT on 06-09-2024 ED PHYSICIAN CLINICAL REPORT Narrative Physician Clinical Narrative [facility] [address] [place] [address] [id number] 06/09/2024 Patient: SCOT BURGESS Sex: Male : 1955 Age: 69y Primary Insurance: [employer] OUTPATIENT Policy Number: [id number] Group Number: [id number] Subscriber: Other Secondary Insurance: MEDICAID OUTPATIENT Policy Number: [id number] Group Number: [id number] Subscriber: Other Disposition: Admit to [facility] Disposition Decision Time: 09:17 06/09/2024 Departure Time: [...] Final EST (more content not included)... Normal [facility] ED SUPER BILLon 06-09-2024 ED [facility] [address] [place] [address] [id number] 06/09/2024 Patient: SCOT BURGESS Sex: Male : 1955 Age: 69y Facility Professional Category Item Description Code Code Quantity Fee Total Drugs Normal Saline 904993 1 $0.00 $0.00 1000cc (278359) Nurse/E/M EMERGENCY 754950 1 $0.00 $0.00 DEPT VISIT HIGH SEVERITYFUNCJ (95464-18) Nurse/IV/IM/Infusions Drip/IVPB 994327 1 $0.00 $0.00 concurrent (03588) Nurse/IV/IM/Infusions Drip/IVPB initial 158339 1 $0.00 $0.00 (23396) Nurse/IV/IM/Infusions IVP additional 910853 1 $0.00 $0.00 push (65262) Nurse/Procedures Respiratory 982885 1 $0.00 $0.00 therapy - inhalation (50396) Nurse/Supplies Oxygen in the ED 184478 1 $0.00 $0.00 (226599) 1 of 2 [facility] Professional Category Item Description Code Code [...] failure with hypercapnia 2 of 2 Normal [facility] ED VISIT SUMMARYon ED VISIT SUMMARY Visit Overview Visit Overview [address] [address] [id number] 06/09/2024 Patient: SCOT BURGESS Sex: Male : [...] UPPER LOBE LUNG CANCER 4 of Normal [facility] ED VITALS FLOW SHEETon 06-09 ED VITALS FLOW SHEET Vitals Vital Sign Flow Sheet [address] [address] [id number] 06/09/2024 Patient: SCOT BURGESS Sex: Male : [...] F 0 2L 4 of 4 Normal [facility] INFLUENZA VIRUS RAPID A/Bon 06-09-2024 INFLUENZA [...] TO THREE DAYS. RESULT CRITICAL? NO Normal [facility] Comment on above: Performed By: #### 2 04131 ####[facility],[address] [place] [address] LACTATEon 06-09-2024 Lactate [Moles/Vol] 0.6 mmol/L Normal 0.4 - 2.0 [facility] Comment on above: Performed By: #### 2 13056 #### [facility],[address] [place] [address] TROPONINon 06-09-2024 HS TROPONIN 17.9 pg/mL Normal 0.0 - 76.2 [facility] Comment on above: Performed By: #### 2 61396 #### [facility],[address] [place] [address] CNPNon 05-23-2024 CNPN Telephone (ViewdleN) SCOT BURGESS ([id number]) 1955 M Date Time Provider Department 05/23/24 LEX AVITIA During your visit today, we recorded the following information about you: Lex Avitia MD 05/23/2024 4:12 PM Signed Called to speak with pt. said he is sleeping and didnt want to wake him. I reviewed CT chest done on 05/18 with her. I communicated favorable findings and recommended 6m [facility] CT follow up. She agreed. Lex Avitia MD Allergies As of Date: 05/23/2024 Noted Allergy Reaction MORPHINE 09/13/2019 7 - Swelling Date Reviewed: 11/11/2023 Reviewed by: Melissa Madden, RT(R) - Fully Assessed Primary Visit Diagnosis:Malignant neoplasm of unspecified part of unspecified bronchus or lung (HCC) [C34.90] Order(s):CT CHEST [facility] [[id number]] Order #: [id number] FUTURE Prescriptions as of 05/23/2024 - sertraline [...] 150 mg by mouth twice daily. - xkhkbcjchyv-pwslqjzvm-t ilanter (TRELEGY ELLIPTA) 100-62.5-25 mcg Inhale 1 Puff as instructed once daily. - simvastatin (ZOCOR) 10 mg tablet Take 10 mg by mouth daily at bedtime. - acetaminophen (TYLENOL) 500 mg tablet Take 500 mg by mouth every 8 hours as needed. - metoprolol tartrate, short acting, (LOPRESSOR) 50 mg tablet Take 50 mg by mouth once daily. - Fwkna-3-PUF-EPA-Fish Oil 1,000 mg (120 mg-180 mg) cap [...] for Encounter Date Provider Department Center 05/23/2024 [id number] AVITIA [facility] Encounter Status:Closed by LEX AVITIA on 05/23/24 Normal [facility] CT CHEST WO IVCONon 05-18-19 CT CHEST WO IVCON * * *Final Report* * * DATE OF EXAM: May 18 2024 1:41PM [facility] 0541 - CT CHEST WO IVCON [...] hilum, probably reactive. No new thoracic lymphadenopathy. Laborer Cutting Tool: [facility] Transcribe Date/Time: May 18 2024 1:45P Dictated by : CHARY SCHNEIDER MD This examination was interpreted and the report reviewed and electronically signed by: CHARY SCHNEIDER MD on May 18 2024 1:52PM EST [id number] Normal [facility] CT Chest WO contraston 05-18 IMPRESSION: 1. Stable left upper lobe treated malignancy. No new or growing nodules. 2. Unchanged mildly enlarged right hilar lymph node with preserved fatty hilum, probably reactive. No new thoracic lymphadenopathy. Laborer Cutting Tool: [facility] Transcribe Date/Time: May 18 2024 1:45P Dictated by : CHARY SCHNEIDER MD This examination was interpreted and the report reviewed and electronically signed by: CHARY SCHNEIDER MD on May 18 2024 1:52PM EST DIVISION OF RADIOLOGY * * *Final Report* * * DATE OF EXAM: May 18 2024 1:41PM [facility] 0541 - CT CHEST WO IVCON [...] No additional findings. DIVISION OF RADIOLOGY Provider, [facility] - 05/18/2024 * * *Final Report* * * DATE OF EXAM: May 18 2024 1:41PM [facility] 0541 - CT CHEST WO IVCON [...] hilum, probably reactive. No new thoracic lymphadenopathy. Laborer Cutting Tool: [facility] Transcribe Date/Time: May 18 2024 1:45P Dictated by : CHARY SCHNEIDER MD This examination was interpreted and the report reviewed and electronically signed by: CHARY SCHNEIDER MD on May 18 2024 1:52PM EST [facility] Radiology Study observation (narrative) [facility] CT Chest WO contrastOrdered By: Ccf Provider on 05-18-2024 [facility] CBC + DIFFon 05-13-2024 Baso # 0.04 x10EE3/UL Normal 0.00 - 0.10 [facility] Comment on above: Performed By: #### 2 00725 #### [facility],[address] [place] [address] Basophils/100 WBC (Bld) 0.4 % Normal 0.0 - 2.0 [facility] Comment on above: Performed By: #### 2 23954 #### [place] [address] CBC + DIFF Normal [facility] Comment on above: Result Comment: CBC- COMPLETE BLOOD COUNT Performed By: #### 2 52297 #### [place] [address] EO # 0.32 x10EE3/UL Normal 0.00 - 0.50 [facility] Comment on above: Performed By: #### 2 85123 #### [place] [address] Eosinophils/100 WBC (Bld) 3.7 % Normal 0.0 - 7.0 [facility] Comment on above: Performed By: #### 2 84851 #### [place] [address] Erythrocyte distribution width (RBC) [Ratio] 14.0 % Normal 12.0 - 15.6 [facility] Comment on above: Performed By: #### 2 51149 #### [place] [address] Hematocrit (Bld) [Volume fraction] 51.2 % Normal 40.0 - 52.0 [facility] Comment on above: Performed By: #### 2 64057 #### [place] [address] Hemoglobin (Bld) [Mass/Vol] 16.6 g/dL Normal 13.0 - 17.5 [facility] Comment on above: Performed By: #### 2 63599 #### [facility],[address] [place] [address] Lymph # 3.32 x10EE3/UL High 0.80 - 2.80 [facility] Comment on above: Performed By: #### 2 49015 #### [facility],[address] [place] [address] Lymphocytes/100 WBC (Bld) 39.1 % Normal 20.0 - 45.0 [facility] Comment on above: Performed By: #### 2 49649 #### [facility],[address] [place] [address] MANUAL DIFF N/A Normal [facility] Comment on above: Performed By: #### 2 45474 #### [facility],[address] [place] [address] MCH (RBC) [Entitic mass] 30 pg Normal 27 - 33 [facility] Comment on above: Performed By: #### 2 73004 #### [facility],[address] [place] [address] MCHC 33 X10 3 Normal 32 - 36 [facility] Comment on above: Performed By: #### 2 46966 #### [facility],[address] [place] [address] MCV (RBC) [Entitic vol] 92 fL Normal 81 - 98 [facility] Comment on above: Performed By: #### 2 14814 #### [facility],[address] [place] [address] Bannock # 0.55 x10EE3/UL Normal 0.20 - 1.00 [facility] Comment on above: Performed By: #### 2 07859 #### [facility],[address] [place] [address] MONOS % 6.5 % Normal 0.0 - 10.0 [facility] Comment on above: Performed By: #### 2 29121 #### [facility],[address] [place], [place] [address] Morphology Wong (Bld) [Interp] N/A Normal [facility] Comment on above: Performed By: #### 2 22118 #### [facility],[address] [place] [address] Neut # 4.26 x10EE3/UL Normal 1.50 - 7.10 [facility] Comment on above: Performed By: #### 2 00735 #### [facility],[address] [place] [address] Neutrophils/100 WBC (Bld) 50.3 % Normal 46.0 - 76.0 [facility] Comment on above: Performed By: #### 2 31961 #### [facility],[address] [place], [place] [address] PLATELET 186 x10EE3/UL Normal 150 - 450 [facility] Comment on above: Performed By: #### 2 48878 #### [facility],[address] [place] [address] Platelet mean volume (Bld) [Entitic vol] 8.3 fL Normal 6.4 - 10.5 [facility] Comment on above: Result Comment: AUTO MATED DIFFERENTIAL Performed By: #### 2 06087 #### [facility],[address] [place] [address] RBC 5.55 x 10EE6/UL Normal 4.50 - 6.00 [facility] Comment on above: Performed By: #### 2 80539 #### [facility],[address] [place] [address]598 WBC 8.5 x 10EE3/UL Normal 4.5 - 10.8 [facility] Comment on above: Performed By: #### 2 14941 #### [facility],[address] [place] [address] CMP with eGFRon 05-13-2024 AGE 69 years Normal [facility] Comment on above: Performed By: #### 2 37843 #### [facility],[address] [place] [address] Albumin [Mass/Vol] 3.5 g/dL Normal 3.4 - 5.0 [facility] Comment on above: Performed By: #### 2 91858 #### [facility],[address] [place] [address] Albumin/Globulin [Mass ratio] 0.9 {ratio} Normal 0.9 - 1.6 [facility] Comment on above: Performed By: #### 2 91058 #### [facility],[address] [place] [address] ALK PHOS 73 U/L Normal 46 - 116 [facility] Comment on above: Performed By: #### 2 44782 #### [facility],[address] [place] [address]60 ALT [Catalytic activity/Vol] 27 U/L Normal 16 - 63 [facility] Comment on above: Performed By: #### 2 72324 #### [facility],[address] [place] [address] Anion gap [Moles/Vol] 6 mmol/L Low 10 - 20 [facility] Comment on above: Performed By: #### 2 87595 #### [facility],[address] [place] [address] 60400 AST [Catalytic activity/Vol] 22 U/L Normal 15 - 37 [facility] Comment on above: Performed By: #### 2 14757 #### [facility],[address] [place] [address]39 B/C RATIO 20 ratio Normal 0 - 30 [facility] Comment on above: Performed By: #### 2 49804 #### [facility],[address] [place] [address]140 Bilirubin [Mass/Vol] 0.3 mg/dL Normal 0.2 - 1.0 [facility] Comment on above: Performed By: #### 2 00939 #### [facility],[address] [place] [address] 13982 Calcium [Mass/Vol] 8.7 mg/dL Normal 8.5 - 10.1 [facility] Comment on above: Performed By: #### 2 26090 #### [facility],[address] [place], [place] [address] Chloride [Moles/Vol] 103 mmol/L Normal 98 - 107 [facility] Comment on above: Performed By: #### 2 10469 #### [facility],[address] [place] [address]408 CMP with eGFR Normal [facility] Comment on above: Result Comment: COMP REHENSIVE METABOLIC PANEL Performed By: #### 2 42322 #### [facility],[address] [place] [address] CO2 [Moles/Vol] 34.7 mmol/L High 21.0 - 32.0 [facility] Comment on above: Performed By: #### 2 74727 #### [facility],[address] [place] [address]4668 Creatinine [Mass/Vol] 0.66 mg/dL Low 0.70 - 1.30 [facility] Comment on above: Performed By: #### 2 94766 #### [facility],[address] [place] [address]6364 GFR/1.73 sq M.predicted among non-blacks MDRD (S/P/Bld) [Vol rate/Area] mL/min/{1.73_m2} Normal 60 - 999 [facility] Comment on above: Performed By: #### 2 63693 #### [facility],[address] [place] [address] Result Comment: ACCO RDING TO THE NATIONAL KIDNEY DISEASE EDUCATION PROGRAM(NKDE), A NORMAL eGFR IS A VALUE GREATER THAN OR EQUAL TO 60 ML/MIN/1.73 SQ METERS. CHRONIC KIDNEY DISEASE: <60mL/MIN/1.73 SQ METERS KIDNEY FAILURE: <15mL/MIN/1.73 SQ METERS THIS TEST SHOULD ONLY BE USED FOR PATIENTS 18 YEARS OF AGE AND OLDER. Globulin (S) [Mass/Vol] 4.0 g/dL High 1.5 - 3.8 [facility] Comment on above: Performed By: #### 2 93829 #### [facility],[address] [place] [address]255 Glucose [Mass/Vol] 93 mg/dL Normal 74 - 106 [facility] Comment on above: Performed By: #### 2 98175 #### [facility],[address] [place] [address]3875 Potassium [Moles/Vol] 3.8 mmol/L Normal 3.5 - 5.1 [facility] Comment on above: Performed By: #### 2 81860 #### [facility],[address] [place] [address] 31884 Protein [Mass/Vol] 7.5 g/dL Normal 6.4 - 8.2 [facility] Comment on above: Performed By: #### 2 75121 #### [facility],[address] [place] [address] 45677 Sodium [Moles/Vol] 140 mmol/L Normal 136 - 145 [facility] Comment on above: Performed By: #### 2 11937 #### [facility],[address] [place] [address] 66858 Urea nitrogen [Mass/Vol] 13 mg/dL Normal 7 - 18 [facility] Comment on above: Performed By: #### 2 26762 #### [facility],[address] [place] [address]54[address] LIPID PROFILEon 05-13-2024 Cholesterol [Mass/Vol] 209 mg/dL Normal 0 - 240 [facility] Comment on above: Performed By: #### 2 89085 #### [facility],[address] [place] [address] 71668 Cholesterol in HDL [Mass/Vol] 41 mg/dL Normal 40 - 60 [facility] Comment on above: Performed By: #### 2 22563 #### [facility],[address] [place] [address] 01750 Cholesterol.total/Chol esterol in HDL [Mass ratio] 5.1 {ratio} High 0.0 - 5.0 [facility] Comment on above: Performed By: #### 2 68372 #### [facility],[address] [place] [address] 13162 LDL N/A Normal 0 - 129 [facility] Comment on above: Performed By: #### 2 36123 #### [facility],[address] [place] [address] 36238 Lipid 1996 panel Normal [facility] Comment on above: Result Comment: LIPI D PROFILE Performed By: #### 2 49916 #### [facility],[address] [place] [address] 62857 Triglyceride [Mass/Vol] 414 mg/dL High 0 - 150 [facility] Comment on above: Performed By: #### 2 61730 #### [facility],[address] [place] [address] 46100 TSHon 05-13-2024 TSH Qn 10.47 m[IU]/L High 0.35 - 3.74 [facility] Comment on above: Performed By: #### 2 04979 #### [facility],[address] [place] [address] 95099 CV VENOUS LEG LTon CV VENOUS LEG LT [place] [address] Patient: SCOT BURGESS Phone#: : 1955 Age: 68 Gender: M Pt. Type: Out Account: [id number] Location: [facility] Ordering: BECKY CHACON Exam Date: 01/21/2024/12:57 Family Phys: Charge Code: [id number] Physician: Ray Order #: [id number] Dose#: PROCEDURE: VENOUS DOPPLER LT LEG COMPARISON: None. INDICATIONS: PAIN, SWELLING, EDEMA TECHNIQUE: Color duplex Doppler ultrasound evaluation analysis was performed in the usual manner. INDUSTRIAL ILLUMINATING ENGINEER: ANDREZ JOSEPH RISK FACTORS FOR VENOUS DISEASE: [...] o + GSV + GASTROC SOLEAL V INDUSTRIAL ILLUMINATING ENGINEER'S NOTES: Hypoechoic structure noted in the posterior calf, non vascular in nature. FINDINGS: THROMBI: None visible. Continued Report - Page 2 of 2 Patient: SCOT BURGESS Phone#: : 1955 Age: 68 Gender: M Pt. Type: Out Account: [id number] Location: 2 Ordering: BECKY CHACON Exam Date: 01/21/2024/12:57 Family Phys: Charge Code: [id number] Physician: Ray Order #: [id number] Dose#: COMPRESSIBILITY: Normal. OTHER: In the posterior [...] Sylvia Acharya MD on 01/21/2024 at 14:02 [facility] 11-16-2023 [facility] Telephone (ViewdleN) SCOT BURGESS ([id number]) 1955 M Date Time Provider Department 11/16/23 [...] or lung (HCC) [C34.90] Order(s):CT CHEST WO [facility] [[id number]] Order #: [id number] FUTURE Prescriptions as of 11/17/2023 - sertraline [...] 150 mg by mouth twice daily. - hwhhacylzvk-oqrqitqsh-a ilanter (TRELEGY ELLIPTA) 100-62.5-25 mcg Inhale 1 Puff as instructed once daily. - simvastatin (ZOCOR) 10 mg tablet Take 10 mg by mouth daily at bedtime. - acetaminophen (TYLENOL) 500 mg tablet Take 500 mg by mouth every 8 hours as needed. - metoprolol tartrate, short acting, (LOPRESSOR) 50 mg tablet Take 50 mg by mouth once daily. - Uempz-4-VRB-EPA-Fish Oil 1,000 mg (120 mg-180 mg) cap [...] for Encounter Date Provider Department Center 11/16/2023 [id number] AVITIA N[facility] Ca Bldg Encounter Status:Closed by LEX AVITIA on 11/17/23 Normal [facility] CT CHEST WO IVCONon 11-12-19 CT CHEST WO IVCON * * *Final Report* * * DATE OF EXAM: Nov 12 2023 1:19PM [facility] 0541 - CT CHEST WO IVCON [...] attention on follow-up. COPD changes as described. Laborer Cutting Tool: [employer] Transcribe Date/Time: Nov 13 2023 10:40A Dictated by : JAC YUAN MD This examination was interpreted and the report reviewed and electronically signed by: JAC YUAN MD on Nov 13 2023 10:50AM EST [id number] Normal [facility] PET/CT SKULL-THIGH SUBQon 08-31-2023 [place] PET/CT SKULL-THIGH SUBQ * * *Final Report* [...] * Radiopharmaceutical Dose: 17.2 mCi * Radiopharmaceutical: V49-Pptqdfjqodmykcpbsv (FDG) COMPARISON: [facility] PET/CT of 08/22/2019 CORRELATION: CT chest of 05/15/2023 RESULT: REFERENCES: SUV reference values: * Background liver activity: SUVmax 3.2 File System Installer (topogram) images: No additional findings. Notes and [...] MUSCULOSKELETAL: * No FDG avid neoplastic process. Laborer Cutting Tool: ALEXANDREA Transcribe Date/Time: Sep 03 2023 10:26A Dictated by : RAYA BUNDY MD This examination was interpreted and the report reviewed and electronically signed by: RAYA BUNDY MD on Sep 03 2023 10:46AM EST [id number] Normal [facility] No Panel InformationOrdered By: Kemal Rose on 08-24-2023 Prostate Specific Antigen Screen 5.67 ng/mL 0.00-4.00 [facility] Comment on above: This test was perfor med using the TPSA assay method for [employer] system. Values obtained with differentassay methods cannot be used interchangably.When changing PSA assays in the course of monitoring apatient, additional sequential testing should be carriedout to confirm baseline values. PSA,Total - Annual Screenon 08-24-2023 PSA,TOT SCREEN 5.67 ng/mL High 0.00-4.00 [facility] Comment on above: Result Comment: This test was performed using the TPSA assay method for the [employer] system. Values obtained with different assay methods cannot be used interchangably. When changing PSA assays in the course of monitoring a patient, additional sequential testing should be carried out to confirm baseline values. Performed By: #### L [phone] #### [facility] Elysia Wilkinson [place], [place], [id number] APTTon 08-23-2023 aPTT Coag (Bld) [Time] 29.9 s Normal 25.4 - 38.4 [facility] Comment on above: Performed By: #### 2 21959 #### [facility],[address] [place] [address] 37924 CBC + DIFFon 08-23-2023 Baso # 0.03 x10EE3/UL Normal 0.00 - 0.10 [facility] Comment on above: Performed By: #### 2 83482 #### [address] [address] Basophils/100 WBC (Bld) 0.3 % Normal 0.0 - 2.0 [facility] Comment on above: Performed By: #### 2 78853 #### [facility],[address] [place] [address] 21702 CBC + DIFF Normal [facility] Comment on above: Result Comment: CBC- COMPLETE BLOOD COUNT Performed By: #### 2 58916 #### [address] [address] EO # 0.22 x10EE3/UL Normal 0.00 - 0.50 [facility] Comment on above: Performed By: #### 2 62639 #### [address] [address] Eosinophils/100 WBC (Bld) 2.4 % Normal 0.0 - 7.0 [facility] Comment on above: Performed By: #### 2 51343 #### [address] [address] Erythrocyte distribution width (RBC) [Ratio] 14.3 % Normal 12.0 - 15.6 [facility] Comment on above: Performed By: #### 2 46112 #### [facility],[address] [place] [address] Hematocrit (Bld) [Volume fraction] 48.8 % Normal 40.0 - 52.0 [facility] Comment on above: Performed By: #### 2 56175 #### [facility],[address] [place] [address] Hemoglobin (Bld) [Mass/Vol] 15.6 g/dL Normal 13.0 - 17.5 [facility] Comment on above: Performed By: #### 2 45541 #### [facility],[address] [place] [address] Lymph # 2.93 x10EE3/UL High 0.80 - 2.80 [facility] Comment on above: Performed By: #### 2 49722 #### [facility],[address] [place] [address] Lymphocytes/100 WBC (Bld) 31.2 % Normal 20.0 - 45.0 [facility] Comment on above: Performed By: #### 2 98053 #### [facility],[address] [place], [place] [address] MANUAL DIFF N/A Normal [facility] Comment on above: Performed By: #### 2 08186 #### [facility],[address] [place], [place] [address] MCH (RBC) [Entitic mass] 31 pg Normal 27 - 33 [facility] Comment on above: Performed By: #### 2 58441 #### [address] [address] MCHC 32 X10 3 Normal 32 - 36 [facility] Comment on above: Performed By: #### 2 58543 #### [facility],[address] [place], [place] [address] MCV (RBC) [Entitic vol] 96 fL Normal 81 - 98 [facility] Comment on above: Performed By: #### 2 39142 #### [place] [address] [place]ock # 0.79 x10EE3/UL Normal 0.20 - 1.00 [facility] Comment on above: Performed By: #### 2 11063 #### [place] [address] MONOS % 8.4 % Normal 0.0 - 10.0 [facility] Comment on above: Performed By: #### 2 04358 #### [place] [address] Morphology Wong (Bld) [Interp] N/A Normal [facility] Comment on above: Performed By: #### 2 20926 #### [place] [address] Neut # 5.44 x10EE3/UL Normal 1.50 - 7.10 [facility] Comment on above: Performed By: #### 2 62368 #### [place] [address] Neutrophils/100 WBC (Bld) 57.8 % Normal 46.0 - 76.0 [facility] Comment on above: Performed By: #### 2 71738 #### [place] [address] PLATELET 160 x10EE3/UL Normal 150 - 450 [facility] Comment on above: Performed By: #### 2 89361 #### [place] [address] Platelet mean volume (Bld) [Entitic vol] 8.5 fL Normal 6.4 - 10.5 [facility] Comment on above: Result Comment: AUTO MATED DIFFERENTIAL Performed By: #### 2 37635 #### [address],[place] [address] RBC 5.09 x 10EE6/UL Normal 4.50 - 6.00 [facility] Comment on above: Performed By: #### 2 42023 #### [facility],[address] [place] [address] 37227 WBC 9.4 x 10EE3/UL Normal 4.5 - 10.8 [facility] Comment on above: Performed By: #### 2 31282 #### [facility],[address] [place] [address] 33581 CMP with eGFRon 08-23-2023 AGE 68 years Normal [facility] Comment on above: Performed By: #### 2 06684 #### [facility],[address] [place] [address] 10308 Albumin [Mass/Vol] 3.0 g/dL Low 3.4 - 5.0 [facility] Comment on above: Performed By: #### 2 [id number] #### [facility],[address] [place] [address] 11626 Albumin/Globulin [Mass ratio] 0.7 {ratio} Low 0.9 - 1.6 [facility] Comment on above: Performed By: #### 2 66000 #### [facility],[address] [place] [address] 60795 ALK PHOS 70 U/L Normal 46 - 116 [facility] Comment on above: Performed By: #### 2 64337 #### [facility],[address] [place] [address] 08119 ALT [Catalytic activity/Vol] 26 U/L Normal 16 - 63 [facility] Comment on above: Performed By: #### 2 18595 #### [facility],[address] [place] [address] 87651 Anion gap [Moles/Vol] 8 mmol/L Low 10 - 20 [facility] Comment on above: Performed By: #### 2 03778 #### [facility],[address] [place] [address] 07396 AST [Catalytic activity/Vol] 18 U/L Normal 15 - 37 [facility] Comment on above: Performed By: #### 2 61494 #### [facility],[address] [place] [address] 96163 B/C RATIO 16 ratio Normal 0 - 30 [facility] Comment on above: Performed By: #### 2 41906 #### [facility],[address] [place] [address] 79654 Bilirubin [Mass/Vol] 0.2 mg/dL Normal 0.2 - 1.0 [facility] Comment on above: Performed By: #### 2 48659 #### [facility],[address] [place] [address] 54380 Calcium [Mass/Vol] 8.7 mg/dL Normal 8.5 - 10.1 [facility] Comment on above: Performed By: #### 2 59309 #### [facility],[address] [place] [address] 12483 Chloride [Moles/Vol] 105 mmol/L Normal 98 - 107 [facility] Comment on above: Performed By: #### 2 06404 #### [facility],[address] [place] [address] 32089 CMP with eGFR Normal [facility] Comment on above: Result Comment: COMP REHENSIVE METABOLIC PANEL Performed By: #### 2 63012 #### [facility],[address] [place] [address] 53151 CO2 [Moles/Vol] 33.7 mmol/L High 21.0 - 32.0 [facility] Comment on above: Performed By: #### 2 49158 #### [facility],[address] [place] [address] 86660 Creatinine [Mass/Vol] 0.61 mg/dL Low 0.70 - 1.30 [facility] Comment on above: Performed By: #### 2 40155 #### [facility],[address] [place] [address] 76880 GFR/1.73 sq M.predicted among non-blacks MDRD (S/P/Bld) [Vol rate/Area] mL/min/{1.73_m2} Normal 60 - 999 [facility] Comment on above: Performed By: #### 2 06667 #### [facility],[address] [place] [address] 26608 Result Comment: ACCO RDING TO THE NATIONAL KIDNEY DISEASE EDUCATION PROGRAM(NKDE), A NORMAL eGFR IS A VALUE GREATER THAN OR EQUAL TO 60 ML/MIN/1.73 SQ METERS. CHRONIC KIDNEY DISEASE: <60mL/MIN/1.73 SQ METERS KIDNEY FAILURE: <15mL/MIN/1.73 SQ METERS THIS TEST SHOULD ONLY BE USED FOR PATIENTS 18 YEARS OF AGE AND OLDER. Globulin (S) [Mass/Vol] 4.6 g/dL High 1.5 - 3.8 [facility] Comment on above: Performed By: #### 2 53820 #### [address] [address] Glucose [Mass/Vol] 91 mg/dL Normal 74 - 106 [facility] Comment on above: Performed By: #### 2 22854 #### [facility],[address] [place] [address] 04603 Potassium [Moles/Vol] 4.1 mmol/L Normal 3.5 - 5.1 [facility] Comment on above: Performed By: #### 2 18185 #### [facility],[address] [place] [address] 48359 Protein [Mass/Vol] 7.6 g/dL Normal 6.4 - 8.2 [facility] Comment on above: Performed By: #### 2 04857 #### [facility],[address] [place] [address] 03557 Sodium [Moles/Vol] 143 mmol/L Normal 136 - 145 [facility] Comment on above: Performed By: #### 2 35706 #### [facility],[address] [place] [address] 75103 Urea nitrogen [Mass/Vol] 10 mg/dL Normal 7 - 18 [facility] Comment on above: Performed By: #### 2 14047 #### [facility],[address] [place] [address] 88761 CORONAVIRUS (SARS) ANTIGEN T ESTon 08-23-2023 EXTERNAL QC DONE? YES Normal [facility] Comment on above: Performed By: #### 2 59232 ####[facility],[address] [place] [address] 34342 INTERNAL CONTROL PASS Normal [facility] Comment on above: Performed By: #### 2 29021 ####[facility],[address] [place] [address] 91399 SARS ANTIGEN Negative Normal NORMAL: NEGATIVE [facility] Comment on above: Performed By: #### 2 98097 ####[facility],[address] [place] [address] 01552 SEND TO ? NO Normal [facility] Comment on above: Result Comment: SARS -CoV-2 THIS TEST IS BEING USED UNDER THE FDA EUA PROCEDURE. THIS ASSAY HAS BEEN VALIDATED AT [facility] FOR USE WITH NASAL AND NASOPHARYNGEAL [...] PUBLIC HEALTH AUTHORITIES. Performed By: #### 2 63120 ####[facility],[address] [place] [address] CT CHEST (PE PROTOCOL)on CT CHEST (PE PROTOCOL) [place] [address] Patient: SCOT BURGESS Phone#: : [phone] Age: 68 Gender: M Pt. Type: ER Account: [id number] Location: [facility] Ordering: MIGUEL MASTERSON Exam Date: 08/23/2023/5:28 Family Phys: BECKY CHACON Charge Code: 585108 Physician: Ray Order #: [id number] Dose#: [id number] PROCEDURE: CT CHEST WITH CONTRAST FOR PE COMPARISON: [facility], CT, CHEST PE W CON, [...] 68 Gender: M Pt. Type: ER Account: [id number] Location: 052 Ordering: MIGUEL MASTERSON Exam Date: 08/23/2023/5:28 Family Phys: BECKY CHACON Charge Code: 827532 Physician: Ray Order #: [id number] Dose#: [id number] 2. No pulmonary embolism. Dictated by: Sylvia Acharya MD on 08/23/2023 at 10:03 Approved by: Sylvia Acharya MD on 08/23/2023 at 10:12 Normal [facility] CULTURE BLOOD [DI]on Microscopic examination of blood, culture CULTURE BLOOD [DI] _BLOOD CULTURE_ GO TO [facility] REPORTS AND ATTACHMENTS FOR SCANNED REPORT 08/31/23.1108.DNP.COMPL ETE Normal [facility] Comment on above: Performed By: #### 2 56691 #### [facility],[address] [place] [address] Microscopic examination of blood, culture CULTURE BLOOD [DI] _BLOOD CULTURE_ GO TO [facility] REPORTS AND ATTACHMENTS FOR SCANNED REPORT 08/31/23.1109.DNP.COMPL ETE Normal [facility] Comment on above: Performed By: #### 2 31119 ####[address] [address] INFLUENZA VIRUS RAPID A/Bon 08-23-2023 INFLUENZA VIRUS [...] TO THREE DAYS. RESULT CRITICAL? NO Normal [facility] Comment on above: Performed By: #### 2 52996 ####[facility],[address] [place] [address] 42670 NT-proBNPon 08-23-2023 Natriuretic peptide B (Bld) [Mass/Vol] 488 pg/mL High 0 - 125 [facility] Comment on above: Performed By: #### 2 35687 #### [address] [address] PROTHROMBIN TIME AND INRon 0 08-23-2023 INR Coag (PPP) [Relative time] 1.1 {INR} Normal 0.8 - 1.2 [facility] Comment on above: Result Comment: T [...] MECHANICAL HEART VALVES Performed By: #### 2 68509 #### [facility],[address] [place] [address] 22804 PROTHROMBIN TIME AND INR Normal [facility] Comment on above: Result Comment: PROT HROMBIN TIME AND INR Performed By: #### 2 67647 #### [facility],[address] [place] [address] 37229 PT-COUMADIN 12.4 sec Normal 9.3 - 14.1 [facility] Comment on above: Performed By: #### 2 41641 #### [facility],[address] [place] [address] 33642 TROPONIN I, HIGH SENSITIVITY on 08-23-2023 HS TROPONIN 14.0 pg/mL Normal 0.0 - 76.2 [facility] Comment on above: Performed By: #### 2 55478 #### [facility],[address] [place] [address] 57542 VBGon 08-23-2023 vBE 6 mmol/L High -2 - 3 [facility] Comment on above: Performed By: #### 2 40747 #### [facility],[address] [place] [address] 07565 vHCO3 32 mmol/L High 23 - 28 [facility] Comment on above: Performed By: #### 2 07841 #### [facility],[address] [place] [address] 22892 vpCO2 61 mmHg High 41 - 51 [facility] Comment on above: Performed By: #### 2 37645 #### [facility],[address] [place] [address] 65038 vpH 7.33 Normal 7.31 - 7.41 [facility] Comment on above: Performed By: #### 2 47566 #### [facility],[address] [place] [address] 06263 vpO2 49 mmHg Normal [facility] Comment on above: Performed By: #### 2 75344 #### [facility],[address] [place] [address] vsO2 80 % Normal [facility] Comment on above: Performed By: #### 2 82720 #### [facility],[address] [place], [place] [address] CT CHEST WO IVCONon 11-12-[address] [facility] CT CHEST WO IVCONon 05-13-[address] [facility] CT CHEST WO IVCONon 11-05-[address] [facility] CEAon 03-09-2020 CEA Normal 0.0-2.9 [facility] Comment on above: Result Comment: 2.0 Test analyzed by the [employer]. Performed By: #### C EA #### [facility] Immuno Assay [address] [place] [id number] Encounters Encounter Date Encounter Type Care Provider Facility Start: 07-21-2024 ambulatory BECKY BERNAL [facility] Start: 07-18-2024 End: 07-18-2024 ambulatory BECKY BERNAL [facility] Start: 06-09-2024 End: 06-13-2024 Evaluation and management of inpatient RICHIE BERNAL [facility] Start: 05-23-2024 End: 05-24-2024 ambulatory LEX AVITIA Facility:[facility] Start: 05-23-2024 End: 05-23-2024 Telephone encounter Lex Avitia MD Work Phone: Radiation Oncology Start: 05-18-2024 End: 05-18-2024 ambulatory LEX AVITIA Facility:[facility] Start: 05-18-2024 End: 05-18-2024 Subsequent hospital visit by physician [facility] (I-Stat) Work Phone: Cat Scan Comment on above: Malignant neoplasm o f unspecified part of unspecified bronchus or lung (HCC) [C34.90] Start: 05-13-2024 End: 05-13-2024 ambulatory BECKY BERNAL [facility] Start: 01-21-2024 End: 01-21-2024 ambulatory BECKY BERNAL [facility] Start: 11-16-2023 End: 11-17-2023 ambulatory LEX AVITIA Facility:[facility] Start: 11-16-2023 Telephone encounter Lex Avitia MD Work Phone: Radiation Oncology Start: 11-12-2023 End: 11-12-2023 ambulatory LEX AVITIA Facility:[facility] Start: 11-12-2023 End: 11-12-2023 Subsequent hospital visit by physician [facility] (I-Stat) Work Phone: Cat Scan Comment on above: Malignant neoplasm o f unspecified part of unspecified bronchus or lung (HCC) [C34.90] Start: 08-31-2023 ambulatory [facility] Facility :[facility] Start: 08-31-2023 End: 08-31-2023 Subsequent hospital visit by physician Injection [facility] Comment on above: Malignant neoplasm o f unspecified part of unspecified bronchus or lung [C34.90] Start: 08-24-2023 End: 08-24-2023 Patient encounter procedure [facility] Work Phone: Start: 08-24-2023 End: 08-24-2023 [facility] Work Phone: Start: 08-23-[address] RAHEL MELVIN MD Faci lity:A Start: 08-23-2023 End: 08-23-2023 Emergency department patient visit BECKY BERNAL [facility] Start: 11-13-2022 ambulatory Lex cook MD Work Phone: Radiation Oncology Comment on above: Malignant neoplasm o f unspecified part of unspecified bronchus or lung (HCC) (Primary Dx); Pulmonary emphysema, unspecified emphysema type (HCC) Start: 11-13-2022 Telemedicine consult ation with patient Lex Avitia MD Work Phone: [facility] Start: 11-11-2022 End: 11-11-2022 Subsequent hospital visit by physician [facility] (I-Stat) Work Phone: Cat Scan Comment [...] with patient Lex Avitia MD Work Phone: [facility] Start: 05-13-2022 End: 05-13-2022 Subsequent hospital visit by physician [facility] (I-Stat) Work Phone: Cat Scan Comment [...] with patient Lex Avitia MD Work Phone: [facility] Start: 11-04-2021 End: 11-04-2021 Subsequent hospital visit by physician [facility] (I-Stat) Work Phone: Cat Scan Comment on above: Malignant neoplasm o f unspecified part of unspecified bronchus or lung (HCC) [C34.90] Procedures Date Procedure Procedure Detail Performing Clinician Start: 05-18-2024 Ct thorax w/o contra st material Lex Avitia MD Work Phone: Start: 05-13-2024 PSA screening BECKY SMITH Comment on above: Performed By: #### 2 [id number] ####[facility],[address] [facility] [address] Start: 11-11-2022 Ct thorax w/o contra st [...] End: 05-23-2024 ambulatory 05/23/2024 3:00 PM EST [facility] [address] [place] [address] 269[address] Lex Avitia MD [address] [place] [address] 09514 Dx: Malignant neoplasm of unspecified part of unspecified bronchus or lung. [facility] Comment on above: Dx: Malignant neopla sm of unspecified part of unspecified bronchus or lung. Start: 05-02-2024 Screening for malign ant neoplasm of colon [facility] Start: 04-20-2024 Advance Directive Discussion Advance Directive Discussion [facility] Start: 12-20-2023 Covid-19 Vaccine ( season) Covid-19 Vaccine ( season) [facility] Start: 12-20-2023 Influenza vaccination Influenza Vacc ine (#1) [facility] Start: 11-16-2023 End: 11-16-2023 ambulatory 11/16/2023 3:30 PM EDT [facility] [address] [place] [address] Lex Avitia MD [address] [place] [address] 82916 Dx: Malignant neoplasm of unspecified part of unspecified bronchus or lung. [facility] Comment on above: Dx: Malignant neopla sm of unspecified part of unspecified bronchus or lung. Start: 11-12-2023 End: 11-12-2023 Patient encounter procedure 11/12/2023 1:00 PM EDT Appointment [facility] [address] [place] [address] *CT Chest WO IVCON. Cat Scan Comment on above: *CT Chest WO IVCON. Start: 08-24-2023 Assay of prostate specific antigen total ASSAY OF PSA TOTAL [facility] Start: 04-20-2023 Advance Directive Discussion Advance Directive Discussion [facility] Start: 04-20-2023 Behavioral Health Screening Behavioral Health Screening [facility] Start: 12-19-2022 Covid-19 Vaccine ( season) Covid-19 Vaccine ( season) [facility] Start: 12-19-2022 Influenza vaccination [facility] Start: 04-20-2022 ADVANCE DIRECTIVE DISCUSSION ADVANCE DIRECTIVE DISCUSSION [facility] Start: 04-20-2022 DEPRESSION ASSESSMENT DEPRESSION ASS ESSMENT [facility] Start: 12-19-2021 Influenza vaccination INFLUENZA (#1) [facility] Start: 08-18-2021 COVID-19 VACCINE (3 - Booster for Pfizer series) COVID-19 VACCINE (3 - Booster for Pfizer series) [facility] Start: 05-15-2021 COVID-19 VACCINE (3 - Booster for Pfizer series) COVID-19 VACCINE (3 - Booster for Pfizer series) [facility] Start: 05-15-2021 COVID-19 VACCINE (3 - Pfizer series) COVID-19 VACCINE (3 - Pfizer series) [facility] Start: 04-24-2021 Adult depression screening assessment DEPRESSION SCREENING [facility] Start: 04-20-2021 ADVANCE DIRECTIVE DISCUSSION ADVANCE DIRECTIVE DISCUSSION [facility] Start: 2013 RSV Vaccine (1 - 1-d ose 60+ series) RSV Vaccine (1 - 1-dose 60+ series) [facility] Start: 2013 RSV Vaccine (1 - Ris k 60-74 years 1-dose series) RSV Vaccine (1 - Risk 60-74 years 1-dose series) [facility] Start: 2008 PROSTATE CANCER SCREENING DISCUSSION PROSTATE CANCER SCREENING DISCUSSION [facility] Start: 2003 SHINGRIX VACCINE (1 of 2) SHINGRIX VACCINE (1 of 2) [facility] Start: 1998 COLOGUARD (FIT-DNA) COLOGUARD (FIT-D NA) [facility] Start: [address] [facility] Start: 1998 COLORECTAL CANCER SCREENING COLORECTAL CANCER SCREENING [facility] Start: [address] COLONOGRAPHY [facility] Start: 1998 DIABETES SCREEN [facility] Start: 1998 Diabetes Screening Diabetes Screenin g [facility] Start: 1998 FECAL OCCULT BLOOD FECAL OCCULT BLOO D [facility] Start: 1998 Screening for malign ant neoplasm of colon [facility] Start: 1998 SIGMOIDOSCOPY SIGMOIDOSCOPY [facility] Start: 1988 Lipid 1996 panel - S kymberly or Plasma Lipid Screening [facility] Start: 1988 Lipid panel Lipid Screening [facility] Start: 1988 LIPID SCREEN LIPID SCREEN [facility] Start: 1983 Zoledronic acid therapy ALPHA- 1 ANTITRYPSIN DEFICIENCY SCREENING [facility] Start: [address] 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 Start: 1971 Anxiety Screening Anxiety Screening [facility] Start: 1971 BP CONTROLLED (<130/80) BP CONTROLLE D (<130/80) [facility] Start: 1971 Depression Screening Depression Scre ening [facility] Start: 1971 HEPATITIS C SCREENING HEPATITIS C [facility] Start: 1971 Hepatitis C screening Hepatitis C [facility] Start: 1959 PNEUMOCOCCAL: 65+ (1 - PCV) PNEUMOCOCCAL: 65+ (1 - PCV) [facility] Start: 1953 ABDOMINAL AORTIC ANEURYSM SCREENING ABDOMINAL AORTIC ANEURYSM SCREENING [facility] Start: 1953 Abdominal aortic aneurysm screening Abdominal Aortic Aneurysm Screening [facility] CT Chest WO contrast CT CHEST WO IVCON Radiology Routine Malignant neoplasm of unspecified part of unspecified bronchus or lung (HCC) 11/12/2023 1:19 PM EDT [facility] Work Phone: End: 12-16-2024 CT Chest WO contrast CT CHEST WO IVCON Radiology Routine Malignant neoplasm of unspecified part of unspecified bronchus or lung (HCC) 1 Occurrences starting 11/17/2023 until 12/16/2024 [facility] Work Phone: Comment on above: 1 Occurrences starti ng 11/17/2023 until 12/16/2024 End: 06-22-2025 CT Chest WO contrast CT CHEST WO IVCON Radiology Routine Malignant neoplasm of unspecified part of unspecified bronchus or lung (HCC) 1 Occurrences starting 05/23/2024 until 06/22/2025 [facility] Work Phone: Comment on above: 1 Occurrences starti ng 05/23/2024 until 06/22/2025 End: 12-06-2022 Ct thorax w/o contrast material CT CHEST WO IVCON Radiology Routine Malignant neoplasm of unspecified part of unspecified bronchus or lung (HCC) 1 Occurrences starting 11/06/2021 until 12/06/2022 [facility] Work Phone: Comment on above: 1 Occurrences starti ng 11/06/2021 until 12/06/2022 End: 06-11-2023 Ct thorax w/o contrast material CT CHEST WO IVCON Radiology Routine Malignant neoplasm of unspecified part of unspecified bronchus or lung (HCC) 1 Occurrences starting 05/12/2022 until 06/11/2023 [facility] Work Phone: Comment on above: 1 Occurrences starti ng 05/12/2022 until 06/11/2023 End: 06-13-2023 Ct thorax w/o contrast material CT CHEST WO IVCON Radiology Routine Malignant neoplasm of unspecified part of unspecified bronchus or lung (HCC) 1 Occurrences starting 05/14/2022 until 06/13/2023 [facility] Work Phone: Comment on above: 1 Occurrences starti ng 05/14/2022 until 06/13/2023 End: 12-13-2023 Ct thorax w/o contrast material CT CHEST WO IVCON Radiology Routine Malignant neoplasm of unspecified part of unspecified bronchus or lung (HCC) 1 Occurrences starting 11/13/2022 until 12/13/2023 [facility] Work Phone: Comment on above: 1 Occurrences starti ng 11/13/2022 until 12/13/2023 [facility] Immun[facility] Immunization Date Immunization Notes Care Provider Fa curtis 01-16-2023 influenza virus vacc ine, unspecified formulation Ct (I-Stat) Work Phone: [facility] 01-17-2022 influenza virus vacc ine, unspecified formulation Ct (I-Stat) Work Phone: [facility] Payers Date Payer Category Payer Unknown [facility] [employer]AGE O [id number] 2023-Present [phone] [address] [place] [address] [facility] [id number] 2023 Medicare [id number] 2023 Self-pay [id number] 2023 Medicare [id number] 2023 Medicare [id number] 2021 Medicare [id number] 2019 Medicaid MEDICAID [facility] MEDICAID [id number] 2019-Present [phone] [address] [place] [address] Medicaid [id number] 2019 Medicaid MEDICAID [facility] MEDICAID [id number] 2019-Present [phone] [address] [place] [address] Medicaid [id number] 2019 Medicaid [id number] 2019 Unknown [employer] MEDIBLUE HMO [id number] 2019-Present [phone] [address] [place] [address] O [id number] 1955 Unknown [id number] 1955 Unknown [id number] 1955 Unknown [id number] 1955 Unknown [id number] 1955 Unknown [id number] 1955 Unknown [id number] 1955 Unknown [id number] Unknown [facility] [id number] Unknown [id number] Social History Date Type Detail Facility Start: 09-02-2019 End: 04-24-2020 Tobacco smoking status PAIS Smokes tobacco daily [facility] History of tobacco use [facility] Start: 09-02-2019 End: 11-13-2022 Cigarettes smoked current (pack per day) - Reported 1 [facility] Start: 09-02-2019 End: 04-24-2020 Tobacco use and exposure Smokeless tobacco non-user [facility] Start: 04-24-2020 Alcohol intake Ex-drinker (finding) [facility] Start: 09-14-2019 History SDOH Alcohol Comment Occasional [facility] Start: 09-14-2019 Tobacco Comment history of 2-4 ppd [facility] Start: 1955 Sex Assigned At Not on file [facility] Start: 10-25-2021 End: 11-04-2021 Exposure to SARS-CoV-2 (event) Not sure [facility] Start: 10-27-2021 End: 11-06-2021 Exposure to SARS-CoV-2 (event) Unable to assess [facility] Start: 04-24-2020 End: 11-13-[address] [facility] Adult Depression Screening Assessment 2 [facility] Start: 07-22-2019 Tobacco smoking stat [facility] Unknown if ever smoked [facility] Start: 1955 Sex Assigned At Male [facility] Clinical Notes 11-04-2021 to 06-26-2024 Telephone Encounter - eLx Avitia MD - 05/23/2024 4:10 PM ESTTelephone Encounter - Lex Avitia MD - 05/23/2024 4:10 PM Melissa Arciniega, RT(R) - 05/18/2024 1:00 PM EST Note Date & Type Note Facility 06-26-2024 [facility] PROGRESS NOTE NAME ACCOUNT SEX AGE ADMIT DISCHARGE PT MED. RECORD# NUMBER DATE DATE TYPE ADITYA [id number] M 69 06/09/24 1 [place] [id number] ROOM: [facility] DATE OF : 1955 [...] Nicholas Shrestha MD 06/12/24 20:18 JOB #: [id number] Transcribed By: am 06/13/24 06:38 Electronically signed by: E-Sign: NICHOLAS SHRESTHA MD 06/26/24 13:46 Page 1 of 2 SCOT BURGESS Progress Note LISAИВАНSCOT : 1955 Page 2 of 2 LISAИВАНSCOT Progress Note [facility] 06-26-2024 Note [facility] PROGRESS NOTE NAME ACCOUNT SEX AGE ADMIT DISCHARGE PT MED. RECORD# NUMBER DATE DATE TYPE ADITYA [id number] M 69 06/09/24 1 SCOT Flowers [id number] ROOM: 304 DATE OF : 1955 DICTATING [...] Nicholas Shrestha MD 06/11/24 19:16 JOB #: [id number] Transcribed By: am 06/12/24 09:27 Electronically signed by: E-Sign: NICHOLAS SHRESTHA MD 06/26/24 13:45 Page 1 of 2 SCOT BURGESS Progress Note SCOT BURGESS : 1955 Page 2 of 2 SCOT BURGESS Progress Note [facility] 06-26-2024 Note [facility] PROGRESS NOTE NAME ACCOUNT SEX AGE ADMIT DISCHARGE PT MED. RECORD# NUMBER DATE DATE TYPE ADITYA [id number] Fredy 69 06/09/24 1 SC[place] Flowers [id number] ROOM: 304MO DATE OF : 1955 DICTATING [...] Nicholas Shrestha MD 06/10/24 17:57 JOB #: [id number] Transcribed By: pierre 06/10/24 19:45 Electronically signed by: E-Sign: NICHOLAS SHRESTHA MD 06/26/24 13:44 Page 1 of 1 SCOT BURGESS Progress Note [facility] 06-26-2024 Note [facility] HISTORY & PHYSICAL NAME ACCOUNT SEX AGE ADMIT DISCHARGE PT MED. RECORD# NUMBER DATE DATE TYPE ADITYA [id number] M 69 06/09/24 2 SCOT Flowers [id number] ROOM: 304MO DATE OF : [birth year] DICTATING [...] Nicholas Shrestha MD 06/09/24 17:31 JOB #: [id number] Transcribed By: pierre 06/09/24 18:05 Electronically signed by: E-Sign: NICHOLAS SHRESTHA MD 06/26/24 13:44 Update to H&P: [ ] No changes: I have examined the patient and reviewed the H&P and there are no changes. (more content not included)... [facility] 06-14-2024 Note . MICRO - Microbiology [...] This test was performed at: [facility], [address] [place] [address], [facility] , [facility] 06-14-2024 Note . MICRO - Microbiology PROCEDURE: [...] This test was performed at: [facility], [address] [place] [address], [id number] , [facility] 06-09-2024 Note Discharge Instructio ns Discharge Summary [address] [address] [id number] 06/09/2024 Patient: SCOT BURGESS Sex: Male : 1955 Age: 69y Thank you for visiting [facility]. You have been evaluated today by Tony Perez D.O. for the following condition(s): Principal Diagnosis Acute dyspnea. Left upper lobe lung cancer. Acute respiratory failure with hypoxemia and hypercapnia. Acute exacerbation of COPD (emphysematous) Bronchopneumonia with hypoxemia. 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 You have been evaluated today [...] of breath include: (more content not included)... [facility] 05-23-2024 Telephone encounter Note Called to speak with pt. said he is sleeping and didnt want to wake him. I reviewed CT chest done on 05/18 with her. I communicated favorable findings and recommended 6m [facility] [address] follow up. She agreed. Lex Avitia MD [facility] 05-23-2024 Miscellaneous Notes Called to speak with pt. said he is sleeping and didnt want to wake him. I reviewed CT chest done on 05/18 with her. I communicated favorable findings and recommended [address] [facility] [address] follow up. She agreed. Lex Avitia MD documented in this encounter [facility] 05-18-2024 History of Present illness Narrative [...] PATIENT PRESENTS WITH AN IMPLANTABLE OR ATTACHED MOLD CUTTING MACHINE OPERATOR: No RADIOLOGY DEPARTMENT: CT; Exam(s) Completed: Chest PERIPHERAL IV DATA: Not applicable SIGNED BY: RT Paulie(R) May 18, 2024 3:54 PM documented in this encounter [facility] 05-18-2024 Note HNO ID: [id number] Author: MELISSA MADDEN RT(R) Service: ? Author Type: Review Manager Type: Progress Notes Filed: 05/18/2024 15:54 Note [...] PATIENT PRESENTS WITH AN IMPLANTABLE OR ATTACHED MOLD CUTTING MACHINE OPERATOR: No RADIOLOGY DEPARTMENT: CT; Exam(s) Completed: Chest PERIPHERAL IV DATA: Not applicable SIGNED BY: RT Paulie(R) May 18, 2024 3:54 PM [facility] 11-16-2023 Miscellaneous Notes Called to speak with [...] Lex Avitia MD documented in this encounter [facility] 11-16-2023 Telephone encounter Note Called to [...] Routine 6m follow up. Lex Avitia MD [facility] 11-12-2023 History of Present illness Narrative [...] PATIENT PRESENTS WITH AN IMPLANTABLE OR ATTACHED MOLD CUTTING MACHINE OPERATOR: No RADIOLOGY DEPARTMENT: CT; Exam(s) Completed: Chest PERIPHERAL IV DATA: Not applicable SIGNED BY: RT Paulie(Fitz) November 12, 2023 2:53 PM documented in this encounter [facility] 11-12-2023 Note HNO ID: [id number] Author: MELISSA MADDEN RT(Fitz) Service: ? Author Type: Review Manager Type: Progress Notes Filed: 11/12/2023 14:54 Note [...] PATIENT PRESENTS WITH AN IMPLANTABLE OR ATTACHED MOLD CUTTING MACHINE OPERATOR: No RADIOLOGY DEPARTMENT: CT; Exam(s) Completed: Chest PERIPHERAL IV DATA: Not applicable SIGNED BY: RT Paulie(Fitz) November 12, 2023 2:53 PM [facility] 08-31-2023 Note HNO ID: [id number] Author: FRANCISCO WALTERS RT(Fitz) Service: Nuclear Medicine [...] PATIENT PRESENTS WITH AN IMPLANTABLE OR ATTACHED MOLD CUTTING MACHINE OPERATOR: No CREATININE: No results found for: CREAT, [...] 31, 2023 TIME: 1:13 PM PAGER/CONTACT #: [facility] 08-31-2023 History of Present illness Narrative RADIOLOGY [...] PATIENT PRESENTS WITH AN IMPLANTABLE OR ATTACHED MOLD CUTTING MACHINE OPERATOR: No CREATININE: No results found for: CREAT, [...] PM PAGER/CONTACT #: documented in this encounter [facility] 08-28-2023 Note . MICRO - Microbiology [...] Locations *1: This test was performed at: [address], [facility] , [facility] ([place]) 08-28-2023 Note . MICRO - Microbiology PROCEDURE: [...] Locations *1: This test was performed at: [address], [facility] , [facility] ([place]) 11-13-2022 History of Present illness Narrative AMBULATORY [...] fibrosis, bronchial thickening, upper lobe emphysema unchanged. Laborer Cutting Tool: PSCBrittney Transcribe Date/Time: Nov 12 2022 9:14A Dictated by : GUNJAN AZEVEDO MD Assessment: Stable post SBRT changes, otherwise BREEZY Plan: CT in 6m at [place] then phone folloe up Total Time Spent: 5 minutes Lex Avitia MD documented in this encounter [facility] 11-11-2022 History of Present illness Narrative [...] 2022 4:04 PM documented in this encounter [facility] 05-14-2022 History of Present illness Narrative AMBULATORY TELEPHONE VISIT Scot Burgess has consented to this telephone encounter. PATIENT [...] Spent: 15 minutes documented in this encounter [facility] 05-13-2022 History of Present illness Narrative [...] 2022 3:55 PM documented in this encounter [facility] 11-06-2021 History of Present illness Narrative [...] Lex Avitia MD documented in this encounter [facility] 11-04-2021 History of Present illness Narrative [...] 2021 2:44 PM documented in this encounter [facility] Evaluation note Diagnosis Malignant neoplasm of unspecified part of unspecified bronchus or lung (HCC) [facility] Diagnosis Malignant neoplasm of unspecified part of unspecified bronchus or lung (HCC) [facility] Diagnosis Malignant neoplasm of unspecified part of unspecified bronchus or lung (HCC)- Primary [facility] Diagnosis Malignant neoplasm of unspecified part of unspecified bronchus or lung (HCC)- Primary documented in this encounter [facility] note* Diagnosis Malignant neoplasm of unspecified part of unspecified bronchus or lung (HCC)- Primary Pulmonary emphysema, unspecified emphysema type (HCC) documented in this encounter [facility] note* Diagnosis Malignant neoplasm of unspecified part of unspecified bronchus or lung (HCC) documented in this encounter [facility] noteNo assessment information availableWMount St. [facility] Work Phone: Evaluation note* Diagnosis Malignant neoplasm of unspecified part of unspecified bronchus or lung (HCC) documented in this encounter [facility] note* Diagnosis Malignant neoplasm of unspecified part of unspecified bronchus or lung (HCC)- Primary documented in this encounter [facility] note* Diagnosis Malignant neoplasm of unspecified part of unspecified bronchus or lung (HCC) documented in this encounter [facility] for visit Narrative* Diagnostic Procedure Only (Routine) - Closed Specialty Diagnoses / Procedures Referred By Dago t Referred To Contact Radiology / RADIO PET CT MOBILE DENISE Diagnoses Malignant neoplasm of unspecified part of unspecified bronchus or lung non small cell lung / enlarging nodule Procedures PET IMAGING CT ATTENUATION SKULL BASE MID-THIGH INJECTION PET CT Cesilia Gimenez, Lorelei [address] [place] [address] [facility] [address] [place] [address] Referral ID Status Reason Start Date Expiration Date Visits Re quested Visits Authorized [id number] Closed 08/11/2023 09/10/[address] [facility] Summary Purpose Family History No Family [...] [place] [address] [place] [address] Ct Imaging Referral ID Status Reason Start Date Expiration Date V isits Requested Visits Authorized [id number] Closed Auto-Generate d Referral 05/06/2021 06/05/2022 1 1 Specialty Diagnoses / Procedures Referred By Contac t Referred To Contact CT IMAGING Diagnoses Malignant neoplasm of unspecified part of unspecified bronchus or lung (HCC) Procedures CT CHEST WO IVCON DIAGNOSTIC COMPUTED TOMOGRAPHY THORAX W/[place] [address] [place] [id number] Imaging Referral ID Status Reason Start Date Expiration Date Visits Requested Visits Authorized [id number] Pending Review Auto-Generat ed Referral 11/06/2021 12/06/2022 1 1 Referral ID Status Reason Start Date Expiration Date Visits Requested Visits Authorized [id number] Pending Review Auto-Generat ed Referral 05/12/2022 06/11/2023 1 1 Referral ID Status Reason Start Date Expiration Date Visits Requested Visits Authorized [id number] Pending Review Auto-Generat ed Referral 05/14/2022 06/13/2023 1 1 Referral ID Status Reason Start Date Expiration Date Visits Requested Visits Authorized [id number] Pending Review Auto-Generat ed Referral 11/13/2022 12/13/2023 1 1 Specialty Diagnoses / Procedures Referred By Contac t Referred To Contact CT IMAGING Diagnoses Malignant neoplasm of unspecified part of unspecified bronchus or lung (HCC) Procedures CT CHEST WO IVCON DIAGNOSTIC COMPUTED TOMOGRAPHY THORAX W/[place] [address] [place] [address] Ct Imaging [place] [address] Referral ID Status Reason Start Date Expiration Date V isits Requested Visits Authorized [id number] Closed Auto-Generate d Referral 11/06/2021 12/06/2022 1 1 Referral ID Status Reason Start Date Expiration Date V isits Requested Visits Authorized [id number] Closed Auto-Generate d Referral 05/14/2022 06/13/2023 1 1 Referral ID Status Reason Start Date Expiration Date Visits Requested Visits Authorized [id number] New Request Auto-Generat ed Referral 11/17/2023 12/16/2024 1 1 Referral ID Status Reason Start Date Expiration Date V isits Requested Visits Authorized [id number] Closed Auto-Generate d Referral 11/17/2023 12/16/2024 1 1 Referral ID Status Reason Start Date Expiration Date Visits Requested Visits Authorized [id number] New Request Auto-Generat ed Referral 05/23/2024 06/22/2025 1 1 Chief Complaint and Reason for Visit Chief Complaint PSA Additional Source Comments (unrecognized sect ion and content) No Status Records FoundNo Status Records FoundNo Status Records FoundNo Status Records FoundNo Status Records FoundNo Status Records FoundNo Status Records Found INFORMATION SOURCE (unrecogn ized section and content) DATE CREATED AUTHOR 03/09/2020 [facility] DATE CREATED AUTHOR AUTHOR'S ORGANIZ ATION 08/30/2023 [facility] ([place]) DATE CREATED AUTHOR AUTHOR'S ORGANIZ ATION 08/31/2023 [facility] DATE CREATED AUTHOR AUTHOR'S ORGANIZ ATION 09/05/2023 [facility] DATE CREATED AUTHOR AUTHOR'S ORGANIZ ATION 06/16/2024 [facility] DATE CREATED AUTHOR AUTHOR'S ORGANIZ ATION 07/20/2024 [facility] DATE CREATED AUTHOR AUTHOR'S ORGANIZ ATION 07/24/2024 [facility] Source Comments (unrecognize d section and content) In the event this informatio n is protected by the Federal Confidentiality of Alcohol and Drug Abuse Patient Records regulations: The Federal rules restrict any use of the information to criminally investigate or prosecute any alcohol or drug abuse patient.[facility] the event this information is protected by the Federal Confidentiality of Alcohol and Drug Abuse Patient Records regulations: The Federal rules restrict any use of the information to criminally investigate or prosecute any alcohol or drug abuse patient.[facility] the event this information is protected by the Federal Confidentiality of Alcohol and Drug Abuse Patient Records regulations: The Federal rules restrict any use of the information to criminally investigate or prosecute any alcohol or drug abuse patient.[facility] the event this information is protected by the Federal Confidentiality of Alcohol and Drug Abuse Patient Records regulations: The Federal rules restrict any use of the information to criminally investigate or prosecute any alcohol or drug abuse patient.[facility] the event this information is protected by the Federal Confidentiality of Alcohol and Drug Abuse Patient Records regulations: The Federal rules restrict any use of the information to criminally investigate or prosecute any alcohol or drug abuse patient.[facility] the event this information is protected by the Federal Confidentiality of Alcohol and Drug Abuse Patient Records regulations: The Federal rules restrict any use of the information to criminally investigate or prosecute any alcohol or drug abuse patient.[facility] the event this information is protected by the Federal Confidentiality of Alcohol and Drug Abuse Patient Records regulations: The Federal rules restrict any use of the information to criminally investigate or prosecute any alcohol or drug abuse patient.[facility] the event this information is protected by the Federal Confidentiality of Alcohol and Drug Abuse Patient Records regulations: The Federal rules restrict any use of the information to criminally investigate or prosecute any alcohol or drug abuse patient.[facility] the event this information is protected by the Federal Confidentiality of Alcohol and Drug Abuse Patient Records regulations: The Federal rules restrict any use of the information to criminally investigate or prosecute any alcohol or drug abuse patient.[facility] the event this information is protected by the Federal Confidentiality of Alcohol and Drug Abuse Patient Records regulations: The Federal rules restrict any use of the information to criminally investigate or prosecute any alcohol or drug abuse patient.[facility] the event this information is protected by the Federal Confidentiality of Alcohol and Drug Abuse Patient Records regulations: The Federal rules restrict any use of the information to criminally investigate or prosecute any alcohol or drug abuse patient.[facility] the event this information is protected by the Federal Confidentiality of Alcohol and Drug Abuse Patient Records regulations: The Federal rules restrict any use of the information to criminally investigate or prosecute any alcohol or drug abuse patient.[facility] Hospital[facility] the event this information is protected by the Federal Confidentiality of Alcohol and Drug Abuse Patient Records regulations: The Federal rules restrict any use of the information to criminally investigate or prosecute any alcohol or drug abuse patient.[facility] Reason for Visit (unrecogniz ed section and content) Reason Comments Radiology CT Specialty Diagnoses / Procedures Referred By Contac t Referred To Contact CT IMAGING Diagnoses Malignant neoplasm of unspecified part of unspecified bronchus or lung (HCC) Procedures CT CHEST WO IVCON [place] [address] [place] [address] Ct Imaging Referral ID Status Reason Start Date Expiration Date V isits Requested Visits Authorized [id number] Closed Auto-Generate d Referral 05/06/2021 06/05/2022 1 1 Reason Comments Radiotherapy Follow-up Specialty Diagnoses / Procedures Referred By Contac t Referred To Contact CT IMAGING Diagnoses Malignant neoplasm of unspecified part of unspecified bronchus or lung (HCC) Procedures CT CHEST WO IVCON DIAGNOSTIC COMPUTED TOMOGRAPHY THORAX W/[place] [address] [place] [address] [place] [address] Referral ID Status Reason Start Date Expiration Date V isits Requested Visits Authorized [id number] Closed Auto-Generate d Referral 11/06/2021 12/06/2022 1 1 Referral ID Status Reason Start Date Expiration Date V isits Requested Visits Authorized [id number] Closed Auto-Generate d Referral 05/14/2022 06/13/2023 1 [...] PET CT Cesilia Gimenez V [address] [place] [address] [facility] [address] [place] [address] Referral ID Status Reason Start Date Expiration Date Visits Re quested Visits Authorized [id number] Closed 08/11/2023 09/10/2023 [address] Specialty Diagnoses / Procedures Referred By Contac t Referred To Contact CT IMAGING Diagnoses Malignant neoplasm of unspecified part of unspecified bronchus or lung (HCC) Procedures CT CHEST WO IVCON DIAGNOSTIC COMPUTED TOMOGRAPHY THORAX W/[place] [address] [place] [address] [place] [address] Referral ID Status Reason Start Date Expiration Date V isits Requested Visits Authorized [id number] Closed Auto-Generate d Referral 05/18/2023 06/16/2024 1 1 Referral ID Status Reason Start Date Expiration Date V isits Requested Visits Authorized [id number] Closed Auto-Generate d Referral 11/17/2023 12/16/2024 1 1 Care Teams (unrecognized sec tion and content) Ornithology Teacher Relationship Specialty Start Date End Date Cesilia Gimenez V [address] [place] [phone] Referring Pulmonary Disease 08/29/19 Ornithology Teacher Relationship Specialty Start Date End Date Cesilia Gimenez V [address] [place] [phone] Referring Pulmonary Disease 08/29/19 Ornithology Teacher Relationship Specialty Start Date End Date Cesilia Gimenez V [address] [place] [phone] Referring Pulmonary Disease 08/29/19 Ornithology Teacher Relationship Specialty Start Date End Date Cesilia Gimenez V [address] [place] [phone] Referring Pulmonary Disease 08/29/19 Ornithology Teacher Relationship Specialty Start Date End Date Cesilia Gimenez V [address] [place] [phone] Referring Pulmonary Disease 08/29/19 Team Status: Active Member Role Status Dates Dr. Becky Chacon MD Family Provider Active Dr. Becky Chacon MD Primary Care Provider Active Team Status: Inactive Member Role Status Dates Dr. Becky Chacon MD Primary Care Provider Active Dr. Kemal Rose MD Attending Provider, Referr ing Provider Active Ornithology Teacher Relationship Specialty Start Date End Date Cesilia Gimenez V [address] [place] [address] Referring Pulmonary Disease 08/29/19 Ornithology Teacher Relationship Specialty Start Date End Date Cesilia Gimenez V [address] [place] [address] Referring Pulmonary Disease 08/29/19 Ornithology Teacher Relationship Specialty Start Date End Date Cesilia Gimenez V [address] [place] [address] Referring Pulmonary Disease 08/29/19 Ornithology Teacher Relationship Specialty Start Date End Date Cesilia Gimenez V [address] [place] [address] Referring Pulmonary Disease 08/29/19 Goals (unrecognized section [...] BE BASED ON THE PRIMARY CLINICAL RECORDS. [employer] [facility]. provides no warranty or guarantee of the accuracy or completeness of information in this document.
[2024-11-02] MEDS: 0.9% Normal Saline (1000mL) 1,000 ML 70 ML IV ×2 (09:49→16:00)
[2024-11-02 10:24] LABS: Mucous, Urine 0 SEEN /hpf (<or=2+); Red Blood Cells-Urine 0 SEEN /hpf (0-5); Squamous Epithelial Cells - UA 0 SEEN /hpf (0-5)
[2024-11-02 10:25] LABS: Color, Urine Yellow (Yellow); Glucose, Dipstick Normal (Normal); Ketone-Dipstick Negative (Negative); Leukocyte Esterase-Dipstick Negative /ul (Negative); Nitrite-Dipstick Negative (Negative); Occult Blood-Urine Negative /ul (Negative); Protein-Dipstick 100 mg/dl (Negative); Specific Gravity, Urine 1.010 (1.002-1.030); Urine Bilirubin Dipstick Negative (Negative)
--- NOTE | 2024-11-02 14:00 | PCM.PRE.AN2 ---
ASA Classification* ASA Classification ASA Classification: 4 and E Assessment & Plan Anesthesia* Anesthesia Assessment Anesthesia Assessment: Discussed sedation and/or anesthesia options, risks, benefits, and alternatives with patient/parents/legal guardian/POA. Questions invited. The patient/parents/legal guardian/POA seems to understand and agrees to proceed with anesthesia plan. Reviewed the physical assessment, medical history, allergy history and patient home medications list prior to surgery/procedure/anesthetic and documented any changes. Performed airway and anesthesia risk assessments. Procedural Plan Add'l anesthesia plan details: I had an extensive discussion with the patient regarding this procedure. He has poor functional reserve and poor respiratory reserve. I discussed with the proceduralist that we will attempt sedation however this may require conversion to general anesthesia. Proceduralist will perform scope with endotracheal tube on his bronchoscope and if there are any issues of respiratory concern we will emergently intubate the patient. I did an extensive discussion with the patient regarding postoperative ventilation and potential concern for airway loss. Patient consents to blood products. Patient consents to moving forward with the procedure. Anesthesia Type Anesthesia Type: General and MAC History Source History Obtained from:: Patient and Chart Anesthesia Focused Assessment* Temperature: 98.2 F Pulse Rate: 98 Blood Pressure: 140/98 Respiratory Rate: 22 Pulse Ox: 91 Oxygen Delivery Method: Nasal Cannula (6L) Oxygen Flow Rate (L/min): 6 Vital signs additional comments: Patient reports that he is on 3 L of home O2. He reports that he is having shortness of breath and he was throwing up blood earlier today. He reports that over the last couple hours he has not thrown up any blood. Airway Assessment Mouth opens: >3 cm Mallampati Score: II Teeth Condition: Missing Labs Anesthesia Preop lab: CBC WBC 9.7 K/mm3 (4.4-11.0) 11/01/24 22:10 11/01/24 RBC 5.47 M/mm3 (4.6-6.2) 11/01/24 22:10 11/01/24 Hgb 16.6 g/dL (13.0-16.5) H 11/01/24 22:10 11/01/24 Hct 51.1 % (40-54) 11/01/24 22:10 11/01/24 Plt Count 169 K/mm3 (150-450) 11/01/24 22:10 11/01/24 CHEMISTRY Potassium 3.9 mmol/L (3.3-5.1) 11/01/24 22:10 11/01/24 Sodium 141 mmol/L (133-145) 11/01/24 22:10 11/01/24 Magnesium 2.1 mg/dL (1.5-2.2) 11/01/24 22:10 11/01/24 BUN 14 mg/dL (4-19) 11/01/24 22:10 11/01/24 Creatinine 0.76 mg/dL (0.70-1.20) 11/01/24 22:10 11/01/24 Glucose 72 mg/dL (70-99) 11/01/24 22:10 11/01/24 TSH 3.160 uIU/mL (0.300-4.200) 11/02/24 03:33 11/02/24 COAG PT 12.3 SECONDS (11.7-14.9) 11/01/24 22:10 11/01/24 Pre-Assessment Diagnosis/Proposed Procedure Planned Operative Procedure(s): Bronchoscopy Anesthesia History Anesthesia History - performance improvement consultant: Anesthesia History - performance improvement consultant Hx Hospitalization Any Problems With Anesthesia Cholinesterase deficiency You/Your Family Experience fever (hyperthermia) with Relationship Recent Exposure to Contagious Disease Does patient have nerve stimulator Patient instructed to have device shut off --Does patient have Pacemaker No 11/02/24 11:12 or ICD? When Was Last Pacemaker Check QUESTION #4 FULL TEXT: You/Your Family Experience fever (hyperthermia) with Anesthesia Last Oral Intake Last Oral intake: Last Oral Intake NPO since 00:00 11/02/24 11:12 Meds taken in AM with sips of No 11/02/24 11:12 water? Meds patient instructed to take am of surgery PONV PONV - performance improvement consultant: PONV - performance improvement consultant Female HX of Motion Sickness HX of N/V After Surgery Non-Smoker Duration of Surgery greater than 60 minutes Number of Risk Factors PONV Score Height & Weight Height & Weight: Anesthesia: Height & Weight Height 5 ft 8 in 11/02/24 11:12 Weight: 95.5 kg 11/02/24 11:12 Body Mass Index (BMI) 32.0 11/02/24 11:12 Respiratory Assessment Respiratory Assessment - performance improvement consultant: Respiratory Tract Infection Hx - performance improvement consultant Hx Respiratory Tract Infection STOP Sleep Apnea STOP Sleep Apnea - performance improvement consultant: STOP Sleep Apnea - performance improvement consultant Hx Hypertension No 11/02/24 08:04 Hx Sleep Apnea Yes 11/02/24 08:04 CPAP Yes 11/02/24 08:04 BIPAP No 11/02/24 08:04 Do you snore loudly (louder than talking or can be heard Do you often feel tired/ fatigued/ sleepy during daytime? Has anyone observed you stop breathing during sleep? STOP Results Positive 11/02/24 08:04 QUESTION #5 FULL TEXT : Do you snore loudly (louder than talking or can be heard through closed doors)? 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 Specify any problems Hx of Preganancy in last 3 N/A 11/02/24 08:04 Months Nurse Filling Out Transfusion KESTEP 11/02/24 08:04 & Questions: Date: 11/02/24 11/02/24 08:04 Time: 08:28 11/02/24 08:04 Patient unable to answer at this time (ie. confused, unrespo /Reproduction History /Reproductive History - performance improvement consultant: /Reproductive Hx- performance improvement consultant Hx Now Gestational Age (in weeks): EDC: Hx Hx Para Hx Section SAB Active Medications Active Medications: Current Medications Generic Name Dose Route Start Last Admin Trade Name Freq PRN Reason Stop Dose Admin Acetaminophen 650 mg 11/02/24 08:03 Acetaminophen 650 Mg Suppository RC Q6H PRN PRN Pain 1-10 or Fever Albuterol Sulfate 2.5 mg 11/02/24 08:03 Albuterol 2.5 Mg/3 Ml Vial.Neb. INHALATION Q2H PRN PRN SOB &/OR WHEEZING Hydralazine HCl 5 mg 11/02/24 08:03 Hydralazine 20 Mg/Ml Vial IV Q8H PRN PRN SBP GREATER THAN 160 Protocol Piperacillin Sod/Tazobactam 50 mls @ 12.5 mls/hr 11/02/24 00:07 11/02/24 11:28 Sod 3.375 gm/ Sodium Chloride IV 12.5 mls/hr Q8 KENDRICK Administration Pantoprazole Sodium 40 mg/ 100 mls @ 330 mls/hr 11/02/24 00:07 11/02/24 11:34 Sodium Chloride IV Not Given Q24 KENDRICK Sodium Chloride 1,000 mls @ 70 mls/hr 11/02/24 08:03 11/02/24 09:49 IV 11/02/24 22:20 70 mls/hr .[id number] KENDRICK Administration Methylprednisolone Sodium Succinate 60 mg 11/02/24 22:00 Methylprednisolone 125 Mg/2 Ml Vial IV BID KENDRICK Nicotine 14 mg 11/02/24 08:03 11/02/24 09:58 Nicotine 14 Mg Patch TD Not Given DAILY KENDRICK Ondansetron HCl 4 mg 11/02/24 08:03 Ondansetron 4 Mg/2 Ml Vial IV Q8H PRN PRN NAUSEA/VOMITING Prochlorperazine Edisylate 5 mg 11/02/24 08:03 Prochlorperazine 10 Mg/2 Ml Vial IV Q4H PRN PRN Breakthrough Nausea/Vomiting Sodium Chloride 10 - 40 ml 11/02/24 09:33 0.9% Saline Lock 10 Ml Syringe IV UD PRN SALINE FLUSH PFSH Medical History Spinal stenosis, site unspecified Gastro-esophageal reflux disease without esophagitis Depressed Other fatigue Male erectile dysfunction, unspecified Abnormal findings on diagnostic imaging of other specified body structures Occlusion and stenosis of bilateral carotid arteries Nicotine dependence, unspecified, uncomplicated Chronic obstructive pulmonary disease, unspecified Solitary pulmonary nodule Obstructive sleep apnea (adult) (pediatric) Diverticulitis of sigmoid colon Essential (primary) hypertension Hypoxia Unspecified osteoarthritis, unspecified site Atrial fibrillation, currently in sinus rhythm 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 100 mcg-umeclid 1 ea inhalation DAILY 11/01/24 Unknown History 62.5 mcg-vilant 25 mcg inhalat.powder (Trelegy Ellipta) metoprolol tartrate 50 mg tablet 50 mg PO BID 11/01/24 Unknown History Allergy/AdvReac Type Severity Reaction Status Date / Time morphine Allergy Mild Hives Verified 11/01/24 22:03 Family History Father Heart disease Brother Heart disease Surgical History thumb Inguinal hernia Social History Smoking Status: Current every day smoker tobacco type: cigarettes alcohol intake: current Review of Systems (Anesthesia) ROS Narrative System reviewed and no additional complaints, except as documented.
[2024-11-02] MEDS: Epinephrine (1 mg/ml) 1 MG/ML VIAL (14:34)
[2024-11-02] MEDS: Lidocaine Jelly 2% 20 ML Syringe (URO-JET) 1 APPLIC (14:36)
[2024-11-02] MEDS: 0.9% Normal Saline (Pres. free 10 ML Vial (14:36)
[2024-11-02] MEDS: Lidocaine 2% (5ml sdv) 5 ML VIAL.MPF (14:37)
--- NOTE | 2024-11-02 14:45 | OP.BRONCH_ITS ---
Patient Name: Scot Soto Procedure Date: 11/02/2024 12:37 PM Date of : 1955 Age: 69 Procedure: Bronchoscopy Indications: Left upper lobe nodule, Right upper lobe nodule, Hemoptysis Providers: Jatinder Gimenez MD Complications: No immediate complications Procedure: Pre-Anesthesia Assessment: - A History and Physical has been performed. The patient's medications, allergies and sensitivities have been reviewed. - The risks and benefits of the procedure and the sedation options and risks were discussed with the patient. All questions were answered and informed consent was obtained. - The heart rate, respiratory rate, oxygen saturations, blood pressure, adequacy of pulmonary ventilation, and response to care were monitored throughout the procedure. - The anesthesia plan was to use moderate sedation/analgesia. After I obtained informed consent, the scope was passed under direct vision. Throughout the procedure, the patient's blood pressure, pulse, and oxygen saturations were monitored continuously. The bronchoscope was introduced through the mouth and advanced to the tracheobronchial tree. The patient tolerated the procedure well. The procedure was accomplished with moderate difficulty due to excessive bleeding. Successful completion of the procedure was aided by controlling the bleeding. Proceedure done in OR with Anasthesia Attending present. ETT placed on Scope 8.0 until bleeding controlled. APC set up but not used. Bleeding responded to iced saline and epinephrine in RUL. No bleeding at end of proceedure. Wheezing and accesory muscle use before and after proceedure. Moderate Sedation: An independent trained observer was present and continuously monitored the patient. Findings: The oropharynx appears normal. The larynx appears normal. The vocal cords appear normal. The subglottic space is normal. The trachea is of normal caliber. The caitlyn is sharp. The tracheobronchial tree was examined to at least the first subsegmental level. Bronchial mucosa and anatomy are normal; there are no endobronchial lesions, and no secretions. Right Lung Abnormalities: A blood clot was found in the apical segment of the right upper lobe (B1). It was not obstructing the airway. The clot was successfully removed, but the lesion began bleeding. Impression: - Left upper lobe nodule - Right upper lobe nodule - Hemoptysis - The airway examination was normal. - A blood clot was found in the apical segment of the right upper lobe (B1). - No specimens collected. Recommendation: - Await BAL and cytology results. MD Jatinder Aragon MD 11/02/2024 2:44:39 PM This report has been signed electronically. Number of Addenda: 0 Note Initiated On: 11/02/2024 12:37 PM
--- NOTE | 2024-11-02 14:49 | PCM.POST.ANE ---
Anesthesia: Postop Eval I Current Vital Signs Temperature: 97.8 F Pulse Rate: 108 Blood Pressure: 132/76 Respiratory Rate: 24 Pulse Ox: 94 Oxygen Delivery Method: Nasal Cannula Oxygen Flow Rate (L/min): 4 Assessment Airway patent: Yes Spontaneous unlabored respirations: Yes Mental status: Asleep nausea: No Vomiting: No Anesthesia Complication: No Fluid Hydration Crystalloid volume administer (ml): 400 Total IV fluid infused: 400 Progress Note Anesthesia document: Postop Eval 1 completed: Yes
--- NOTE | 2024-11-02 16:06 | CHAPLAIN ---
Type of Pastoral Visit ___ Initial Visit ___ Follow-up Visit ___ On-call Visit ___ General Patient Visit ___ Spiritual Assessment ___ Family Conference ___ Bereavement ___ Rapid Response ___ Code Blue ___ Other (describe below) Pastoral Care Referral From ___ Patient ___ Family ___ Nurse ___ Physician ___ Cash Teller ___ Duplicator Punch Operator ___ Other (describe below) Sacrament/Intervention ___ Active listening ___ Anointing ___ Amish ___ Bereavement ___ Communion ___ Marielos exploration ___ ___ Life review ___ Prayer ___ Reconciliation ___ Sacrament of Sick ___ Supportive presence ___ Wedding ___ Other (describe below) Pastoral Comments patient was out of the room for testing and unavailable for this planned visit
--- NOTE | 2024-11-02 16:19 | CASEMGMT ---
Tertiary Insurance review for hospitals [facility] if transfer is recommended is as follows: [facility], [facility], [place], [facility], [facility], [facility], , [facility], [facility], and [place]. Shraddha Camejo, Discharge Planning Asst.
--- NOTE | 2024-11-02 16:31 | POSTOPAN2_ITS ---
Anesthesia Postop Eval I Sum Postop Eval Completion status Anesthesia document: Postop Eval 1 completed: Yes Anesthesia Postop Eval I Summary Anesthesia Postop Eval I Summary: Anesthesia Postop Eval I: Assessment Summary Airway patent Yes 11/02/24 14:50 INFECTIOUS DISEASE [email or web address] Spontaneous unlabored Yes 11/02/24 14:50 INFECTIOUS DISEASE [email or web address] respirations Mental status Asleep 11/02/24 14:50 INFECTIOUS DISEASE [email or web address] nausea No 11/02/24 14:50 INFECTIOUS DISEASE [email or web address] Vomiting No 11/02/24 14:50 INFECTIOUS DISEASE [email or web address] Anesthesia Postop Eval I: Fluid Summary Crystalloid volume administer 400 11/02/24 14:50 INFECTIOUS DISEASE [email or web address] (ml) Colloids volume administered ( ml) Blood Product volume administered (ml) Total IV fluid infused 400 11/02/24 14:50 INFECTIOUS DISEASE [email or web address] Anesthesia Postop Eval I: Summary Notes Anesthesia Complication No 11/02/24 14:50 INFECTIOUS DISEASE [email or web address] Anesthesia Complication Comment: Post-operative progress note Anesthesia: Postop Eval II Evaluation Mental status: Awake and Calm Pain Level: 3 nausea: No Vomiting: No Complications Anesthesia Complication: No
--- NOTE | 2024-11-02 16:31 | PCM.POSTANE2 ---
Anesthesia Postop Eval I Sum Postop Eval Completion status Anesthesia document: Postop Eval 1 completed: Yes Anesthesia Postop Eval I Summary Anesthesia Postop Eval I Summary: Anesthesia Postop Eval I: Assessment Summary Airway patent Yes 11/02/24 14:50 CLINICAL [email or web address] Spontaneous unlabored Yes 11/02/24 14:50 CLINICAL [email or web address] respirations Mental status Asleep 11/02/24 14:50 CLINICAL [email or web address] nausea No 11/02/24 14:50 CLINICAL [email or web address] Vomiting No 11/02/24 14:50 CLINICAL [email or web address] Anesthesia Postop Eval I: Fluid Summary Crystalloid volume administer 400 11/02/24 14:50 CLINICAL [email or web address] (ml) Colloids volume administered ( ml) Blood Product volume administered (ml) Total IV fluid infused 400 11/02/24 14:50 CLINICAL [email or web address] Anesthesia Postop Eval I: Summary Notes Anesthesia Complication No 11/02/24 14:50 CLINICAL [email or web address] Anesthesia Complication Comment: Post-operative progress note Anesthesia: Postop Eval II Evaluation Mental status: Awake and Calm Pain Level: 3 nausea: No Vomiting: No Complications Anesthesia Complication: No
--- NOTE | 2024-11-02 17:20 | PN.HOSP_ITS ---
Reason for Visit Chief Complaint: Worsening Hemoptysis and Shortness of Breath. Subjective Subjective Patient seen after bronchoscopy. No further hemoptysis. Objective Data Objective Data Vital Signs: Vital Signs Temp Pulse Resp BP Pulse Ox O2 Del Method O2 Flow Rate 36.6 C 95 22 H 135/85 H 93 Nasal Cannula 3 11/02/24 16:00 11/02/24 16:00 11/02/24 16:00 11/02/24 16:00 11/02/24 16:00 11/02/24 16:00 11/02/24 16:00 Oxygen Flow Rate (L/min) 3 Oxygen Delivery Method Nasal Cannula Weight: 95.5 kg Body Mass Index (BMI) 32.0 Intake & Output: Intake and Output for Last 24 Hours 10/31/24 11/01/24 11/02/24 23:59 23:59 23:59 Intake Total 110 / 110 1200 / 1200 Output Total 325 / 325 Balance 110 / 110 875 / 875 Lab / Micro Data 11/01/24 22:10 11/01/24 22:10 Labs: Laboratory Results - last 24 hr 11/01/24 22:10: WBC 9.7, RBC 5.47, Hgb 16.6 H, Hct 51.1, MCV 93.4, MCH 30.3, MCHC 32.5, RDW Std Deviation 51.2 H, RDW Coeff of Theron 14.9 H, Plt Count 169, MPV 10.7, Immature Gran % (Auto) 0.400, Neut % (Auto) 49.2, Lymph % (Auto) 40.5, Crosby % (Auto) 7.3, Eos % (Auto) 2.1, Baso % (Auto) 0.5, Absolute Neuts (auto) 4.8, Absolute Lymphs (auto) 3.94, Nucleated RBC % 0, PT 12.3, INR 0.9, APTT 29.1, Sodium 141, Potassium 3.9, Chloride 100, Carbon Dioxide 31.6, Anion Gap 9, BUN 14, Creatinine 0.76, Estim Creat Clear Calc 96.84, Est GFR (MDRD) Non-Af 96, BUN/Creatinine Ratio 18.0, Glucose 72, Calcium 9.1, Magnesium 2.1 11/01/24 22:34: Lactic Acid < 1.0 11/02/24 03:33: TSH 3.160, Blood Type A NEGATIVE, Antibody Screen NEGATIVE 11/02/24 06:27: Urine Color Yellow, Urine Clarity Clear, Urine pH 7.0, Ur Specific [place] 1.010, Urine Protein 100 H, Urine Glucose (UA) Normal, Urine Ketones Negative, Urine Occult Blood Negative, Urine Nitrite Negative, Urine Bilirubin Negative, Urine Urobilinogen Normal, Ur Leukocyte Esterase Negative, Urine RBC 0 SEEN, Urine WBC 0 SEEN, Ur Squamous Epith Cells 0 SEEN, Urine Bacteria 0 SEEN, Urine Mucus 0 SEEN Micro: Microbiology 11/02/24 09:21 Mucosa - Nasopharyngeal Respiratory Panel (PCR) - Final 11/02/24 09:21 Nasal Secretion MRSA (PCR) - Final 11/02/24 06:27 Urine, Clean Catch Legionella Antigen - Final 11/02/24 06:27 Urine, Clean Catch Streptococcus pneumoniae Antigen (M - Final ABG Data ABG results: ABG 11/01/24 23:41 Specimen Type ART Sample Site R Radial pH 7.35 Bicarbonate Actual 37.1 H Total CO2 39 Base Excess 12 H O2 Saturation 93 L O2 % 3.0 ABG pCO2 66.8 H ABG pO2 71 L Adrián Test Positive O2 Delivery Device Cannula Vent Mode Not entered Radiography Diagnostic Testing: Radiology Impression Chest CTA 11/01/24 22:19 IMPRESSION: Left upper lobe lung density favoring postradiation scar/atelectasis. Small right upper lobe airspace disease possibly pneumonia. No embolism or dissection. Reading Location: [place] [id number] Physical Exam Const alert and no apparent distress HEENT head/scalp atraumatic and moist oral mucous membranes Resp normal respiratory effort and no retractions Resp Narrative: Bibasilar crackles Cardio regular rate, regular rhythm, S1 normal heart sound and S2 normal heart sound GI normal to inspection, nondistended, normoactive bowel sounds, soft to palpation and non-tender Extremity normal to inspection and full ROM Neuro Sensorium / Orientation: awake and alert Assessment & Plan Assessment/Plan (1) Major hemoptysis: PLAN: Discussed with Dr. Gimenez. States that he saw right-sided blood but no endobronchial lesions that were causing the blood. He recommended transfer to tertiary facility to be evaluated by cardiothoracic surgery to see if there would be anything amenable from that perspective. He reached out to [facility] and the patient has been accepted there and awaiting on bed availability. Currently the patient is currently stable at this time. Discussed with family that we would observe him before we let him eat pink if he has any more hemoptysis episodes. Patient does have a history of lung cancer that was treated with radiation about 5 years ago and that is apparently in remission and that was left-sided. PLAN: Plan Chronic conditions * Hypertension * Hyperlipidemia * A-fib: Continue with metoprolol tartrate and diltiazem. Not on anticoagulation. * Depression: Continue sertraline VTE prophylaxis with SCDs. Case discussed with the patient's and his [id number] at bedside and with the patient's daughter over the phone, all with permission by the patient. Charges/Coding Visit Charges Inpatient E&M: 46960 Subs Hosp L2
[2024-11-02] MEDS: Ipratropium 0.5 MG/2.5 ML SOLUTION INHALATION ×2 (20:05→23:30)
[2024-11-02] MEDS: Acetaminophen/Codeine #3 Tablet 1 TABLET PO (21:42)
[2024-11-02] MEDS: 0.9% Saline Lock 10 ML Syringe IV (21:48)
[2024-11-03] VITALS (19 sets, daily range): BP systolic 144–180; BP diastolic 69–99; PULSE 53–98; RESP 18–25; TEMP 36.4–36.8; O2SAT 90–95; BMI 31.8
[2024-11-03 04:06] LABS: Hematocrit 48.0 % (40-54); Hemoglobin 15.9 g/dL (13.0-16.5); Immature Granulocytes Count 0.030 X10^3/uL (0.0-0.0); Mean Corp Hgb Conc 33.1 g/dL (32-36); Mean Corpuscular Volume 90.7 fL (80-94); Mean Platelet Vol. 10.4 fl (6.2-12.0); NRBC Flagged by Analyzer 0 % (0-5); Platelet Count 171 K/mm3 (150-450); RBC Distribution Width CV 14.8 % (11.6-14.6); RBC Distribution Width SD 49.1 fl (35.1-43.9); Red Blood Count 5.29 M/mm3 (4.6-6.2); White Blood Count 9.3 K/mm3 (4.4-11.0)
--- NOTE | 2024-11-03 04:20 | RAD_ITS ---
PROCEDURE: CHEST 1 VIEW (PORTABLE) 11/03/2024 REASON FOR EXAM: HEMOPTYSIS WITH LUNG CA, AE COPD AND RUL PNA. TECHNIQUE: Frontal view of the chest. COMPARISON: CT 11/01/2024 FINDINGS: Lordotic position. Normal heart size. Emphysema and smoking-related interstitial lung disease. Chronic bilateral rotator cuff tears. Left suprahilar opacity probably representing postradiation scar/atelectasis. Small left basilar opacity, atelectasis/consolidation. The right lung is well inflated and clear. RAD/Chest 1 View (Portable) IMPRESSION: Small left base airspace disease. Attention on follow up imaging. Reading Location: [facility]
[2024-11-03 04:37] LABS: AST(SGOT) 18 U/L (<=37); Alanine Aminotransfer ALT/SGPT 16 U/L (<=46); Albumin, Serum 3.7 g/dL (3.4-4.8); Alkaline Phosphatase 65 U/L (40-129); Anion Gap 10 (5-15); BUN 16 mg/dL (4-19); BUN/Creat Ratio 22.3 RATIO (10-20); Calcium,Total 8.8 mg/dL (7.6-11.0); Carbon Dioxide 26.3 mmol/L (21.0-32.0); Chloride 103 mmol/L (98-108); Cholesterol 206 mg/dL (<=200); Estimated Creatinine Clearance 94.92 ml/min (50-250); Globulin 2.9 g/dL (2.2-4.2); Glucose 149 mg/dL (70-99); Low Density Lipoprotein Calc. 130 mg/dL; Potassium 4.3 mmol/L (3.3-5.1); Triglycerides 162 mg/dL; Very Low Density Lipoprotein 32 mg/dL (5-40); cholesterol:hdl ratio screen 4.70
[2024-11-03] MEDS: Acetaminophen/Codeine #3 Tablet 1 TABLET PO ×3 (05:47→22:18)
[2024-11-03] MEDS: Ipratropium 0.5 MG/2.5 ML SOLUTION INHALATION ×3 (07:07→19:35)
--- NOTE | 2024-11-03 07:08 | PCM.PN.HOSP ---
Reason for Visit Chief Complaint: Worsening Hemoptysis and Shortness of Breath. Subjective Subjective coughed up a goober of blood once. Objective Data Objective Data Vital Signs: Vital Signs Temp Pulse Resp BP Pulse Ox O2 Del Method O2 Flow Rate 36.6 C 89 24 H 172/89 H 93 Nasal Cannula 3 11/03/24 06:00 11/03/24 07:00 11/03/24 07:00 11/03/24 07:00 11/03/24 07:00 11/03/24 07:00 11/03/24 07:00 FiO2 13 11/03/24 05:00 Oxygen Flow Rate (L/min) 3 Oxygen Delivery Method Nasal Cannula Weight: 95.3 kg Body Mass Index (BMI) 31.8 Intake & Output: Intake and Output for Last 24 Hours 11/01/24 11/02/24 11/03/24 23:59 23:59 23:59 Intake Total 110 / 110 1260 / 1260 1000 / 1000 Output Total 850 / 850 500 / 500 Balance 110 / 110 410 / 410 500 / 500 Lab / Micro Data 11/03/24 04:00 11/03/24 04:00 Labs: Laboratory Results - last 24 hr 11/02/24 06:27: Urine Color Yellow, Urine Clarity Clear, Urine pH 7.0, Ur Specific [place] 1.010, Urine Protein 100 H, Urine Glucose (UA) Normal, Urine Ketones Negative, Urine Occult Blood Negative, Urine Nitrite Negative, Urine Bilirubin Negative, Urine Urobilinogen Normal, Ur Leukocyte Esterase Negative, Urine RBC 0 SEEN, Urine WBC 0 SEEN, Ur Squamous Epith Cells 0 SEEN, Urine Bacteria 0 SEEN, Urine Mucus 0 SEEN 11/03/24 04:00: WBC 9.3, RBC 5.29, Hgb 15.9, Hct 48.0, MCV 90.7, MCH 30.1, MCHC 33.1, RDW Std Deviation 49.1 H, RDW Coeff of Theron 14.8 H, Plt Count 171, MPV 10.4, Immature Gran % (Auto) 0.300, Neut % (Auto) 83.4 H, Lymph % (Auto) 15.4 L, [place] % (Auto) 0.8, Eos % (Auto) 0.0, Baso % (Auto) 0.1, Absolute Neuts (auto) 7.8 H, Absolute Lymphs (auto) 1.43, Nucleated RBC % 0, Sodium 139, Potassium 4.3, Chloride 103, Carbon Dioxide 26.3, Anion Gap 10, BUN 16, Creatinine 0.71, Estim Creat Clear Calc 94.92, Est GFR (MDRD) Non-Af 98, BUN/Creatinine Ratio 22.3 H, Glucose 149 H, Calcium 8.8, Phosphorus 2.8, Total Bilirubin 0.38, AST 18, ALT 16, Alkaline Phosphatase 65, Total Protein 6.5, Albumin 3.7, Globulin 2.9, Albumin/Globulin Ratio 1.3, Triglycerides 162, Cholesterol 206 H, LDL Cholesterol, Calc 130, VLDL Cholesterol 32, HDL Cholesterol 44, Cholesterol/HDL Ratio 4.70 Micro: Microbiology 11/02/24 09:21 Mucosa - Nasopharyngeal Respiratory Panel (PCR) - Final 11/02/24 09:21 Nasal Secretion MRSA (PCR) - Final 11/02/24 06:27 Urine, Clean Catch Legionella Antigen - Final 11/02/24 06:27 Urine, Clean Catch Streptococcus pneumoniae Antigen (M - Final Radiography Diagnostic Testing: Radiology Impression Chest X-Ray 11/03/24 04:20 IMPRESSION: Small left base airspace disease. Attention on follow up imaging. Reading Location: [place] [id number] Physical Exam Const alert and no apparent distress HEENT head/scalp atraumatic and moist oral mucous membranes Resp normal respiratory effort and no retractions Resp Narrative: bibasilar crackles. Cardio regular rate and regular rhythm GI normal to inspection, nondistended, normoactive bowel sounds, soft to palpation, non-tender and non-distended Neuro Sensorium / Orientation: awake and alert Assessment & Plan Assessment/Plan (1) Major hemoptysis: PLAN: Discussed with Dr. Gimenez. States that he saw right-sided blood but no endobronchial lesions that were causing the blood. He recommended transfer to tertiary facility to be evaluated by cardiothoracic surgery to see if there would be anything amenable from that perspective. He reached out to [facility] and the patient has been accepted there and awaiting on bed availability. Currently the patient is currently stable at this time. Discussed with family that we would observe him before we let him eat pink if he has any more hemoptysis episodes. Patient does have a history of lung cancer that was treated with radiation about 5 years ago and that is apparently in remission and that was left-sided. Hemoglobin stable. PLAN: Plan Chronic conditions Hypertension: Continue with metoprolol and diltiazem. Add as needed hydralazine. Hyperlipidemia A-fib: Continue with metoprolol tartrate and diltiazem. Not on anticoagulation. Depression: Continue sertraline VTE prophylaxis: SCDs. Charges/Coding Visit Charges Inpatient E&M: 57857 Subs Hosp L2
--- NOTE | 2024-11-03 11:53 | CHAPLAIN ---
Type of Pastoral Visit _x__ Initial Visit ___ Follow-up Visit ___ On-call Visit ___ General Patient Visit ___ Spiritual Assessment ___ Family Conference ___ Bereavement ___ Rapid Response ___ Code Blue ___ Other (describe below) Pastoral Care Referral From _x__ Patient ___ Family ___ Nurse ___ Physician ___ Materials Handling Coordinator ___ Nuclear Technologist ___ Other (describe below) Sacrament/Intervention _x__ Active listening ___ Anointing ___ Adventist ___ Bereavement ___ Communion _x__ Marielos exploration ___ _x__ Life review _x__ Prayer ___ Reconciliation ___ Sacrament of Sick ___ Supportive presence ___ Wedding ___ Other (describe below) Pastoral Comments patient and family members are in the room; each express their marielos in God and hope for answers; pt is waiting to be transferred to [place]; pt is talkative as is the spouse; presence, listening, and prayer given
[2024-11-04] VITALS (12 sets, daily range): BP systolic 142–182; BP diastolic 77–90; PULSE 58–98; RESP 16–20; TEMP 36.1–36.8; O2SAT 93–98; BMI 31.8
[2024-11-04] MEDS: 0.9% Saline Lock 10 ML Syringe IV ×4 (01:05→18:47)
[2024-11-04] MEDS: Acetaminophen/Codeine #3 Tablet 1 TABLET PO ×3 (06:16→21:16)
[2024-11-04 06:47] LABS: Hematocrit 50.0 % (40-54); Hemoglobin 16.8 g/dL (13.0-16.5); Immature Granulocytes Count 0.050 X10^3/uL (0.0-0.0); Mean Corp Hgb Conc 33.6 g/dL (32-36); Mean Corpuscular Volume 89.9 fL (80-94); Mean Platelet Vol. 10.6 fl (6.2-12.0); NRBC Flagged by Analyzer 0 % (0-5); Platelet Count 173 K/mm3 (150-450); RBC Distribution Width CV 14.8 % (11.6-14.6); RBC Distribution Width SD 48.7 fl (35.1-43.9); Red Blood Count 5.56 M/mm3 (4.6-6.2); White Blood Count 14.6 K/mm3 (4.4-11.0)
--- NOTE | 2024-11-04 07:00 | PCM.PN.HOSP ---
Reason for Visit Chief Complaint: Worsening Hemoptysis and Shortness of Breath. Subjective Subjective Patient with no acute events overnight per self and per nursing report. He notes that his coughing has significantly lessened and he is had no recurrent hemoptysis. He notes the last episode he had was the day prior and it was more blood-tinged than anything. He notes he is less dyspneic and breathing with greater ease. Discussed plan of care which included continued plan for transition to [facility] once bed available to which he understands. Patient denies fevers, chills, nausea, emesis, abdominal pain, chest pain. Objective Data Objective Data Vital Signs: Vital Signs Temp Pulse Resp BP Pulse Ox O2 Del Method O2 Flow Rate 98.2 F 84 16 142/81 H 98 CPAP 3 11/04/24 09:58 11/04/24 10:05 11/04/24 09:58 11/04/24 09:58 11/04/24 09:58 11/04/24 09:58 11/04/24 09:58 FiO2 13 11/03/24 05:00 Oxygen Flow Rate (L/min) 3 Oxygen Delivery Method CPAP Weight: 210 lb 5.136 oz Body Mass Index (BMI) 31.8 Intake & Output: Intake and Output for Last 24 Hours 11/02/24 11/03/24 11/04/24 23:59 23:59 23:59 Intake Total 1260 / 1260 2120 / 2120 Output Total 850 / 850 2200 / 2200 550 / 550 Balance 410 / 410 -80 / -80 -550 / -550 Lab / Micro Data 11/04/24 05:52 11/03/24 04:00 Labs: Laboratory Results - last 24 hr 11/04/24 05:52: WBC 14.6 H, RBC 5.56, Hgb 16.8 H, Hct 50.0, MCV 89.9, MCH 30.2, MCHC 33.6, RDW Std Deviation 48.7 H, RDW Coeff of Theron 14.8 H, Plt Count 173, MPV 10.6, Immature Gran % (Auto) 0.300, Neut % (Auto) 88.8 H, Lymph % (Auto) 9.4 L, [place] % (Auto) 1.4, Eos % (Auto) 0.0, Baso % (Auto) 0.1, Absolute Neuts (auto) 13.0 H, Absolute Lymphs (auto) 1.37, Nucleated RBC % 0 Micro: Microbiology 11/02/24 09:50 Sputum, Expectorated/Coughed Gram Stain - Final 11/02/24 09:50 Sputum, Expectorated/Coughed Respiratory Culture - Final 11/02/24 09:21 Mucosa - Nasopharyngeal Respiratory Panel (PCR) - Final 11/02/24 09:21 Nasal Secretion MRSA (PCR) - Final 11/02/24 06:27 Urine, Clean Catch Legionella Antigen - Final 11/02/24 06:27 Urine, Clean Catch Streptococcus pneumoniae Antigen (M - Final Radiography Diagnostic Testing: Radiology Impression Carotid Duplex 11/02/24 00:05 Interpretation Summary Mild (<50%) stenosis right extracranial internal carotid. Normal left extracranial internal carotid. Patent and antegrade vertebrals bilaterally. Ordering Physician: Nils Ruffin Performed By: Marielos Conroy RVT Physical Exam Narrative Physical Examination: General: Awake, alert, oriented x 3 and cooperative, seated upright in the PCU bed, fatigued but no acute distress, denies any recurrent significant hemoptysis. Skin: Normal color, normal turgor, no icterus, no cyanosis except occasional stage ecchymoses, abrasion. HEENT: AT/NC, EOMI, PERRLA, MMM. Lungs: Diminished, greater bases, no evidence of any respiratory distress, notes breathing easier, no significantly appreciated rales, ronchi or wheezing. Heart: Regular rate and rhythm; no gallop, rub audible. Abdomen: Soft, obese, NTTP, ND, normal BS. Extremities: No cyanosis, clubbing, or edema. Neurological: Patient awake, alert, oriented as noted, cognitive function intact; pupils equally reactive to light and accommodation, cranial nerves grossly normal, moving all 4 extremities, no focal deficits, strength mildly moderately globally increased. Psychiatric: Affect appears fatigued otherwise normal, no acute evidence of depressive or anxiety feelings but does have underlying history. Assessment & Plan Assessment/Plan (1) Major hemoptysis: PLAN: Plan The patient is a 69 y/o M w/ PMHx: Obesity, HTN, HLD, History Lung CA (unclear type, unclear location) status post previous radiation considered remission, Carotid disease, COPD, PAF, Anxiety and Depression, Tobacco use, GERD, BINDU who presents to the [facility] ED on 11/01/2024 with history of significant worsening hemoptysis as well as dyspnea with recent plan for outpatient bronchoscopy however given worsening symptoms prompted ED evaluation. #1. Acute dyspnea with hemoptysis with concern for possible right upper lobe pneumonia (RULED OUT with negative sputum Cx) in addition to acute COPD exacerbation with bronchoscopy notable for right lung apical segment bleeding lesion of unclear significance complicated #2: Admitted to PCU, maintained on monitor, maintain on IV Solu-Medrol as well as DuoNeb therapy and as needed albuterol, initially started on IV Zosyn for concern for pneumonia however eventually de-escalated off given normal yaquelin respiratory culture 11/02/2024, urine antigens negative, MRSA screen negative, full respiratory viral panel negative, maintain on oxygen with wean as tolerated, encourage out of bed, I-S, maintain on IV PPI while on steroid therapy. 11/02/2024 bronchoscopy with left upper lobe nodule, right upper lobe nodule, evidence of hemoptysis specifically in the right lung at the apical segment with no obstruction of the airway however the lesion immediately began to rebleed with clot removal. Given complicated history with previous lung cancer and concern for possible recurrence Dr. Gimenez pulmonary medicine following bronchoscopy recommended transfer to [facility] facility with exception of patient per pulmonary medicine service. 11/04/2024 patient awaiting bed assignment at tertiary facility. #2. History of lung cancer, unclear exact location and interventions: Patient with history of lung cancer approximately 5 years previous, treated with radiation but unclear specific other interventions, noted to be left-sided at that time, currently had been considered in remission, concerning given #1. #3. Chronic COPD: Will maintain on oxygen with wean as tolerated to room air/home oxygen supplementation, continue ATC duonebs, PRN albuterol, HOB, IS parameters. #4. PAF: Noted to be in sinus rhythm, not chronically anticoagulated. #5. Carotid stenosis: Noted history of occlusion/stenosis bilateral carotid arteries, 11/03/24 carotid ultrasound with mild less than 50% stenosis of the right extracranial internal carotid artery, normal left extracranial internal carotid, patent antegrade vertebrals bilaterally. Given #1 not on any antiplatelet therapy, continue statin, hypertensive regimen as noted. #6. Anxiety and depression: Will continue patient on sertraline regimen. #7. Hypertension: Continue home regimen including diltiazem, metoprolol, PRN hydralazine. #8. Hyperlipidemia: Continue patient on statin therapy. #9. Obesity: Weight loss and lifestyle changes encouraged. #10. Tobacco Abuse: Encouraged cessation, inpatient consultation per RT, NR if desired. #11. BINDU: PAP therapy nightly. #12. GERD: Maintained on IV PPI. #13. DVT prophylaxis: SCDs. #14. Code status: Full Code. Charges/Coding Visit Charges Inpatient E&M: 98923 Subs Hosp L2
[2024-11-04] MEDS: Ipratropium 0.5 MG/2.5 ML SOLUTION INHALATION ×3 (07:09→19:29)
[2024-11-05] VITALS (14 sets, daily range): BP systolic 153–184; BP diastolic 70–92; PULSE 50–68; RESP 16–20; TEMP 36.2–36.7; O2SAT 91–98; BMI 32.3
[2024-11-05] MEDS: Acetaminophen/Codeine #3 Tablet 1 TABLET PO ×3 (04:22→20:55)
[2024-11-05 07:00] LABS: Hematocrit 49.5 % (40-54); Hemoglobin 16.3 g/dL (13.0-16.5); Immature Granulocytes Count 0.040 X10^3/uL (0.0-0.0); Mean Corp Hgb Conc 32.9 g/dL (32-36); Mean Corpuscular Volume 91.8 fL (80-94); Mean Platelet Vol. 10.6 fl (6.2-12.0); NRBC Flagged by Analyzer 0 % (0-5); Platelet Count 167 K/mm3 (150-450); RBC Distribution Width CV 15.1 % (11.6-14.6); RBC Distribution Width SD 50.4 fl (35.1-43.9); Red Blood Count 5.39 M/mm3 (4.6-6.2); White Blood Count 13.2 K/mm3 (4.4-11.0)
[2024-11-05] MEDS: Ipratropium 0.5 MG/2.5 ML SOLUTION INHALATION ×3 (07:09→19:53)
[2024-11-05 07:35] LABS: AST(SGOT) 19 U/L (<=37); Alanine Aminotransfer ALT/SGPT 25 U/L (<=46); Albumin, Serum 3.9 g/dL (3.4-4.8); Alkaline Phosphatase 61 U/L (40-129); Anion Gap 11 (5-15); BUN 24 mg/dL (4-19); BUN/Creat Ratio 32.1 RATIO (10-20); Calcium,Total 9.0 mg/dL (7.6-11.0); Carbon Dioxide 27.5 mmol/L (21.0-32.0); Chloride 99 mmol/L (98-108); Estimated Creatinine Clearance 95.50 ml/min (50-250); Globulin 2.4 g/dL (2.2-4.2); Glucose 187 mg/dL (70-99); Potassium 4.2 mmol/L (3.3-5.1)
--- NOTE | 2024-11-05 08:19 | PN.HOSP_ITS ---
Reason for Visit Chief Complaint: Worsening Hemoptysis and Shortness of Breath. Subjective Subjective Patient with no acute events overnight per self and per nursing report. He notes still feeling less shortness of breath and has had no recurrent hemoptysis. Discussed plan of care which included still awaiting tertiary facility bed to which she is amenable. Overnight patient's reported that he did have imaging potentially recently Edg[facility] Lin rain and there was some concern for renal artery stenosis with records requested and awaiting these. Patient denies fevers, chills, nausea, emesis, abdominal pain, chest pain. Objective Data Objective Data Vital Signs: Vital Signs Temp Pulse Resp BP Pulse Ox O2 Del Method O2 Flow Rate 97.3 F L 59 L 18 168/84 H 91 Room Air 3 11/05/24 04:00 11/05/24 07:09 11/05/24 07:09 11/05/24 04:00 11/05/24 07:09 11/05/24 07:09 11/04/24 19:30 FiO2 13 11/03/24 05:00 Oxygen Flow Rate (L/min) 3 Oxygen Delivery Method Room Air Weight: 213 lb 2.992 oz Body Mass Index (BMI) 32.3 Intake & Output: Intake and Output for Last 24 Hours 11/03/24 11/04/24 11/05/24 23:59 23:59 23:59 Intake Total 2120 / 2120 800 / 800 Output Total 2200 / 2200 1550 / 2850 1825 / 1825 Balance -80 / -80 -1550 / -2050 -1025 / -1025 Lab / Micro Data 11/05/24 06:12 11/05/24 06:12 Labs: Laboratory Results - last 24 hr 11/05/24 06:12: WBC 13.2 H, RBC 5.39, Hgb 16.3, Hct 49.5, MCV 91.8, MCH 30.2, MCHC 32.9, RDW Std Deviation 50.4 H, RDW Coeff of Theron 15.1 H, Plt Count 167, MPV 10.6, Immature Gran % (Auto) 0.300, Neut % (Auto) 91.0 H, Lymph % (Auto) 7.2 L, [place] % (Auto) 1.4, Eos % (Auto) 0.0, Baso % (Auto) 0.1, Absolute Neuts (auto) 12.0 H, Absolute Lymphs (auto) 0.95, Nucleated RBC % 0, Sodium 138, Potassium 4.2, Chloride 99, Carbon Dioxide 27.5, Anion Gap 11, BUN 24 H, Creatinine 0.75, Estim Creat Clear Calc 95.50, Est GFR (MDRD) Non-Af 97, BUN/Creatinine Ratio 32.1 H, Glucose 187 H, Calcium 9.0, Total Bilirubin 0.39, AST 19, ALT 25, Alkaline Phosphatase 61, Total Protein 6.3, Albumin 3.9, Globulin 2.4, Albumin/Globulin Ratio 1.7 Micro: Microbiology 11/02/24 09:50 Sputum, Expectorated/Coughed Gram Stain - Final 11/02/24 09:50 Sputum, Expectorated/Coughed Respiratory Culture - Final 11/02/24 09:21 Mucosa - Nasopharyngeal Respiratory Panel (PCR) - Final 11/02/24 09:21 Nasal Secretion MRSA (PCR) - Final 11/02/24 06:27 Urine, Clean Catch Legionella Antigen - Final 11/02/24 06:27 Urine, Clean Catch Streptococcus pneumoniae Antigen (M - Final Physical Exam Narrative Physical Examination: General: Awake, alert, oriented x 3 and cooperative, laying in the PCU bed, fatigued but no acute distress. Skin: Normal color, normal turgor, no icterus, no cyanosis except occasional stage ecchymoses, abrasion. HEENT: AT/NC, EOMI, PERRLA, MMM. Lungs: Diminished, greater bases, no evidence of any respiratory distress, notes breathing easier, no significantly appreciated rales, ronchi or wheezing. Heart: Regular rate and rhythm; no gallop, rub audible. Abdomen: Soft, obese, NTTP, ND, normal BS. Extremities: No cyanosis, clubbing, or edema. Neurological: Patient awake, alert, oriented as noted, cognitive function intact; pupils equally reactive to light and accommodation, cranial nerves grossly normal, moving all 4 extremities, no focal deficits, strength improved mildly to moderately globally increased. Psychiatric: Affect appears fatigued otherwise normal, no acute evidence of depressive or anxiety feelings but does have underlying history. Assessment & Plan Assessment/Plan (1) Major hemoptysis: PLAN: Plan The patient is a 69 y/o M w/ PMHx: ? Renal artery aneurysm, Obesity, HTN, HLD, History Lung CA (unclear type, unclear location) status post previous radiation considered remission, Carotid disease, COPD, PAF, Anxiety and Depression, Tobacco use, GERD, BINDU who presents to the [facility] ED on 11/01/2024 with history of significant worsening hemoptysis as well as dyspnea with recent plan for outpatient bronchoscopy however given worsening symptoms prompted ED evaluation. #1. Acute dyspnea with hemoptysis with concern for possible right upper lobe pneumonia (RULED OUT with negative sputum Cx) in addition to acute COPD exacerbation with bronchoscopy notable for right lung apical segment bleeding lesion of unclear significance complicated #2: Admitted to PCU, maintained on monitor, maintain on IV Solu-Medrol as well as DuoNeb therapy and as needed albuterol, initially started on IV Zosyn for concern for pneumonia however eventually de-escalated off given normal yaquelin respiratory culture 11/02/2024, urine antigens negative, MRSA screen negative, full respiratory viral panel negative, maintain on oxygen with wean as tolerated, encourage out of bed, I-S, maintain on IV PPI while on steroid therapy. 11/02/2024 bronchoscopy with left upper lobe nodule, right upper lobe nodule, evidence of hemoptysis specifically in the right lung at the apical segment with no obstruction of the airway however the lesion immediately began to rebleed with clot removal. Given complicated history with previous lung cancer and concern for possible recurrence Dr. Gimenez pulmonary medicine following bronchoscopy recommended transfer to [facility] tertiary facility with exception of patient per pulmonary medicine service. Continued on tranexamic acid, avoidance of aggressive aerosols to avoid dilation. 11/04/2024 improvement of hemoptysis complaints. 11/05/2024 hemoglobin 16.3. 11/05/24 continue to await tertiary facility bed assignment. #2. History of lung cancer, unclear exact location and interventions: Patient with history of lung cancer approximately 5 years previous, treated with radiation but unclear specific other interventions, noted to be left-sided at that time, currently had been considered in remission, concerning given #1. #3. Chronic COPD: Will maintain on oxygen with wean as tolerated to room air, continue ATC duonebs, PRN albuterol, HOB, IS parameters. #4. PAF: Noted to be in sinus rhythm, not chronically anticoagulated. #5. Carotid stenosis: Noted history of occlusion/stenosis bilateral carotid arteries, 11/03/24 carotid ultrasound with mild less than 50% stenosis of the right extracranial internal carotid artery, normal left extracranial internal carotid, patent antegrade vertebrals bilaterally. Given #1 not on any antiplatelet therapy, continue statin, hypertensive regimen as noted. #6. Anxiety and depression: Will continue patient on sertraline regimen. #7. Hypertension: Continue home regimen including diltiazem, metoprolol, PRN hydralazine. #8. Hyperlipidemia: Continue patient on statin therapy. #9. Obesity: Weight loss and lifestyle changes encouraged. #10. Tobacco Abuse: Encouraged cessation, inpatient consultation per RT, NR if desired. #11. 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 #12. BINDU: PAP therapy nightly. #13. GERD: Maintained on PPI. #14. DVT prophylaxis: SCDs. #15. Code status: Full Code. Charges/Coding Visit Charges Inpatient E&M: 53680 Subs Hosp L2
[2024-11-05] MEDS: Psyllium 1 PACKET PO (14:51)
[2024-11-05] MEDS: Polyethylene Glycol 3350 17 GM PACKET PO (14:51)
--- NOTE | 2024-11-06 01:09 | NURSING ---
Per request of [facility] transfer center; pt facesheet was faxed and requested radiology push images to [facility]. Transfer center agent states she will not have a service of a bed tonight, but they will work on it in the AM.
[2024-11-06 02:00] VITALS: BP 134/84; PULSE 58; RESP 16; TEMP 36.6; O2SAT 94
[2024-11-06 06:00] VITALS: BMI 31.9
[2024-11-06 06:23] LABS: Hematocrit 49.6 % (40-54); Hemoglobin 16.2 g/dL (13.0-16.5); Immature Granulocytes Count 0.070 X10^3/uL (0.0-0.0); Mean Corp Hgb Conc 32.7 g/dL (32-36); Mean Corpuscular Volume 92.0 fL (80-94); Mean Platelet Vol. 10.2 fl (6.2-12.0); NRBC Flagged by Analyzer 0 % (0-5); Platelet Count 152 K/mm3 (150-450); RBC Distribution Width CV 15.1 % (11.6-14.6); RBC Distribution Width SD 50.9 fl (35.1-43.9); Red Blood Count 5.39 M/mm3 (4.6-6.2); White Blood Count 11.6 K/mm3 (4.4-11.0)
--- NOTE | 2024-11-06 06:52 | PCM.PN.HOSP ---
Reason for Visit Chief Complaint: Worsening Hemoptysis and Shortness of Breath. Subjective Subjective Patient with no acute events overnight per self and per nursing report. Given prolonged timeline of transfer to [facility] during the evening [facility] was also contacted and did not have any bed availability in addition to the fact that I do not take the patient's insurance. He denies any recurrent hemoptysis. He does note some mild coughing but not marked. Patient took shower the day prior and was up in the halls without issue with improved mood. Patient denies fevers, chills, nausea, emesis, abdominal pain, chest pain or dyspnea. Objective Data Objective Data Vital Signs: Vital Signs Temp Pulse Resp BP Pulse Ox O2 Del Method O2 Flow Rate 97.9 F 58 L 16 134/84 H 94 CPAP 3 11/06/24 02:00 11/06/24 02:00 11/06/24 02:00 11/06/24 02:00 11/06/24 02:00 11/06/24 03:09 11/06/24 03:09 FiO2 13 11/03/24 05:00 Oxygen Flow Rate (L/min) 3 Oxygen Delivery Method CPAP Weight: 213 lb 2.992 oz Body Mass Index (BMI) 32.3 Intake & Output: Intake and Output for Last 24 Hours 11/04/24 11/05/24 11/06/24 23:59 23:59 23:59 Intake Total 1200 / 1600 400 / 400 Output Total 1550 / 2850 2275 / 2675 400 / 400 Balance -1550 / -2050 -1075 / -1075 0 / 0 Lab / Micro Data 11/06/24 05:49 11/06/24 05:49 Labs: Laboratory Results - last 24 hr 11/05/24 06:12: WBC 13.2 H, RBC 5.39, Hgb 16.3, Hct 49.5, MCV 91.8, MCH 30.2, MCHC 32.9, RDW Std Deviation 50.4 H, RDW Coeff of Theron 15.1 H, Plt Count 167, MPV 10.6, Immature Gran % (Auto) 0.300, Neut % (Auto) 91.0 H, Lymph % (Auto) 7.2 L, [place] % (Auto) 1.4, Eos % (Auto) 0.0, Baso % (Auto) 0.1, Absolute Neuts (auto) 12.0 H, Absolute Lymphs (auto) 0.95, Nucleated RBC % 0, Sodium 138, Potassium 4.2, Chloride 99, Carbon Dioxide 27.5, Anion Gap 11, BUN 24 H, Creatinine 0.75, Estim Creat Clear Calc 95.50, Est GFR (MDRD) Non-Af 97, BUN/Creatinine Ratio 32.1 H, Glucose 187 H, Calcium 9.0, Total Bilirubin 0.39, AST 19, ALT 25, Alkaline Phosphatase 61, Total Protein 6.3, Albumin 3.9, Globulin 2.4, Albumin/Globulin Ratio 1.7 11/06/24 05:49: WBC 11.6 H, RBC 5.39, Hgb 16.2, Hct 49.6, MCV 92.0, MCH 30.1, MCHC 32.7, RDW Std Deviation 50.9 H, RDW Coeff of Theron 15.1 H, Plt Count 152, MPV 10.2, Immature Gran % (Auto) 0.600, Neut % (Auto) 87.1 H, Lymph % (Auto) 9.7 L, [place] % (Auto) 2.5, Eos % (Auto) 0.0, Baso % (Auto) 0.1, Absolute Neuts (auto) 10.1 H, Absolute Lymphs (auto) 1.13, Nucleated RBC % 0 Micro: Microbiology 11/02/24 09:50 Sputum, Expectorated/Coughed Gram Stain - Final 11/02/24 09:50 Sputum, Expectorated/Coughed Respiratory Culture - Final 11/02/24 09:21 Mucosa - Nasopharyngeal Respiratory Panel (PCR) - Final 11/02/24 09:21 Nasal Secretion MRSA (PCR) - Final 11/02/24 06:27 Urine, Clean Catch Legionella Antigen - Final 11/02/24 06:27 Urine, Clean Catch Streptococcus pneumoniae Antigen (M - Final Physical Exam Narrative Physical Examination: General: Awake, alert, oriented x 3 and cooperative, seated upright in the PCU bed, no acute distress, eager to get up and move again. Skin: Normal color, normal turgor, no icterus, no cyanosis except occasional stage ecchymoses, abrasion. HEENT: AT/NC, EOMI, PERRLA, MMM. Lungs: Diminished, greater bases, no evidence of any respiratory distress, occasional expiratory wheezing but no marked, no rales, ronchi or wheezing. Heart: Regular rate and rhythm; no gallop, rub audible. Abdomen: Soft, obese, NTTP, ND, normal BS. Extremities: No cyanosis, clubbing, or edema. Neurological: Patient awake, alert, oriented as noted, cognitive function intact; pupils equally reactive to light and accommodation, cranial nerves grossly normal, moving all 4 extremities, no focal deficits, strength improved mildly to moderately globally increased. Psychiatric: Affect appears normal, no acute evidence of depressive or anxiety feelings but does have underlying history. Assessment & Plan Assessment/Plan (1) Major hemoptysis: PLAN: Plan The patient is a 69 y/o M w/ PMHx: ? Renal artery aneurysm, Obesity, HTN, HLD, History Lung CA (unclear type, unclear location) status post previous radiation considered remission, Carotid disease, COPD, PAF, Anxiety and Depression, Tobacco use, GERD, BINDU who presents to the [facility] ED on 11/01/2024 with history of significant worsening hemoptysis as well as dyspnea with recent plan for outpatient bronchoscopy however given worsening symptoms prompted ED evaluation. #1. Acute dyspnea with hemoptysis with concern for possible right upper lobe pneumonia (RULED OUT with negative sputum Cx) in addition to acute COPD exacerbation with bronchoscopy notable for right lung apical segment bleeding lesion of unclear significance complicated #2: Admitted to PCU, maintained on monitor, maintain on IV Solu-Medrol as well as DuoNeb therapy and as needed albuterol, initially started on IV Zosyn for concern for pneumonia however eventually de-escalated off given normal yaquelin respiratory culture 11/02/2024, urine antigens negative, MRSA screen negative, full respiratory viral panel negative, maintain on oxygen with wean as tolerated, encourage out of bed, I-S, maintain on IV PPI while on steroid therapy. 11/02/2024 bronchoscopy with left upper lobe nodule, right upper lobe nodule, evidence of hemoptysis specifically in the right lung at the apical segment with no obstruction of the airway however the lesion immediately began to rebleed with clot removal. Given complicated history with previous lung cancer and concern for possible recurrence Dr. Gimenez pulmonary medicine following bronchoscopy recommended transfer to [facility] facility with exception of patient per pulmonary medicine service. Continued on tranexamic acid, avoidance of aggressive aerosols to avoid dilation. 11/04/2024 improvement of hemoptysis complaints. 11/05/24 attempt for consideration [facility] but also no bed availability and did not take the patient's insurance. 11/06/24 [facility] noting possibly bed later today. 11/06/24 Hemoglobin 16.2. #2. History of lung cancer, unclear exact location and interventions: Patient with history of lung cancer approximately 5 years previous, treated with radiation but unclear specific other interventions, noted to be left-sided at that time, currently had been considered in remission, concerning given #1. #3. Chronic COPD: Will maintain on oxygen with wean as tolerated to room air, continue ATC duonebs, PRN albuterol, HOB, IS parameters. #4. PAF: Noted to be in sinus rhythm, not chronically anticoagulated. #5. Carotid stenosis: Noted history of occlusion/stenosis bilateral carotid arteries, 11/03/24 carotid ultrasound with mild less than 50% stenosis of the right extracranial internal carotid artery, normal left extracranial internal carotid, patent antegrade vertebrals bilaterally. Given #1 not on any antiplatelet therapy, continue statin, hypertensive regimen as noted. #6. Anxiety and depression: Will continue patient on sertraline regimen. #7. Hypertension: Continue home regimen including diltiazem, metoprolol, PRN hydralazine. #8. Hyperlipidemia: Continue patient on statin therapy. #9. Obesity: Weight loss and lifestyle changes encouraged. #10. Tobacco Abuse: Encouraged cessation, inpatient consultation per RT, NR if desired. #11. 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 #12. BINDU: PAP therapy nightly. #13. GERD: Maintained on PPI. #14. DVT prophylaxis: SCDs. #15. Code status: Full Code. Charges/Coding Visit Charges Inpatient E&M: 80573 Subs Hosp L2
[2024-11-06 07:08] LABS: AST(SGOT) 35 U/L (<=37); Alanine Aminotransfer ALT/SGPT 60 U/L (<=46); Albumin, Serum 3.7 g/dL (3.4-4.8); Alkaline Phosphatase 56 U/L (40-129); Anion Gap 10 (5-15); BUN 21 mg/dL (4-19); BUN/Creat Ratio 29.9 RATIO (10-20); Calcium,Total 8.7 mg/dL (7.6-11.0); Carbon Dioxide 29.0 mmol/L (21.0-32.0); Chloride 101 mmol/L (98-108); Estimated Creatinine Clearance 95.50 ml/min (50-250); Globulin 2.2 g/dL (2.2-4.2); Glucose 118 mg/dL (70-99); Potassium 4.3 mmol/L (3.3-5.1)
[2024-11-06] MEDS: Ipratropium 0.5 MG/2.5 ML SOLUTION INHALATION ×2 (07:43→13:31)
[2024-11-06 07:44] VITALS: PULSE 60; RESP 18; O2SAT 94
[2024-11-06 10:23] VITALS: PULSE 61
[2024-11-06 10:27] VITALS: BP 158/81; PULSE 61; RESP 18; TEMP 37.1; O2SAT 90
[2024-11-06 13:32] VITALS: PULSE 59; RESP 18
--- NOTE | 2024-11-06 13:43 | DS.PCM_ITS ---
Providers Date of Admission: 11/01/24 Date of Discharge: 11/06/24 Primary Care Physician: Dr. Radha Chacon MD Consultations 11/02/24 08:08 Consult: Academic Advising Director / Pulmonary Medicine Routine Consulting Provider: Jatinder Gimenez V Reason for Consult: hemoptysis EMERGENT Consult: No MD Notified: Yes Date Notified: 11/02/24 Time Notified: 08:08 Method of Notification: ED Physician Initiated Reason For Visit: WORSENING HEMOPTYSIS W/ KNOWN LUNG CANCER Diagnosis Discharge Diagnosis (1) Major hemoptysis: Status: Acute Code(s): R04.2 - Hemoptysis Plan: DISCHARGE DIAGNOSES: #1. Acute dyspnea/Hypoxia with associated major hemoptysis with initial concern for possible right upper lobe pneumonia (RULED OUT with negative sputum Cx) in addition to acute COPD exacerbation with bronchoscopy notable for right lung apical segment bleeding lesion of unclear significance complicated #2 #2. History of lung cancer, unclear exact location and interventions #3. Chronic COPD #4. PAF #5. Carotid stenosis #6. Anxiety and depression #7. Hypertension #8. Hyperlipidemia #9. Obesity #10. Tobacco Abuse #11. 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 BINDU on PAP therapy qHS #13. GERD Medications at Discharge Home Medications acetaminophen 325 mg capsule (Tylenol) 325 mg PO ONCE PRN pain 07/22/19 diltiazem HCl 120 mg capsule,extended release 24 hr (Cartia XT) 120 mg PO DAILY 07/22/19 sertraline 50 mg tablet 100 mg PO DAILY mood 07/22/19 simvastatin 10 mg tablet 10 mg PO DAILY 07/22/19 albuterol sulfate 90 mcg/actuation aerosol inhaler 2 puff inhalation DAILY PRN PRN shortness of breath or wheezing 11/01/24 fluticasone fur. 100 mcg-umeclid 62.5 mcg-vilant 25 mcg inhalat.powder (Trelegy Ellipta) 1 ea inhalation DAILY 11/01/24 metoprolol tartrate 50 mg tablet 50 mg PO BID 11/01/24 aspirin 81 mg tablet,delayed release (Adult Low Dose Aspirin) 81 mg PO DAILY daily 11/06/24 fenofibrate nanocrystallized 145 mg tablet 145 mg PO DAILY unkown 11/06/24 finasteride 5 mg tablet 5 mg PO DAILY unknown 11/06/24 tamsulosin 0.4 mg capsule 0.4 mg PO QHS bph 11/06/24 Hospital Course Operations None Procedures Bronchoscopy and EKG Summary of Care Provided Minutes Spent on Discharge: 35 Hospital Course: The patient is a 69 y/o M w/ PMHx: ? Renal artery aneurysm, Obesity, HTN, HLD, History Lung CA (unclear type, unclear location) status post previous radiation considered remission, Carotid disease, COPD, PAF, Anxiety and Depression, Tobacco use, GERD, BINDU who presented to the [facility] ED on 11/01/2024 with history of significant worsening hemoptysis as well as dyspnea with recent plan for outpatient bronchoscopy however given worsening symptoms prompted ED evaluation. Admitted to PCU, maintained on monitor, maintain on IV Solu-Medrol as well as DuoNeb therapy and as needed albuterol, initially started on IV Zosyn for concern for pneumonia however eventually de-escalated off given normal yaquelin respiratory culture 11/02/2024, urine antigens negative, MRSA screen negative, full respiratory viral panel negative, maintain on oxygen with wean as tolerated, encourage out of bed, I-S, maintain on IV PPI while on steroid therapy. 11/02/2024 bronchoscopy with left upper lobe nodule, right upper lobe nodule, evidence of hemoptysis specifically in the right lung at the apical segment with no obstruction of the airway however the lesion immediately began to rebleed with clot removal. Given complicated history with previous lung cancer and concern for possible recurrence Dr. Gimenez pulmonary medicine following bronchoscopy recommended transfer to [facility] facility with acceptance via Pulmonary medicine service on 11/04/24. Continued on tranexamic acid, avoidance of aggressive aerosols to avoid dilation, cough syrup with codeine. 11/04/2024 improvement of hemoptysis complaints. 11/06/24 Hemoglobin 16.2. 11/06/24 [facility] bed finally obtained and patient transitioned in stable condition. Weight / BMI Weight Weight: 210 lb 12.191 oz Body Mass Index (BMI) 31.9 ABG / Lab / Microbiology Data 11/06/24 05:49 11/06/24 05:49 Laboratory: Laboratory Results - last 24 hr 11/06/24 05:49: WBC 11.6 H, RBC 5.39, Hgb 16.2, Hct 49.6, MCV 92.0, MCH 30.1, MCHC 32.7, RDW Std Deviation 50.9 H, RDW Coeff of Theron 15.1 H, Plt Count 152, MPV 10.2, Immature Gran % (Auto) 0.600, Neut % (Auto) 87.1 H, Lymph % (Auto) 9.7 L, [place] % (Auto) 2.5, Eos % (Auto) 0.0, Baso % (Auto) 0.1, Absolute Neuts (auto) 10.1 H, Absolute Lymphs (auto) 1.13, Nucleated RBC % 0, Sodium 140, Potassium 4.3, Chloride 101, Carbon Dioxide 29.0, Anion Gap 10, BUN 21 H, Creatinine 0.69 L, Estim Creat Clear Calc 95.50, Est GFR (MDRD) Non-Af 99, BUN/Creatinine Ratio 29.9 H, Glucose 118 H, Calcium 8.7, Total Bilirubin 0.30, AST 35, ALT 60 H, Alkaline Phosphatase 56, Total Protein 5.9, Albumin 3.7, Globulin 2.2, Albumin/Globulin Ratio 1.7 Microbiology: Microbiology 11/02/24 09:50 Sputum, Expectorated/Coughed Gram Stain - Final 11/02/24 09:50 Sputum, Expectorated/Coughed Respiratory Culture - Final 11/02/24 09:21 Mucosa - Nasopharyngeal Respiratory Panel (PCR) - Final 11/02/24 09:21 Nasal Secretion MRSA (PCR) - Final 11/02/24 06:27 Urine, Clean Catch Legionella Antigen - Final 11/02/24 06:27 Urine, Clean Catch Streptococcus pneumoniae Antigen (M - Final D/C Instructions DC O2, CPAP, BIPAP Needs Home O2 Discharge instructions: No Meaningful Use Info Meaningful Use Meaningful Use Diagnoses (Choose all that apply): None applicable Discharge Plan Admission Admit Date/Time: 11/01/24 23:51 Primary Reason for Your Visit: Hypoxia, COPD Exacerbation, R lung apical bleeding lesion w/ hemoptysis Attending Provider: Terri Dyer Primary Care Provider: Radha Chacon Consulting Providers: Nils Ruffin; Jatinder Gimenez V; Darinel Dickinson Discharge Orders/Prescriptions Prescriptions: No Action diltiazem HCl [Cartia XT] 120 mg capsule,extended release 24hr 120 mg PO DAILY sertraline 50 mg tablet 100 mg PO DAILY simvastatin 10 mg tablet 10 mg PO DAILY acetaminophen [Tylenol] 325 mg capsule 325 mg PO ONCE PRN (Reason: pain) albuterol sulfate 90 mcg/actuation HFA aerosol inhaler 2 puff inhalation DAILY PRN PRN (Reason: shortness of breath or wheezing) metoprolol tartrate 50 mg tablet 50 mg PO BID Trelegy Ellipta 100-62.5-25 mcg blister with device 1 ea INHALATION DAILY fenofibrate nanocrystallized 145 mg tablet 145 mg PO DAILY tamsulosin 0.4 mg capsule 0.4 mg PO QHS finasteride 5 mg tablet 5 mg PO DAILY aspirin [Adult Low Dose Aspirin] 81 mg tablet,delayed release (DR/EC) 81 mg PO DAILY Referrals / Follow Up: Radha Chacon MD [Primary Care Provider] - Disposition Disposition (needs filled in before D/C Order can be placed): Acute Care Hospital Charges/Coding Visit Charges Inpatient E&M: 72090 Disch Hosp >30min
[2024-11-06 14:31] VITALS: BP 155/81; PULSE 58; RESP 16; TEMP 36.8; O2SAT 90
== END 2024-11-06 15:03 | disposition short-term general hospital (02) | DRG 164 ==
LOC: ED 11-02 06:38 → ICU 11-02 06:42 → PCU 11-03 15:09
PROVIDERS: Internal Medicine Pulmonary Disease; Admitting Provider Internal Medicine; Emergency Provider Emergency Medicine; PCP Internal Medicine; Visit Provider Family Medicine
PROC: 0BJ08ZZ Inspection of Tracheobronchial Tree, Via Natural or Artificial Opening Endoscopic (ICD-10-PCS; CPT 31622; principal; 2024-11-02 12:45)
DX: R04.2 Hemoptysis (principal); J44.1 Chronic obstructive pulmonary disease with (acute) exacerbation; I72.2 Aneurysm of renal artery; F32.A Depression, unspecified; I10 Essential (primary) hypertension; I65.21 Occlusion and stenosis of right carotid artery; E66.811 Obesity, class 1; G47.33 Obstructive sleep apnea (adult) (pediatric); F17.210 Nicotine dependence, cigarettes, uncomplicated; E78.5 Hyperlipidemia, unspecified; M19.90 Unspecified osteoarthritis, unspecified site; M48.00 Spinal stenosis, site unspecified; K21.9 Gastro-esophageal reflux disease without esophagitis; F41.9 Anxiety disorder, unspecified; R91.1 Solitary pulmonary nodule; R09.02 Hypoxemia; Z79.51 Long term (current) use of inhaled steroids; Z68.33 Body mass index [BMI] 33.0-33.9, adult; Z87.19 Personal history of other diseases of the digestive system; Z85.118 Personal history of other malignant neoplasm of bronchus and lung; Z92.3 Personal history of irradiation; Z79.899 Other long term (current) drug therapy
CPT/HCPCS: 36415; 36600; 71045; 71275; 80048; 80053; 80061; 81001; 82803; 83605; 83735; 84100; 84443; 85025; 85610; 85730; 86850; 86900; 86901; 87070; 87205; 87449; 87633; 87641; 88108; 88305; 88313; 93005; 93880; 94003; 94640; 94660; 94762; 99252; 99285; Q9967; A4216; G0463